=== PATIENT | male | born 1935 | race Caucasian/White ===

== ENCOUNTER 2020-01-25 12:58 | Outpatient (REF) | payer MEDICARE, SELFPAY | END 2020-01-25 12:59 | disposition home or self-care (01) | LOC: HO.LAB 12:58 | PROVIDERS: Visit Provider Internal Medicine | DX: Z20.828 Contact with and (suspected) exposure to other viral communicable diseases (principal) | CPT/HCPCS: C9803; U0003 ==

== ENCOUNTER 2022-04-13 17:06 | Inpatient (IN) | payer MEDICARE, MEDICAID, SELFPAY ==
--- NOTE | ~2022-04-13 | CT_ITS ---
EXAMINATION: CT head/brain wo IV con CLINICAL INFORMATION: confused COMPARISON: None. TECHNIQUE: Contiguous axial imaging was performed from the skull base to vertex without intravenous contrast. Sagittal and coronal reformatted images were obtained. This CT examination was performed using dose optimization techniques as appropriate, variously including the following: * Automated exposure control * Adjustment of mA and/or kV according to patient size (this includes techniques or standardized protocols for targeted exams where dose is matched to indication/reason for exam; i.e. extremities or head) Use of iterative reconstruction technique DLP: 620 mGy-cm FINDINGS: Moderate generalized parenchymal volume loss. Patchy periventricular and deep white matter hypoattenuation is consistent with mild small vessel ischemic changes. 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 No acute intracranial hemorrhage or extra-axial fluid collection. No mass lesion, significant mass effect, or herniation pattern. Intracranial calcific atherosclerotic disease. The orbits are incompletely imaged, however there is fatty deposition within the bilateral superior rectus muscles with slight fusiform expansion, which may be seen in the setting of thyroid eye disease; correlate clinically. Chronic mild mucoperiosteal thickening of the left sphenoid sinus compatible with sequelae of chronic sinusitis. Trace left mastoid effusion with air-fluid levels. Osseous structures are intact. CT/CT head/brain wo IV con IMPRESSION: 1. Moderate volume loss with mild chronic microangiopathy. 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 2. The orbits are incompletely imaged, however there is fatty deposition within the bilateral superior rectus muscles with slight fusiform expansion, which may be seen in the setting of thyroid eye disease; correlate clinically.
--- NOTE | ~2022-04-13 | US_ITS ---
EXAMINATION: ULTRASOUND-GUIDED PARACENTESIS. CLINICAL INFORMATION: Ascites COMPARISON: None TECHNIQUE: Following explaining ultrasound-guided paracentesis procedure, benefits and risk a written consent was obtained. Patient was placed supine on ultrasound stretcher and placed within the ultrasound imaging was obtained. An optimal site was selected along the right upper quadrant. The area was marked, cleaned, cleaned and draped in usual sterile manner. 1% lidocaine was injected puncture site. Under sterile ultrasound guidance a 4 [place] Yueh catheter was advanced into the right perihepatic fluid collection and simple aspiration was performed for diagnostic purposes. Postprocedure needle was withdrawn and complete hemostasis achieved at puncture site. Patient tolerated procedure extremely well. Sterile dressing applied postprocedure. FINDINGS: On preliminary ultrasound imaging there is small amount of fluid seen in right upper quadrant perihepatic space. Approximately 250 mL cloudy yellowish fluid was drained from the right upper quadrant. Part of this fluid was sent to lab as per physician's request. US/US paracentesis abd w/image IMPRESSION: Successful ultrasound guided diagnostic paracentesis performed without immediate complications.
--- NOTE | ~2022-04-13 | CT_ITS ---
EXAMINATION: CT CHEST, ABDOMEN AND PELVIS WITHOUT CONTRAST CLINICAL INFORMATION: Edema, pain, shortness of breath COMPARISON: None TECHNIQUE: Multidetector volumetric imaging was performed from the thoracic inlet through the pubic symphysis. Sagittal and coronal reformatted images were obtained on the technologist's workstation. Axial MIP volume rendering provided. This CT examination was performed using dose optimization techniques as appropriate, variously including the following: *Automated exposure control *Adjustment of mA and/or kV according to patient size (this includes techniques or standardized protocols for targeted exams where dose is matched to indication/reason for exam; i.e. extremities or head) *Use of iterative reconstruction technique DLP: 424, 1048 mGy-cm FINDINGS: CHEST: Lungs: There is partial opacification of the right middle and lower lobes suspected to reflect atelectasis in the setting of moderate to large pleural effusion. No additional consolidation bilaterally. Mediastinum: Visualized thyroid gland is unremarkable. There are subcentimeter mediastinal lymph nodes within the range of normal variation. There is cardiomegaly without pericardial effusion. There is atherosclerotic calcification along the aorta. Coronary Artery Calcification: Present. 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 Pleura: Moderate to large right pleural effusion. Small left pleural effusion. No pneumothorax. Chest Wall/Axilla: No axillary lymphadenopathy is present. Status post sternotomy. ABDOMEN/PELVIS: Liver, Gallbladder, Biliary Tree: The liver is normal in size, shape, and attenuation. No focal hepatic lesion or biliary ductal dilatation is identified. Small gallstone is suspected. Pancreas: Moderately atrophic. Spleen: Unremarkable. Adrenal Glands: Unremarkable. Kidneys and Ureters: No hydronephrosis or obstructing calculus bilaterally. There is an approximately 3.2 cm right renal cyst; no follow-up recommended. Bladder: Unremarkable. Gastrointestinal Tract: There is colonic diverticulosis without convincing diverticulitis. No evidence of bowel obstruction or significant wall thickening. Appendix appears nondilated. Moderate volume of ascites is present. No free air is seen. Abdominal Wall: Bilateral fat-containing inguinal hernias. Anasarca noted. Lymphovascular Structures: Lymph nodes: Normal. Vascular: Moderate vascular calcifications are present. Pelvic Viscera: The prostate gland is enlarged, measuring 5.4 cm in transverse diameter. OSSEOUS STRUCTURES: Unremarkable. CT/CT abdomen pelvis wo IV con IMPRESSION: 1. Moderate to large right and small left pleural effusions. Partial opacification of the right middle and lower lobes, suspected to reflect atelectasis in this setting. 2. Moderate volume of ascites. 3. Anasarca. 4. Cardiomegaly. 5. Cholelithiasis.
[2022-04-13 17:15] VITALS: BP 160/78; PULSE 60; O2SAT 96
--- NOTE | 2022-04-13 17:16 | ED_ITS ---
HPI - General Adult General Chief complaint: General Medical <LAYTON Oscar - Last Filed: 04/13/22 17:17> Stated complaint: exposure to element <LAYTON Oscar - Last Filed: 04/13/22 17:17> Time Seen by Provider: 04/13/22 17:43 <LAYTON Oscar - Last Filed: 04/13/22 17:17> Source: patient <Sunita Mcgill NP - Last Filed: 04/14/22 01:38> Mode of arrival: ambulatory <Sunita Mcgill NP - Last Filed: 04/14/22 01:38> Limitations: language barrier <Sunita Mcgill NP - Last Filed: 04/14/22 01:38> History of Present Illness HPI narrative: 86-year-old male presents via EMS for prolonged cold exposure. <Sunita Mcgill NP - Last Filed: 04/14/22 01:38> Onset (ago): hour(s) (Within the hour of arrival) <Sunita Mcgill NP - Last Filed: 04/14/22 01:38> Severity: mild <Sunita Mcgill NP - Last Filed: 04/14/22 01:38> Associated symptoms: denies other symptoms <Sunita Mcgill NP - Last Filed: 04/14/22 01:38> Related Data Allergies/adverse reactions: Allergies Allergy/AdvReac Type Severity Reaction Status Date / Time No Known Allergies Allergy Unverified 11/26/19 16:02 <LAYTON Oscar - Last Filed: 04/13/22 17:17> Review of Systems Review of Systems: Constitutional: No Fever, No Chills ENT/Mouth: No Ear Pain, No Hoarseness, No sore throat Eyes: No Eye Pain, No Swelling, No Redness, No Foreign Body Cardiovascular: No Chest Pain, No SOB Respiratory: No Cough, No Dyspnea Gastrointestinal: No Nausea, No Vomiting, No Diarrhea, No abdominal Pain Genitourinary: No Dysuria, No Hematuria Musculoskeletal: positive bilateral hand pain, No Myalgias, No Joint Swelling Skin: No Skin lacerations, No rash Neuro: No Weakness, No Numbness, No Paresthesias <Sunita Mcgill NP - Last Filed: 04/14/22 01:38> Yes all other systems are reviewed and are negative <Sunita Mcgill NP - Last Filed: 04/14/22 01:38> PMF Past Medical History Attestation statement: The following information was validated with the patient. <Sunita Mcgill NP - Last Filed: 04/14/22 01:38> Source: old records reviewed <Sunita Mcgill NP - Last Filed: 04/14/22 01:38> Social History Social History: Social History Alcohol intake: former Smoked in Last 30 Days: No Use of substances other than those prescribed or required for medical reasons: No Advance Directives: No Advance Directives Information Provided: No <LAYTON Oscar - Last Filed: 04/13/22 17:17> Physical Exam ED Vital Signs: Vital Signs - 24 hr 04/13/22 17:21 04/13/22 18:00 04/13/22 20:11 Temperature Pulse Rate 94 96 Respiratory Rate 17 Blood Pressure 183/69 H 155/83 H 153/74 H Pulse Oximetry 99 98 Oxygen Delivery Method Room Air Room Air 04/13/22 23:03 04/14/22 03:18 Temperature 97.7 F 97.6 F Pulse Rate 97 97 Respiratory Rate 20 20 Blood Pressure 164/94 H 146/73 H Pulse Oximetry 98 98 Oxygen Delivery Method Room Air Room Air BMI result Body Mass Index 27.4 <LAYTON Oscar - Last Filed: 04/13/22 17:17> Vital Signs - 24 hr 04/13/22 17:21 04/13/22 18:00 04/13/22 20:11 Temperature Pulse Rate 94 96 Respiratory Rate 17 Blood Pressure 183/69 H 155/83 H 153/74 H Pulse Oximetry 99 98 Oxygen Delivery Method Room Air Room Air 04/13/22 23:03 04/14/22 03:18 Temperature 97.7 F 97.6 F Pulse Rate 97 97 Respiratory Rate 20 20 Blood Pressure 164/94 H 146/73 H Pulse Oximetry 98 98 Oxygen Delivery Method Room Air Room Air BMI result Body Mass Index 27.4 <Sunita Mcgill NP - Last Filed: 04/14/22 01:38> Vital Signs - 24 hr 04/13/22 17:21 02/03/23 18:00 04/13/22 20:11 Temperature Pulse Rate 94 96 Respiratory Rate 17 Blood Pressure 183/69 H 155/83 H 153/74 H Pulse Oximetry 99 98 Oxygen Delivery Method Room Air Room Air 04/13/22 23:03 04/14/22 03:18 Temperature 97.7 F 97.6 F Pulse Rate 97 97 Respiratory Rate 20 20 Blood Pressure 164/94 H 146/73 H Pulse Oximetry 98 98 Oxygen Delivery Method Room Air Room Air BMI result Body Mass Index 27.4 <Delilah Richter MD - Last Filed: 04/14/22 03:43> Appearance: Alert. Oriented. No acute distress. Poor dentition. Eyes: Pupils equal, round and reactive to light. ENT: Pharynx normal. Neck: Normal inspection. Neck supple. CVS: Normal heart rate and rhythm. Pulses normal. Respiratory: No respiratory distress. Breath sounds normal. Abdomen: Soft and nontender. Skin: Skin warm and dry. Normal skin color. Normal skin turgor. Extremities: Bilateral extremity edema per baseline. Gait balance and coordinated. Neuro: No motor deficit. No sensory deficit. Cranial nerves 2-12 intact. <Sunita Mcgill NP - Last Filed: 04/14/22 01:38> Course Course Course Narrative: RME performed by Tawana Mendoza PA-C. Patient is a 86 year old male presenting to the emergency department because he was left outside by his family to walk home from the train station. Patient states that he has no complaints, he was just cold and was brought here. Patient placed back in the waiting room pending room availability. <LAYTON Oscar - Last Filed: 04/13/22 17:17> RME performed by Tawana Mendoza PA-C. Patient is a 86 year old male presenting to the emergency department because he was left outside by his family to walk home from the train station. Patient states that he has no complaints, he was just cold and was brought here. Patient placed back in the waiting room pending room availability. 86-year-old male presents via EMS for cold exposure. Patient got off the train, was walking down the street and car driving by called 911. Patient states he do es not have any medical complaints other than being cold. Patient is able to move all digits, no indication of frostbite to fingers or toes. Patient states that he left all of his luggage at the corner of [address] and the [address] station in [facility]. Plan of care is to discharge home. Patient is unable to contact family. Case Management was ordered, further investigation into his story reveals a convoluted report on how he got to [place]. Patient was not established resident here in 2020, lost his insurance. Stated that he moved to [place] with his daughter. He presents today to ?take care of some stuff?. It is unknown if patient is confused or if he is just evading questions due to the situation. Patient states that he has left his luggage on the corner of [address] in [place] because he could not carry it. Physical exam is unremarkable, he does have edema baseline, and does not remember what his medications are. We will board this patient under physician observation for further investigation. Will order labs CBC chemistry and urine. Labs indicate elevated BUN and creatinine. Will give 2 L of fluids and repeat lab values. Prior values dating back to 2019 indicated BUN of 20 and a creatinine of 1.66. Review of records indicate that patient has a history of GI bleed, NSTEMI, hyperlipidemia, hypertension and diabetes. Police officers were able to find his luggage, they have retained his medications at the police station due to abandonment. Sign-out to Dr. Richter. <Sunita Mcgill NP - Last Filed: 04/14/22 01:38> RME performed by Tawana Mendoza PA-C. Patient is a 86 year old male presenting to the emergency department because he was left outside by his family to walk home from the train station. Patient states that he has no complaints, he was just cold and was brought here. Patient placed back in the waiting room pending room availability. 86-year-old male presents via EMS for cold exposure. Patient got off the train, was walking down the street and car driving by called 911. Patient states he does not have any medical complaints other than being cold. Patient is able to move all digits, no indication of frostbite to fingers or toes. Patient states that he left all of his luggage at the corner of [address] and the bus station in [facility]. Plan of care is to discharge home. Patient is unable to contact family. Case Management was ordered, further investigation into his story reveals a convoluted report on how he got to [place]. Patient was not established resident here in 2020, lost his insurance. Stated that he moved to [place] with his daughter. He presents today to ?take care of some stuff?. It is unknown if patient is confused or if he is just evading questions due to the situation. Patient states that he has left his luggage on the corner of [address] in [place] because he could not carry it. Physical exam is unremarkable, he does have edema baseline, and does not remember what his medications are. We will board this patient under physician observation for further investigation. Will order labs CBC chemistry and urine. Labs indicate elevated BUN and creatinine. Will give 2 L of fluids and repeat lab values. Prior values dating back to 2019 indicated BUN of 20 and a creatinine of 1.66. Review of records indicate that patient has a history of GI bleed, NSTEMI, hyperlipidemia, hypertension and diabetes. Police officers were able to find his luggage, they have retained his medications at the police station due to abandonment. Sign-out to Dr. Richter. 0231: I followed up on patient's chart repeat chemistries which showed mild improvement in his renal function, however I a calculated in the ratio of BUN to creatinine which raise concerns for me that this was pre renal in nature as opp osed to intrinsic failure. Initially I was going to pursue a chest x-ray and BNP for further evaluation, however I evaluated the patient at bedside and he demonstrates significant increase in work of breathing although his oxygenation appears to be well within normal limits at 97%, patient states that he feels increasing shortness of breath. On my evaluation I have noted that his bilateral hands are edematous with formation of blisters that he attributes to having been exposed to the cold. In addition, I have noted that he has significant abdominal wall pitting edema and on doing a bedside ultrasound he appears to have fluid overload with a pleural effusion on the right in suspected pneumonia and noted abdominal ascites. At this time, I will pursue: CT chest/abdomen/pelvis, BNP, liver panel, viral testing, 80 mg of Lasix, and in the meantime attempts to get patient's medication list from the police department who is declining to release the medication or even to discuss the names of the medication as they are being considered abandoned medicine?. [id number]: On review of all documentation from 2014 I have found that patient has a past medical history of asthma, hypertension, diabetes, dyslipidemia, CAD (status post CABG), ex smoker as well as alcohol use disorder and has been seen in the ED for NSTEMI, GI Bleed(Gastric Ulcer),Hypertensive Urgency. 45 minutes of critical care log. I personally attest to this time spent taking care of the patient. <Delilah Richter MD - Last Filed: 04/14/22 03:43> Consultations Consultation #1: Case management. <Sunita Mcgill NP - Last Filed: 04/14/22 01:38> Medications Administered Discontinued Medications Generic Name Dose Route Start Last Admin Trade Name Freq PRN Reason Stop Dose Admin Furosemide 80 mg 04/14/22 02:30 04/14/22 03:19 Furosemide 100 Mg/10 Ml Vial IVPUSH 04/14/22 02:31 80 mg ONCE ONE Administration Protocol Sodium Chloride 1,000 mls @ 999 mls/hr 04/13/22 22:15 04/13/22 23:55 Ns IVCONT 04/13/22 23:15 Infused .Q1H1M BLU Infusion Sodium Chloride 1,000 mls @ 999 mls/hr 04/13/22 23:45 04/14/22 01:18 Ns IV 04/14/22 00:45 Infused .Q1H1M BLU Infusion <LAYTON Oscar - Last Filed: 04/13/22 17:17> Medications Administered Discontinued Medications Generic Name Dose Route Start Last Admin Trade Name Freq PRN Reason Stop Dose Admin Furosemide 80 mg 04/14/22 02:30 04/14/22 03:19 Furosemide 100 Mg/10 Ml Vial IVPUSH 04/14/22 02:31 80 mg ONCE ONE Administration Protocol Sodium Chloride 1,000 mls @ 999 mls/hr 04/13/22 22:15 04/13/22 23:55 Ns IVCONT 04/13/22 23:15 Infused .Q1H1M BLU Infusion Sodium Chloride 1,000 mls @ 999 mls/hr 04/13/22 23:45 04/14/22 01:18 Ns IV 04/14/22 00:45 Infused .Q1H1M BLU Infusion <Sunita Mcgill NP - Last Filed: 04/14/22 01:38> Medications Administered Discontinued Medications Generic Name Dose Route Start Last Admin Trade Name Yasmine PRN Reason Stop Dose Admin Furosemide 80 mg 04/14/22 02:30 04/14/22 03:19 Furosemide 100 Mg/10 Ml Vial IVPUSH 04/14/22 02:31 80 mg ONCE ONE Administration Protocol Sodium Chloride 1,000 mls @ 999 mls/hr 04/13/22 22:15 04/13/22 23:55 Ns IVCONT 04/13/22 23:15 Infused .Q1H1M BLU Infusion Sodium Chloride 1,000 mls @ 999 mls/hr 04/13/22 23:45 04/14/22 01:18 Ns IV 04/14/22 00:45 Infused .Q1H1M BLU Infusion <Delilah Richter MD - Last Filed: 04/14/22 03:43> Medical Decision Making Differential Diagnosis Differential Diagnoses: The differential diagnosis associated with the presentation includes <Ca larry Mcgill NP - Last Filed: 04/14/22 01:38> Hypothermia <Sunita Mcgill NP - Last Filed: 04/14/22 01:38> Consult Healthcare Provider Management of the patient was discussed with: Program Director Group Work <Sunita Mcgill NP - Last Filed: 04/14/22 01:38> Case management <Sunita Mcgill NP - Last Filed: 04/14/22 01:38> Lab Data MDM Lab Attestation statement: I reviewed the patient's lab results. <Sunita Mcgill NP - Last Filed: 04/14/22 01:38> Result Diagrams: 04/13/22 20:56 04/13/22 20:56 <LAYTON Oscar - Last Filed: 04/13/22 17:17> Labs: Lab Results 04/13/22 04/13/22 04/13/22 Range/Units 20:56 20:56 20:56 WBC 7.5 (4.8-10.8) X10*3/uL RBC 4.83 (4.60-5.80) X10*6/uL Hgb 11.5 L (14.0-18.0) g/dl Hct 38.7 L (42.0-52.0) % MCV 80.1 (80.0-98.0) fL MCH 23.8 L (27.0-33.0) pg MCHC 29.7 L (31.0-36.0) g/dl RDW 17.5 H (11.0-16.0) % Plt Count 291 (160-400) X10*3/uL MPV 10.4 (9.4-12.4) fL Immature Gran % (Auto) 0.3 (0.0-0.4) % Neut % (Auto) 86.4 H (45-73) % Lymph % (Auto) 7.1 L (20-40) % Coal % (Auto) 5.7 (2-11) % Eos % (Auto) 0.1 (0-4) % Baso % (Auto) 0.4 (0-2) % Lymph # (Auto) 0.5 L (1.2-4.9) X10*3/uL Coal # (Auto) 0.4 (0.1-1.2) X10*3/uL Eos # (Auto) 0.0 (0.0-0.4) X10*3/uL Baso # (Auto) 0.0 (0.0-0.2) X10*3/uL Abs Immat Gran (auto) 0.02 (0.00-0.03) X10*3/uL Absolute Neuts (auto) 6.5 (2.0-8.3) x10*3/uL Absolute Nucleated RBC 0.000 (0.0-0.012) X10*3/uL Nucleated RBC % (auto) 0.0 (0.0-0.2) /100WBC Sodium 143 (135-145) mmol/L Potassium 4.7 (3.3-5.1) mmol/L Chloride 108 (96-108) mmol/L Carbon Dioxide 20 L (22-29) mmol/L Anion Gap 20 (12-20) BUN 35 H (9-16) mg/dL Creatinine 1.78 H (0.5-1.4) mg/dL Estim Creat Clear Calc 29.2 Estimated GFR 37 Random Glucose 114 (60-115) mg/dL Calcium 9.5 (8.4-10.2) mg/dL Total Bilirubin 2.0 H (0.0-1.0) mg/dL Direct Bilirubin 0.9 H (0.0-0.5) mg/dL AST 24 (5-37) U/L ALT 19 (0-40) U/L Alkaline Phosphatase 106 (39-117) U/L B-Natriuretic Peptide (<100) pg/mL Total Protein 6.2 L (6.5-8.0) g/dL Albumin 3.7 (3.5-5.0) g/dL Urine Color Urine Appearance Urine pH (5.0-9.0) Ur Specific [place] (1.005-1.025) Urine Protein (Neg-Trace) mg/dL Urine Glucose (UA) (Negative) mg/dL Urine Ketones (Negative) mg/dL Urine Blood (Negative) Urine Nitrite (Negative) Ur Leukocyte Esterase (Negative) Urine RBC (0-2) /HPF Urine WBC (0-5) /HPF Ur Squamous Epith Cells (0-2) /HPF Urine Bacteria (None Seen) Hyaline Casts (0-2) /LPF Urine Opiates Screen (Not Detect) Urine Fentanyl Screen (Not Detect) Ur Barbiturates Screen (Not Detect) Ur Phencyclidine Scrn (Not Detect) Ur Amphetamines Screen (Not Detect) U Benzodiazepines Scrn (Not Detect) Urine Cocaine Screen (Not Detect) U Marijuana (THC) Screen (Not Detect) Ethyl Alcohol < 10 mg/dL COVID-19 ([facility]) (Negative) COVID-19 Clin Com Influenza Type A (SALLIE) (Negative) Influenza Type B (SALLIE) (Negative) Influenza A & B Note 04/13/22 04/13/22 04/14/22 Range/Units 22:47 22:47 01:15 WBC (4.8-10.8) X10*3/uL RBC (4.60-5.80) X10*6/uL Hgb (14.0-18.0) g/dl Hct (42.0-52.0) % MCV (80.0-98.0) fL MCH (27.0-33.0) pg MCHC (31.0-36.0) g/dl RDW (11.0-16.0) % Plt Count (160-400) X10*3/uL MPV (9.4-12.4) fL Immature Gran % (Auto) (0.0-0.4) % Neut % (Auto) (45-73) % Lymph % (Auto) (20-40) % Coal % (Auto) (2-11) % Eos % (Auto) (0-4) % Baso % (Auto) (0-2) % Lymph # (Auto) (1.2-4.9) X10*3/uL Coal # (Auto) (0.1-1.2) X10*3/uL Eos # (Auto) (0.0-0.4) X10*3/uL Baso # (Auto) (0.0-0.2) X10*3/uL Abs Immat Gran (auto) (0.00-0.03) X10*3/uL Absolute Neuts (auto) (2.0-8.3) x10*3/uL Absolute Nucleated RBC (0.0-0.012) X10*3/uL Nucleated RBC % (auto) (0.0-0.2) /100WBC Sodium 144 (135-145) mmol/L Potassium 4.6 (3.3-5.1) mmol/L Chloride 111 H (96-108) mmol/L Carbon Dioxide 17 L (22-29) mmol/L Anion Gap 21 H (12-20) BUN 33 H (9-16) mg/dL Creatinine 1.64 H (0.5-1.4) mg/dL Estim Creat Clear Calc 31.6 Estimated GFR 40 Random Glucose 94 (60-115) mg/dL Calcium 9.0 (8.4-10.2) mg/dL Total Bilirubin (0.0-1.0) mg/dL Direct Bilirubin (0.0-0.5) mg/dL AST (5-37) U/L ALT (0-40) U/L Alkaline Phosphatase (39-117) U/L B-Natriuretic Peptide (<100) pg/mL Total Protein (6.5-8.0) g/dL Albumin (3.5-5.0) g/dL Urine Color Yellow Urine Appearance Clear Urine pH 5.5 (5.0-9.0) Ur Specific [place] 1.020 (1.005-1.025) Urine Protein 100 (2+) H (Neg-Trace) mg/dL Urine Glucose (UA) Negative (Negative) mg/dL Urine Ketones Negative (Negative) mg/dL Urine Blood Negative (Negative) Urine Nitrite Negative (Negative) Ur Leukocyte Esterase Small (1+) H (Negative) Urine RBC 0-2 (0-2) /HPF Urine WBC 0-5 (0-5) /HPF Ur Squamous Epith Cells 0-2 (0-2) /HPF Urine Bacteria None Seen (None Seen) Hyaline Casts 3-5 (0-2) /LPF Urine Opiates Screen Not Detected (Not Detect) Urine Fentanyl Screen Not Detected (Not Detect) Ur Barbiturates Screen Not Detected (Not Detect) Ur Phencyclidine Scrn Not Detected (Not Detect) Ur Amphetamines Screen Not Detected (Not Detect) U Benzodiazepines Scrn Not Detected (Not Detect) Urine Cocaine Screen Not Detected (Not Detect) U Marijuana (THC) Screen Not Detected (Not Detect) Ethyl Alcohol mg/dL COVID-19 ([facility]) (Negative) COVID-19 Clin Com Influenza Type A (SALLIE) (Negative) Influenza Type B (SALLIE) (Negative) Influenza A & B Note 04/14/22 04/14/22 04/14/22 Range/Units 02:20 02:20 02:20 WBC (4.8-10.8) X10*3/uL RBC (4.60-5.80) X10*6/uL Hgb (14.0-18.0) g/dl Hct (42.0-52.0) % MCV (80.0-98.0) fL MCH (27.0-33.0) pg MCHC (31.0-36.0) g/dl RDW (11.0-16.0) % Plt Count (160-400) X10*3/uL MPV (9.4-12.4) fL Immature Gran % (Auto) (0.0-0.4) % Neut % (Auto) (45-73) % Lymph % (Auto) (20-40) % Coal % (Auto) (2-11) % Eos % (Auto) (0-4) % Baso % (Auto) (0-2) % Lymph # (Auto) (1.2-4.9) X10*3/uL Coal # (Auto) (0.1-1.2) X10*3/uL Eos # (Auto) (0.0-0.4) X10*3/uL Baso # (Auto) (0.0-0.2) X10*3/uL Abs Immat Gran (auto) (0.00-0.03) X10*3/uL Absolute Neuts (auto) (2.0-8.3) x10*3/uL Absolute Nucleated RBC (0.0-0.012) X10*3/uL Nucleated RBC % (auto) (0.0-0.2) /100WBC Sodium (135-145) mmol/L Potassium (3.3-5.1) mmol/L Chloride (96-108) mmol/L Carbon Dioxide (22-29) mmol/L Anion Gap (12-20) BUN (9-16) mg/dL Creatinine (0.5-1.4) mg/dL Estim Creat Clear Calc Estimated GFR Random Glucose (60-115) mg/dL Calcium (8.4-10.2) mg/dL Total Bilirubin (0.0-1.0) mg/dL Direct Bilirubin (0.0-0.5) mg/dL AST (5-37) U/L ALT (0-40) U/L Alkaline Phosphatase (39-117) U/L B-Natriuretic Peptide 3121 H (<100) pg/mL Total Protein (6.5-8.0) g/dL Albumin (3.5-5.0) g/dL Urine Color Urine Appearance Urine pH (5.0-9.0) Ur Specific [place] (1.005-1.025) Urine Protein (Neg-Trace) mg/dL Urine Glucose (UA) (Negative) mg/dL Urine Ketones (Negative) mg/dL Urine Blood (Negative) Urine Nitrite (Negative) Ur Leukocyte Esterase (Negative) Urine RBC (0-2) /HPF Urine WBC (0-5) /HPF Ur Squamous Epith Cells (0-2) /HPF Urine Bacteria (None Seen) Hyaline Casts (0-2) /LPF Urine Opiates Screen (Not Detect) Urine Fentanyl Screen (Not Detect) Ur Barbiturates Screen (Not Detect) Ur Phencyclidine Scrn (Not Detect) Ur Amphetamines Screen (Not Detect) U Benzodiazepines Scrn (Not Detect) Urine Cocaine Screen (Not Detect) U Marijuana (THC) Screen (Not Detect) Ethyl Alcohol mg/dL COVID-19 ([facility]) Negative (Negative) COVID-19 Clin Com See Note Influenza Type A (SALLIE) Negative (Negative) Influenza Type B (SALLIE) Negative (Negative) Influenza A & B Note See Note <LAYTON Oscar - Last Filed: 04/13/22 17:17> Lab Results 04/13/22 04/13/22 04/13/22 Range/Units 20:56 20:56 20:56 WBC 7.5 (4.8-10.8) X10*3/uL RBC 4.83 (4.60-5.80) X10*6/uL Hgb 11.5 L (14.0-18.0) g/dl Hct 38.7 L (42.0-52.0) % MCV 80.1 (80.0-98.0) fL MCH 23.8 L (27.0-33.0) pg MCHC 29.7 L (31.0-36.0) g/dl RDW 17.5 H (11.0-16.0) % Plt Count 291 (160-400) X10*3/uL MPV 10.4 (9.4-12.4) fL Immature Gran % (Auto) 0.3 (0.0-0.4) % Neut % (Auto) 86.4 H (45-73) % Lymph % (Auto) 7.1 L (20-40) % Coal % (Auto) 5.7 (2-11) % Eos % (Auto) 0.1 (0-4) % Baso % (Auto) 0.4 (0-2) % Lymph # (Auto) 0.5 L (1.2-4.9) X10*3/uL Coal # (Auto) 0.4 (0.1-1.2) X10*3/uL Eos # (Auto) 0.0 (0.0-0.4) X10*3/uL Baso # (Auto) 0.0 (0.0-0.2) X10*3/uL Abs Immat Gran (auto) 0.02 (0.00-0.03) X10*3/uL Absolute Neuts (auto) 6.5 (2.0-8.3) x10*3/uL Absolute Nucleated RBC 0.000 (0.0-0.012) X10*3/uL Nucleated RBC % (auto) 0.0 (0.0-0.2) /100WBC Sodium 143 (135-145) mmol/L Potassium 4.7 (3.3-5.1) mmol/L Chloride 108 (96-108) mmol/L Carbon Dioxide 20 L (22-29) mmol/L Anion Gap 20 (12-20) BUN 35 H (9-16) mg/dL Creatinine 1.78 H (0.5-1.4) mg/dL Estim Creat Clear Calc 29.2 Estimated GFR 37 Random Glucose 114 (60-115) mg/dL Calcium 9.5 (8.4-10.2) mg/dL Total Bilirubin 2.0 H (0.0-1.0) mg/dL Direct Bilirubin 0.9 H (0.0-0.5) mg/dL AST 24 (5-37) U/L ALT 19 (0-40) U/L Alkaline Phosphatase 106 (39-117) U/L B-Natriuretic Peptide (<100) pg/mL Total Protein 6.2 L (6.5-8.0) g/dL Albumin 3.7 (3.5-5.0) g/dL Urine Color Urine Appearance Urine pH (5.0-9.0) Ur Specific [place] (1.005-1.025) Urine Protein (Neg-Trace) mg/dL Urine Glucose (UA) (Negative) mg/dL Urine Ketones (Negative) mg/dL Urine Blood (Negative) Urine Nitrite (Negative) Ur Leukocyte Esterase (Negative) Urine RBC (0-2) /HPF Urine WBC (0-5) /HPF Ur Squamous Epith Cells (0-2) /HPF Urine Bacteria (None Seen) Hyaline Casts (0-2) /LPF Urine Opiates Screen (Not Detect) Urine Fentanyl Screen (Not Detect) Ur Barbiturates Screen (Not Detect) Ur Phencyclidine Scrn (Not Detect) Ur Amphetamines Screen (Not Detect) U Benzodiazepines Scrn (Not Detect) Urine Cocaine Screen (Not Detect) U Marijuana (THC) Screen (Not Detect) Ethyl Alcohol < 10 mg/dL COVID-19 ([facility]) (Negative) COVID-19 Clin Com Influenza Type A (SALLIE) (Negative) Influenza Type B ([facility]ALL[facility]) (Negative) Influenza A & B Note 04/13/22 04/13/22 04/14/22 Range/Units 22:47 22:47 01:15 WBC (4.8-10.8) X10*3/uL RBC (4.60-5.80) X10*6/uL Hgb (14.0-18.0) g/dl Hct (42.0-52.0) % MCV (80.0-98.0) fL MCH (27.0-33.0) pg MCHC (31.0-36.0) g/dl RDW (11.0-16.0) % Plt Count (160-400) X10*3/uL MPV (9.4-12.4) fL Immature Gran % (Auto) (0.0-0.4) % Neut % (Auto) (45-73) % Lymph % (Auto) (20-40) % Coal % (Auto) (2-11) % Eos % (Auto) (0-4) % Baso % (Auto) (0-2) % Lymph # (Auto) (1.2-4.9) X10*3/uL Coal # (Auto) (0.1-1.2) X10*3/uL Eos # (Auto) (0.0-0.4) X10*3/uL Baso # (Auto) (0.0-0.2) X10*3/uL Abs Immat Gran (auto) (0.00-0.03) X10*3/uL Absolute Neuts (auto) (2.0-8.3) x10*3/uL Absolute Nucleated RBC (0.0-0.012) X10*3/uL Nucleated RBC % (auto) (0.0-0.2) /100WBC Sodium 144 (135-145) mmol/L Potassium 4.6 (3.3-5.1) mmol/L Chloride 111 H (96-108) mmol/L Carbon Dioxide 17 L (22-29) mmol/L Anion Gap 21 H (12-20) BUN 33 H (9-16) mg/dL Creatinine 1.64 H (0.5-1.4) mg/dL Estim Creat Clear Calc 31.6 Estimated GFR 40 Random Glucose 94 (60-115) mg/dL Calcium 9.0 (8.4-10.2) mg/dL Total Bilirubin (0.0-1.0) mg/dL Direct Bilirubin (0.0-0.5) mg/dL AST (5-37) U/L ALT (0-40) U/L Alkaline Phosphatase (39-117) U/L B-Natriuretic Peptide (<100) pg/mL Total Protein (6.5-8.0) g/dL Albumin (3.5-5.0) g/dL Urine Color Yellow Urine Appearance Clear Urine pH 5.5 (5.0-9.0) Ur Specific [place] 1.020 (1.005-1.025) Urine Protein 100 (2+) H (Neg-Trace) mg/dL Urine Glucose (UA) Negative (Negative) mg/dL Urine Ketones Negative (Negative) mg/dL Urine Blood Negative (Negative) Urine Nitrite Negative (Negative) Ur Leukocyte Esterase Small (1+) H (Negative) Urine RBC 0-2 (0-2) /HPF Urine WBC 0-5 (0-5) /HPF Ur Squamous Epith Cells 0-2 (0-2) /HPF Urine Bacteria None Seen (None Seen) Hyaline Casts 3-5 (0-2) /LPF Urine Opiates Screen Not Detected (Not Detect) Urine Fentanyl Screen Not Detected (Not Detect) Ur Barbiturates Screen Not Detected (Not Detect) Ur Phencyclidine Scrn Not Detected (Not Detect) Ur Amphetamines Screen Not Detected (Not Detect) U Benzodiazepines Scrn Not Detected (Not Detect) Urine Cocaine Screen Not Detected (Not Detect) U Marijuana (THC) Screen Not Detected (Not Detect) Ethyl Alcohol mg/dL COVID-19 ([facility]) (Negative) COVID-19 Clin Com Influenza Type A (SALLIE) (Negative) Influenza Type B (SALLIE) (Negative) Influenza A & B Note 04/14/22 04/14/22 04/14/22 Range/Units 02:20 02:20 02:20 WBC (4.8-10.8) X10*3/uL RBC (4.60-5.80) X10*6/uL Hgb (14.0-18.0) g/dl Hct (42.0-52.0) % MCV (80.0-98.0) fL MCH (27.0-33.0) pg MCHC (31.0-36.0) g/dl RDW (11.0-16.0) % Plt Count (160-400) X10*3/uL MPV (9.4-12.4) fL Immature Gran % (Auto) (0.0-0.4) % Neut % (Auto) (45-73) % Lymph % (Auto) (20-40) % Coal % (Auto) (2-11) % Eos % (Auto) (0-4) % Baso % (Auto) (0-2) % Lymph # (Auto) (1.2-4.9) X10*3/uL Coal # (Auto) (0.1-1.2) X10*3/uL Eos # (Auto) (0.0-0.4) X10*3/uL Baso # (Auto) (0.0-0.2) X10*3/uL Abs Immat Gran (auto) (0.00-0.03) X10*3/uL Absolute Neuts (auto) (2.0-8.3) x10*3/uL Absolute Nucleated RBC (0.0-0.012) X10*3/uL Nucleated RBC % (auto) (0.0-0.2) /100WBC Sodium (135-145) mmol/L Potassium (3.3-5.1) mmol/L Chloride (96-108) mmol/L Carbon Dioxide (22-29) mmol/L Anion Gap (12-20) BUN (9-16) mg/dL Creatinine (0.5-1.4) mg/dL Estim Creat Clear Calc Estimated GFR Random Glucose (60-115) mg/dL Calcium (8.4-10.2) mg/dL Total Bilirubin (0.0-1.0) mg/dL Direct Bilirubin (0.0-0.5) mg/dL AST (5-37) U/L ALT (0-40) U/L Alkaline Phosphatase (39-117) U/L B-Natriuretic Peptide 3121 H (<100) pg/mL Total Protein (6.5-8.0) g/dL Albumin (3.5-5.0) g/dL Urine Color Urine Appearance Urine pH (5.0-9.0) Ur Specific [place] (1.005-1.025) Urine Protein (Neg-Trace) mg/dL Urine Glucose (UA) (Negative) mg/dL Urine Ketones (Negative) mg/dL Urine Blood (Negative) Urine Nitrite (Negative) Ur Leukocyte Esterase (Negative) Urine RBC (0-2) /HPF Urine WBC (0-5) /HPF Ur Squamous Epith Cells (0-2) /HPF Urine Bacteria (None Seen) Hyaline Casts (0-2) /LPF Urine Opiates Screen (Not Detect) Urine Fentanyl Screen (Not Detect) Ur Barbiturates Screen (Not Detect) Ur Phencyclidine Scrn (Not Detect) Ur Amphetamines Screen (Not Detect) U Benzodiazepines Scrn (Not Detect) Urine Cocaine Screen (Not Detect) U Marijuana (THC) Screen (Not Detect) Ethyl Alcohol mg/dL COVID-19 ([facility]) Negative (Negative) COVID-19 Clin Com See Note Influenza Type A (SALLIE) Negative (Negative) Influenza Type B (SALLIE) Negative (Negative) Influenza A & B Note See Note <Sunita Mcgill, BRIM PRESSER - Last Filed: 04/14/22 01:38> Lab Results 04/13/22 04/13/22 04/13/22 Range/Units 20:56 20:56 20:56 WBC 7.5 (4.8-10.8) X10*3/uL RBC 4.83 (4.60-5.80) X10*6/uL Hgb 11.5 L (14.0-18.0) g/dl Hct 38.7 L (42.0-52.0) % MCV 80.1 (80.0-98.0) fL MCH 23.8 L (27.0-33.0) pg MCHC 29.7 L (31.0-36.0) g/dl RDW 17.5 H (11.0-16.0) % Plt Count 291 (160-400) X10*3/uL MPV 10.4 (9.4-12.4) fL Immature Gran % (Auto) 0.3 (0.0-0.4) % Neut % (Auto) 86.4 H (45-73) % Lymph % (Auto) 7.1 L (20-40) % Coal % (Auto) 5.7 (2-11) % Eos % (Auto) 0.1 (0-4) % Baso % (Auto) 0.4 (0-2) % Lymph # (Auto) 0.5 L (1.2-4.9) X10*3/uL Coal # (Auto) 0.4 (0.1-1.2) X10*3/uL Eos # (Auto) 0.0 (0.0-0.4) X10*3/uL Baso # (Auto) 0.0 (0.0-0.2) X10*3/uL Abs Immat Gran (auto) 0.02 (0.00-0.03) X10*3/uL Absolute Neuts (auto) 6.5 (2.0-8.3) x10*3/uL Absolute Nucleated RBC 0.000 (0.0-0.012) X10*3/uL Nucleated RBC % (auto) 0.0 (0.0-0.2) /100WBC Sodium 143 (135-145) mmol/L Potassium 4.7 (3.3-5.1) mmol/L Chloride 108 (96-108) mmol/L Carbon Dioxide 20 L (22-29) mmol/L Anion Gap 20 (12-20) BUN 35 H (9-16) mg/dL Creatinine 1.78 H (0.5-1.4) mg/dL Estim Creat Clear Calc 29.2 Estimated GFR 37 Random Glucose 114 (60-115) mg/dL Calcium 9.5 (8.4-10.2) mg/dL Total Bilirubin 2.0 H (0.0-1.0) mg/dL Direct Bilirubin 0.9 H (0.0-0.5) mg/dL AST 24 (5-37) U/L ALT 19 (0-40) U/L Alkaline Phosphatase 106 (39-117) U/L B-Natriuretic Peptide (<100) pg/mL Total Protein 6.2 L (6.5-8.0) g/dL Albumin 3.7 (3.5-5.0) g/dL Urine Color Urine Appearance Urine pH (5.0-9.0) Ur Specific [place] (1.005-1.025) Urine Protein (Neg-Trace) mg/dL Urine Glucose (UA) (Negative) mg/dL Urine Ketones (Negative) mg/dL Urine Blood (Negative) Urine Nitrite (Negative) Ur Leukocyte Esterase (Negative) Urine RBC (0-2) /HPF Urine WBC (0-5) /HPF Ur Squamous Epith Cells (0-2) /HPF Urine Bacteria (None Seen) Hyaline Casts (0-2) /LPF Urine Opiates Screen (Not Detect) Urine Fentanyl Screen (Not Detect) Ur Barbiturates Screen (Not Detect) Ur Phencyclidine Scrn (Not Detect) Ur Amphetamines Screen (Not Detect) U Benzodiazepines Scrn (Not Detect) Urine Cocaine Screen (Not Detect) U Marijuana (THC) Screen (Not Detect) Ethyl Alcohol < 10 mg/dL COVID-19 ([facility]) (Negative) COVID-19 Clin Com Influenza Type A ([facility]ALLIE) (Negative) Influenza Type B ([facility]ALLIE) (Negative) Influenza A & B Note 04/13/22 04/13/22 04/14/22 Range/Units 22:47 22:47 01:15 WBC (4.8-10.8) X10*3/uL RBC (4.60-5.80) X10*6/uL Hgb (14.0-18.0) g/dl Hct (42.0-52.0) % MCV (80.0-98.0) fL MCH (27.0-33.0) pg MCHC (31.0-36.0) g/dl RDW (11.0-16.0) % Plt Count (160-400) X10*3/uL MPV (9.4-12.4) fL Immature Gran % (Auto) (0.0-0.4) % Neut % (Auto) (45-73) % Lymph % (Auto) (20-40) % Coal % (Auto) (2-11) % Eos % (Auto) (0-4) % Baso % (Auto) (0-2) % Lymph # (Auto) (1.2-4.9) X10*3/uL Coal # (Auto) (0.1-1.2) X10*3/uL Eos # (Auto) (0.0-0.4) X10*3/uL Baso # (Auto) (0.0-0.2) X10*3/uL Abs Immat Gran (auto) (0.00-0.03) X10*3/uL Absolute Neuts (auto) (2.0-8.3) x10*3/uL Absolute Nucleated RBC (0.0-0.012) X10*3/uL Nucleated RBC % (auto) (0.0-0.2) /100WBC Sodium 144 (135-145) mmol/L Potassium 4.6 (3.3-5.1) mmol/L Chloride 111 H (96-108) mmol/L Carbon Dioxide 17 L (22-29) mmol/L Anion Gap 21 H (12-20) BUN 33 H (9-16) mg/dL Creatinine 1.64 H (0.5-1.4) mg/dL Estim Creat Clear Calc 31.6 Estimated GFR 40 Random Glucose 94 (60-115) mg/dL Calcium 9.0 (8.4-10.2) mg/dL Total Bilirubin (0.0-1.0) mg/dL Direct Bilirubin (0.0-0.5) mg/dL AST (5-37) U/L ALT (0-40) U/L Alkaline Phosphatase (39-117) U/L B-Natriuretic Peptide (<100) pg/mL Total Protein (6.5-8.0) g/dL Albumin (3.5-5.0) g/dL Urine Color Yellow Urine Appearance Clear Urine pH 5.5 (5.0-9.0) Ur Specific [place] 1.020 (1.005-1.025) Urine Protein 100 (2+) H (Neg-Trace) mg/dL Urine Glucose (UA) Negative (Negative) mg/dL Urine Ketones Negative (Negative) mg/dL Urine Blood Negative (Negative) Urine Nitrite Negative (Negative) Ur Leukocyte Esterase Small (1+) H (Negative) Urine RBC 0-2 (0-2) /HPF Urine WBC 0-5 (0-5) /HPF Ur Squamous Epith Cells 0-2 (0-2) /HPF Urine Bacteria None Seen (None Seen) Hyaline Casts 3-5 (0-2) /LPF Urine Opiates Screen Not Detected (Not Detect) Urine Fentanyl Screen Not Detected (Not Detect) Ur Barbiturates Screen Not Detected (Not Detect) Ur Phencyclidine Scrn Not Detected (Not Detect) Ur Amphetamines Screen Not Detected (Not Detect) U Benzodiazepines Scrn Not Detected (Not Detect) Urine Cocaine Screen Not Detected (Not Detect) U Marijuana (THC) Screen Not Detected (Not Detect) Ethyl Alcohol mg/dL COVID-19 ([facility]) (Negative) COVID-19 Clin Com Influenza Type A (SALLIE) (Negative) Influenza Type B ([facility]IE) (Negative) Influenza A & B Note 04/14/22 04/14/22 04/14/22 Range/Units 02:20 02:20 02:20 WBC (4.8-10.8) X10*3/uL RBC (4.60-5.80) X10*6/uL Hgb (14.0-18.0) g/dl Hct (42.0-52.0) % MCV (80.0-98.0) fL MCH (27.0-33.0) pg MCHC (31.0-36.0) g/dl RDW (11.0-16.0) % Plt Count (160-400) X10*3/uL MPV (9.4-12.4) fL Immature Gran % (Auto) (0.0-0.4) % Neut % (Auto) (45-73) % Lymph % (Auto) (20-40) % Coal % (Auto) (2-11) % Eos % (Auto) (0-4) % Baso % (Auto) (0-2) % Lymph # (Auto) (1.2-4.9) X10*3/uL Coal # (Auto) (0.1-1.2) X10*3/uL Eos # (Auto) (0.0-0.4) X10*3/uL Baso # (Auto) (0.0-0.2) X10*3/uL Abs Immat Gran (auto) (0.00-0.03) X10*3/uL Absolute Neuts (auto) (2.0-8.3) x10*3/uL Absolute Nucleated RBC (0.0-0.012) X10*3/uL Nucleated RBC % (auto) (0.0-0.2) /100WBC Sodium (135-145) mmol/L Potassium (3.3-5.1) mmol/L Chloride (96-108) mmol/L Carbon Dioxide (22-29) mmol/L Anion Gap (12-20) BUN (9-16) mg/dL Creatinine (0.5-1.4) mg/dL Estim Creat Clear Calc Estimated GFR Random Glucose (60-115) mg/dL Calcium (8.4-10.2) mg/dL Total Bilirubin (0.0-1.0) mg/dL Direct Bilirubin (0.0-0.5) mg/dL AST (5-37) U/L ALT (0-40) U/L Alkaline Phosphatase (39-117) U/L B-Natriuretic Peptide 3121 H (<100) pg/mL Total Protein (6.5-8.0) g/dL Albumin (3.5-5.0) g/dL Urine Color Urine Appearance Urine pH (5.0-9.0) Ur Specific [place] (1.005-1.025) Urine Protein (Neg-Trace) mg/dL Urine Glucose (UA) (Negative) mg/dL Urine Ketones (Negative) mg/dL Urine Blood (Negative) Urine Nitrite (Negative) Ur Leukocyte Esterase (Negative) Urine RBC (0-2) /HPF Urine WBC (0-5) /HPF Ur Squamous Epith Cells (0-2) /HPF Urine Bacteria (None Seen) Hyaline Casts (0-2) /LPF Urine Opiates Screen (Not Detect) Urine Fentanyl Screen (Not Detect) Ur Barbiturates Screen (Not Detect) Ur Phencyclidine Scrn (Not Detect) Ur Amphetamines Screen (Not Detect) U Benzodiazepines Scrn (Not Detect) Urine Cocaine Screen (Not Detect) U Marijuana (THC) Screen (Not Detect) Ethyl Alcohol mg/dL COVID-19 ([facility]) Negative (Negative) COVID-19 Clin Com See Note Influenza Type A (SALLIE) Negative (Negative) Influenza Type B (SALLIE) Negative (Negative) Influenza A & B Note See Note <Delilah Richter MD - Last Filed: 04/14/22 03:43> External Record Review External record reviewed: Outpatient record and Prior outpatient labs <Sunita Mcgill NP - Last Filed: 04/14/22 01:38> Social Determinants Patient?s care significantly limited by Social Determinants of Health including: Other Social Determinant of Health <Sunita Mcgill NP - Last Filed: 04/14/22 01:38> Discharge Plan Discharge Clinical Impression: CHF exacerbation, CATARINO (acute kidney injury), Pleural effusion, right, Abdominal ascites <LAYTON Oscar - Last Filed: 04/13/22 17:17> Patient Disposition: Admitted As Inpatient <LAYTON Oscar - Last Filed: 04/13/22 17:17>
[2022-04-13 17:21] VITALS: BP 183/69; BMI 27.4
[2022-04-13 18:00] VITALS: BP 155/83; PULSE 94; O2SAT 99
--- NOTE | 2022-04-13 19:10 | PC.NURSE ---
This filing writer assumed care of this PT at 1900. PT A&Ox3, reports pain to bilateral hands from being out in the cold weather.
[2022-04-13 20:11] VITALS: BP 153/74; PULSE 96; RESP 17; O2SAT 98
[2022-04-13 21:01] LABS: Basophils Percent Auto 0.4 % (0-2); Eosinophils Percent Auto 0.1 % (0-4); Hematocrit 38.7 % (42.0-52.0); Hemoglobin 11.5 g/dl (14.0-18.0); Imm Gran Abs Auto 0.02 X10*3/uL (0.00-0.03); Imm Gran Pct Auto 0.3 % (0.0-0.4); Lymphocytes Absolute Auto 0.5 X10*3/uL (1.2-4.9); Lymphocytes Percent Auto 7.1 % (20-40); MANUAL DIFF FLAG NO; Mean Corpuscular HGB Conc 29.7 g/dl (31.0-36.0); Mean Corpuscular Hemoglobin 23.8 pg (27.0-33.0); Mean Corpuscular Volume 80.1 fL (80.0-98.0); Mean Platelet Volume 10.4 fL (9.4-12.4); Monocytes Absolute Auto 0.4 X10*3/uL (0.1-1.2); Monocytes Percent Auto 5.7 % (2-11); Neutrophils Absolute Auto 6.5 x10*3/uL (2.0-8.3); Neutrophils Percent Auto 86.4 % (45-73); Platelet Count 291 X10*3/uL (160-400); Red Blood Count 4.83 X10*6/uL (4.60-5.80); Red Cell Distribution Width 17.5 % (11.0-16.0); White Blood Count 7.5 X10*3/uL (4.8-10.8)
[2022-04-13 21:24] LABS: Ethanol < 10 mg/dL
[2022-04-13 21:25] LABS: Anion Gap 20 (12-20); Blood Urea Nitrogen 35 mg/dL (9-16); Calcium 9.5 mg/dL (8.4-10.2); Carbon Dioxide 20 mmol/L (22-29); Chloride 108 mmol/L (96-108); Creatinine Clr Calc Pharmacy 29.2; Estimated Glomerular Filt Rate 37; Glucose Random 114 mg/dL (60-115); Potassium 4.7 mmol/L (3.3-5.1); Sodium 143 mmol/L (135-145)
--- NOTE | 2022-04-13 22:45 | PC.NURSE ---
IV established, fluids given as documented.
[2022-04-13] MEDS: 0.9 % Sodium Chloride 1,000 ML 999 ML IVCONT (22:49)
--- NOTE | 2022-04-13 22:53 | MHC.CM.ED ---
CM met with patient with use of medical office technology instructor, as patient is Greek speaking. Pt also speaks some Niuean. Pt mumbles. Difficult to understand in either language. Pt tells CM he took a train from [place], came to [place], was unable to reach friend Gavino Flood, so he was walking from train station in [place]. Left his suitcases, became too cold and ended up in ED. 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 Pt states his daughter moved to [place] and he moved with her. Pt tells CM his train ticket is in his pocket. There is not a train ticket in his pocket, but there is a receipt from a [employer] for $100 withdrawal in [place], [place] 04/11/22. Address incorrect. Pt does not live on [facility], but did in the past. [facility] has insurance, but CM verified with [facility] that pt was disenrolled in 2010. Probably because he moved to [place]. CM given contact information for daughter, Edyta Munoz [phone] from [facility]. Message left. Pt allowed CM to review his contacts in his phone. Pt has different number for his daughter, Edyta [phone]. Attempted to call. Number not in service at this time. No contact information in patients telephone for friend, Gavino Flood (with whom is was supposed to stay with). Pt tells CM that we shall see tomorrow , when questioned about where he was planning to stay or how he was going to call someone that he did not have the telephone number for. Telephone numbers for 2 brothers in his phone. States they live in [place]. Message left on both phones for Rigoberto ([phone]) and Oswald ([phone]). No return telephone calls. Pt states he uses a cane, but left it with his suitcases. CM is unable to verify his story and unable to reach any relatives. Unsure if patient has any current health insurance. D/C plan: unknown at this time. Pt will stay overnight, as he cannot be discharged to the elements.
[2022-04-13 22:54] LABS: Appearance Urine Clear; Color Urine Yellow; Glucose Urine UA Negative (Negative); Leukocyte Esterase Urine Small (1+) (Negative); Nitrite Urine Negative (Negative); PH 5.5 (5.0-9.0); UMIC TRIGGER UACC YES; Urine Blood Negative (Negative); Urine Ketones Negative (Negative); Urine Protein 100 (2+) mg/dL (Neg-Trace)
[2022-04-13 23:03] VITALS: BP 164/94; PULSE 97; RESP 20; TEMP 36.5; O2SAT 98
[2022-04-13 23:06] LABS: Amphetamine Screen Urine Not Detected (Not Detect); Barbiturates, Urine Not Detected (Not Detect); Benzodiazepines Screen Urine Not Detected (Not Detect); Cannabinoid Screen Urine Not Detected (Not Detect); Cocaine Screen Urine Not Detected (Not Detect); Fentanyl, urine Not Detected (Not Detect); Opiate Screen Urine Not Detected (Not Detect); Phencyclidine Screen Urine Not Detected (Not Detect)
[2022-04-13 23:07] LABS: Bacteria Urine None Seen (None Seen); RBC Urine 0-2 /HPF (0-2); Squamous Epithelial Cell Urine 0-2 /HPF (0-2); UACC Culture Trigger YES; WBC Urine 0-5 /HPF (0-5)
[2022-04-13] MEDS: 0.9 % Sodium Chloride 1,000 ML 999 ML IV (23:58)
--- NOTE | 2022-04-14 00:38 | PC.NURSE ---
Addendum entered by Mireya Matthew 04/14/22 01:24: PT updated. [facility] #[phone]. Addendum entered by Mireya Matthew 04/14/22 01:06: [employer] called to notify that medications were found but d/t being abandoned they have to keep as evidence. PT would be able to retrieve once personnel is available in the evidence room. [employer] advise if we need to verify meds to call in the AM. Provider notified. Addendum entered by Mireya Matthew 04/14/22 00:56: No medications founds with belongings, PT states they were in a red bag attached to a cane. No cane found. Original Note: PT reports leaving two luggages at the train station.This freelance copywriter called [employer] for help retrieving PT personal belongings along with medications. [employer] able to retrieve belongings.
[2022-04-14 01:38] LABS: Anion Gap 21 (12-20); Blood Urea Nitrogen 33 mg/dL (9-16); Carbon Dioxide 17 mmol/L (22-29); Chloride 111 mmol/L (96-108); Creatinine Clr Calc Pharmacy 31.6; Estimated Glomerular Filt Rate 40; Glucose Random 94 mg/dL (60-115); Potassium 4.6 mmol/L (3.3-5.1); Sodium 144 mmol/L (135-145)
[2022-04-14 02:49] LABS: Alanine Aminotransferase 19 U/L (0-40); Albumin Level 3.7 g/dL (3.5-5.0); Alkaline Phosphatase 106 U/L (39-117); Aspartate Amino Transferase 24 U/L (5-37); Bilirubin Direct 0.9 mg/dL (0.0-0.5); Total Protein 6.2 g/dL (6.5-8.0)
[2022-04-14 02:50] LABS: B Type Natriuretic Peptide 3121 pg/mL (<100)
[2022-04-14 03:04] LABS: COVID-19 Test Negative (Negative); IDNOW Serial# 16C4AD1C; IDNOW Serial# BCCEAD1C; Influenza A Negative (Negative); Influenza B2 Negative (Negative)
[2022-04-14 03:18] VITALS: BP 146/73; PULSE 97; RESP 20; TEMP 36.4; O2SAT 98
[2022-04-14] MEDS: Furosemide 100 MG/10 ML VIAL 80 MG IVPUSH (03:19)
--- NOTE | 2022-04-14 04:21 | P.HPHOSP_ITS ---
History of Present Illness Date of Service: 04/14/22 Chief Complaint: Dyspnea This is a 86-year-old male with pertinent history of qtm-xbtqyyc-zrjqpeadh diabetes mellitus, essential hypertension, gastroesophageal reflux disease, essential hypertension, mixed hyperlipidemia, CAD status post CABG who was brought to the emergency department via EMS for cold exposure. As per chart review, patient was left outside by his family to walk home from the train station and he was cold and was brought to the ER. Case management was initially ordered in the ER who revealed that patient lives in [place] and came to [place] to take care of some stuff . Patient stated that he left his luggage the street which was found by police officers have retained his medications at the police station due to abandonment. Lab work in the ER initially revealed elevated creatinine and 2 L bolus normal saline was ordered. Patient was found to have dyspnea over the course of physician observation stay in the ER which led to additional workup. His BNP was found to be significantly elevated and imaging revealed bilateral pleural effusions with ascites and cardiomegaly. Review of Systems Review of Systems: Yes Unobtainable due to mental condition [facility] Medical History Coronary artery disease Diabetes Essential hypertension GERD (gastroesophageal reflux disease) Mood disorder Pertinent family history: Not significant due to age Surgical History Hx of CABG Social History Alcohol intake: former Smoked in Last 30 Days: No Use of substances other than those prescribed or required for medical reasons: No Advance Directives: No Advance Directives Information Provided: No Meds Allergies Allergy/AdvReac Type Severity Reaction Status Date / Time No Known Allergies Allergy Unverified 11/26/19 16:02 Physical Exam Vital Signs and Narrative: Vital Signs: Last Vital Signs Temp 97.6 F 04/14/22 03:18 Pulse 97 04/14/22 03:18 Resp 20 04/14/22 03:18 BP 146/73 H 04/14/22 03:18 Pulse Ox 98 04/14/22 03:18 O2 Del Method 04/14/22 03:18 BMI result Body Mass Index 27.4 Elderly male lying in bed in mild distress Neck supple, no JVD Regular rate and rhythm, S1-S2 heard Bilateral crackles appreciated Abdomen distended with abdominal wall edema, no tenderness Patient is awake, alert and oriented to self, place, disoriented to time and p erson ; no focal motor deficit Psych: Normal mood +2 bilateral pitting edema Results Labs 04/13/22 20:56 04/14/22 01:15 Labs: Laboratory Results - last 24 hr 04/13/22 04/13/22 04/13/22 20:56 20:56 20:56 MCV 80.1 MCH 23.8 L MCHC 29.7 L RDW 17.5 H Plt Count 291 MPV 10.4 Immature Gran % (Auto) 0.3 Neut % (Auto) 86.4 H Lymph % (Auto) 7.1 L [place] % (Auto) 5.7 Eos % (Auto) 0.1 Baso % (Auto) 0.4 Lymph # (Auto) 0.5 L [place] # (Auto) 0.4 Eos # (Auto) 0.0 Baso # (Auto) 0.0 Abs Immat Gran (auto) 0.02 Absolute Neuts (auto) 6.5 Absolute Nucleated RBC 0.000 Nucleated RBC % (auto) 0.0 Anion Gap 20 Estim Creat Clear Calc 29.2 Estimated GFR 37 Random Glucose 114 Calcium 9.5 Total Bilirubin 2.0 H Direct Bilirubin 0.9 H AST 24 ALT 19 Alkaline Phosphatase 106 B-Natriuretic Peptide Total Protein 6.2 L Albumin 3.7 Urine Color Urine Appearance Urine pH Ur Specific [place] Urine Protein Urine Glucose (UA) Urine Ketones Urine Blood Urine Nitrite Ur Leukocyte Esterase Urine RBC Urine WBC Ur Squamous Epith Cells Urine Bacteria Hyaline Casts Urine Opiates Screen Urine Fentanyl Screen Ur Barbiturates Screen Ur Phencyclidine Scrn Ur Amphetamines Screen U Benzodiazepines Scrn Urine Cocaine Screen U Marijuana (THC) Screen Ethyl Alcohol < 10 COVID-19 ([facility]) COVID-19 Clin Com Influenza Type A (SALLIE) Influenza Type B (SALLIE) Influenza A & B Note 04/13/22 04/13/22 04/14/22 22:47 22:47 01:15 MCV MCH MCHC RDW Plt Count MPV Immature Gran % (Auto) Neut % (Auto) Lymph % (Auto) [place] % (Auto) Eos % (Auto) Baso % (Auto) Lymph # (Auto) [place] # (Auto) Eos # (Auto) Baso # (Auto) Abs Immat Gran (auto) Absolute Neuts (auto) Absolute Nucleated RBC Nucleated RBC % (auto) Anion Gap 21 H Estim Creat Clear Calc 31.6 Estimated GFR 40 Random Glucose 94 Calcium 9.0 Total Bilirubin Direct Bilirubin AST ALT Alkaline Phosphatase B-Natriuretic Peptide Total Protein Albumin Urine Color Yellow Urine Appearance Clear Urine pH 5.5 Ur Specific [place] 1.020 Urine Protein 100 (2+) H Urine Glucose (UA) Negative Urine Ketones Negative Urine Blood Negative Urine Nitrite Negative Ur Leukocyte Esterase Small (1+) H Urine RBC 0-2 Urine WBC 0-5 Ur Squamous Epith Cells 0-2 Urine Bacteria None Seen Hyaline Casts 3-5 Urine Opiates Screen Not Detected Urine Fentanyl Screen Not Detected Ur Barbiturates Screen Not Detected Ur Phencyclidine Scrn Not Detected Ur Amphetamines Screen Not Detected U Benzodiazepines Scrn Not Detected Urine Cocaine Screen Not Detected U Marijuana (THC) Screen Not Detected Ethyl Alcohol COVID-19 ([facility]OH[facility]) COVID-19 Clin Com Influenza Type A (SALLIE) Influenza Type B (SALLIE) Influenza A & B Note 04/14/22 04/14/22 04/14/22 02:20 02:20 02:20 MCV MCH MCHC RDW Plt Count MPV Immature Gran % (Auto) Neut % (Auto) Lymph % (Auto) [place] % (Auto) Eos % (Auto) Baso % (Auto) Lymph # (Auto) [place] # (Auto) Eos # (Auto) Baso # (Auto) Abs Immat Gran (auto) Absolute Neuts (auto) Absolute Nucleated RBC Nucleated RBC % (auto) Anion Gap Estim Creat Clear Calc Estimated GFR Random Glucose Calcium Total Bilirubin Direct Bilirubin AST ALT Alkaline Phosphatase B-Natriuretic Peptide 3121 H Total Protein Albumin Urine Color Urine Appearance Urine pH Ur Specific [place] Urine Protein Urine Glucose (UA) Urine Ketones Urine Blood Urine Nitrite Ur Leukocyte Esterase Urine RBC Urine WBC Ur Squamous Epith Cells Urine Bacteria Hyaline Casts Urine Opiates Screen Urine Fentanyl Screen Ur Barbiturates Screen Ur Phencyclidine Scrn Ur Amphetamines Screen U Benzodiazepines Scrn Urine Cocaine Screen U Marijuana (THC) Screen Ethyl Alcohol COVID-19 ([facility]OH[facility]) Negative COVID-19 Clin Com See Note Influenza Type A (SALLIE) Negative Influenza Type B (SALLIE) Negative Influenza A & B Note See Note Imaging Radiologist's Impressions: Impressions Abdomen/Pelvis CT 04/14/22 03:23 IMPRESSION: 1. Moderate to large right and small left pleural effusions. Partial opacification of the right middle and lower lobes, suspected to reflect atelectasis in this setting. 2. Moderate volume of ascites. 3. Anasarca. 4. Cardiomegaly. 5. Cholelithiasis. Chest CT 04/14/22 03:23 IMPRESSION: 1. Moderate to large right and small left pleural effusions. Partial opacification of the right middle and lower lobes, suspected to reflect atelectasis in this setting. 2. Moderate volume of ascites. 3. Anasarca. 4. Cardiomegaly. 5. Cholelithiasis. Assessment and Plan (1) CHF exacerbation: Status: Acute Plan This is a 86-year-old male with pertinent history of opi-hzhhnjn-fcqmgxdot diabetes mellitus, essential hypertension, gastroesophageal reflux disease, e ssential hypertension, mixed hyperlipidemia, CAD status post CABG who was brought to the emergency department via EMS for cold exposure. #. Acute dyspnea due to exacerbation of congestive heart failure, unspecified ejection fraction: Will admit patient and initiate IV Lasix. Ordered echocardiogram. Strict I's and O's. Low-salt diet. Consulting Cardiology. #. Anasarca with bilateral pleural effusion and ascites in the setting of above: Obtaining paracentesis in a.m and ordered ascitic fluids labs, follow #. Chronic kidney disease, unclear baseline: Monitor creatinine and urine outpu t with diuresis. Avoid nephrotoxins #. Essential hypertension: Optimize and reconcile antihypertensives #. Jpe-xvmbkcx-teiirllqj diabetes mellitus: Initiate Accu-Cheks with sliding scale insulin #. CAD status post CABG: Is on high-intensity statin. Not on antiplatelet agent Med rec pending DVT prophylaxis: Lovenox 40 mg daily Full code Cardiac diet Admit as inpatient and will require two night minimum hospital stay for IV diuresis Time Spent With Patient Time: Total time managing care of this patient today ____ minutes. Quality Stroke Does the patient have a stroke diagnosis?: No VTE Prior VTE?: No VTE Risk Level:: Medical - moderate - high VTE Device Contraindication: Treatment Not Indicated VTE Drug Contraindication: N/A - Med Ordered
[2022-04-14] MEDS: Enoxaparin Sodium 40 MG/0.4 ML SYRINGE SUBCUT (04:31)
[2022-04-14 05:45] LABS: MANUAL DIFF FLAG NO
[2022-04-14 05:51] LABS: Basophils Percent Auto 0.5 % (0-2); Hematocrit 38.7 % (42.0-52.0); Hemoglobin 11.4 g/dl (14.0-18.0); Imm Gran Abs Auto 0.02 X10*3/uL (0.00-0.03); Imm Gran Pct Auto 0.3 % (0.0-0.4); Lymphocytes Absolute Auto 0.7 X10*3/uL (1.2-4.9); Lymphocytes Percent Auto 10.1 % (20-40); Mean Corpuscular HGB Conc 29.5 g/dl (31.0-36.0); Mean Corpuscular Hemoglobin 23.7 pg (27.0-33.0); Mean Corpuscular Volume 80.3 fL (80.0-98.0); Mean Platelet Volume 10.7 fL (9.4-12.4); Monocytes Absolute Auto 0.6 X10*3/uL (0.1-1.2); Monocytes Percent Auto 9.5 % (2-11); Neutrophils Absolute Auto 5.1 x10*3/uL (2.0-8.3); Neutrophils Percent Auto 79.6 % (45-73); Platelet Count 305 X10*3/uL (160-400); Red Blood Count 4.82 X10*6/uL (4.60-5.80); Red Cell Distribution Width 17.6 % (11.0-16.0); White Blood Count 6.4 X10*3/uL (4.8-10.8)
[2022-04-14 06:04] LABS: Anion Gap 18 (12-20); Blood Urea Nitrogen 34 mg/dL (9-16); Calcium 9.2 mg/dL (8.4-10.2); Carbon Dioxide 20 mmol/L (22-29); Chloride 110 mmol/L (96-108); Estimated Glomerular Filt Rate 36; Glucose Random 98 mg/dL (60-115); Potassium 4.7 mmol/L (3.3-5.1); Sodium 143 mmol/L (135-145)
[2022-04-14 07:09] LABS: Glucose, Whole Blood 113 mg/dL (60-115)
[2022-04-14 07:16] VITALS: BP 140/67; PULSE 100; RESP 22; TEMP 36.5; O2SAT 97
--- NOTE | 2022-04-14 08:09 | PC.NURSE ---
pt's daughter armando ([phone], lives in the [facility]) called and was updated on pt status. armando states that she is also taking care of a sister who has been in/out of the hospital within the last few weeks. pt aware of daughter's call.
[2022-04-14] MEDS: Furosemide 40 MG/4 ML VIAL IVPUSH ×2 (08:45→17:39)
--- NOTE | 2022-04-14 08:47 | PHA.MEDREC ---
Pharmacy Consult ? Medication Reconciliation Pharmacy has completed the medication reconciliation.
[2022-04-14] MEDS: 0.9 % Sodium Chloride Flush 3 ML SYRINGE IVFLUSH ×3 (08:51→23:52)
[2022-04-14] MEDS: Acetaminophen 325 MG TABLET 650 MG PO (09:07)
--- NOTE | 2022-04-14 09:23 | PC.NURSE ---
pt is a/o x 2, c/o sob, speaks in full sentences. abd breathing. lungs - diminished. heart sounds regular. abd soft, non-tender, bx + x 4 quads. anat legs/feet 2+ pitting edema/shining. joanne (hosp, labor relations consultant) at bedside. pt aware of plan of care. pt's penis is swollen, anat groin rolando, wet and has an ODOR. (hosp, labor relations consultant aware)
--- NOTE | 2022-04-14 09:27 | MHC.EDTECH ---
this PCT went into patient room to give a bed bath along with another (female)pct and noticed his anat groins which appears to be inflamed and had an odor. patient was washed from head to toe and powder added in the groin areas. complete bed linen changed, head of bed up.RN aware.
--- NOTE | 2022-04-14 09:30 | PC.NURSE ---
pt anat hand except anat thumbs are all swollen/blisters/leaking blisters from muse bite. l index finger appears slightly purple. hosp,rubber flap cutter aware.
[2022-04-14 09:55] VITALS: BP 146/65; PULSE 93; RESP 15; TEMP 36.5; O2SAT 98
[2022-04-14 10:44] VITALS: BP 154/70; PULSE 101; RESP 24; TEMP 36.5; O2SAT 97
[2022-04-14 11:47] LABS: Glucose, Whole Blood 107 mg/dL (60-115)
--- NOTE | 2022-04-14 11:50 | MHC.CM.PN ---
ED CM requested unit CM to please attempt to call this patient's daughter Elida at: [phone]. This RNCM called this number and there was no answer. Additionally, the voice mail box is full and no options given to leave a voice message requesting a return call. CM to follow.
--- NOTE | 2022-04-14 12:09 | P.PNIM_ITS ---
Subjective Subjective Date of Service: 04/14/22 Review of Systems Follow up CHF, cold exposure No sob or chest pain Physical Exam Vital Signs: Vital Signs: Last Vital Signs Temp 97.7 F 04/14/22 10:44 Pulse 101 H 04/14/22 10:44 Resp 24 H 04/14/22 10:44 BP 154/70 H 04/14/22 10:44 Pulse Ox 97 04/14/22 10:44 O2 Del Method 04/14/22 10:44 BMI result Body Mass Index 27.4 Appearing in no acute distress lung sounds are clear to auscultation heart regular rate rhythm, clear S1, S2 positive bowel sounds, abdomen is soft, nontender neuro patient is alert x3, no focal deficits Blistered fingers bilaterally with edema and some discoloration to middle finger left hand reddended and malodorous groin area Objective Data Active Medications Acetaminophen (Acetaminophen 325 Mg Tablet) 650 mg PO Q6H PRN PRN Reason: Pain, Mild (Pain Scale 1-3) Last Admin: 04/14/22 09:07 Dose: 650 mg Documented By: HARLAN Dextrose (Dextrose 50 % 25 Gm/50 Ml Syringe) 25 gm IVPUSH Q15M PRN; Protocol PRN Reason: per Hypoglycemia Standing Ord. Enoxaparin Sodium (Enoxaparin Sodium 40 Mg/0.4 Ml Syringe) 40 mg SUBCUT Q24H BLU Last Admin: 04/14/22 04:31 Dose: 40 mg Documented By: SOPHIE Furosemide (Furosemide 40 Mg/4 Ml Vial) 40 mg IVPUSH BID@0900,1800 [facility]; Pr otocol Last Admin: 04/14/22 08:45 Dose: 40 mg Documented By: HARLAN Glucose (Glucose Gel 15 Gm Gel..Gram.) 15 gm PO Q15M PRN; Protocol PRN Reason: per Hypoglycemia Standing Ord. Insulin Human Lispro (Insulin Lispro 100 Unit/Ml 3 Ml Vial) 0 unit SUBCUT QIDACHS [facility]; Protocol Last Admin: 04/14/22 12:06 Dose: Not Given Documented By: HARLAN Non-Admin Reason: No Insulin Coverage Melatonin (Melatonin 3 Mg Tablet) 6 mg PO BEDTIME PRN PRN Reason: Insomnia Ondansetron HCl (Ondansetron Hcl 4 Mg/2 Ml Vial) 4 mg IVPUSH Q8H PRN PRN Reason: Nausea and Vomiting Pharmacy Consult (Consult Rx Perform Med Rec) 1 each MISCELLANE ONCE PRN PRN Reason: Consult order Sodium Chloride (0.9 % Sodium Chloride Flush 3 Ml Syringe) 3 ml IVFLUSH QSHIFT [facility] Last Admin: 04/14/22 08:51 Dose: 3 ml Documented By: SCOC Labs 04/14/22 04:45 04/14/22 04:45 Labs: Laboratory Results - last 24 hr 04/13/22 04/13/22 04/13/22 20:56 20:56 20:56 MCV 80.1 MCH 23.8 L MCHC 29.7 L RDW 17.5 H Plt Count 291 MPV 10.4 Immature Gran % (Auto) 0.3 Neut % (Auto) 86.4 H Lymph % (Auto) 7.1 L [place] % (Auto) 5.7 Eos % (Auto) 0.1 Baso % (Auto) 0.4 Lymph # (Auto) 0.5 L [place] # (Auto) 0.4 Eos # (Auto) 0.0 Baso # (Auto) 0.0 Abs Immat Gran (auto) 0.02 Absolute Neuts (auto) 6.5 Absolute Nucleated RBC 0.000 Nucleated RBC % (auto) 0.0 Anion Gap 20 Estim Creat Clear Calc 29.2 Estimated GFR 37 POC Glucose Random Glucose 114 Calcium 9.5 Total Bilirubin 2.0 H Direct Bilirubin 0.9 H AST 24 ALT 19 Alkaline Phosphatase 106 B-Natriuretic Peptide Total Protein 6.2 L Albumin 3.7 Urine Color Urine Appearance Urine pH Ur Specific [place] Urine Protein Urine Glucose (UA) Urine Ketones Urine Blood Urine Nitrite Ur Leukocyte Esterase Urine RBC Urine WBC Ur Squamous Epith Cells Urine Bacteria Hyaline Casts Urine Opiates Screen Urine Fentanyl Screen Ur Barbiturates Screen Ur Phencyclidine Scrn Ur Amphetamines Screen U Benzodiazepines Scrn Urine Cocaine Screen U Marijuana (THC) Screen Ethyl Alcohol < 10 COVID-19 ([facility]) COVID-19 Clin Com Influenza Type A (SALLIE) Influenza Type B (SALLIE) Influenza A & B Note 04/13/22 04/13/22 04/14/22 22:47 22:47 01:15 MCV MCH MCHC RDW Plt Count MPV Immature Gran % (Auto) Neut % (Auto) Lymph % (Auto) [place] % (Auto) Eos % (Auto) Baso % (Auto) Lymph # (Auto) [place] # (Auto) Eos # (Auto) Baso # (Auto) Abs Immat Gran (auto) Absolute Neuts (auto) Absolute Nucleated RBC Nucleated RBC % (auto) Anion Gap 21 H Estim Creat Clear Calc 31.6 Estimated GFR 40 POC Glucose Random Glucose 94 Calcium 9.0 Total Bilirubin Direct Bilirubin AST ALT Alkaline Phosphatase B-Natriuretic Peptide Total Protein Albumin Urine Color Yellow Urine Appearance Clear Urine pH 5.5 Ur Specific [place] 1.020 Urine Protein 100 (2+) H Urine Glucose (UA) Negative Urine Ketones Negative Urine Blood Negative Urine Nitrite Negative Ur Leukocyte Esterase Small (1+) H Urine RBC 0-2 Urine WBC 0-5 Ur Squamous Epith Cells 0-2 Urine Bacteria None Seen Hyaline Casts 3-5 Urine Opiates Screen Not Detected Urine Fentanyl Screen Not Detected Ur Barbiturates Screen Not Detected Ur Phencyclidine Scrn Not Detected Ur Amphetamines Screen Not Detected U Benzodiazepines Scrn Not Detected Urine Cocaine Screen Not Detected U Marijuana (THC) Screen Not Detected Ethyl Alcohol COVID-19 ([facility]) COVID-19 Clin Com Influenza Type A (SALLIE) Influenza Type B (SALLIE) Influenza A & B Note 04/14/22 04/14/22 04/14/22 02:20 02:20 02:20 MCV MCH MCHC RDW Plt Count MPV Immature Gran % (Auto) Neut % (Auto) Lymph % (Auto) [place] % (Auto) Eos % (Auto) Baso % (Auto) Lymph # (Auto) [place] # (Auto) Eos # (Auto) Baso # (Auto) Abs Immat Gran (auto) Absolute Neuts (auto) Absolute Nucleated RBC Nucleated RBC % (auto) Anion Gap Estim Creat Clear Calc Estimated GFR POC Glucose Random Glucose Calcium Total Bilirubin Direct Bilirubin AST ALT Alkaline Phosphatase B-Natriuretic Peptide 3121 H Total Protein Albumin Urine Color Urine Appearance Urine pH Ur Specific [place] Urine Protein Urine Glucose (UA) Urine Ketones Urine Blood Urine Nitrite Ur Leukocyte Esterase Urine RBC Urine WBC Ur Squamous Epith Cells Urine Bacteria Hyaline Casts Urine Opiates Screen Urine Fentanyl Screen Ur Barbiturates Screen Ur Phencyclidine Scrn Ur Amphetamines Screen U Benzodiazepines Scrn Urine Cocaine Screen U Marijuana (THC) Screen Ethyl Alcohol COVID-19 ([facility]OHAM) Negative COVID-19 [email or web address] Com See Note Influenza Type A (SALLIE) Negative Influenza Type B (SALLIE) Negative Influenza A & B Note See Note 04/14/22 04/14/22 04/14/22 04:45 04:45 07:04 MCV 80.3 MCH 23.7 L MCHC 29.5 L RDW 17.6 H Plt Count 305 MPV 10.7 Immature Gran % (Auto) 0.3 Neut % (Auto) 79.6 H Lymph % (Auto) 10.1 L [place] % (Auto) 9.5 Eos % (Auto) 0.0 Baso % (Auto) 0.5 Lymph # (Auto) 0.7 L [place] # (Auto) 0.6 Eos # (Auto) 0.0 Baso # (Auto) 0.0 Abs Immat Gran (auto) 0.02 Absolute Neuts (auto) 5.1 Absolute Nucleated RBC 0.000 Nucleated RBC % (auto) 0.0 Anion Gap 18 Estim Creat Clear Calc 29.0 Estimated GFR 36 POC Glucose 113 Random Glucose 98 Calcium 9.2 Total Bilirubin Direct Bilirubin AST ALT Alkaline Phosphatase B-Natriuretic Peptide Total Protein Albumin Urine Color Urine Appearance Urine pH Ur Specific [place] Urine Protein Urine Glucose (UA) Urine Ketones Urine Blood Urine Nitrite Ur Leukocyte Esterase Urine RBC Urine WBC Ur Squamous Epith Cells Urine Bacteria Hyaline Casts Urine Opiates Screen Urine Fentanyl Screen Ur Barbiturates Screen Ur Phencyclidine Scrn Ur Amphetamines Screen U Benzodiazepines Scrn Urine Cocaine Screen U Marijuana (THC) Screen Ethyl Alcohol COVID-19 ([facility]) COVID-19 Clin Com Influenza Type A (SALLIE) Influenza Type B (SALLIE) Influenza A & B Note 04/14/22 11:43 MCV MCH MCHC RDW Plt Count MPV Immature Gran % (Auto) Neut % (Auto) Lymph % (Auto) [place] % (Auto) Eos % (Auto) Baso % (Auto) Lymph # (Auto) [place] # (Auto) Eos # (Auto) Baso # (Auto) Abs Immat Gran (auto) Absolute Neuts (auto) Absolute Nucleated RBC Nucleated RBC % (auto) Anion Gap Estim Creat Clear Calc Estimated GFR POC Glucose 107 Random Glucose Calcium Total Bilirubin Direct Bilirubin AST ALT Alkaline Phosphatase B-Natriuretic Peptide Total Protein Albumin Urine Color Urine Appearance Urine pH Ur Specific [place] Urine Protein Urine Glucose (UA) Urine Ketones Urine Blood Urine Nitrite Ur Leukocyte Esterase Urine RBC Urine WBC Ur Squamous Epith Cells Urine Bacteria Hyaline Casts Urine Opiates Screen Urine Fentanyl Screen Ur Barbiturates Screen Ur Phencyclidine Scrn Ur Amphetamines Screen U Benzodiazepines Scrn Urine Cocaine Screen U Marijuana (THC) Screen Ethyl Alcohol COVID-19 ([facility]) COVID-19 Clin Com Influenza Type A (SALLIE) Influenza Type B (SALLIE) Influenza A & B Note Assessment and Plan (1) GERD (gastroesophageal reflux disease): Status: Acute Plan This is a 86-year-old male with pertinent history of chr-mxotjar-xaiwlfjxb diabetes mellitus, essential hypertension, gastroesophageal reflux disease, essential hypertension, mixed hyperlipidemia, CAD status post CABG who was brought to the emergency department via EMS for cold exposure. Acute dyspnea due to exacerbation of congestive heart failure, unspecified. continue IV Lasix.? Ordered echocardiogram.? Strict I's and O's.? Low-salt diet.? Consulting Cardiology. neg 360ml Cold exposure/frostbite blistering and swelling of fingers bilaterally consulted both ortho and vascular ortho rec wrapping hands for now, no surgical intervention warranted at this time Dr. Whitt did not rec any vascular intervention at this time if symptoms worsen, will consider calling tertiary center/burn center for further advice/rec as these services are not available here Anasarca with bilateral pleural effusion and ascites in the setting of above soft abd no need for paracentesis at this time no hypoxia diurese Chronic kidney disease, unclear/unspecified baseline Monitor creatinine and urine output with diuresis.? Avoid nephrotoxins Essential hypertension Optimize antihypertensives Asy-duokjwi-doxfmntjy diabetes mellitus ss, ada diet CAD status post CABG high-intensity statin.? DVT prophylaxis: Lovenox 40 mg daily Full code Attending Dr. Freire continued hospital stay for IV diuresis Time Spent With Patient Time: Total time managing care of this patient today ____ minutes. Quality Stroke Does the patient have a stroke diagnosis?: No VTE Prior VTE?: No VTE Risk Level:: Medical - moderate - high VTE Device Contraindication: Treatment Not Indicated VTE Drug Contraindication: N/A - Med Ordered
--- NOTE | 2022-04-14 12:10 | MHC.CM.PN ---
Spoke with Elida (who called this CM directly): [phone]. Patient previously lived in [place] with his daughter. Six weeks ago, he left, took a train to [place] where his brothers (Rigoberto and Oswald) live, and stayed with them for the past several weeks. Per Elida, he is not to return. Patient was coming to [facility] to stay with his friend Gavino Herrera (not Solendo), correct spelling confirmed with Elida, is [id number], and upon arrival, Gavino was not telephonically available for Andrew. Elida states she did confirm with Gavino recently that it would be alright that her father could stay with him on his couch for a little while. Gavino's phone number per Elida is: [phone]. Elida states her father does have a baseline confusion, he historically comes and goes at will and does not stay in one place for long, etc. She indicates his health insurance is Medicare and [facility] Medicaid. Elida also offered that prior to Andrew moving to [place] to be with her, he already did live in [facility] and was followed by [facility]. When Andrew left her home 6 weeks ago, she noticed he had slurred speech and altered mental status, upon his arrival to his brothers' home in [place], she states she did offer this change to them and asked them to bring him to a hospital, she is uncertain/thinks this did not happen. Will notify providers at [facility]. This RNCM asked that Elida also please [place] back around with Gavino to confirm he is still open for patient to stay with him following this hospitalization, and this RNCM will also reach out as well. Elida in agreement. Additionally Elida verbalized concerns regarding her father's functional status as well, indicating that she did not feel as though he is safe ambulating on his own. Will also relay to provider as well. Spoke with Elida that provided Andrew is determined functionally safe for D/C or found to be independent and Gavino is not reachable, Andrew's option would most likely be a alf. Elida in agreement. Should Andrew be found to require rehab, informed Elida that short term rehabs could be explored, to which again, Elida in agreement. CM to follow.
--- NOTE | 2022-04-14 12:15 | PC.NURSE ---
pt voided large amt of urine on bathroom floor.
--- NOTE | 2022-04-14 12:35 | W.MHC.ACPN ---
Advanced Care Planning Note Problems Discussed (1) GERD (gastroesophageal reflux disease):
--- NOTE | 2022-04-14 12:40 | MHC.CM.NN ---
Report/discussion with Elida communicated to medical team. CM to follow.
--- NOTE | 2022-04-14 13:12 | P.CONCA_ITS ---
History of Present Illness History of Present Illness Date of Service: 04/14/22 Requesting physician: Michelle Padron Chief complaint: Dyspnea, anasarca. Narrative: 86-year-old gentleman who is brought in by EMS for cord exposure. He has significant blisters on both of his hands. He is somewhat of a poor historian. He was noted to be short of breath and further workup has raise concern for congestive heart failure. He also has anasarca with bilateral pleural effusions and ascites. He is saying he had bypass surgery 10 years ago at [facility]. He also has background of type 2 diabetes, hypertension, hyperlipidemia and gastroesophageal reflux disease. He appears short of breath but is denying any significant symptoms. Labs and imaging reviewed. [facility] Past Medical History Medical History Coronary artery disease Diabetes Essential hypertension GERD (gastroesophageal reflux disease) Mood disorder Surgical History Surgical History Hx of CABG Social History Social History Alcohol intake: former Patient Tobacco Use Status: Never used Tobacco Smoked in Last 30 Days: No Use of substances other than those prescribed or required for medical reasons: No Advance Directives: No Advance Directives Information Provided: No Nutrition Risks: No Nutritional Risk Current occupational status: retired [employer] Allergies Allergy/AdvReac Type Severity Reaction Status Date / Time No Known Allergies Allergy Unverified 11/26/19 16:02 Active Medications: Current Medications Acetaminophen (Acetaminophen 325 Mg Tablet) 650 mg PO Q6H PRN PRN Reason: Pain, Mild (Pain Scale 1-3) Last Admin: 04/14/22 09:07 Dose: 650 mg Atorvastatin Calcium (Atorvastatin Calcium 40 Mg Tablet) 40 mg PO DAILY BLU Dextrose (Dextrose 50 % 25 Gm/50 Ml Syringe) 25 gm IVPUSH Q15M PRN; Protocol PRN Reason: per Hypoglycemia Standing Ord. Enoxaparin Sodium (Enoxaparin Sodium 40 Mg/0.4 Ml Syringe) 40 mg SUBCUT Q24H BLU Last Admin: 04/14/22 04:31 Dose: 40 mg Furosemide (Furosemide 40 Mg/4 Ml Vial) 40 mg IVPUSH BID@0900,1800 BLU; Protocol Last Admin: 04/14/22 08:45 Dose: 40 mg Gabapentin (Gabapentin 100 Mg Capsule) 100 mg PO TID [facility] Glucose (Glucose Gel 15 Gm Gel..Gram.) 15 gm PO Q15M PRN; Protocol PRN Reason: per Hypoglycemia Standing Ord. Insulin Human Lispro (Insulin Lispro 100 Unit/Ml 3 Ml Vial) 0 unit SUBCUT QIDACHS [facility]; Protocol Last Admin: 04/14/22 12:06 Dose: Not Given Isosorbide Mononitrate (Isosorbide Mononitrate 60 Mg Tab.Er.24h) 60 mg PO DAILY [facility]; Protocol Losartan Potassium (Losartan Potassium 50 Mg Tablet) 100 mg PO DAILY [facility]; Protocol Melatonin (Melatonin 3 Mg Tablet) 6 mg PO BEDTIME PRN PRN Reason: Insomnia Metoprolol Tartrate (Metoprolol Tartrate 25 Mg Tablet) 25 mg PO BID [facility]; Protocol Nystatin (Nystatin Powder 15 Gm Bottle) 1 appl TOPICAL TID [facility]; Protocol Omeprazole (Omeprazole 20 Mg Capsule.Dr) 20 mg PO DAILY [facility] Ondansetron HCl (Ondansetron Hcl 4 Mg/2 Ml Vial) 4 mg IVPUSH Q8H PRN PRN Reason: Nausea and Vomiting Pharmacy Consult (Consult Rx Perform Med Rec) 1 each MISCELLANE ONCE PRN PRN Reason: Consult order Sodium Chloride (0.9 % Sodium Chloride Flush 3 Ml Syringe) 3 ml IVFLUSH QSHIFT [facility] Last Admin: 04/14/22 08:51 Dose: 3 ml Home Medications Medication Instructions Recorded Confirmed Last Taken Type atorvastatin 40 mg tablet 1 tab PO DAILY 04/14/22 04/14/22 Unknown History gabapentin 100 mg capsule 1 cap PO TID 04/14/22 04/14/22 Unknown History glipizide 10 mg tablet, extended 1 tab PO DAILY 04/14/22 04/14/22 Unknown History release 24 hr isosorbide mononitrate 60 mg 1 tab PO DAILY 04/14/22 04/14/22 Unknown History tablet,extended release 24 hr losartan 100 mg tablet 1 tab PO DAILY 04/14/22 04/14/22 Unknown History metoprolol tartrate 25 mg tablet 1 tab PO BID 04/14/22 04/14/22 Unknown History omeprazole 20 mg capsule,delayed 1 cap PO DAILY 04/14/22 04/14/22 Unknown History release Physical Exam Vital Signs: Vital Signs: Last Vital Signs Temp 97.7 F 04/14/22 10:44 Pulse 101 H 04/14/22 10:44 Resp 24 H 04/14/22 10:44 BP 154/70 H 04/14/22 10:44 Pulse Ox 97 04/14/22 10:44 O2 Del Method 04/14/22 10:44 BMI result Body Mass Index 27.4 GENERAL APPEARANCE: Appears short of breath. NECK: no carotid bruit, positive jugular venous distention. SKIN: no suspicious lesions, warm and dry. HEART: no murmurs, regular rate and rhythm. LUNGS: clear to auscultation bilaterally. Diminished at bases. ABDOMEN: soft, nontender. EXTREMITIES: Positive edema. PERIPHERAL PULSES: equal. Objective Labs and Meds 04/14/22 04:45 04/14/22 04:45 Lab results: Laboratory Results - last 24 hr 04/13/22 04/13/22 04/13/22 20:56 20:56 20:56 WBC 7.5 RBC 4.83 Hgb 11.5 L Hct 38.7 L MCV 80.1 MCH 23.8 L MCHC 29.7 L RDW 17.5 H Plt Count 291 MPV 10.4 Immature Gran % (Auto) 0.3 Neut % (Auto) 86.4 H Lymph % (Auto) 7.1 L Chester % (Auto) 5.7 Eos % (Auto) 0.1 Baso % (Auto) 0.4 Lymph # (Auto) 0.5 L Chester # (Auto) 0.4 Eos # (Auto) 0.0 Baso # (Auto) 0.0 Abs Immat Gran (auto) 0.02 Absolute Neuts (auto) 6.5 Absolute Nucleated RBC 0.000 Nucleated RBC % (auto) 0.0 Sodium 143 Potassium 4.7 Chloride 108 Carbon Dioxide 20 L Anion Gap 20 BUN 35 H Creatinine 1.78 H Estim Creat Clear Calc 29.2 Estimated GFR 37 POC Glucose Random Glucose 114 Calcium 9.5 Total Bilirubin 2.0 H Direct Bilirubin 0.9 H AST 24 ALT 19 Alkaline Phosphatase 106 B-Natriuretic Peptide Total Protein 6.2 L Albumin 3.7 Urine Color Urine Appearance Urine pH Ur Specific [place] Urine Protein Urine Glucose (UA) Urine Ketones Urine Blood Urine Nitrite Ur Leukocyte Esterase Urine RBC Urine WBC Ur Squamous Epith Cells Urine Bacteria Hyaline Casts Urine Opiates Screen Urine Fentanyl Screen Ur Barbiturates Screen Ur Phencyclidine Scrn Ur Amphetamines Screen U Benzodiazepines Scrn Urine Cocaine Screen U Marijuana (THC) Screen Ethyl Alcohol < 10 COVID-19 ([facility]) COVID-19 Clin Com Influenza Type A ([facility]IE) Influenza Type B ([facility]IE) Influenza A & B Note 04/13/22 04/13/22 04/14/22 22:47 22:47 01:15 WBC RBC Hgb Hct MCV MCH MCHC RDW Plt Count MPV Immature Gran % (Auto) Neut % (Auto) Lymph % (Auto) Chester % (Auto) Eos % (Auto) Baso % (Auto) Lymph # (Auto) Chester # (Auto) Eos # (Auto) Baso # (Auto) Abs Immat Gran (auto) Absolute Neuts (auto) Absolute Nucleated RBC Nucleated RBC % (auto) Sodium 144 Potassium 4.6 Chloride 111 H Carbon Dioxide 17 L Anion Gap 21 H BUN 33 H Creatinine 1.64 H Estim Creat Clear Calc 31.6 Estimated GFR 40 POC Glucose Random Glucose 94 Calcium 9.0 Total Bilirubin Direct Bilirubin AST ALT Alkaline Phosphatase B-Natriuretic Peptide Total Protein Albumin Urine Color Yellow Urine Appearance Clear Urine pH 5.5 Ur Specific [place] 1.020 Urine Protein 100 (2+) H Urine Glucose (UA) Negative Urine Ketones Negative Urine Blood Negative Urine Nitrite Negative Ur Leukocyte Esterase Small (1+) H Urine RBC 0-2 Urine WBC 0-5 Ur Squamous Epith Cells 0-2 Urine Bacteria None Seen Hyaline Casts 3-5 Urine Opiates Screen Not Detected Urine Fentanyl Screen Not Detected Ur Barbiturates Screen Not Detected Ur Phencyclidine Scrn Not Detected Ur Amphetamines Screen Not Detected U Benzodiazepines Scrn Not Detected Urine Cocaine Screen Not Detected U Marijuana (THC) Screen Not Detected Ethyl Alcohol COVID-19 ([facility]) COVID-19 Clin Com Influenza Type A ([facility]IE) Influenza Type B ([facility]IE) Influenza A & B Note 04/14/22 04/14/22 04/14/22 02:20 02:20 02:20 WBC RBC Hgb Hct MCV MCH MCHC RDW Plt Count MPV Immature Gran % (Auto) Neut % (Auto) Lymph % (Auto) Chester % (Auto) Eos % (Auto) Baso % (Auto) Lymph # (Auto) Chester # (Auto) Eos # (Auto) Baso # (Auto) Abs Immat Gran (auto) Absolute Neuts (auto) Absolute Nucleated RBC Nucleated RBC % (auto) Sodium Potassium Chloride Carbon Dioxide Anion Gap BUN Creatinine Estim Creat Clear Calc Estimated GFR POC Glucose Random Glucose Calcium Total Bilirubin Direct Bilirubin AST ALT Alkaline Phosphatase B-Natriuretic Peptide 3121 H Total Protein Albumin Urine Color Urine Appearance Urine pH Ur Specific [place] Urine Protein Urine Glucose (UA) Urine Ketones Urine Blood Urine Nitrite Ur Leukocyte Esterase Urine RBC Urine WBC Ur Squamous Epith Cells Urine Bacteria Hyaline Casts Urine Opiates Screen Urine Fentanyl Screen Ur Barbiturates Screen Ur Phencyclidine Scrn Ur Amphetamines Screen U Benzodiazepines Scrn Urine Cocaine Screen U Marijuana (THC) Screen Ethyl Alcohol COVID-19 ([facility]) Negative COVID-19 Clin Com See Note Influenza Type A ([facility]ALLIE) Negative Influenza Type B ([facility]ALLIE) Negative Influenza A & B Note See Note 04/14/22 04/14/22 04/14/22 04:45 04:45 07:04 WBC 6.4 RBC 4.82 Hgb 11.4 L Hct 38.7 L MCV 80.3 MCH 23.7 L MCHC 29.5 L RDW 17.6 H Plt Count 305 MPV 10.7 Immature Gran % (Auto) 0.3 Neut % (Auto) 79.6 H Lymph % (Auto) 10.1 L Chester % (Auto) 9.5 Eos % (Auto) 0.0 Baso % (Auto) 0.5 Lymph # (Auto) 0.7 L Chester # (Auto) 0.6 Eos # (Auto) 0.0 Baso # (Auto) 0.0 Abs Immat Gran (auto) 0.02 Absolute Neuts (auto) 5.1 Absolute Nucleated RBC 0.000 Nucleated RBC % (auto) 0.0 Sodium 143 Potassium 4.7 Chloride 110 H Carbon Dioxide 20 L Anion Gap 18 BUN 34 H Creatinine 1.79 H Estim Creat Clear Calc 29.0 Estimated GFR 36 POC Glucose 113 Random Glucose 98 Calcium 9.2 Total Bilirubin Direct Bilirubin AST ALT Alkaline Phosphatase B-Natriuretic Peptide Total Protein Albumin Urine Color Urine Appearance Urine pH Ur Specific [place] Urine Protein Urine Glucose (UA) Urine Ketones Urine Blood Urine Nitrite Ur Leukocyte Esterase Urine RBC Urine WBC Ur Squamous Epith Cells Urine Bacteria Hyaline Casts Urine Opiates Screen Urine Fentanyl Screen Ur Barbiturates Screen Ur Phencyclidine Scrn Ur Amphetamines Screen U Benzodiazepines Scrn Urine Cocaine Screen U Marijuana (THC) Screen Ethyl Alcohol COVID-19 ([facility]) COVID-19 Clin Com Influenza Type A (SALLIE) Influenza Type B ([facility]ALLIE) Influenza A & B Note 04/14/22 11:43 WBC RBC Hgb Hct MCV MCH MCHC RDW Plt Count MPV Immature Gran % (Auto) Neut % (Auto) Lymph % (Auto) Chester % (Auto) Eos % (Auto) Baso % (Auto) Lymph # (Auto) Chester # (Auto) Eos # (Auto) Baso # (Auto) Abs Immat Gran (auto) Absolute Neuts (auto) Absolute Nucleated RBC Nucleated RBC % (auto) Sodium Potassium Chloride Carbon Dioxide Anion Gap BUN Creatinine Estim Creat Clear Calc Estimated GFR POC Glucose 107 Random Glucose Calcium Total Bilirubin Direct Bilirubin AST ALT Alkaline Phosphatase B-Natriuretic Peptide Total Protein Albumin Urine Color Urine Appearance Urine pH Ur Specific [place] Urine Protein Urine Glucose (UA) Urine Ketones Urine Blood Urine Nitrite Ur Leukocyte Esterase Urine RBC Urine WBC Ur Squamous Epith Cells Urine Bacteria Hyaline Casts Urine Opiates Screen Urine Fentanyl Screen Ur Barbiturates Screen Ur Phencyclidine Scrn Ur Amphetamines Screen U Benzodiazepines Scrn Urine Cocaine Screen U Marijuana (THC) Screen Ethyl Alcohol COVID-19 ([facility]) COVID-19 Clin Com Influenza Type A ([facility]IE) Influenza Type B ([facility]IE) Influenza A & B Note Imaging Radiologist's impression: Impressions Abdomen/Pelvis CT 04/14/22 03:23 IMPRESSION: 1. Moderate to large right and small left pleural effusions. Partial opacification of the right middle and lower lobes, suspected to reflect atelectasis in this setting. 2. Moderate volume of ascites. 3. Anasarca. 4. Cardiomegaly. 5. Cholelithiasis. Chest CT 04/14/22 03:23 IMPRESSION: 1. Moderate to large right and small left pleural effusions. Partial opacification of the right middle and lower lobes, suspected to reflect atelectasis in this setting. 2. Moderate volume of ascites. 3. Anasarca. 4. Cardiomegaly. 5. Cholelithiasis. Assessment and Plan (1) Essential hypertension: Status: Acute (2) CHF exacerbation: Status: Acute Plan 86-year-old gentleman with background history of coronary artery bypass surgery who is presenting for cold exposure and blisters on his hands. He has also noticed to be volume overloaded and admitted for further management. Clinically he appears to be in heart failure with peripheral edema and some JVD. Agree with IV diuretics. Better blood pressure control. Echocardiography to assess for any cardiomyopathy or evidence of constrictive pericarditis as that can give right-sided heart failure similar to his presentation. Assess the liver with ultrasound to make sure he does not have any cirrhosis as potential cause for ascites and peripheral edema. We will follow along with you. Thank you for allowing me to participate in the care of your patient. Please feel free to contact me if you have any questions. Time Spent With Patient Time: Total time managing care of this patient today ____ minutes. Procedures Date of Service Date of Service: 04/14/22
[2022-04-14 13:52] VITALS: BP 150/82; PULSE 95; RESP 15; TEMP 36.4; O2SAT 98
[2022-04-14] MEDS: Gabapentin 100 MG CAPSULE PO ×2 (13:54→21:03)
[2022-04-14] MEDS: Metoprolol Tartrate 25 MG TABLET PO ×2 (13:54→21:03)
[2022-04-14] MEDS: Losartan Potassium 50 MG TABLET 100 MG PO (13:55)
[2022-04-14] MEDS: Isosorbide Mononitrate 60 MG TAB.ER.24H PO (13:55)
--- NOTE | 2022-04-14 16:30 | PC.NURSE ---
Patient resting on stretcher. Patient is Japanese speaking easily redirectable. Patient voiding in urinal. Placed some warm blankets on him states he is cold. Patient has luggage at bedside. blistered fingers bandaged except thumbs.
[2022-04-14 16:57] LABS: Glucose, Whole Blood 145 mg/dL (60-115)
--- NOTE | 2022-04-14 17:22 | PM.CNOR ---
History of Present Illness HPI Consult date: 04/14/22 Chief complaint: Dyspnea, anasarca. Narrative: 86 yo male admitted to the medical service after being brought in by EMS because he was outside walking in the cold. It was noted while in the ED, both hands were painful and began developing blisters. While in the ED, the patient was also found to be in fluid overload which is being managed by the hospitalist. Ortho pedics was consulted for possible frostbite. Review of Systems Review of Systems: [facility] Past Medical History Medical History Coronary artery disease Diabetes Essential hypertension GERD (gastroesophageal reflux disease) Mood disorder Surgical History Surgical History Hx of CABG Social History Social History Alcohol intake: former Patient Tobacco Use Status: Never used Tobacco Smoked in Last 30 Days: No Use of substances other than those prescribed or required for medical reasons: No Advance Directives: No Advance Directives Information Provided: No Nutrition Risks: No Nutritional Risk Current occupational status: retired [employer] Allergies Allergy/AdvReac Type Severity Reaction Status Date / Time No Known Allergies Allergy Unverified 11/26/19 16:02 Active Medications: Current Medications Acetaminophen (Acetaminophen 325 Mg Tablet) 650 mg PO Q6H PRN PRN Reason: Pain, Mild (Pain Scale 1-3) Last Admin: 04/14/22 09:07 Dose: 650 mg Atorvastatin Calcium (Atorvastatin Calcium 40 Mg Tablet) 40 mg PO DAILY [facility] Dextrose (Dextrose 50 % 25 Gm/50 Ml Syringe) 25 gm IVPUSH Q15M PRN; Protocol PRN Reason: per Hypoglycemia Standing Ord. Enoxaparin Sodium (Enoxaparin Sodium 40 Mg/0.4 Ml Syringe) 40 mg SUBCUT Q24H BLU Last Admin: 04/14/22 04:31 Dose: 40 mg Furosemide (Furosemide 40 Mg/4 Ml Vial) 40 mg IVPUSH BID@0900,1800 BLU; Protocol Last Admin: 04/14/22 08:45 Dose: 40 mg Gabapentin (Gabapentin 100 Mg Capsule) 100 mg PO TID BLU Last Admin: 04/14/22 13:54 Dose: 100 mg Glucose (Glucose Gel 15 Gm Gel..Gram.) 15 gm PO Q15M PRN; Protocol PRN Reason: per Hypoglycemia Standing Ord. Insulin Human Lispro (Insulin Lispro 100 Unit/Ml 3 Ml Vial) 0 unit SUBCUT QIDACHS [facility]; Protocol Last Admin: 04/14/22 12:06 Dose: Not Given Isosorbide Mononitrate (Isosorbide Mononitrate 60 Mg Tab.Er.24h) 60 mg PO DAILY [facility]; Protocol Last Admin: 04/14/22 13:55 Dose: 60 mg Losartan Potassium (Losartan Potassium 50 Mg Tablet) 100 mg PO DAILY [facility]; Protocol Last Admin: 04/14/22 13:55 Dose: 100 mg Melatonin (Melatonin 3 Mg Tablet) 6 mg PO BEDTIME PRN PRN Reason: Insomnia Metoprolol Tartrate (Metoprolol Tartrate 25 Mg Tablet) 25 mg PO BID [facility]; Protocol Last Admin: 04/14/22 13:54 Dose: 25 mg Nystatin (Nystatin Powder 15 Gm Bottle) 1 appl TOPICAL TID [facility]; Protocol Omeprazole (Omeprazole 20 Mg Capsule.Dr) 20 mg PO DAILY [facility] Ondansetron HCl (Ondansetron Hcl 4 Mg/2 Ml Vial) 4 mg IVPUSH Q8H PRN PRN Reason: Nausea and Vomiting Pharmacy Consult (Consult Rx Perform Med Rec) 1 each MISCELLANE ONCE PRN PRN Reason: Consult order Sodium Chloride (0.9 % Sodium Chloride Flush 3 Ml Syringe) 3 ml IVFLUSH QSHIFT [facility] Last Admin: 04/14/22 08:51 Dose: 3 ml Home Medications Medication Instructions Recorded Confirmed Last Taken Type atorvastatin 40 mg tablet 1 tab PO DAILY 04/14/22 04/14/22 Unknown History gabapentin 100 mg capsule 1 cap PO TID 04/14/22 04/14/22 Unknown History glipizide 10 mg tablet, extended 1 tab PO DAILY 04/14/22 04/14/22 Unknown History release 24 hr isosorbide mononitrate 60 mg 1 tab PO DAILY 04/14/22 04/14/22 Unknown History tablet,extended release 24 hr losartan 100 mg tablet 1 tab PO DAILY 04/14/22 04/14/22 Unknown History metoprolol tartrate 25 mg tablet 1 tab PO BID 04/14/22 04/14/22 Unknown History omeprazole 20 mg capsule,delayed 1 cap PO DAILY 04/14/22 04/14/22 Unknown History release Physical Exam Vital Signs: Vital Signs: Last Vital Signs Temp 97.6 F 04/14/22 13:52 Pulse 95 04/14/22 13:52 Resp 15 04/14/22 13:52 BP 150/82 H 04/14/22 13:52 Pulse Ox 98 04/14/22 13:52 O2 Del Method 04/14/22 13:52 BMI result Body Mass Index 27.4 Const: General: cooperative, healthy appearing, comfortable and no acute distress Extrem: Other: Bilat hands pink and warm with diffuse blisters. He is able to extend and flex all digits and he has full sensation. No evidence of demarcation or mummification at this point. Pulses and cap refil present. Results Labs 04/14/22 04:45 04/14/22 04:45 Labs: Abnormal lab results 04/13/22 04/13/22 04/13/22 Range/Units 20:56 20:56 22:47 Hgb 11.5 L (14.0-18.0) g/dl Hct 38.7 L (42.0-52.0) % MCH 23.8 L (27.0-33.0) pg MCHC 29.7 L (31.0-36.0) g/dl RDW 17.5 H (11.0-16.0) % Neut % (Auto) 86.4 H (45-73) % Lymph % (Auto) 7.1 L (20-40) % Lymph # (Auto) 0.5 L (1.2-4.9) X10*3/uL Chloride (96-108) mmol/L Carbon Dioxide 20 L (22-29) mmol/L Anion Gap (12-20) BUN 35 H (9-16) mg/dL Creatinine 1.78 H (0.5-1.4) mg/dL POC Glucose (60-115) mg/dL Total Bilirubin 2.0 H (0.0-1.0) mg/dL Direct Bilirubin 0.9 H (0.0-0.5) mg/dL B-Natriuretic Peptide (<100) pg/mL Total Protein 6.2 L (6.5-8.0) g/dL Urine Protein 100 (2+) H (Neg-Trace) mg/dL Ur Leukocyte Esterase Small (1+) H (Negative) 04/14/22 04/14/22 04/14/22 Range/Units 01:15 02:20 04:45 Hgb 11.4 L (14.0-18.0) g/dl Hct 38.7 L (42.0-52.0) % MCH 23.7 L (27.0-33.0) pg MCHC 29.5 L (31.0-36.0) g/dl RDW 17.6 H (11.0-16.0) % Neut % (Auto) 79.6 H (45-73) % Lymph % (Auto) 10.1 L (20-40) % Lymph # (Auto) 0.7 L (1.2-4.9) X10*3/uL Chloride 111 H (96-108) mmol/L Carbon Dioxide 17 L (22-29) mmol/L Anion Gap 21 H (12-20) BUN 33 H (9-16) mg/dL Creatinine 1.64 H (0.5-1.4) mg/dL POC Glucose (60-115) mg/dL Total Bilirubin (0.0-1.0) mg/dL Direct Bilirubin (0.0-0.5) mg/dL B-Natriuretic Peptide 3121 H (<100) pg/mL Total Protein (6.5-8.0) g/dL Urine Protein (Neg-Trace) mg/dL Ur Leukocyte Esterase (Negative) 04/14/22 04/14/22 Range/Units 04:45 16:24 Hgb (14.0-18.0) g/dl Hct (42.0-52.0) % MCH (27.0-33.0) pg MCHC (31.0-36.0) g/dl RDW (11.0-16.0) % Neut % (Auto) (45-73) % Lymph % (Auto) (20-40) % Lymph # (Auto) (1.2-4.9) X10*3/uL Chloride 110 H (96-108) mmol/L Carbon Dioxide 20 L (22-29) mmol/L Anion Gap (12-20) BUN 34 H (9-16) mg/dL Creatinine 1.79 H (0.5-1.4) mg/dL POC Glucose 145 H (60-115) mg/dL Total Bilirubin (0.0-1.0) mg/dL Direct Bilirubin (0.0-0.5) mg/dL B-Natriuretic Peptide (<100) pg/mL Total Protein (6.5-8.0) g/dL Urine Protein (Neg-Trace) mg/dL Ur Leukocyte Esterase (Negative) H & H 04/13/22 04/14/22 Range/Units 20:56 04:45 Hgb 11.5 L 11.4 L (14.0-18.0) g/dl Hct 38.7 L 38.7 L (42.0-52.0) % All other labs normal. Assessment and Plan (1) Frostbite of both hands: Status: Acute Plan At this time no surgical intervention. Recommend gauze wrap for blisters and daily skin checks Warming techniques ie blankets or compress-caution to not overheat. Will continue to follow. Time Spent With Patient Time: Total time managing care of this patient today ____ minutes. Procedures Date of Service Date of Service: 04/14/22
[2022-04-14] MEDS: Nystatin Powder 15 GM BOTTLE 1 APPL TOPICAL ×2 (17:36→21:03)
--- NOTE | 2022-04-14 17:41 | PC.NURSE ---
Patient alert and oriented x 1. Patient denies any pain. tele; sinus rythym 80's Cleaned and applied nystatin to groin.
[2022-04-14 20:28] VITALS: BP 154/81; PULSE 85; RESP 18; TEMP 36.6; O2SAT 96
--- NOTE | 2022-04-14 21:09 | PC.NURSE ---
Pt SPARKS x4 requested to get boosted up in bed to a sitting position. Pt medicated per MAR.
[2022-04-14 21:52] LABS: Glucose, Whole Blood 118 mg/dL (60-115)
--- NOTE | 2022-04-14 23:22 | PC.NURSE ---
PT CLARE x4 requested warm blanker. Urinal emtied. Pt denies pain at this time.
[2022-04-15 01:14] VITALS: BP 144/73; PULSE 84; RESP 20; TEMP 36.3; O2SAT 96
--- NOTE | 2022-04-15 03:42 | PC.NURSE ---
Nurse noted pt attempting to climb OOB. Pt reports would like to sit up. technical support agent assisted with bed to recliner transfer. Pt is content in recliner.
[2022-04-15] MEDS: Enoxaparin Sodium 40 MG/0.4 ML SYRINGE SUBCUT (04:52)
[2022-04-15 07:58] VITALS: BP 161/72; PULSE 89; RESP 18; TEMP 36.3; O2SAT 99
[2022-04-15] MEDS: Losartan Potassium 50 MG TABLET 100 MG PO (08:51)
[2022-04-15] MEDS: Isosorbide Mononitrate 60 MG TAB.ER.24H PO (08:51)
[2022-04-15] MEDS: Omeprazole 20 MG CAPSULE.DR PO (08:51)
[2022-04-15] MEDS: Gabapentin 100 MG CAPSULE PO ×3 (08:52→21:01)
[2022-04-15] MEDS: Furosemide 40 MG/4 ML VIAL IVPUSH ×2 (08:52→17:02)
[2022-04-15] MEDS: Atorvastatin Calcium 40 MG TABLET PO (08:52)
[2022-04-15] MEDS: 0.9 % Sodium Chloride Flush 3 ML SYRINGE IVFLUSH ×2 (08:52→17:03)
[2022-04-15] MEDS: Metoprolol Tartrate 25 MG TABLET PO ×2 (08:52→21:01)
[2022-04-15 09:05] LABS: Glucose, Whole Blood 170 mg/dL (60-115)
--- NOTE | 2022-04-15 09:05 | PC.NURSE ---
pt a/o x 3 no sob/janey speaks in full sentences. lungs - diminished all lobes. heart sounds regular. abd soft and non-tender bs + x 4 quads. large closed/leaking blisters continues to anat hands expect anat thumbs. pt ate breakfast then poc was taken. poc 170 with 2units of insulin coverage. anat 2+ pitting edema notd to anat lower ext. pt aware of plan of care.
[2022-04-15] MEDS: Insulin Lispro 100 UNIT/ML 3 ML VIAL SUBCUT (09:08)
[2022-04-15] MEDS: Nystatin Powder 15 GM BOTTLE 1 APPL TOPICAL ×3 (09:32→21:01)
--- NOTE | 2022-04-15 09:55 | P.PNIM_ITS ---
Subjective Subjective Date of Service: 04/15/22 Review of Systems Follow up CHF, cold exposure No sob or chest pain sitting up eating in bed Physical Exam Vital Signs: Vital Signs: Last Vital Signs Temp 97.3 F 04/15/22 07:58 Pulse 89 04/15/22 07:58 Resp 18 04/15/22 07:58 BP 161/72 H 04/15/22 07:58 Pulse Ox 99 04/15/22 07:58 O2 Del Method 04/15/22 07:58 BMI result Body Mass Index 27.4 Appearing in no acute distress lung sounds are clear to auscultation heart regular rate rhythm, clear S1, S2 positive bowel sounds, abdomen is soft, nontender neuro patient is alert x3, no focal deficits bilateral hands blistered, some mild weeping Objective Data Active Medications Acetaminophen (Acetaminophen 325 Mg Tablet) 650 mg PO Q6H PRN PRN Reason: Pain, Mild (Pain Scale 1-3) Last Admin: 04/14/22 09:07 Dose: 650 mg Documented By: HARLAN Atorvastatin Calcium (Atorvastatin Calcium 40 Mg Tablet) 40 mg PO DAILY [facility] Last Admin: 04/15/22 08:52 Dose: 40 mg Documented By: HARLAN Dextrose (Dextrose 50 % 25 Gm/50 Ml Syringe) 25 gm IVPUSH Q15M PRN; Protocol PRN Reason: per Hypoglycemia Standing Ord. Enoxaparin Sodium (Enoxaparin Sodium 40 Mg/0.4 Ml Syringe) 40 mg SUBCUT Q24H [facility] Last Admin: 04/15/22 04:52 Dose: 40 mg Documented By: BRODY Furosemide (Furosemide 40 Mg/4 Ml Vial) 40 mg IVPUSH BID@0900,1800 [facility]; Protocol Last Admin: 04/15/22 08:52 Dose: 40 mg Documented By: HARLAN Gabapentin (Gabapentin 100 Mg Capsule) 100 mg PO TID [facility] Last Admin: 04/15/22 08:52 Dose: 100 mg Documented By: HARLAN Glucose (Glucose Gel 15 Gm Gel..Gram.) 15 gm PO Q15M PRN; Protocol PRN Reason: per Hypoglycemia Standing Ord. Insulin Human Lispro (Insulin Lispro 100 Unit/Ml 3 Ml Vial) 0 unit SUBCUT QIDACHS [facility]; Protocol Last Admin: 04/15/22 09:08 Dose: 2 unit Documented By: HARLAN Isosorbide Mononitrate (Isosorbide Mononitrate 60 Mg Tab.Er.24h) 60 mg PO DAILY [facility]; Protocol Last Admin: 04/15/22 08:51 Dose: 60 mg Documented By: HARLAN Losartan Potassium (Losartan Potassium 50 Mg Tablet) 100 mg PO DAILY [facility]; Protocol Last Admin: 04/15/22 08:51 Dose: 100 mg Documented By: HARLAN Melatonin (Melatonin 3 Mg Tablet) 6 mg PO BEDTIME PRN PRN Reason: Insomnia Metoprolol Tartrate (Metoprolol Tartrate 25 Mg Tablet) 25 mg PO BID [facility]; Protocol Last Admin: 04/15/22 08:52 Dose: 25 mg Documented By: HARLAN Nystatin (Nystatin Powder 15 Gm Bottle) 1 appl TOPICAL TID [facility]; Protocol Last Admin: 04/15/22 09:32 Dose: 1 appl Documented By: HARLAN Omeprazole (Omeprazole 20 Mg Capsule.) 20 mg PO DAILY [facility] Last Admin: 04/15/22 08:51 Dose: 20 mg Documented By: HARLAN Ondansetron HCl (Ondansetron Hcl 4 Mg/2 Ml Vial) 4 mg IVPUSH Q8H PRN PRN Reason: Nausea and Vomiting Pharmacy Consult (Consult Rx Perform Med Rec) 1 each MISCELLANE ONCE PRN PRN Reason: Consult order Sodium Chloride (0.9 % Sodium Chloride Flush 3 Ml Syringe) 3 ml IVFLUSH QSHIFT [facility] Last Admin: 04/15/22 08:52 Dose: 3 ml Documented By: HARLAN Labs 04/14/22 04:45 04/14/22 04:45 Labs: Laboratory Results - last 24 hr 04/14/22 04/14/22 04/14/22 11:43 16:24 21:02 POC Glucose 107 145 H 118 H 04/15/22 08:59 POC Glucose 170 H Assessment and Plan (1) Frostbite of both hands: Status: Acute Plan This is a 86-year-old male with pertinent history of [id number] diabetes mellitus, essential hypertension, gastroesophageal reflux disease, essential hypertension, mixed hyperlipidemia, CAD status post CABG who was brought to the emergency department via EMS for cold exposure. Acute dyspnea due to exacerbation of congestive heart failure, unspecified. continue IV Lasix.? Ordered echocardiogram.? Strict I's and O's, daily weights Low-salt diet.? Cardiology following neg 2.6L Cold exposure/frostbite blistering and swelling of fingers bilaterally consulted both ortho and vascular, nothing surgical to do at this time,monitor blistering ortho rec wrapping hands for now Dr. Whitt did not rec any vascular intervention at this time if symptoms worsen, will consider calling tertiary center/[facility] center for further advice/rec as these services are not available here Anasarca with bilateral pleural effusion and ascites in the setting of above soft abd no need for paracentesis at this time no hypoxia diurese Hx of confusion, unspecified will need psych for capacity fungal infection groin area Nystatin powder TID Chronic kidney disease, unclear/unspecified baseline Monitor creatinine and urine output with diuresis.? Avoid nephrotoxins Essential hypertension continue home medications Ful-[id number]-kheuelpfi diabetes mellitus ss, ada diet CAD status post CABG high-intensity statin.? DVT prophylaxis: Lovenox 40 mg daily Full code Attending Dr. Freire continued hospital stay for IV diuresis and monitoring of frostbite Discussed case with Case Management who was able to talk with patient's daughter in [place]. Patient had been living in [place] up to 6 weeks ago left on a tr ain to [place] to stay with other family members in had been there for several weeks. Then the day prior to admission he decided to come to [facility] to meet up with a friend who never ended up picking him up at the train station and patient was found outside eating to the cold exposure. According to the patient's daughter he has a history of getting up and leaving and she feels like he has been pretty confused and seemed confused before he left [place] 6 weeks ago. His history of alcohol abuse and the daughter stated that when he left [place] 6 weeks ago he was sober but is unsure what he has been doing since then. She did report that at this time she does not want him to return to [place] because she is taking care of another family member full- time. Time Spent With Patient Time: Total time managing care of this patient today ____ minutes. Quality Stroke Does the patient have a stroke diagnosis?: No VTE Prior VTE?: No VTE Risk Level:: Medical - moderate - high VTE Device Contraindication: Treatment Not Indicated VTE Drug Contraindication: N/A - Med Ordered
[2022-04-15 10:28] LABS: B Type Natriuretic Peptide 3084 pg/mL (<100)
[2022-04-15 10:35] VITALS: BP 131/77; PULSE 85; RESP 15; TEMP 36.6; O2SAT 96
[2022-04-15 10:35] LABS: Anion Gap 17 (12-20); Blood Urea Nitrogen 35 mg/dL (9-16); Calcium 9.6 mg/dL (8.4-10.2); Carbon Dioxide 27 mmol/L (22-29); Chloride 104 mmol/L (96-108); Creatinine Clr Calc Pharmacy 27.6; Estimated Glomerular Filt Rate 34; Glucose Random 127 mg/dL (60-115); Potassium 3.5 mmol/L (3.3-5.1); Sodium 144 mmol/L (135-145)
--- NOTE | 2022-04-15 11:13 | PC.NURSE ---
dr. son (talent engineer) at bedside, pt aware of plan of care.
[2022-04-15 12:17] VITALS: BP 138/73; PULSE 85; TEMP 36.6; O2SAT 96
[2022-04-15 12:27] LABS: Glucose, Whole Blood 103 mg/dL (60-115)
--- NOTE | 2022-04-15 12:43 | PM.PNCARD ---
Subjective Subjective Date of Service: 04/15/22 Interval history: Seen and examined at bedside. Less short of breath today. Physical Exam Vital Signs: Last Vital Signs Temp 97.9 F 04/15/22 12:17 Pulse 85 04/15/22 12:17 Resp 15 04/15/22 10:35 BP 138/73 04/15/22 12:17 Pulse Ox 96 04/15/22 12:17 O2 Del Method 04/15/22 12:17 BMI result Body Mass Index 27.4 GENERAL APPEARANCE: In no acute distress. NECK: no carotid bruit, positive jugular venous distention. SKIN: no suspicious lesions, warm and dry. HEART: no murmurs, regular rate and rhythm. LUNGS: clear to auscultation bilaterally. ABDOMEN: soft, nontender. EXTREMITIES: Trace edema. PERIPHERAL PULSES: equal. Objective Labs and Meds 04/14/22 04:45 04/15/22 09:55 Lab results: Laboratory Results - last 24 hr 04/14/22 04/14/22 04/15/22 16:24 21:02 08:59 Sodium Potassium Chloride Carbon Dioxide Anion Gap BUN Creatinine Estim Creat Clear Calc Estimated GFR POC Glucose 145 H 118 H 170 H Random Glucose Calcium B-Natriuretic Peptide 04/15/22 04/15/22 04/15/22 09:55 09:55 12:22 Sodium 144 Potassium 3.5 D Chloride 104 Carbon Dioxide 27 Anion Gap 17 BUN 35 H Creatinine 1.88 H Estim Creat Clear Calc 27.6 Estimated GFR 34 POC Glucose 103 Random Glucose 127 H Calcium 9.6 B-Natriuretic Peptide 3084 H Imaging Radiologist's impression: Impressions Head CT 04/14/22 13:06 IMPRESSION: 1. Moderate volume loss with mild chronic microangiopathy. 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 2. The orbits are incompletely imaged, however there is fatty deposition within the bilateral superior rectus muscles with slight fusiform expansion, which may be seen in the setting of thyroid eye disease; correlate clinically. Progress Note: A&P Assessment and plan (1) CHF exacerbation: Status: Acute Plan [age] year gentleman presenting for shortness of breath and cold exposure with frostbite in hand. Clinically he was volume overloaded and in heart failure and has been on IV diuretics with good response. Monitor electrolytes and kidney function closely. Echocardiography tomorrow to assess LV/RV function. We will also try to see if there are any obvious signs of constriction. I reviewed his CT scan and he does not have any significant pericardial calcification present. 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 His presentation mostly for right-sided failure also. Thank you for allowing me to participate in the care of your patient. Please feel free to contact me if you have any questions. Time Spent With Patient Time: Total time managing care of this patient today ____ minutes. Progress Note: Quality Stroke Does the patient have a stroke diagnosis?: No Procedures Date of Service Date of Service: 04/15/22
--- NOTE | 2022-04-15 13:46 | PC.NURSE ---
Dr Bowden (PSYCH) AT BEDSIDE WITH PICKUP DRIVER, PT AWARE OF PLAN OF CARE.
[2022-04-15 14:06] VITALS: BP 155/89; PULSE 81; RESP 22; TEMP 36.4; O2SAT 95
--- NOTE | 2022-04-15 14:52 | MHC.EDTECH ---
Patient was washed and changed into clean hospital garment along with bed linen changed. Stretcher changed to hospital bed. Patient is sitting in recliner chair. Call goodman is within reach.
--- NOTE | 2022-04-15 15:16 | P.CNPS_ITS ---
History of Present Illness Date of Service: 04/15/22 Chief Complaint: Dyspnea, anasarca. Reason for Consult: capacity Sources of Information: patient interviewed and chart reviewed Additional Sources of Information: Nursing HPI Narrative: 86-year-old German-speaking male, interviewed using hospital translation services. Chart reviewed. Notice extensive case management notes in contact with family who are based in [place]. Patient brought to the ED on 04/13/2022 by EMS for/ police in the context of cold exposure outside of a train station. has evidence of frostbite on hands which is being managed conservatively. Was dehydrated and given IV fluids. Also noted to have heart failure with pleural effusions and ascites. Given IV Lasix which has improved same and no longer despite neck. No indication for paracentesis. Has a history of bypass surgery and diabetes. No management issues in the ED. Noted from case management documentation that patient was with daughter in [place] up until around 6 weeks ago, then went to [place] to stay with his sons and then came to [place] to stay with a friend. It appears that he either did not have a clear plan when he arrived in [place] or that plan fell through and therefore ended up at the train station with cold exposure and brought to the emergency room. As per documentation there have been concerns around confusion while in [place]. Unclear history around alcohol use, but was not drinking before he left [place]. Today patient in does present with evidence of cognitive impairment around recent events. Had no clear idea where he was. Did understand he was in the hospital. He had significant difficulty around orientation and may have been perseverating on prior questions during the interview. Initially stated he was in [place] or [place] had not [place]. When reoriented to [place] in [place] and other tenants he could name in the area he named places in [place], but however later was able to name [place] and [place] when talking about living in [place] previously. Was unable to give a time frame on this. Orientation stated it was SaturdayMay 03. Was aware of recent cold exposure. Reported he had been in [place] for 1 week, which is not accurate as per collateral information i.e. was picked up at the train station. Reported he was prepped the train station then came to the hospital by bus, which again is not accurate i.e. was with Emergency Services for/ police. Stated he was staying with his brother in [place] or at least that was the plan, again this is not accurate according to collateral it was with a friend. Patient appears to have got his friend's name mixed up and did not have clear contact details for him. Reported not having any concerns around his cardiac function but did acknowledge having heart surgery in the past. Reports he had not drank in over 10 years and did endorse having an issue with that in the past. 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 When asked what his plan would be when leaving, reported that his daughter was coming from [place] to [place], which again is not accurate as per collateral. Reported that if his family cannot help then he will rent a place to stay. Did not have a clear plan around how this would actually happen. Was not aware of resources or potential barriers to community living and taking care of his health. Past Psychiatric History: Denied any past history of inpatient episodes, depression anxiety or being on medications Medical Evaluation Reviewed: Yes [facility] Medical History Coronary artery disease Diabetes Essential hypertension GERD (gastroesophageal reflux disease) Mood disorder Surgical History Hx of CABG Social History: very unclear history. Has 2 daughters that live in [facility]. Was staying with them until 6 weeks ago and then went to [facility]/ [place] and saw his 2 sons then came to [place] to stay with a friend. This was confirmed with collateral. However it also did not appear well planned. Reported being a and previously driving trucks. Substance History: reported last drink was over 10 years ago Diagnostics Vital Signs (24Hr): Vital Signs - 24 hr 04/14/22 20:28 04/15/22 01:14 04/15/22 07:58 Temperature 97.9 F 97.3 F 97.3 F Pulse Rate 85 84 89 Respiratory Rate 18 20 18 Blood Pressure 154/81 H 144/73 H 161/72 H Pulse Oximetry 96 96 99 Oxygen Delivery Method Room Air Room Air Room Air 04/15/22 10:35 04/15/22 12:17 04/15/22 14:06 Temperature 97.9 F 97.9 F 97.6 F Pulse Rate 85 85 81 Respiratory Rate 15 22 H Blood Pressure 131/77 138/73 155/89 H Pulse Oximetry 96 96 95 Oxygen Delivery Method Room Air Room Air Room Air BMI result Body Mass Index 27.4 Labs 04/14/22 04:45 04/15/22 09:55 Labs: Laboratory Results - last 48 hr 04/13/22 04/13/22 04/13/22 20:56 20:56 20:56 WBC 7.5 RBC 4.83 Hgb 11.5 L Hct 38.7 L MCV 80.1 MCH 23.8 L MCHC 29.7 L RDW 17.5 H Plt Count 291 MPV 10.4 Immature Gran % (Auto) 0.3 Neut % (Auto) 86.4 H Lymph % (Auto) 7.1 L [place] % (Auto) 5.7 Eos % (Auto) 0.1 Baso % (Auto) 0.4 Lymph # (Auto) 0.5 L [place] # (Auto) 0.4 Eos # (Auto) 0.0 Baso # (Auto) 0.0 Abs Immat Gran (auto) 0.02 Absolute Neuts (auto) 6.5 Absolute Nucleated RBC 0.000 Nucleated RBC % (auto) 0.0 Sodium 143 Potassium 4.7 Chloride 108 Carbon Dioxide 20 L Anion Gap 20 BUN 35 H Creatinine 1.78 H Estim Creat Clear Calc 29.2 Estimated GFR 37 POC Glucose Random Glucose 114 Calcium 9.5 Total Bilirubin 2.0 H Direct Bilirubin 0.9 H AST 24 ALT 19 Alkaline Phosphatase 106 B-Natriuretic Peptide Total Protein 6.2 L Albumin 3.7 Urine Color Urine Appearance Urine pH Ur Specific Midnight Urine Protein Urine Glucose (UA) Urine Ketones Urine Blood Urine Nitrite Ur Leukocyte Esterase Urine RBC Urine WBC Ur Squamous Epith Cells Urine Bacteria Hyaline Casts Urine Opiates Screen Urine Fentanyl Screen Ur Barbiturates Screen Ur Phencyclidine Scrn Ur Amphetamines Screen U Benzodiazepines Scrn Urine Cocaine Screen U Marijuana (THC) Screen Ethyl Alcohol < 10 COVID-19 ([facility]) COVID-19 Clin Com Influenza Type A ([facility]IE) Influenza Type B ([facility]IE) Influenza A & B Note 04/13/22 04/13/22 04/14/22 22:47 22:47 01:15 WBC RBC Hgb Hct MCV MCH MCHC RDW Plt Count MPV Immature Gran % (Auto) Neut % (Auto) Lymph % (Auto) [place] % (Auto) Eos % (Auto) Baso % (Auto) Lymph # (Auto) [place] # (Auto) Eos # (Auto) Baso # (Auto) Abs Immat Gran (auto) Absolute Neuts (auto) Absolute Nucleated RBC Nucleated RBC % (auto) Sodium 144 Potassium 4.6 Chloride 111 H Carbon Dioxide 17 L Anion Gap 21 H BUN 33 H Creatinine 1.64 H Estim Creat Clear Calc 31.6 Estimated GFR 40 POC Glucose Random Glucose 94 Calcium 9.0 Total Bilirubin Direct Bilirubin AST ALT Alkaline Phosphatase B-Natriuretic Peptide Total Protein Albumin Urine Color Yellow Urine Appearance Clear Urine pH 5.5 Ur Specific Midnight 1.020 Urine Protein 100 (2+) H Urine Glucose (UA) Negative Urine Ketones Negative Urine Blood Negative Urine Nitrite Negative Ur Leukocyte Esterase Small (1+) H Urine RBC 0-2 Urine WBC 0-5 Ur Squamous Epith Cells 0-2 Urine Bacteria None Seen Hyaline Casts 3-5 Urine Opiates Screen Not Detected Urine Fentanyl Screen Not Detected Ur Barbiturates Screen Not Detected Ur Phencyclidine Scrn Not Detected Ur Amphetamines Screen Not Detected U Benzodiazepines Scrn Not Detected Urine Cocaine Screen Not Detected U Marijuana (THC) Screen Not Detected Ethyl Alcohol COVID-19 ([facility]) COVID-19 Clin Com Influenza Type A (SALLIE) Influenza Type B ([facility]IE) Influenza A & B Note 04/14/22 04/14/22 04/14/22 02:20 02:20 02:20 WBC RBC Hgb Hct MCV MCH MCHC RDW Plt Count MPV Immature Gran % (Auto) Neut % (Auto) Lymph % (Auto) [place] % (Auto) Eos % (Auto) Baso % (Auto) Lymph # (Auto) [place] # (Auto) Eos # (Auto) Baso # (Auto) Abs Immat Gran (auto) Absolute Neuts (auto) Absolute Nucleated RBC Nucleated RBC % (auto) Sodium Potassium Chloride Carbon Dioxide Anion Gap BUN Creatinine Estim Creat Clear Calc Estimated GFR POC Glucose Random Glucose Calcium Total Bilirubin Direct Bilirubin AST ALT Alkaline Phosphatase B-Natriuretic Peptide 3121 H Total Protein Albumin Urine Color Urine Appearance Urine pH Ur Specific Midnight Urine Protein Urine Glucose (UA) Urine Ketones Urine Blood Urine Nitrite Ur Leukocyte Esterase Urine RBC Urine WBC Ur Squamous Epith Cells Urine Bacteria Hyaline Casts Urine Opiates Screen Urine Fentanyl Screen Ur Barbiturates Screen Ur Phencyclidine Scrn Ur Amphetamines Screen U Benzodiazepines Scrn Urine Cocaine Screen U Marijuana (THC) Screen Ethyl Alcohol COVID-19 ([facility]) Negative COVID-19 Clin Com See Note Influenza Type A ([facility]ALLIE) Negative Influenza Type B ([facility]ALLIE) Negative Influenza A & B Note See Note 04/14/22 04/14/22 04/14/22 04:45 04:45 07:04 WBC 6.4 RBC 4.82 Hgb 11.4 L Hct 38.7 L MCV 80.3 MCH 23.7 L MCHC 29.5 L RDW 17.6 H Plt Count 305 MPV 10.7 Immature Gran % (Auto) 0.3 Neut % (Auto) 79.6 H Lymph % (Auto) 10.1 L [place] % (Auto) 9.5 Eos % (Auto) 0.0 Baso % (Auto) 0.5 Lymph # (Auto) 0.7 L [place] # (Auto) 0.6 Eos # (Auto) 0.0 Baso # (Auto) 0.0 Abs Immat Gran (auto) 0.02 Absolute Neuts (auto) 5.1 Absolute Nucleated RBC 0.000 Nucleated RBC % (auto) 0.0 Sodium 143 Potassium 4.7 Chloride 110 H Carbon Dioxide 20 L Anion Gap 18 BUN 34 H Creatinine 1.79 H Estim Creat Clear Calc 29.0 Estimated GFR 36 POC Glucose 113 Random Glucose 98 Calcium 9.2 Total Bilirubin Direct Bilirubin AST ALT Alkaline Phosphatase B-Natriuretic Peptide Total Protein Albumin Urine Color Urine Appearance Urine pH Ur Specific Midnight Urine Protein Urine Glucose (UA) Urine Ketones Urine Blood Urine Nitrite Ur Leukocyte Esterase Urine RBC Urine WBC Ur Squamous Epith Cells Urine Bacteria Hyaline Casts Urine Opiates Screen Urine Fentanyl Screen Ur Barbiturates Screen Ur Phencyclidine Scrn Ur Amphetamines Screen U Benzodiazepines Scrn Urine Cocaine Screen U Marijuana (THC) Screen Ethyl Alcohol COVID-19 ([facility]) COVID-19 Clin Com Influenza Type A ([facility]IE) Influenza Type B ([facility]) Influenza A & B Note 04/14/22 04/14/22 04/14/22 11:43 16:24 21:02 WBC RBC Hgb Hct MCV MCH MCHC RDW Plt Count MPV Immature Gran % (Auto) Neut % (Auto) Lymph % (Auto) [place] % (Auto) Eos % (Auto) Baso % (Auto) Lymph # (Auto) [place] # (Auto) Eos # (Auto) Baso # (Auto) Abs Immat Gran (auto) Absolute Neuts (auto) Absolute Nucleated RBC Nucleated RBC % (auto) Sodium Potassium Chloride Carbon Dioxide Anion Gap BUN Creatinine Estim Creat Clear Calc Estimated GFR POC Glucose 107 145 H 118 H Random Glucose Calcium Total Bilirubin Direct Bilirubin AST ALT Alkaline Phosphatase B-Natriuretic Peptide Total Protein Albumin Urine Color Urine Appearance Urine pH Ur Specific Midnight Urine Protein Urine Glucose (UA) Urine Ketones Urine Blood Urine Nitrite Ur Leukocyte Esterase Urine RBC Urine WBC Ur Squamous Epith Cells Urine Bacteria Hyaline Casts Urine Opiates Screen Urine Fentanyl Screen Ur Barbiturates Screen Ur Phencyclidine Scrn Ur Amphetamines Screen U Benzodiazepines Scrn Urine Cocaine Screen U Marijuana (THC) Screen Ethyl Alcohol COVID-19 ([facility]) COVID-19 Clin Com Influenza Type A ([facility]IE) Influenza Type B ([facility]IE) Influenza A & B Note 04/15/22 04/15/22 04/15/22 08:59 09:55 09:55 WBC RBC Hgb Hct MCV MCH MCHC RDW Plt Count MPV Immature Gran % (Auto) Neut % (Auto) Lymph % (Auto) [place] % (Auto) Eos % (Auto) Baso % (Auto) Lymph # (Auto) [place] # (Auto) Eos # (Auto) Baso # (Auto) Abs Immat Gran (auto) Absolute Neuts (auto) Absolute Nucleated RBC Nucleated RBC % (auto) Sodium 144 Potassium 3.5 D Chloride 104 Carbon Dioxide 27 Anion Gap 17 BUN 35 H Creatinine 1.88 H Estim Creat Clear Calc 27.6 Estimated GFR 34 POC Glucose 170 H Random Glucose 127 H Calcium 9.6 Total Bilirubin Direct Bilirubin AST ALT Alkaline Phosphatase B-Natriuretic Peptide 3084 H Total Protein Albumin Urine Color Urine Appearance Urine pH Ur Specific Midnight Urine Protein Urine Glucose (UA) Urine Ketones Urine Blood Urine Nitrite Ur Leukocyte Esterase Urine RBC Urine WBC Ur Squamous Epith Cells Urine Bacteria Hyaline Casts Urine Opiates Screen Urine Fentanyl Screen Ur Barbiturates Screen Ur Phencyclidine Scrn Ur Amphetamines Screen U Benzodiazepines Scrn Urine Cocaine Screen U Marijuana (THC) Screen Ethyl Alcohol COVID-19 ([facility]) COVID-19 Clin Com Influenza Type A ([facility]IE) Influenza Type B ([facility]) Influenza A & B Note 04/15/22 12:22 WBC RBC Hgb Hct MCV MCH MCHC RDW Plt Count MPV Immature Gran % (Auto) Neut % (Auto) Lymph % (Auto) [place] % (Auto) Eos % (Auto) Baso % (Auto) Lymph # (Auto) [place] # (Auto) Eos # (Auto) Baso # (Auto) Abs Immat Gran (auto) Absolute Neuts (auto) Absolute Nucleated RBC Nucleated RBC % (auto) Sodium Potassium Chloride Carbon Dioxide Anion Gap BUN Creatinine Estim Creat Clear Calc Estimated GFR POC Glucose 103 Random Glucose Calcium Total Bilirubin Direct Bilirubin AST ALT Alkaline Phosphatase B-Natriuretic Peptide Total Protein Albumin Urine Color Urine Appearance Urine pH Ur Specific Midnight Urine Protein Urine Glucose (UA) Urine Ketones Urine Blood Urine Nitrite Ur Leukocyte Esterase Urine RBC Urine WBC Ur Squamous Epith Cells Urine Bacteria Hyaline Casts Urine Opiates Screen Urine Fentanyl Screen Ur Barbiturates Screen Ur Phencyclidine Scrn Ur Amphetamines Screen U Benzodiazepines Scrn Urine Cocaine Screen U Marijuana (THC) Screen Ethyl Alcohol COVID-19 ([facility]) COVID-19 Clin Com Influenza Type A ([facility]IE) Influenza Type B ([facility]) Influenza A & B Note Imaging Radiology Impressions: ITS Impressions Abdomen/Pelvis CT 04/14/22 03:23 IMPRESSION: 1. Moderate to large right and small left pleural effusions. Partial opacification of the right middle and lower lobes, suspected to reflect atelectasis in this setting. 2. Moderate volume of ascites. 3. Anasarca. 4. Cardiomegaly. 5. Cholelithiasis. Chest CT 04/14/22 03:23 IMPRESSION: 1. Moderate to large right and small left pleural effusions. Partial opacification of the right middle and lower lobes, suspected to reflect atelectasis in this setting. 2. Moderate volume of ascites. 3. Anasarca. 4. Cardiomegaly. 5. Cholelithiasis. Head CT 04/14/22 13:06 IMPRESSION: 1. Moderate volume loss with mild chronic microangiopathy. 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 2. The orbits are incompletely imaged, however there is fatty deposition within the bilateral superior rectus muscles with slight fusiform expansion, which may be seen in the setting of thyroid eye disease; correlate clinically. Mental Status Exam Mental Status Exam Narrative: very pleasant. Engaged. Appropriately dressed. Hygiene fair. As documented did have difficulty around orientation, recent events, future planning, awareness of medical issues and management of same, current supports. No eviden ce of depression. No agitation. No SI HI. Insight and judgment is limited Medications Medications Current Medications Acetaminophen (Acetaminophen 325 Mg Tablet) 650 mg PO Q6H PRN PRN Reason: Pain, Mild (Pain Scale 1-3) Last Admin: 04/14/22 09:07 Dose: 650 mg Atorvastatin Calcium (Atorvastatin Calcium 40 Mg Tablet) 40 mg PO DAILY [facility] Last Admin: 04/15/22 08:52 Dose: 40 mg Dextrose (Dextrose 50 % 25 Gm/50 Ml Syringe) 25 gm IVPUSH Q15M PRN; Protocol PRN Reason: per Hypoglycemia Standing Ord. Enoxaparin Sodium (Enoxaparin Sodium 40 Mg/0.4 Ml Syringe) 40 mg SUBCUT Q24H [facility] Last Admin: 04/15/22 04:52 Dose: 40 mg Furosemide (Furosemide 40 Mg/4 Ml Vial) 40 mg IVPUSH BID@0900,1800 [facility]; Protocol Last Admin: 04/15/22 08:52 Dose: 40 mg Gabapentin (Gabapentin 100 Mg Capsule) 100 mg PO TID [facility] Last Admin: 04/15/22 08:52 Dose: 100 mg Glucose (Glucose Gel 15 Gm Gel..Gram.) 15 gm PO Q15M PRN; Protocol PRN Reason: per Hypoglycemia Standing Ord. Insulin Human Lispro (Insulin Lispro 100 Unit/Ml 3 Ml Vial) 0 unit SUBCUT QIDACHS [facility]; Protocol Last Admin: 04/15/22 13:20 Dose: Not Given Isosorbide Mononitrate (Isosorbide Mononitrate 60 Mg Tab.Er.24h) 60 mg PO DAILY [facility]; Protocol Last Admin: 04/15/22 08:51 Dose: 60 mg Losartan Potassium (Losartan Potassium 50 Mg Tablet) 100 mg PO DAILY [facility]; Protocol Last Admin: 04/15/22 08:51 Dose: 100 mg Melatonin (Melatonin 3 Mg Tablet) 6 mg PO BEDTIME PRN PRN Reason: Insomnia Metoprolol Tartrate (Metoprolol Tartrate 25 Mg Tablet) 25 mg PO BID [facility]; Protocol Last Admin: 04/15/22 08:52 Dose: 25 mg Nystatin (Nystatin Powder 15 Gm Bottle) 1 appl TOPICAL TID [facility]; Protocol Last Admin: 04/15/22 15:00 Dose: 1 appl Omeprazole (Omeprazole 20 Mg Capsule.) 20 mg PO DAILY [facility] Last Admin: 04/15/22 08:51 Dose: 20 mg Ondansetron HCl (Ondansetron Hcl 4 Mg/2 Ml Vial) 4 mg IVPUSH Q8H PRN PRN Reason: Nausea and Vomiting Pharmacy Consult (Consult Rx Perform Med Rec) 1 each MISCELLANE ONCE PRN PRN Reason: Consult order Sodium Chloride (0.9 % Sodium Chloride Flush 3 Ml Syringe) 3 ml IVFLUSH QSHIFT [facility] Last Admin: 04/15/22 08:52 Dose: 3 ml Allergies Allergies Allergy/AdvReac Type Severity Reaction Status Date / Time No Known Allergies Allergy Unverified 11/26/19 16:02 Assessment & Plan Assessment & Plan (1) Cognitive decline: Status: Acute Code(s): R41.89 - Other symptoms and signs involving cognitive functions and awareness Assessment and Plan: patient presents with cognitive impairment which as per collateral have been present at least 6 weeks ago when staying with daughters in [place]. Does not appear to have any psychiatric history of note. Cognitive impairments has impacted recent memory, ability to plan, lack of awareness around medical needs, social supports, and impacted patient with frostbite, dehydration and hospitali zation. Given same does not appear to have a clear understanding, appreciation of risks and benefits around discharge planning to the community setting and supports needed and therefore does not have capacity around disposition planning. This can be reviewed on an ongoing basis if patient's understanding around these appear to change, or potential risks medically/social needs lessen or change, or there is increase family involvement that might facilitate a discharge with family supports. In the meantime signed off case. Please re- consult if needed. Total time managing care of this patient today ____ minutes.
--- NOTE | 2022-04-15 16:42 | PC.NURSE ---
Patient sleeping in chair. Will wait till he wakes for vitals and medications.
[2022-04-15 18:38] LABS: Glucose, Whole Blood 125 mg/dL (60-115)
[2022-04-15 21:06] LABS: Glucose, Whole Blood 103 mg/dL (60-115)
[2022-04-15 23:48] VITALS: BP 154/70; PULSE 87; RESP 16; TEMP 36.7; O2SAT 96
[2022-04-16] MEDS: 0.9 % Sodium Chloride Flush 3 ML SYRINGE IVFLUSH ×3 (02:55→16:07)
--- NOTE | 2022-04-16 02:55 | PC.NURSE ---
Pt's V/S are stable, pt is connected to the case monitor and it shows a-fib with a freq PVC. Pt is asleep.
[2022-04-16] MEDS: Enoxaparin Sodium 40 MG/0.4 ML SYRINGE SUBCUT (05:28)
[2022-04-16 06:53] LABS: Hematocrit 36.1 % (42.0-52.0); Hemoglobin 11.1 g/dl (14.0-18.0); Mean Corpuscular HGB Conc 30.7 g/dl (31.0-36.0); Mean Platelet Volume 10.4 fL (9.4-12.4); Platelet Count 272 X10*3/uL (160-400); Red Blood Count 4.63 X10*6/uL (4.60-5.80); Red Cell Distribution Width 17.7 % (11.0-16.0); White Blood Count 5.7 X10*3/uL (4.8-10.8)
--- NOTE | 2022-04-16 07:00 | CA_ITS ---
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 Mildly reduced LV ejection fraction with LVEF of 45-50% with mild LVH with grade 2 diastolic dysfunction 2. Mildly dilated right ventricle with severe LV systolic dysfunction 3. Mildly dilated left atrium 4. [id number] aortic stenosis next 5. Upper limits normal RV systolic pressure with mildly elevated right atrial pressures 6. No gross pericardial effusion Findings Procedure Information Contrast agent, definity, is being given per protocol without apparent complications. Left Ventricle Normal left ventricular cavity size. There is mildly increased left ventricular wall thickness. The left ventricular systolic function is mildly decreased. The visually estimated ejection fraction is between 45-50%. Spectral Doppler is indicative of a pseudonormal filling pattern. E/E prime ratio is >15, consistent with elevated filling pressures. Evidence suggests grade II (moderate) diastolic dysfunction. Right Ventricle Mildly increased right ventricular cavity size. There is severely decreased right ventricular systolic function. Atria The left atrium is mildly dilated. Interatrial shunt cannot be excluded. The right atrium was not well visualized. Aortic Valve There is mild calcification of the aortic valve. There is mild thickening of the aortic valve. There is mild to moderate aortic valve stenosis. There is mild aortic valve regurgitation. Mitral Valve There is mild anterior and moderate posterior mitral leaflet thickening. There is moderate mitral annular calcification. There is mild mitral valve regurgitation. There is no mitral valve stenosis. Pulmonic Valve The pulmonic valve was not well visualized. Tricuspid Valve Likely normal tricuspid valve structure and function. There is mild tricuspid valve regurgitation. Mildly elevated right atrial pressure. There is no evidence of pulmonary hypertension. Great Vessels The pulmonary artery was not well visualized. There is mild dilatation of the ascending aorta measuring 3.80 cm. Venous The inferior vena cava is normal in size and collapses less than 50% with inspiration. Pericardium/Pleural There is no evidence of pericardial effusion. Prior Study Comparison No previous study in the last 5 years for comparison Measurements 2D Linear Measurements IVSd: 1.19 0.6-0.9/0.6-1.0 cm LVIDd: 5.02 3.9-5.3/4.2-5.9 cm LVIDd Index: 2.76 2.4-3.2/2.2-3.1 cm/m2 LVIDs: 4.22 2.0-3.6 cm LVPWd: 1.23 0.7-1.1 cm LA Diam: 4.80 2.7-3.8/3.0-4.0 cm LAIDs Index: 2.64 1.5-2.3 cm/m2 LV Mass: 296.74 67-162/88-224 g LV Mass Index: 163.04 43-95/49-115 g/m2 LVOT Diam: 2.00 3.0+(-)1.3 cm 2D Systolic Function EF 4C: 45.30 >55% Mitral Valve MV Pk E: 0.83 MV PK A: 0.81 MV Decel Time: 182.00 E/A: 1.00 E'Lateral: 7.32 E'Medial: 3.71 E/E' Med: 22.40 E/E' Lat: 11.40 PHT: 53.00 MVA PHT: 4.15 Decel [place]: 4.56 Aortic Valve AoV Pk Timothy: 2.03 AoV Mn Timothy: 1.37 AoV VTI: 0.37 AoV Pk Grad: 16.00 Aov Mn Grad: 9.00 NATHAN Cont.VTI: 1.34 LVOT LVOT Pk Timothy: 0.83 LVOT Mn Timothy: 0.56 LVOT VTI: 0.16 LVOT Pk Grad: 3.00 LVOT Mn Grad: 2.00 LVOT Diam: 2.00 LVOT Area: 3.14 Diastolic Function MV Pk E: 0.83 MV Pk A: 0.81 E/A: 1.00 E'Medial: 3.71 E/E' Med: 22.40 E' Laterial: 7.32 E/E' Lat: 11.40 Right Ventricle TAPSE (mm): 6.30 TVS' Timothy: 4.70 Tricuspid Valve TR Pk Timothy: 2.65 TR Pk Grad: 28.00 RA Press: 8.00 RVSP: 36.00 Great Vessels Aorta Sinus of Valsalva: 3.00 2.0-3.5 cm Ao Asc: 3.80 2.1-3.4 cm Pulmonary Valve PV Pk Timothy: 0.89 Peak PV Grad: 3.00 Updated in Other Vendor System with Status of Final Francisco Santiago MD electronically signed on 04/16/2022 1:48:17 PM with status of Final
[2022-04-16 07:04] LABS: Glucose, Whole Blood 126 mg/dL (60-115)
[2022-04-16 07:09] LABS: Anion Gap 16 (12-20); Blood Urea Nitrogen 31 mg/dL (9-16); Calcium 9.6 mg/dL (8.4-10.2); Carbon Dioxide 31 mmol/L (22-29); Chloride 101 mmol/L (96-108); Creatinine Clr Calc Pharmacy 31.6; Estimated Glomerular Filt Rate 40; Glucose Random 117 mg/dL (60-115); Potassium 3.1 mmol/L (3.3-5.1); Sodium 145 mmol/L (135-145)
[2022-04-16 07:14] LABS: B Type Natriuretic Peptide 2141 pg/mL (<100)
[2022-04-16 08:32] VITALS: BP 151/64; PULSE 87; RESP 18; O2SAT 94
--- NOTE | 2022-04-16 08:46 | HO.PM.IMPN ---
Subjective Subjective Date of Service: 04/16/22 Review of Systems Follow up CHF, cold exposure No sob or chest pain sitting up eating in bed Physical Exam Vital Signs: Vital Signs: Last Vital Signs Temp 98.1 F 04/15/22 23:48 Pulse 87 04/16/22 08:32 Resp 18 04/16/22 08:32 BP 151/64 H 04/16/22 08:32 Pulse Ox 94 04/16/22 08:32 O2 Del Method 04/16/22 08:32 BMI result Body Mass Index 27.4 Appearing in no acute distress lung sounds are clear to auscultation heart regular rate rhythm, clear S1, S2 positive bowel sounds, abdomen is soft, nontender neuro patient is alert x3, no focal deficits Objective Data Active Medications Acetaminophen (Acetaminophen 325 Mg Tablet) 650 mg PO Q6H PRN PRN Reason: Pain, Mild (Pain Scale 1-3) Last Admin: 04/14/22 09:07 Dose: 650 mg Documented By: HARLAN Atorvastatin Calcium (Atorvastatin Calcium 40 Mg Tablet) 40 mg PO DAILY [facility] Last Admin: 04/15/22 08:52 Dose: 40 mg Documented By: HARLAN Dextrose (Dextrose 50 % 25 Gm/50 Ml Syringe) 25 gm IVPUSH Q15M PRN; Protocol PRN Reason: per Hypoglycemia Standing Ord. Enoxaparin Sodium (Enoxaparin Sodium 40 Mg/0.4 Ml Syringe) 40 mg SUBCUT Q24H [facility] Last Admin: 04/16/22 05:28 Dose: 40 mg Documented By: SAGRARIO Furosemide (Furosemide 40 Mg/4 Ml Vial) 40 mg IVPUSH BID@0900,1800 [facility]; Protocol Last Admin: 04/15/22 17:02 Dose: 40 mg Documented By: LAURA Gabapentin (Gabapentin 100 Mg Capsule) 100 mg PO TID [facility] Last Admin: 04/15/22 21:01 Dose: 100 mg Documented By: LAURA Glucose (Glucose Gel 15 Gm Gel..Gram.) 15 gm PO Q15M PRN; Protocol PRN Reason: per Hypoglycemia Standing Ord. Insulin Human Lispro (Insulin Lispro 100 Unit/Ml 3 Ml Vial) 0 unit SUBCUT QIDACHS [facility]; Protocol Last Admin: 04/16/22 06:56 Dose: Not Given Documented By: ALBER Non-Admin Reason: BS out of range for admin Isosorbide Mononitrate (Isosorbide Mononitrate 60 Mg Tab.Er.24h) 60 mg PO DAILY [facility]; Protocol Last Admin: 04/15/22 08:51 Dose: 60 mg Documented By: HARLAN Losartan Potassium (Losartan Potassium 50 Mg Tablet) 100 mg PO DAILY [facility]; Protocol Last Admin: 04/15/22 08:51 Dose: 100 mg Documented By: HARLAN Melatonin (Melatonin 3 Mg Tablet) 6 mg PO BEDTIME PRN PRN Reason: Insomnia Metoprolol Tartrate (Metoprolol Tartrate 25 Mg Tablet) 25 mg PO BID [facility]; Protocol Last Admin: 04/15/22 21:01 Dose: 25 mg Documented By: LAURA Nystatin (Nystatin Powder 15 Gm Bottle) 1 appl TOPICAL TID [facility]; Protocol Last Admin: 04/15/22 21:01 Dose: 1 appl Documented By: LAURA Omeprazole (Omeprazole 20 Mg Capsule.Dr) 20 mg PO DAILY [facility] Last Admin: 04/15/22 08:51 Dose: 20 mg Documented By: HARLAN Ondansetron HCl (Ondansetron Hcl 4 Mg/2 Ml Vial) 4 mg IVPUSH Q8H PRN PRN Reason: Nausea and Vomiting Pharmacy Consult (Consult Rx Perform Med Rec) 1 each MISCELLANE ONCE PRN PRN Reason: Consult order Sodium Chloride (0.9 % Sodium Chloride Flush 3 Ml Syringe) 3 ml IVFLUSH QSHIFT [facility] Last Admin: 04/16/22 02:55 Dose: 3 ml Documented By: MCKAYLA Labs 04/16/22 06:30 04/16/22 06:30 Labs: Laboratory Results - last 24 hr 04/15/22 04/15/22 04/15/22 08:59 09:55 09:55 MCV MCH MCHC RDW Plt Count MPV Absolute Nucleated RBC Nucleated RBC % (auto) Anion Gap 17 Estim Creat Clear Calc 27.6 Estimated GFR 34 POC Glucose 170 H Random Glucose 127 H Calcium 9.6 B-Natriuretic Peptide 3084 H 04/15/22 04/15/22 04/15/22 12:22 18:33 21:02 MCV MCH MCHC RDW Plt Count MPV Absolute Nucleated RBC Nucleated RBC % (auto) Anion Gap Estim Creat Clear Calc Estimated GFR POC Glucose 103 125 H 103 Random Glucose Calcium B-Natriuretic Peptide 04/16/22 04/16/22 04/16/22 06:29 06:30 06:30 MCV 78.0 L MCH 24.0 L MCHC 30.7 L RDW 17.7 H Plt Count 272 MPV 10.4 Absolute Nucleated RBC 0.000 Nucleated RBC % (auto) 0.0 Anion Gap 16 Estim Creat Clear Calc 31.6 Estimated GFR 40 POC Glucose Random Glucose 117 H Calcium 9.6 B-Natriuretic Peptide 2141 H 04/16/22 06:55 MCV MCH MCHC RDW Plt Count MPV Absolute Nucleated RBC Nucleated RBC % (auto) Anion Gap Estim Creat Clear Calc Estimated GFR POC Glucose 126 H Random Glucose Calcium B-Natriuretic Peptide Microbiology Microbiology Results: Microbiology 04/13/22 Unknown Urine Culture - Final Urine clean catch - Urine neal top No growth. Assessment and Plan (1) Frostbite of both hands: Status: Acute Plan This is a 86-year-old male with pertinent history of [id number] diabetes mellitus, essential hypertension, gastroesophageal reflux disease, essential hypertension, mixed hyperlipidemia, CAD status post CABG who was brought to the emergency department via EMS for cold exposure. Hypokalemia replete Acute dyspnea due to exacerbation of congestive heart failure, unspecified. continue IV Lasix.? Ordered echocardiogram.? Strict I's and O's, daily weights Low-salt diet.? Cardiology following neg 4.7L Cold exposure/frostbite blistering and swelling of fingers bilaterally consulted both ortho and vascular, nothing surgical to do at this time,monitor blistering ortho rec wrapping hands for now Dr. Whitt did not rec any vascular intervention at this time if symptoms worsen, will consider calling tertiary center/[facility] center for further advice/rec as these services are not available here Anasarca with bilateral pleural effusion and ascites in the setting of above soft abd no need for paracentesis at this time no hypoxia diurese Hx of confusion, unspecified Seen by psych deemed to NOT have capacity fungal infection groin area Nystatin powder TID Chronic kidney disease, unclear/unspecified baseline Monitor creatinine and urine output with diuresis.? Avoid nephrotoxins Essential hypertension continue home medications [id number] diabetes mellitus ss, ada diet CAD status post CABG high-intensity statin.? DVT prophylaxis: Lovenox 40 mg daily Full code Attending Dr. Portillo continued hospital stay for IV diuresis and monitoring of frostbite Discussed case with Case Management who was able to talk with patient's daughter in [place]. Patient had been living in [place] up to 6 weeks ago left on a train to [place] to stay with other family members in had been there for several weeks. Then the day prior to admission he decided to come to [facility] to meet up with a friend who never ended up picking him up at the train station and patient was found outside leading to the cold exposure. According to the patient's daughter he has a history of getting up and leaving and she feels like he has been pretty confused and seemed confused before he left [place] 6 weeks ago. He has history of alcohol abuse and the daughter stated that when he left [place] 6 weeks ago he was sober but is unsure what he has been doing since then. She did report that at this time she does not want him to return to [place] because she is taking care of another family member full-time. Time Spent With Patient Time: Total time managing care of this patient today ____ minutes. Quality Stroke Does the patient have a stroke diagnosis?: No VTE Prior VTE?: No VTE Risk Level:: Medical - moderate - high VTE Device Contraindication: Treatment Not Indicated VTE Drug Contraindication: N/A - Med Ordered
[2022-04-16] MEDS: Losartan Potassium 50 MG TABLET 100 MG PO (09:31)
[2022-04-16] MEDS: Isosorbide Mononitrate 60 MG TAB.ER.24H PO (09:32)
[2022-04-16] MEDS: Metoprolol Tartrate 25 MG TABLET PO ×2 (09:32→21:23)
[2022-04-16] MEDS: Gabapentin 100 MG CAPSULE PO ×3 (09:32→21:23)
[2022-04-16] MEDS: Potassium Chloride ER 20 MEQ TAB.ER.PRT 40 MEQ PO (09:32)
[2022-04-16] MEDS: Atorvastatin Calcium 40 MG TABLET PO (09:33)
[2022-04-16] MEDS: Omeprazole 20 MG CAPSULE.DR PO (09:33)
[2022-04-16] MEDS: Furosemide 40 MG/4 ML VIAL IVPUSH ×2 (09:33→16:52)
--- NOTE | 2022-04-16 09:34 | PC.NURSE ---
patient a&o, hospital monitor intact nsr, rt hand fingers blisters intact, abd soft nontender, pt medicated per order, call goodman within reach, will continue to monitor
[2022-04-16 09:53] LABS: INTERNATIONAL NORM RATIO 1.3 (0.9-1.1); Prothrombin Time 14.8 SEC (10.0-13.1)
[2022-04-16 10:40] VITALS: BP 137/69; PULSE 105; O2SAT 94
--- NOTE | 2022-04-16 10:51 | PC.NURSE ---
pt was having an echo at bedside, per tech pt became unresponsive and rigid, sternal rub performed without pt waking, vitals were stable, dr. acevedo was notified, pt now awake and speaking denies pain/discomfort provider aware.
--- NOTE | 2022-04-16 11:16 | MHC.CM.PN ---
This automotive service writer called [facility], who communicated that patient can not stay in his home. There is no space or room for him.
--- NOTE | 2022-04-16 11:21 | PM.PNCARD ---
Subjective Subjective Date of Service: 04/16/22 Principal diagnosis: Congestive heart failure Interval history: Patient still having difficulty breathing. Still appears fluid overloaded. Diuresing well. Complaining of finger pain with significant swelling in fingers in both his hands. No chest discomfort. Remains in sinus rhythm. Review of Systems Review of Systems Yes Unobtainable due to mental status Physical Exam Vital Signs: Last Vital Signs Temp 98.1 F 04/15/22 23:48 Pulse 105 H 04/16/22 10:40 Resp 18 04/16/22 08:32 BP 137/69 04/16/22 10:40 Pulse Ox 94 04/16/22 10:40 O2 Del Method 04/16/22 10:40 BMI result Body Mass Index 27.4 GENERAL APPEARANCE: In no acute distress. NECK: no carotid bruit, positive jugular venous distention. SKIN: no suspicious lesions, warm and dry. HEART: no murmurs, regular rate and rhythm. LUNGS: clear to auscultation bilaterally. ABDOMEN: soft, nontender. EXTREMITIES: Trace edema. PERIPHERAL PULSES: equal. Objective Labs and Meds 04/16/22 06:30 04/16/22 06:30 Lab results: Laboratory Results - last 24 hr 04/15/22 04/15/22 04/15/22 12:22 18:33 21:02 WBC RBC Hgb Hct MCV MCH MCHC RDW Plt Count MPV Absolute Nucleated RBC Nucleated RBC % (auto) PT INR Sodium Potassium Chloride Carbon Dioxide Anion Gap BUN Creatinine Estim Creat Clear Calc Estimated GFR POC Glucose 103 125 H 103 Random Glucose Calcium B-Natriuretic Peptide 04/16/22 04/16/22 04/16/22 06:29 06:30 06:30 WBC 5.7 RBC 4.63 Hgb 11.1 L Hct 36.1 L MCV 78.0 L MCH 24.0 L MCHC 30.7 L RDW 17.7 H Plt Count 272 MPV 10.4 Absolute Nucleated RBC 0.000 Nucleated RBC % (auto) 0.0 PT INR Sodium 145 Potassium 3.1 L Chloride 101 Carbon Dioxide 31 H Anion Gap 16 BUN 31 H Creatinine 1.64 H Estim Creat Clear Calc 31.6 Estimated GFR 40 POC Glucose Random Glucose 117 H Calcium 9.6 B-Natriuretic Peptide 2141 H 04/16/22 04/16/22 06:55 09:42 WBC RBC Hgb Hct MCV MCH MCHC RDW Plt Count MPV Absolute Nucleated RBC Nucleated RBC % (auto) PT 14.8 H INR 1.3 H Sodium Potassium Chloride Carbon Dioxide Anion Gap BUN Creatinine Estim Creat Clear Calc Estimated GFR POC Glucose 126 H Random Glucose Calcium B-Natriuretic Peptide Progress Note: A&P Assessment and plan (1) CHF exacerbation: Status: Acute Assessment and Plan: CHF exacerbation this elderly gentleman without any obvious reason, does not appear to be due to myocardial ischemia. Could be related to exposure to cold and follow-up will coronary vaso constriction. Appears to be fluid overloaded. Continue IV diuresis with Lasix. Echocardiogram being performed, will review it. Add Jardiance 10 mg to his regimen. Continue monitor renal function and BNP. If creatinine continues to improve, can add Aldactone 12.5 mg to his regimen. Continue aggressive blood pressure control and currently on isosorbide, losartan as well as metoprolol. Heart failure education to be provided. Eventually may need ischemic workup. (2) Hx of CABG: Status: Acute Assessment and Plan: CAD status post remote coronary bypass grafting. No recent symptoms of angina. Continue current medical therapy and aggressive risk factor modification. Continue high-intensity statin therapy as well as aspirin therapy. (3) Aortic stenosis: Status: Acute Assessment and Plan: Aortic stenosis which appears to be clinically [id number]. Will review the echocardiogram. Continue aggressive vascular risk factor modification above. Will continue to follow with you Time Spent With Patient Time: Total time managing care of this patient today ____ minutes. Progress Note: Quality Stroke Does the patient have a stroke diagnosis?: No Procedures Date of Service Date of Service: 04/16/22
[2022-04-16 11:55] VITALS: BP 105/56; PULSE 76; RESP 12; TEMP 36.8
[2022-04-16 15:39] VITALS: BP 130/61; PULSE 73; RESP 19; TEMP 36.9; O2SAT 98
--- NOTE | 2022-04-16 16:03 | PM.NEUROCN ---
History of Present Illness Data of Consult Service Date: 04/16/22 Primary Care Provider: Unknown Physician HPI Reason for consult: Seizure 86 years old man who was brought to emergency room with cold exposure. He sustained frostbite and was getting some investigations including echocardiogram during which she was noted to have a generalized seizure type of episode would unresponsiveness staring and eyes rolling over. He was not known to have any seizure disorder but is precise history was also not known. Review of Systems Review of Systems: Recent frostbite due to cold exposure PMFSH Past Medical History Medical History Coronary artery disease Diabetes Essential hypertension GERD (gastroesophageal reflux disease) Mood disorder Surgical History Surgical History Hx of CABG Social History Social History Household Members: Other Housing: Homeless Do you presently have visiting nurse or other home services: No Alcohol intake: former Patient Tobacco Use Status: Never used Tobacco Second Hand Smoke Exposure: No Current occupational status: retired [employer] Allergies Allergy/AdvReac Type Severity Reaction Status Date / Time No Known Allergies Allergy Unverified 11/26/19 16:02 Active Medications: Current Medications Acetaminophen (Acetaminophen 325 Mg Tablet) 650 mg PO Q6H PRN PRN Reason: Pain, Mild (Pain Scale 1-3) Last Admin: 04/14/22 09:07 Dose: 650 mg Atorvastatin Calcium (Atorvastatin Calcium 40 Mg Tablet) 40 mg PO DAILY [facility] Last Admin: 04/16/22 09:33 Dose: 40 mg Dextrose (Dextrose 50 % 25 Gm/50 Ml Syringe) 25 gm IVPUSH Q15M PRN; Protocol PRN Reason: per Hypoglycemia Standing Ord. Enoxaparin Sodium (Enoxaparin Sodium 40 Mg/0.4 Ml Syringe) 40 mg SUBCUT Q24H [facility] Last Admin: 04/16/22 05:28 Dose: 40 mg Furosemide (Furosemide 40 Mg/4 Ml Vial) 40 mg IVPUSH BID@0900,1800 [facility]; Protocol Last Admin: 04/16/22 09:33 Dose: 40 mg Gabapentin (Gabapentin 100 Mg Capsule) 100 mg PO TID [facility] Last Admin: 04/16/22 09:32 Dose: 100 mg Glucose (Glucose Gel 15 Gm Gel..Gram.) 15 gm PO Q15M PRN; Protocol PRN Reason: per Hypoglycemia Standing Ord. Insulin Human Lispro (Insulin Lispro 100 Unit/Ml 3 Ml Vial) 0 unit SUBCUT QIDACHS [facility]; Protocol Last Admin: 04/16/22 12:22 Dose: Not Given Isosorbide Mononitrate (Isosorbide Mononitrate 60 Mg Tab.Er.24h) 60 mg PO DAILY [facility]; Protocol Last Admin: 04/16/22 09:32 Dose: 60 mg Losartan Potassium (Losartan Potassium 50 Mg Tablet) 100 mg PO DAILY [facility]; Protocol Last Admin: 04/16/22 09:31 Dose: 100 mg Melatonin (Melatonin 3 Mg Tablet) 6 mg PO BEDTIME PRN PRN Reason: Insomnia Metoprolol Tartrate (Metoprolol Tartrate 25 Mg Tablet) 25 mg PO BID [facility]; Protocol Last Admin: 04/16/22 09:32 Dose: 25 mg Nystatin (Nystatin Powder 15 Gm Bottle) 1 appl TOPICAL TID [facility]; Protocol Last Admin: 04/16/22 09:33 Dose: Not Given Omeprazole (Omeprazole 20 Mg Capsule.Dr) 20 mg PO DAILY [facility] Last Admin: 04/16/22 09:33 Dose: 20 mg Ondansetron HCl (Ondansetron Hcl 4 Mg/2 Ml Vial) 4 mg IVPUSH Q8H PRN PRN Reason: Nausea and Vomiting Pharmacy Consult (Consult Rx Perform Med Rec) 1 each MISCELLANE ONCE PRN PRN Reason: Consult order Sodium Chloride (0.9 % Sodium Chloride Flush 3 Ml Syringe) [facility] Last Admin: 04/16/22 09:33 Dose: 3 ml Home Medications Medication Instructions Recorded Confirmed Last Taken Type atorvastatin 40 mg tablet 1 tab PO DAILY 04/14/22 04/14/22 Unknown History gabapentin 100 mg capsule 1 cap PO TID 04/14/22 04/14/22 Unknown History glipizide 10 mg tablet, extended 1 tab PO DAILY 04/14/22 04/14/22 Unknown History release 24 hr isosorbide mononitrate 60 mg 1 tab PO DAILY 04/14/22 04/14/22 Unknown History tablet,extended release 24 hr losartan 100 mg tablet 1 tab PO DAILY 04/14/22 04/14/22 Unknown History metoprolol tartrate 25 mg tablet 1 tab PO BID 04/14/22 04/14/22 Unknown History omeprazole 20 mg capsule,delayed 1 cap PO DAILY 04/14/22 04/14/22 Unknown History release Physical Exam Vital Signs: Vital Signs: Last Vital Signs Temp 98.4 F 04/16/22 15:39 Pulse 73 04/16/22 15:39 Resp 19 04/16/22 15:39 BP 130/61 04/16/22 15:39 Pulse Ox 98 04/16/22 15:39 O2 Del Method 04/16/22 15:39 BMI result Body Mass Index 27.4 Neuro: Other: He was alert and awake not clear what was happening or what had happened but he knew that he was exposed to cold and talking about how it happened. Face was symmetrical. Visual casey are full. Hand strength was difficult to determine because of significant frostbite. Deep tendon reflexes were absent with flexor plantars. Results Labs 04/16/22 06:30 04/16/22 06:30 Labs: Short CBC 04/16/22 Range/Units 06:30 WBC 5.7 (4.8-10.8) X10*3/uL Hgb 11.1 L (14.0-18.0) g/dl Hct 36.1 L (42.0-52.0) % Plt Count 272 (160-400) X10*3/uL BMP 04/16/22 06:30 Sodium 145 Potassium 3.1 L Chloride 101 Carbon Dioxide 31 H BUN 31 H Creatinine 1.64 H Calcium 9.[address] revealed moderately severe diffuse cerebral atrophy per Microbiology Microbiology Results: Microbiology 04/13/22 Unknown Urine clean catch - Urine neal top Urine Culture - Final No growth. Assessment and Plan (1) Seizure: Status: Acute 86 years old man who probably has underlying dementia had a generalized seizure type of episode. My recommendation is to obtain an electroencephalogram. Time Spent With Patient Time: Total time managing care of this patient today ____ minutes. Procedures Date of Service Date of Service: 04/16/22
[2022-04-16] MEDS: Insulin Lispro 100 UNIT/ML 3 ML VIAL SUBCUT (16:52)
[2022-04-16] MEDS: Nystatin Powder 15 GM BOTTLE 1 APPL TOPICAL ×2 (16:52→21:25)
[2022-04-16 20:00] VITALS: BP 126/61; PULSE 85; TEMP 36.4; O2SAT 100
[2022-04-16 20:48] LABS: Glucose, Whole Blood 111 mg/dL (60-115)
--- NOTE | 2022-04-17 | EEG_ITS ---
FINDINGS: This is a 16-channel EEG with an EKG lead. Patient is reported awake and restless during the tracing. Background EEG rhythm is low amplitude fast with no obvious asymmetry or paroxysmal tendency. Photic stimulation is unremarkable. Hyperventilation is not performed. No sharp wave spikes or paroxysmal tendency noted. IMPRESSION: Unremarkable EEG. MD ELIANA Roque/LIZ / [id number]
[2022-04-17] MEDS: 0.9 % Sodium Chloride Flush 3 ML SYRINGE IVFLUSH ×3 (00:57→15:37)
[2022-04-17 03:39] VITALS: BP 119/62; PULSE 83; RESP 20; TEMP 36.6; O2SAT 99
[2022-04-17] MEDS: Enoxaparin Sodium 40 MG/0.4 ML SYRINGE SUBCUT (04:46)
[2022-04-17 07:23] LABS: Hematocrit 35.8 % (42.0-52.0); Hemoglobin 10.8 g/dl (14.0-18.0); Mean Corpuscular HGB Conc 30.2 g/dl (31.0-36.0); Mean Corpuscular Hemoglobin 23.8 pg (27.0-33.0); Mean Corpuscular Volume 78.9 fL (80.0-98.0); Mean Platelet Volume 10.3 fL (9.4-12.4); Platelet Count 270 X10*3/uL (160-400); Red Blood Count 4.54 X10*6/uL (4.60-5.80); Red Cell Distribution Width 17.4 % (11.0-16.0); White Blood Count 5.8 X10*3/uL (4.8-10.8)
[2022-04-17 07:37] LABS: Glucose, Whole Blood 108 mg/dL (60-115)
[2022-04-17 07:38] LABS: Anion Gap 17 (12-20); Blood Urea Nitrogen 28 mg/dL (9-16); Calcium 9.4 mg/dL (8.4-10.2); Carbon Dioxide 34 mmol/L (22-29); Chloride 97 mmol/L (96-108); Creatinine Clr Calc Pharmacy 35.8; Estimated Glomerular Filt Rate 46; Glucose Random 131 mg/dL (60-115); Potassium 3.4 mmol/L (3.3-5.1); Sodium 145 mmol/L (135-145)
[2022-04-17 07:43] LABS: B Type Natriuretic Peptide 1586 pg/mL (<100)
[2022-04-17 07:49] VITALS: BP 142/68; PULSE 88; RESP 22; TEMP 37; O2SAT 99
[2022-04-17] MEDS: Isosorbide Mononitrate 60 MG TAB.ER.24H PO (08:37)
[2022-04-17] MEDS: Losartan Potassium 50 MG TABLET 100 MG PO (08:37)
[2022-04-17] MEDS: Atorvastatin Calcium 40 MG TABLET PO (08:37)
[2022-04-17] MEDS: Empagliflozin 10 MG TABLET PO (08:37)
[2022-04-17] MEDS: Metoprolol Tartrate 25 MG TABLET PO ×2 (08:37→21:13)
[2022-04-17] MEDS: Nystatin Powder 15 GM BOTTLE 1 APPL TOPICAL ×3 (08:38→21:14)
[2022-04-17] MEDS: Gabapentin 100 MG CAPSULE PO ×3 (08:38→21:13)
[2022-04-17] MEDS: Furosemide 40 MG/4 ML VIAL IVPUSH ×2 (08:38→18:05)
[2022-04-17] MEDS: Omeprazole 20 MG CAPSULE.DR PO (08:38)
--- NOTE | 2022-04-17 09:45 | P.PNIM_ITS ---
Subjective Subjective Date of Service: 04/17/22 Review of Systems Follow up CHF, cold exposure No sob or chest pain sitting up eating in bed Physical Exam Vital Signs: Vital Signs: Last Vital Signs Temp 98.6 F 04/17/22 07:49 Pulse 88 04/17/22 07:49 Resp 22 H 04/17/22 07:49 BP 142/68 H 04/17/22 07:49 Pulse Ox 99 04/17/22 07:49 O2 Del Method 04/17/22 07:49 O2 Flow Rate 2 04/17/22 07:49 BMI result Body Mass Index 27.4 Appearing in no acute distress lung sounds are clear to auscultation heart regular rate rhythm, clear S1, S2 positive bowel sounds, abdomen is soft, nontender neuro patient is alert x3, no focal deficits Right hand blisters Objective Data Active Medications Acetaminophen (Acetaminophen 325 Mg Tablet) 650 mg PO Q6H PRN PRN Reason: Pain, Mild (Pain Scale 1-3) Last Admin: 04/14/22 09:07 Dose: 650 mg Documented By: HARLAN Atorvastatin Calcium (Atorvastatin Calcium 40 Mg Tablet) 40 mg PO DAILY [facility] Last Admin: 04/17/22 08:37 Dose: 40 mg Documented By: DUONG Dextrose (Dextrose 50 % 25 Gm/50 Ml Syringe) 25 gm IVPUSH Q15M PRN; Protocol PRN Reason: per Hypoglycemia Standing Ord. Empagliflozin (Empagliflozin 10 Mg Tablet) 10 mg PO DAILY [facility] Last Admin: 04/17/22 08:37 Dose: 10 mg Documented By: DUONG Enoxaparin Sodium (Enoxaparin Sodium 40 Mg/0.4 Ml Syringe) 40 mg SUBCUT Q24H [facility] Last Admin: 04/17/22 04:46 Dose: 40 mg Documented By: DOBROBrina Furosemide (Furosemide 40 Mg/4 Ml Vial) 40 mg IVPUSH BID@0900,1800 [facility]; Protocol Last Admin: 04/17/22 08:38 Dose: 40 mg Documented By: DUONG Gabapentin (Gabapentin 100 Mg Capsule) 100 mg PO TID [facility] Last Admin: 04/17/22 08:38 Dose: 100 mg Documented By: DUONG Glucose (Glucose Gel 15 Gm Gel..Gram.) 15 gm PO Q15M PRN; Protocol PRN Reason: per Hypoglycemia Standing Ord. Insulin Human Lispro (Insulin Lispro 100 Unit/Ml 3 Ml Vial) 0 unit SUBCUT QIDACHS [facility]; Protocol Last Admin: 04/17/22 08:36 Dose: Not Given Documented By: DUONG Non-Admin Reason: No Insulin Coverage Isosorbide Mononitrate (Isosorbide Mononitrate 60 Mg Tab.Er.24h) 60 mg PO DAILY [facility]; Protocol Last Admin: 04/17/22 08:37 Dose: 60 mg Documented By: DUONG Losartan Potassium (Losartan Potassium 50 Mg Tablet) 100 mg PO DAILY [facility]; Protocol Last Admin: 04/17/22 08:37 Dose: 100 mg Documented By: DUONG Melatonin (Melatonin 3 Mg Tablet) 6 mg PO BEDTIME PRN PRN Reason: Insomnia Metoprolol Tartrate (Metoprolol Tartrate 25 Mg Tablet) 25 mg PO BID [facility]; Protocol Last Admin: 04/17/22 08:37 Dose: 25 mg Documented By: DUONG Nystatin (Nystatin Powder 15 Gm Bottle) 1 appl TOPICAL TID [facility]; Protocol Last Admin: 04/17/22 08:38 Dose: 1 appl Documented By: DUONG Omeprazole (Omeprazole 20 Mg Capsule.) 20 mg PO DAILY [facility] Last Admin: 04/17/22 08:38 Dose: 20 mg Documented By: DUONG Ondansetron HCl (Ondansetron Hcl 4 Mg/2 Ml Vial) 4 mg IVPUSH Q8H PRN PRN Reason: Nausea and Vomiting Pharmacy Consult (Consult Rx Perform Med Rec) 1 each MISCELLANE ONCE PRN PRN Reason: Consult order Sodium Chloride (0.9 % Sodium Chloride Flush 3 Ml Syringe) 3 ml IVFLUSH QSHIFT [facility] Last Admin: 04/17/22 08:38 Dose: 3 ml Documented By: DUONG Labs 04/17/22 07:07 04/17/22 07:07 Labs: Laboratory Results - last 24 hr 04/16/22 04/16/22 04/17/22 09:42 20:37 07:07 MCV 78.9 L MCH 23.8 L MCHC 30.2 L RDW 17.4 H Plt Count 270 MPV 10.3 Absolute Nucleated RBC 0.000 Nucleated RBC % (auto) 0.0 PT 14.8 H INR 1.3 H Anion Gap Estim Creat Clear Calc Estimated GFR POC Glucose 111 Random Glucose Calcium B-Natriuretic Peptide 04/17/22 04/17/22 04/17/22 07:07 07:07 07:29 MCV MCH MCHC RDW Plt Count MPV Absolute Nucleated RBC Nucleated RBC % (auto) PT INR Anion Gap 17 Estim Creat Clear Calc 35.8 Estimated GFR 46 POC Glucose 108 Random Glucose 131 H Calcium 9.4 B-Natriuretic Peptide 1586 H Assessment and Plan (1) Frostbite of both hands: Status: Acute Plan This is a 86-year-old male with pertinent history of kgb-urmzgtb-iuizulmvl diabetes mellitus, essential hypertension, gastroesophageal reflux disease, essential hypertension, mixed hyperlipidemia, CAD status post CABG who was brou ght to the emergency department via EMS for cold exposure. Hypokalemia. Resolved replete Acute dyspnea secondary to HFrEF EF 45-50% continue IV Lasix.? Strict I's and O's, daily weights Low-salt diet.? Cardiology following neg 8.4L Cold exposure/frostbite blistering and swelling of fingers bilaterally. consulted both ortho and vascular, nothing surgical to do at this time,monitor blistering ortho rec wrapping hands for now Dr. Whitt did not rec any vascular intervention at this time if symptoms worsen, will consider calling tertiary center/[facility] for further advice/rec as these services are not available here Anasarca with bilateral pleural effusion and ascites in the setting of above soft abd no need for paracentesis at this time no hypoxia diurese Hx of confusion, unspecified Seen by psych deemed to NOT have capacity fungal infection groin area Nystatin powder TID Chronic kidney disease, unclear/unspecified baseline Monitor creatinine and urine output with diuresis.? Avoid nephrotoxins Essential hypertension continue home medications Nqz-jhxqjmy-meiwgiqkf diabetes mellitus ss, ada diet CAD status post CABG high-intensity statin.? DVT prophylaxis: Lovenox 40 mg daily Full code Attending Dr. Portillo continued hospital stay for IV diuresis and monitoring of frostbite Discussed case with Case Management who was able to talk with patient's daughter in [place]. Patient had been living in [place] up to 6 weeks ago left on a train to [place] to stay with other family members in had been there for several weeks. Then the day prior to admission he decided to come to [facility] to meet up with a friend who never ended up picking him up at the train station and patient was found outside leading to the cold exposure. According to the patient's daughter he has a history of getting up and leaving and she feels like he has been pretty confused and seemed confused before he left [place] 6 weeks ago. He has history of alcohol abuse and the daughter stated that when he left [place] 6 weeks ago he was sober but is unsure what he has been doing since then. She did report that at this time she does not want h to return to [place] because she is taking care of another family member full-time. Time Spent With Patient Time: Total time managing care of this patient today ____ minutes. Quality Stroke Does the patient have a stroke diagnosis?: No VTE Prior VTE?: No VTE Risk Level:: Medical - moderate - high VTE Device Contraindication: Treatment Not Indicated VTE Drug Contraindication: N/A - Med Ordered
[2022-04-17] MEDS: Lidocaine HCl 1 % MPF 5 ML VIAL SUBCUT (09:56)
[2022-04-17 10:21] LABS: MN% 95.3 %; PMN% 4.7 %; RBC Peritoneal Fluid 0.002 X10*6/uL; WBC Peritoneal Fluid 1.244 X10*3/uL
[2022-04-17 10:54] LABS: Glucose, Whole Blood 145 mg/dL (60-115)
--- NOTE | 2022-04-17 10:55 | MHC.CM.PN ---
This health technical writer attempted to call Elida- kael to , unable to leave message d/t full box.
[2022-04-17 11:12] LABS: BF Shift QC OK YES; Lymphocyte Peritoneal Fl 78 %; Monocytes Peritoneal Fl 16 %; Neutrophils Peritoneal Fluid 2 %; Other Peritioneal Fl 4 %
[2022-04-17 12:16] LABS: pH Peritoneal Fluid 7.48
[2022-04-17 12:28] LABS: Albumin Peritoneal Fluid 2.3 GM/DL; LDH Peritoneal Fluid 110 U/L; Total Protein Peritoneal Fluid 3.7 GM/DL
--- NOTE | 2022-04-17 13:36 | PM.PNCARD ---
Subjective Subjective Date of Service: 04/17/22 Principal diagnosis: Congestive heart failure Interval history: Patient main complain is significant pain in all his fingers and inability to move his fingers. He says his shortness of breath is better and leg edema is better. Abdominal distension is better. Denies any palpitations, lightheadedness, syncope. No chest discomfort. Review of Systems Constitutional: Reports no additional constitutional complaints Cardiovascular: Denies chest pain, Reports leg edema, Denies lightheadedness, Denies Loss of Consciousness, Denies palpitations and Denies orthopnea Respiratory: Reports no additional respiratory complaints Gastrointestinal: Reports no additional gastrointestinal complaints Musculoskeletal: Reports other (Significant swelling of all the fingers in his both hands and discomfort) Reports system reviewed and no additional complaints, except as documented Endocrine: Denies palpitations Physical Exam Vital Signs: Last Vital Signs Temp 98.6 F 04/17/22 07:49 Pulse 88 04/17/22 07:49 Resp 22 H 04/17/22 07:49 BP 142/68 H 04/17/22 07:49 Pulse Ox 99 04/17/22 07:49 O2 Del Method 04/17/22 07:49 O2 Flow Rate 2 04/17/22 07:49 BMI result Body Mass Index 27.4 Objective Labs and Meds 04/17/22 07:07 04/17/22 07:07 Lab results: Laboratory Results - last 24 hr 04/16/22 04/17/22 04/17/22 20:37 07:07 07:07 WBC 5.8 RBC 4.54 L Hgb 10.8 L Hct 35.8 L MCV 78.9 L MCH 23.8 L MCHC 30.2 L RDW 17.4 H Plt Count 270 MPV 10.3 Absolute Nucleated RBC 0.000 Nucleated RBC % (auto) 0.0 Sodium 145 Potassium 3.4 Chloride 97 Carbon Dioxide 34 H Anion Gap 17 BUN 28 H Creatinine 1.45 H Estim Creat Clear Calc 35.8 Estimated GFR 46 POC Glucose 111 Random Glucose 131 H Calcium 9.4 B-Natriuretic Peptide Peritoneal pH Peritoneal WBC Peritoneal RBC Periton Neutrophils Periton Lymphocytes Peritoneal Monocytes Peritoneal Other Cells Peritoneal Tot Protein Peritoneal Albumin Peritoneal LDH 04/17/22 04/17/22 04/17/22 07:07 07:29 09:35 WBC RBC Hgb Hct MCV MCH MCHC RDW Plt Count MPV Absolute Nucleated RBC Nucleated RBC % (auto) Sodium Potassium Chloride Carbon Dioxide Anion Gap BUN Creatinine Estim Creat Clear Calc Estimated GFR POC Glucose 108 Random Glucose Calcium B-Natriuretic Peptide 1586 H Peritoneal pH Peritoneal WBC Peritoneal RBC Periton Neutrophils Periton Lymphocytes Peritoneal Monocytes Peritoneal Other Cells Peritoneal Tot Protein 3.7 Peritoneal Albumin 2.3 Peritoneal LDH 110 04/17/22 04/17/22 04/17/22 09:35 10:02 10:48 WBC RBC Hgb Hct MCV MCH MCHC RDW Plt Count MPV Absolute Nucleated RBC Nucleated RBC % (auto) Sodium Potassium Chloride Carbon Dioxide Anion Gap BUN Creatinine Estim Creat Clear Calc Estimated GFR POC Glucose 145 H Random Glucose Calcium B-Natriuretic Peptide Peritoneal pH 7.48 Peritoneal WBC 1.244 Peritoneal RBC 0.002 Periton Neutrophils 2 Periton Lymphocytes 78 Peritoneal Monocytes 16 Peritoneal Other Cells 4 Peritoneal Tot Protein Peritoneal Albumin Peritoneal LDH Progress Note: A&P Assessment and plan (1) CHF exacerbation: Status: Acute Assessment and Plan: Patient with heart failure exacerbation with mild systolic dysfunction and lybr-qo-prhplcuu aortic stenosis with RV dysfunction. Clinically still appears to be fluid overloaded. Continue IV diuresis. Continue strict intake and output chart. Continue neurohormonal modulation with metoprolol as well as losartan and Jardiance. If kidney function continue to improve, will add Aldactone to his regimen. Management was discussed with him details. Continue supportive care for his frostbite. Out of bed to chair. Incentive spirometry. Will continue to follow with you. Time Spent With Patient Time: Total time managing care of this patient today ____ minutes. Progress Note: Quality Stroke Does the patient have a stroke diagnosis?: No Procedures Date of Service Date of Service: 04/17/22
[2022-04-17] MEDS: Acetaminophen 325 MG TABLET 650 MG PO (15:37)
[2022-04-17 15:56] LABS: Glucose, Whole Blood 135 mg/dL (60-115)
[2022-04-17 16:00] VITALS: BP 133/64; PULSE 84; RESP 19; TEMP 36.7; O2SAT 97
[2022-04-17 19:32] VITALS: BP 126/56; PULSE 85; RESP 22; TEMP 36.7; O2SAT 99
[2022-04-17 20:22] LABS: Glucose, Whole Blood 156 mg/dL (60-115)
[2022-04-17] MEDS: Insulin Lispro 100 UNIT/ML 3 ML VIAL SUBCUT (21:14)
[2022-04-18] MEDS: 0.9 % Sodium Chloride Flush 3 ML SYRINGE IVFLUSH ×3 (00:14→15:24)
[2022-04-18 04:00] VITALS: BP 141/66; PULSE 92; RESP 20; TEMP 37.2; O2SAT 94
[2022-04-18] MEDS: Enoxaparin Sodium 40 MG/0.4 ML SYRINGE SUBCUT (05:22)
[2022-04-18 07:01] VITALS: BP 140/67; PULSE 82; RESP 16; TEMP 36.7; O2SAT 94
[2022-04-18 07:24] LABS: Glucose, Whole Blood 112 mg/dL (60-115)
[2022-04-18 08:28] LABS: B Type Natriuretic Peptide 1819 pg/mL (<100)
[2022-04-18 08:42] LABS: Anion Gap 19 (12-20); Blood Urea Nitrogen 28 mg/dL (9-16); Calcium 9.4 mg/dL (8.4-10.2); Carbon Dioxide 36 mmol/L (22-29); Chloride 92 mmol/L (96-108); Creatinine Clr Calc Pharmacy 35.8; Estimated Glomerular Filt Rate 46; Glucose Random 105 mg/dL (60-115); Potassium 3.5 mmol/L (3.3-5.1); Sodium 143 mmol/L (135-145)
[2022-04-18] MEDS: Furosemide 40 MG/4 ML VIAL IVPUSH ×2 (09:32→17:47)
[2022-04-18] MEDS: Metoprolol Tartrate 25 MG TABLET PO ×2 (09:32→20:15)
[2022-04-18] MEDS: Losartan Potassium 50 MG TABLET 100 MG PO (09:32)
[2022-04-18] MEDS: Empagliflozin 10 MG TABLET PO (09:32)
[2022-04-18] MEDS: Atorvastatin Calcium 40 MG TABLET PO (09:32)
[2022-04-18] MEDS: Isosorbide Mononitrate 60 MG TAB.ER.24H PO (09:33)
[2022-04-18] MEDS: Omeprazole 20 MG CAPSULE.DR PO (09:33)
[2022-04-18] MEDS: Gabapentin 100 MG CAPSULE PO ×3 (09:33→20:15)
[2022-04-18] MEDS: Nystatin Powder 15 GM BOTTLE 1 APPL TOPICAL ×3 (09:35→20:15)
--- NOTE | 2022-04-18 10:28 | HO.PM.IMPN ---
Subjective Subjective Date of Service: 04/18/22 Review of Systems Follow up CHF, cold exposure No sob or chest pain sitting up eating in bed Physical Exam Vital Signs: Vital Signs: Last Vital Signs Temp 98.1 F 04/18/22 07:01 Pulse 82 04/18/22 07:01 Resp 16 04/18/22 07:01 BP 140/67 H 04/18/22 07:01 Pulse Ox 94 04/18/22 07:01 O2 Del Method 04/18/22 07:01 O2 Flow Rate 2 04/17/22 16:00 BMI result Body Mass Index 27.4 Appearing in no acute distress lung sounds are clear to auscultation heart regular rate rhythm, clear S1, S2 positive bowel sounds, abdomen is soft, nontender neuro patient is alert x3, no focal deficits Bilat hand blisters, right worse than left. improving, some bruising noted Objective Data Active Medications Acetaminophen (Acetaminophen 325 Mg Tablet) 650 mg PO Q6H PRN PRN Reason: Pain, Mild (Pain Scale 1-3) Last Admin: 04/17/22 15:37 Dose: 650 mg Documented By: DUONG Atorvastatin Calcium (Atorvastatin Calcium 40 Mg Tablet) 40 mg PO DAILY [facility] Last Admin: 04/18/22 09:32 Dose: 40 mg Documented By: CARSON Dextrose (Dextrose 50 % 25 Gm/50 Ml Syringe) 25 gm IVPUSH Q15M PRN; Protocol PRN Reason: per Hypoglycemia Standing Ord. Empagliflozin (Empagliflozin 10 Mg Tablet) 10 mg PO DAILY [facility] Last Admin: 04/18/22 09:32 Dose: 10 mg Documented By: CARSON Enoxaparin Sodium (Enoxaparin Sodium 40 Mg/0.4 Ml Syringe) 40 mg SUBCUT Q24H [facility] Last Admin: 04/18/22 05:22 Dose: 40 mg Documented By: CHERELLE Furosemide (Furosemide 40 Mg/4 Ml Vial) 40 mg IVPUSH BID@0900,1800 [facility]; Protocol Last Admin: 04/18/22 09:32 Dose: 40 mg Documented By: CARSON Gabapentin (Gabapentin 100 Mg Capsule) 100 mg PO TID [facility] Last Admin: 04/18/22 09:33 Dose: 100 mg Documented By: CARSON Glucose (Glucose Gel 15 Gm Gel..Gram.) 15 gm PO Q15M PRN; Protocol PRN Reason: per Hypoglycemia Standing Ord. Insulin Human Lispro (Insulin Lispro 100 Unit/Ml 3 Ml Vial) 0 unit SUBCUT QIDACHS [facility]; Protocol Last Admin: 04/18/22 07:37 Dose: Not Given Documented By: CARSON Non-Admin Reason: No Insulin Coverage Isosorbide Mononitrate (Isosorbide Mononitrate 60 Mg Tab.Er.24h) 60 mg PO DAILY [facility]; Protocol Last Admin: 04/18/22 09:33 Dose: 60 mg Documented By: CARSON Losartan Potassium (Losartan Potassium 50 Mg Tablet) 100 mg PO DAILY [facility]; Protocol Last Admin: 04/18/22 09:32 Dose: 100 mg Documented By: CARSON Melatonin (Melatonin 3 Mg Tablet) 6 mg PO BEDTIME PRN PRN Reason: Insomnia Metoprolol Tartrate (Metoprolol Tartrate 25 Mg Tablet) 25 mg PO BID [facility]; Protocol Last Admin: 04/18/22 09:32 Dose: 25 mg Documented By: CARSON Nystatin (Nystatin Powder 15 Gm Bottle) 1 appl TOPICAL TID [facility]; Protocol Last Admin: 04/18/22 09:35 Dose: 1 appl Documented By: CARSON Omeprazole (Omeprazole 20 Mg Capsule.Dr) 20 mg PO DAILY [facility] Last Admin: 04/18/22 09:33 Dose: 20 mg Documented By: CARSON Ondansetron HCl (Ondansetron Hcl 4 Mg/2 Ml Vial) 4 mg IVPUSH Q8H PRN PRN Reason: Nausea and Vomiting Pharmacy Consult (Consult Rx Perform Med Rec) 1 each MISCELLANE ONCE PRN PRN Reason: Consult order Sodium Chloride (0.9 % Sodium Chloride Flush 3 Ml Syringe) 3 ml IVFLUSH QSHIFT [facility] Last Admin: 04/18/22 09:36 Dose: 3 ml Documented By: CARSON Labs 04/17/22 07:07 04/18/22 07:46 Labs: Laboratory Results - last 24 hr 04/17/22 04/17/22 04/17/22 09:35 09:35 10:02 Anion Gap Estim Creat Clear Calc Estimated GFR POC Glucose Random Glucose Calcium B-Natriuretic Peptide Peritoneal pH 7.48 Periton Neutrophils 2 Periton Lymphocytes 78 Peritoneal Monocytes 16 Peritoneal Other Cells 4 Peritoneal Tot Protein 3.7 Peritoneal Albumin 2.3 Peritoneal LDH 110 04/17/22 04/17/22 04/17/22 10:48 15:46 20:16 Anion Gap Estim Creat Clear Calc Estimated GFR POC Glucose 145 H 135 H 156 H Random Glucose Calcium B-Natriuretic Peptide Peritoneal pH Periton Neutrophils Periton Lymphocytes Peritoneal Monocytes Peritoneal Other Cells Peritoneal Tot Protein Peritoneal Albumin Peritoneal LDH 04/18/22 04/18/22 04/18/22 07:08 07:46 07:46 Anion Gap 19 Estim Creat Clear Calc 35.8 Estimated GFR 46 POC Glucose 112 Random Glucose 105 Calcium 9.4 B-Natriuretic Peptide 1819 H Peritoneal pH Periton Neutrophils Periton Lymphocytes Peritoneal Monocytes Peritoneal Other Cells Peritoneal Tot Protein Peritoneal Albumin Peritoneal LDH Microbiology Microbiology Results: Microbiology 04/17/22 10:02 Gram Stain - Final Ascites Fluid Assessment and Plan (1) Frostbite of both hands: Status: Acute Plan This is a 86-year-old male with pertinent history of imh-fzvzeye-uhznteymo diabetes mellitus, essential hypertension, gastroesophageal reflux disease, essential hypertension, mixed hyperlipidemia, CAD status post CABG who was brought to the emergency department via EMS for cold exposure. Hypokalemia. Resolved replete Acute dyspnea secondary to HFrEF. Resolved EF 45-50% Strict I's and O's, daily weights Low-salt diet.? Cardiology following neg 10 L switch to oral lasix Cold exposure/frostbite blistering and swelling of fingers bilaterally. improving consulted both ortho and vascular, nothing surgical to do at this time,monitor blistering ortho rec wrapping hands for now Dr. Whitt did not rec any vascular intervention at this time Anasarca with bilateral pleural effusion and ascites in the setting of above no hypoxia diurese Hx of confusion, unspecified Seen by psych deemed to NOT have capacity fungal infection groin area Nystatin powder TID Chronic kidney disease, unclear/unspecified baseline Monitor creatinine and urine output with diuresis.? Avoid nephrotoxins Essential hypertension continue home medications Pdu-uxycucg-jgcanyjlb diabetes mellitus ss, ada diet CAD status post CABG high-intensity statin.? DVT prophylaxis: Lovenox 40 mg daily Full code Attending Dr. Portillo continued hospital stay for safe disposition Andrew [facility] [phone] Discussed case with Case Management who was able to talk with patient's daughter in [place]. Patient had been living in [place] up to 6 weeks ago left on a train to [place] to stay with other family members in had been there for several weeks. Then the day prior to admission he decided to come to [facility] to meet up with a friend who never ended up picking him up at the train station and patient was found outside leading to the cold exposure. According to the patient's daughter he has a history of getting up and leaving and she feels like he has been pretty confused and seemed confused before he left [place] 6 weeks ago. He has history of alcohol abuse and the daughter stated that when he left [place] 6 weeks ago he was sober but is unsure what he has been doing since then. She did report that at this time she does not want him to return to [place] because she is taking care of another family member full-time. Time Spent With Patient Time: Total time managing care of this patient today ____ minutes. Quality Stroke Does the patient have a stroke diagnosis?: No VTE Prior VTE?: No VTE Risk Level:: Medical - moderate - high VTE Device Contraindication: Treatment Not Indicated VTE Drug Contraindication: N/A - Med Ordered
--- NOTE | 2022-04-18 11:02 | P.PNCA_ITS ---
Subjective Subjective Date of Service: 04/18/22 Principal diagnosis: Congestive heart failure Interval history: Patient is breathing a lot better. No cardiac complaints. His leg edema is improved. Overall negative balance of about 10-11 L. BNP still slightly boris vated. Creatinine is remained stable. Tolerating his current medications. Review of Systems Constitutional: Reports no additional constitutional complaints Cardiovascular: Denies chest pain, Denies leg edema, Denies lightheadedness, Denies Loss of Consciousness, Denies palpitations and Reports dyspnea on exerti on Respiratory: Reports dyspnea on exertion Gastrointestinal: Denies no additional gastrointestinal complaints Musculoskeletal: Reports other (Bilateral finger pain and decreased mobility) Endocrine: Denies palpitations Physical Exam Vital Signs: Last Vital Signs Temp 98.1 F 04/18/22 07:01 Pulse 82 04/18/22 07:01 Resp 16 04/18/22 07:01 BP 140/67 H 04/18/22 07:01 Pulse Ox 94 04/18/22 07:01 O2 Del Method 04/18/22 07:01 O2 Flow Rate 2 04/17/22 16:00 BMI result Body Mass Index 27.4 Const General: no acute distress, alert and awake Orientation/consciousness: patient oriented x3 Neck Neck: Yes trachea midline, Yes supple and Yes no JVD Resp Effort & Inspection: normal respiratory effort Auscultation: clear to auscultation bilaterally Cardio Jugular venous distension: no JVD Rate: regular rate Rhythm: regular rhythm Heart sounds: S1 normal heart sound present, S2 normal heart sound present, no click, no gallops and Murmur heart sound present systolic mid, decrescendo and crescendo Skin General skin exam: no rashes or lesions noted Neuro General: patient oriented x3 Extrem General: No clubbing, No cyanosis and Yes edema (Minimal) Objective Labs and Meds 04/17/22 07:07 04/18/22 07:46 Lab results: Laboratory Results - last 24 hr 04/17/22 04/17/22 04/17/22 09:35 09:35 10:02 Sodium Potassium Chloride Carbon Dioxide Anion Gap BUN Creatinine Estim Creat Clear Calc Estimated GFR POC Glucose Random Glucose Calcium B-Natriuretic Peptide Peritoneal pH 7.48 Periton Neutrophils 2 Periton Lymphocytes 78 Peritoneal Monocytes 16 Peritoneal Other Cells 4 Peritoneal Tot Protein 3.7 Peritoneal Albumin 2.3 Peritoneal LDH 110 04/17/22 04/17/22 04/18/22 15:46 20:16 07:08 Sodium Potassium Chloride Carbon Dioxide Anion Gap BUN Creatinine Estim Creat Clear Calc Estimated GFR POC Glucose 135 H 156 H 112 Random Glucose Calcium B-Natriuretic Peptide Peritoneal pH Periton Neutrophils Periton Lymphocytes Peritoneal Monocytes Peritoneal Other Cells Peritoneal Tot Protein Peritoneal Albumin Peritoneal LDH 04/18/22 04/18/22 07:46 07:46 Sodium 143 Potassium 3.5 Chloride 92 L Carbon Dioxide 36 H Anion Gap 19 BUN 28 H Creatinine 1.45 H Estim Creat Clear Calc 35.8 Estimated GFR 46 POC Glucose Random Glucose 105 Calcium 9.4 B-Natriuretic Peptide 1819 H Peritoneal pH Periton Neutrophils Periton Lymphocytes Peritoneal Monocytes Peritoneal Other Cells Peritoneal Tot Protein Peritoneal Albumin Peritoneal LDH Imaging Radiologist's impression: Impressions Paracentesis Ultrasound 04/17/22 10:05 IMPRESSION: Successful ultrasound guided diagnostic paracentesis performed without immediate complications. Progress Note: A&P Assessment and plan (1) CHF exacerbation: Status: Acute Assessment and Plan: CHF exacerbation this elderly man most likely related to his acute medical illness. Clinically doing much better. Not sure if he understands completely the nature of his heart failure. Would require ischemic workup as an outpatient. Can switch to oral Lasix 40 mg b.i.d.. CHF education to be provided. Continue with Jardiance. Increase metoprolol to 50 mg b.i.d. for better blood pressure control heart rate controlled. Continue isosorbide and losartan therapy. Low-salt diet was discussed with him. Continue conservative and supportive medical therapy as per the hospitalist team. Will sign of the case at this point time and follow-up as outpatient. Time Spent With Patient Time: Total time managing care of this patient today ____ minutes. Progress Note: Quality Stroke Does the patient have a stroke diagnosis?: No Procedures Date of Service Date of Service: 04/18/22
[2022-04-18 11:21] LABS: Glucose, Whole Blood 231 mg/dL (60-115)
[2022-04-18] MEDS: Insulin Lispro 100 UNIT/ML 3 ML VIAL SUBCUT ×2 (12:33→21:28)
[2022-04-18 15:20] VITALS: BP 137/68; PULSE 87; RESP 16; TEMP 36.9; O2SAT 97
--- NOTE | 2022-04-18 16:18 | MHC.CM.PN ---
IMM 04/14/22 Per MD rounds today. Guardianship will be needed for discharge per MD rounds. A PT eval is pending. DP STR via BLS may be the dispo.
[2022-04-18 16:31] LABS: Glucose, Whole Blood 137 mg/dL (60-115)
[2022-04-18 19:34] VITALS: BP 146/67; PULSE 93; RESP 12; TEMP 37; O2SAT 91
[2022-04-18 20:48] LABS: Glucose, Whole Blood 171 mg/dL (60-115)
[2022-04-18 23:28] VITALS: BP 139/62; PULSE 80; RESP 20; TEMP 36.8; O2SAT 95
[2022-04-19] MEDS: 0.9 % Sodium Chloride Flush 3 ML SYRINGE IVFLUSH ×4 (00:15→20:56)
[2022-04-19 04:00] VITALS: BP 150/66; PULSE 87; RESP 18; TEMP 36.9; O2SAT 97
[2022-04-19 07:34] VITALS: BP 145/68; PULSE 88; RESP 18; TEMP 36.8; O2SAT 95
[2022-04-19 08:02] LABS: Glucose, Whole Blood 125 mg/dL (60-115)
--- NOTE | 2022-04-19 09:51 | MHC.CM.PN ---
PER CM Director/Anat, Patient's Daughter/Elida in [place] is willing to be Patient's Guardian. CM will follow.
[2022-04-19] MEDS: Losartan Potassium 50 MG TABLET 100 MG PO (10:30)
[2022-04-19] MEDS: Metoprolol Tartrate 25 MG TABLET PO (10:30)
[2022-04-19] MEDS: Isosorbide Mononitrate 60 MG TAB.ER.24H PO (10:30)
[2022-04-19] MEDS: Empagliflozin 10 MG TABLET PO (10:31)
[2022-04-19] MEDS: Furosemide 40 MG TABLET PO ×2 (10:31→17:13)
[2022-04-19] MEDS: Atorvastatin Calcium 40 MG TABLET PO (10:31)
[2022-04-19] MEDS: Gabapentin 100 MG CAPSULE PO ×3 (10:31→20:56)
[2022-04-19] MEDS: Nystatin Powder 15 GM BOTTLE 1 APPL TOPICAL ×2 (10:42→15:35)
[2022-04-19] MEDS: Omeprazole 20 MG CAPSULE.DR PO (10:43)
[2022-04-19] MEDS: Acetaminophen 325 MG TABLET 650 MG PO (10:48)
[2022-04-19 11:38] LABS: Glucose, Whole Blood 199 mg/dL (60-115)
--- NOTE | 2022-04-19 11:59 | MHC.CM.PN ---
This automatic typewriter inspector spoke with patient's daughter Elida, she is agreeable to be patient's guardian. Medical Certificate completed, all paperwork sent to Rhoda and Sean for next steps. Note- call placed to [facility] to check [place], none of file.
--- NOTE | 2022-04-19 12:23 | MHC.CM.PN ---
A referral has been made to [facility] to ensure that Patient has [facility]; CM will follow.
[2022-04-19] MEDS: Insulin Lispro 100 UNIT/ML 3 ML VIAL SUBCUT ×3 (12:36→20:56)
--- NOTE | 2022-04-19 13:32 | HO.PM.IMPN ---
Subjective Subjective Date of Service: 04/19/22 Interval History: seen and examined this morning follow up for CHF, cold exposure denies sob, reporting improvement in hand pain Review of Systems Review of Systems: Yes all other systems are reviewed and are negative Constitutional Constitutional: Denies chills and Denies fever(s) Cardiovascular Cardiovascular: Denies chest pain, Denies palpitations and Denies dyspnea Respiratory Respiratory: Denies cough and Denies dyspnea Endocrine Endocrine: Denies palpitations Physical Exam Vital Signs: Vital Signs: Last Vital Signs Temp 98.2 F 04/19/22 07:34 Pulse 88 04/19/22 07:34 Resp 18 04/19/22 07:34 BP 145/68 H 04/19/22 07:34 Pulse Ox 95 04/19/22 07:34 O2 Del Method 04/19/22 07:34 O2 Flow Rate 2 04/17/22 16:00 BMI result Body Mass Index 27.4 Const: General: cooperative, comfortable, alert and awake Nutritional Appearance: average body habitus Orientation/consciousness: oriented to person and oriented to place Resp: Effort & Inspection: normal respiratory effort and able to speak in complete sentences Cardio: Rate: regular rate Heart sounds: S1 normal heart sound present and S2 normal heart sound present GI: Inspection: No distended Palpation (GI): Soft to palpation and nontender Skin: Other: left hand right hand right hand overall swelling/blisters appear to be improving Neuro: General: oriented to person, oriented to place and CN's II-XI intact bilaterally Extrem: General: Yes no pedal edema Objective Data Active Medications Acetaminophen (Acetaminophen 325 Mg Tablet) 650 mg PO Q6H PRN PRN Reason: Pain, Mild (Pain Scale 1-3) Last Admin: 04/19/22 10:48 Dose: 650 mg Documented By: MIL Atorvastatin Calcium (Atorvastatin Calcium 40 Mg Tablet) 40 mg PO DAILY [facility] Last Admin: 04/19/22 10:31 Dose: 40 mg Documented By: MIL Dextrose (Dextrose 50 % 25 Gm/50 Ml Syringe) 25 gm IVPUSH Q15M PRN; Protocol PRN Reason: per Hypoglycemia Standing Ord. Empagliflozin (Empagliflozin 10 Mg Tablet) 10 mg PO DAILY [facility] Last Admin: 04/19/22 10:31 Dose: 10 mg Documented By: MIL Furosemide (Furosemide 40 Mg Tablet) 40 mg PO DAILY [facility]; Protocol Last Admin: 04/19/22 10:31 Dose: 40 mg Documented By: MIL Gabapentin (Gabapentin 100 Mg Capsule) 100 mg PO TID [facility] Last Admin: 04/19/22 10:31 Dose: 100 mg Documented By: MIL Glucose (Glucose Gel 15 Gm Gel..Gram.) 15 gm PO Q15M PRN; Protocol PRN Reason: per Hypoglycemia Standing Ord. Insulin Human Lispro (Insulin Lispro 100 Unit/Ml 3 Ml Vial) 0 unit SUBCUT QIDACHS [facility]; Protocol Last Admin: 04/19/22 12:36 Dose: 2 unit Documented By: MIL Isosorbide Mononitrate (Isosorbide Mononitrate 60 Mg Tab.Er.24h) 60 mg PO DAILY [facility]; Protocol Last Admin: 04/19/22 10:30 Dose: 60 mg Documented By: MIL Losartan Potassium (Losartan Potassium 50 Mg Tablet) 100 mg PO DAILY [facility]; Protocol Last Admin: 04/19/22 10:30 Dose: 100 mg Documented By: MIL Melatonin (Melatonin 3 Mg Tablet) 6 mg PO BEDTIME PRN PRN Reason: Insomnia Metoprolol Tartrate (Metoprolol Tartrate 25 Mg Tablet) 25 mg PO BID [facility]; Protocol Last Admin: 04/19/22 10:30 Dose: 25 mg Documented By: MIL Nystatin (Nystatin Powder 15 Gm Bottle) 1 appl TOPICAL TID [facility]; Protocol Last Admin: 04/19/22 10:42 Dose: 1 appl Documented By: MIL Omeprazole (Omeprazole 20 Mg Capsule.) 20 mg PO DAILY [facility] Last Admin: 04/19/22 10:43 Dose: 20 mg Documented By: MIL Ondansetron HCl (Ondansetron Hcl 4 Mg/2 Ml Vial) 4 mg IVPUSH Q8H PRN PRN Reason: Nausea and Vomiting Pharmacy Consult (Consult Rx Perform Med Rec) 1 each MISCELLANE ONCE PRN PRN Reason: Consult order Sodium Chloride (0.9 % Sodium Chloride Flush 3 Ml Syringe) 3 ml IVFLUSH QSHIFT [facility] Last Admin: 04/19/22 10:32 Dose: 3 ml Documented By: MIL Labs 04/17/22 07:07 04/18/22 07:46 Labs: Laboratory Results - last 24 hr 04/18/22 04/18/22 04/19/22 16:21 20:35 07:37 POC Glucose 137 H 171 H 125 H 04/19/22 11:22 POC Glucose 199 H Microbiology Microbiology Results: Microbiology 04/17/22 10:02 Gram Stain - Final Ascites Fluid Anaerobic Culture - Preliminary No growth to date. Body Fluid Culture - Final No growth after 2 days Assessment and Plan (1) Frostbite of both hands: Status: Acute (2) Cognitive decline: Status: Acute (3) CHF exacerbation: Status: Acute Plan This is a 86-year-old male with pertinent history of pde-clhwivn-hwpgeugtp diabetes mellitus, essential hypertension, gastroesophageal reflux disease, essential hypertension, mixed hyperlipidemia, CAD status post CABG who was brought to the emergency department via EMS for cold exposure. Hypokalemia. Resolved replete Acute dyspnea secondary to HFrEF. Resolved EF 45-50% Strict I's and O's, daily weights; Low-salt diet.? neg 12 L to date seen by cardiology - rec outpatient ischemic workup; increase metoprolol to 50 bid transitioned to oral lasix 40 bid Cold exposure/frostbite blistering and swelling of fingers bilaterally. improving consulted both ortho and vascular, nothing surgical to do at this time,monitor blistering ortho rec wrapping hands for now Dr. Whitt did not rec any vascular intervention at this time Anasarca with bilateral pleural effusion and ascites in the setting of above no hypoxia s/p diuresis s/p paracentesis 04/17, no albumin ordered on that day, but SAAG using albumin value available 1.4, likely r/t CHF seizure like episode seen by neurology - rec to obtain EEG EEG obtained, report pending Hx of confusion, unspecified Seen by psych deemed to NOT have capacity fungal infection groin area Nystatin powder TID Chronic kidney disease, unclear/unspecified baseline Monitor creatinine and urine output with diuresis.? Avoid nephrotoxins Essential hypertension continue home medications Ebc-cnwiuot-vcxixkwwr diabetes mellitus ss, ada diet CAD status post CABG high-intensity statin, imdur, BB DVT prophylaxis: Lovenox 40 mg daily Full code Attending Dr. Portillo continued hospital stay for safe disposition Andrew montesinos [facility] [phone] Discussed case with Case Management who was able to talk with patient's daughter in [place]. Patient had been living in [place] up to 6 weeks ago left on a train to [place] to stay with other family members in had been there for several weeks. Then the day prior to admission he decided to come to [facility] to meet up with a friend who never ended up picking him up at the train station and patient was found outside leading to the cold exposure. According to the patient's daughter he has a history of getting up and leaving and she feels like he has been pretty confused and seemed confused before he left [place] 6 weeks ago. He has history of alcohol abuse and the daughter stated that when he left [place] 6 weeks ago he was sober but is unsure what he has been doing since then. She did report that at this time she does not want him to return to [place] because she is taking care of another family member full-time. Time Spent With Patient Time: Total time managing care of this patient today ____ minutes. Quality Stroke Does the patient have a stroke diagnosis?: No VTE Prior VTE?: No VTE Risk Level:: Medical - moderate - high VTE Device Contraindication: Treatment Not Indicated VTE Drug Contraindication: N/A - Med Ordered
[2022-04-19 15:30] VITALS: BP 138/69; PULSE 80; RESP 18; TEMP 36.8; O2SAT 97
[2022-04-19 16:43] LABS: Glucose, Whole Blood 153 mg/dL (60-115)
[2022-04-19] MEDS: oxyCODONE HCl Immed Release 5 MG TABLET PO (17:09)
[2022-04-19 19:11] VITALS: BP 119/56; PULSE 69; RESP 18; TEMP 37; O2SAT 94
[2022-04-19 20:32] LABS: Glucose, Whole Blood 153 mg/dL (60-115)
[2022-04-19] MEDS: Metoprolol Tartrate 50 MG TABLET PO (20:56)
[2022-04-20 03:27] VITALS: BP 138/64; PULSE 77; RESP 15; TEMP 36.6; O2SAT 92
[2022-04-20 07:13] VITALS: BP 159/79; PULSE 83; RESP 14; TEMP 37.2; O2SAT 100
[2022-04-20 07:58] LABS: Glucose, Whole Blood 120 mg/dL (60-115)
[2022-04-20 09:06] LABS: Hematocrit 37.2 % (42.0-52.0); Hemoglobin 11.3 g/dl (14.0-18.0); Mean Corpuscular HGB Conc 30.4 g/dl (31.0-36.0); Mean Corpuscular Hemoglobin 23.7 pg (27.0-33.0); Mean Platelet Volume 10.1 fL (9.4-12.4); Platelet Count 234 X10*3/uL (160-400); Red Blood Count 4.77 X10*6/uL (4.60-5.80); Red Cell Distribution Width 17.6 % (11.0-16.0); White Blood Count 4.3 X10*3/uL (4.8-10.8)
[2022-04-20] MEDS: Furosemide 40 MG TABLET PO ×2 (09:14→17:22)
[2022-04-20] MEDS: Losartan Potassium 50 MG TABLET 100 MG PO (09:14)
[2022-04-20] MEDS: Omeprazole 20 MG CAPSULE.DR PO (09:14)
[2022-04-20] MEDS: Isosorbide Mononitrate 60 MG TAB.ER.24H PO (09:14)
[2022-04-20] MEDS: 0.9 % Sodium Chloride Flush 3 ML SYRINGE IVFLUSH (09:14)
[2022-04-20] MEDS: Atorvastatin Calcium 40 MG TABLET PO (09:14)
[2022-04-20] MEDS: Metoprolol Tartrate 50 MG TABLET PO ×2 (09:14→20:55)
[2022-04-20] MEDS: Gabapentin 100 MG CAPSULE PO ×3 (09:14→20:55)
[2022-04-20] MEDS: Empagliflozin 10 MG TABLET PO (09:14)
[2022-04-20] MEDS: Nystatin Powder 15 GM BOTTLE 1 APPL TOPICAL ×3 (09:23→20:55)
[2022-04-20 09:31] LABS: Anion Gap 15 (12-20); Blood Urea Nitrogen 32 mg/dL (9-16); Calcium 9.3 mg/dL (8.4-10.2); Carbon Dioxide 33 mmol/L (22-29); Chloride 98 mmol/L (96-108); Creatinine Clr Calc Pharmacy 39.3; Estimated Glomerular Filt Rate 52; Glucose Random 111 mg/dL (60-115); Potassium 3.5 mmol/L (3.3-5.1); Sodium 142 mmol/L (135-145)
--- NOTE | 2022-04-20 10:37 | MHC.CM.PN ---
CM is pursuing Guardianship and CM will continue to follow.
[2022-04-20 11:20] VITALS: BP 121/58; PULSE 72; RESP 14; TEMP 36.9; O2SAT 100
[2022-04-20 11:25] LABS: Glucose, Whole Blood 223 mg/dL (60-115)
[2022-04-20] MEDS: Acetaminophen 325 MG TABLET 650 MG PO (12:48)
[2022-04-20] MEDS: Insulin Lispro 100 UNIT/ML 3 ML VIAL SUBCUT ×2 (12:48→17:22)
--- NOTE | 2022-04-20 13:19 | HO.PM.IMPN ---
Subjective Subjective Date of Service: 04/20/22 Interval History: seen and examined this morning follow up for CHF, frostbite no overnight events no specific complaints denies sob, chest pain hands with intermittent pain Review of Systems Review of Systems: Yes all other systems are reviewed and are negative Constitutional Constitutional: Denies chills and Denies fever(s) Cardiovascular Cardiovascular: Denies chest pain, Denies palpitations and Denies dyspnea Respiratory Respiratory: Denies cough and Denies dyspnea Gastrointestinal Gastrointestinal: Denies abdominal pain Endocrine Endocrine: Denies palpitations Physical Exam Vital Signs: Vital Signs: Last Vital Signs Temp 98.5 F 04/20/22 11:20 Pulse 72 04/20/22 11:20 Resp 14 04/20/22 11:20 BP 121/58 L 04/20/22 11:20 Pulse Ox 100 04/20/22 11:20 O2 Del Method 04/20/22 11:20 O2 Flow Rate 2 04/17/22 16:00 BMI result Body Mass Index 27.4 Const: General: cooperative, comfortable, alert and awake Nutritional Appearance: average body habitus Orientation/consciousness: oriented to person and oriented to place Resp: Effort & Inspection: normal respiratory effort and able to speak in complete sentences Cardio: Rate: regular rate Heart sounds: S1 normal heart sound present and S2 normal heart sound present GI: Inspection: No distended Palpation (GI): Soft to palpation and nontender Skin: Other: appearance of hands similar to yesterday, slowly improving Neuro: General: oriented to person, oriented to place and CN's II-XI intact bilaterally Extrem: General: Yes no pedal edema Objective Data Active Medications Acetaminophen (Acetaminophen 325 Mg Tablet) 650 mg PO Q6H PRN PRN Reason: Pain, Mild (Pain Scale 1-3) Last Admin: 04/20/22 12:48 Dose: 650 mg Documented By: MIL Atorvastatin Calcium (Atorvastatin Calcium 40 Mg Tablet) 40 mg PO DAILY [facility] Last Admin: 04/20/22 09:14 Dose: 40 mg Documented By: MIL Dextrose (Dextrose 50 % 25 Gm/50 Ml Syringe) 25 gm IVPUSH Q15M PRN; Protocol PRN Reason: per Hypoglycemia Standing Ord. Empagliflozin (Empagliflozin 10 Mg Tablet) 10 mg PO DAILY [facility] Last Admin: 04/20/22 09:14 Dose: 10 mg Documented By: MIL Furosemide (Furosemide 40 Mg Tablet) 40 mg PO BID@0900,1800 [facility]; Protocol Last Admin: 04/20/22 09:14 Dose: 40 mg Documented By: MIL Gabapentin (Gabapentin 100 Mg Capsule) 100 mg PO TID [facility] Last Admin: 04/20/22 09:14 Dose: 100 mg Documented By: IML Glucose (Glucose Gel 15 Gm Gel..Gram.) 15 gm PO Q15M PRN; Protocol PRN Reason: per Hypoglycemia Standing Ord. Insulin Human Lispro (Insulin Lispro 100 Unit/Ml 3 Ml Vial) 0 unit SUBCUT QIDACHS [facility]; Protocol Last Admin: 04/20/22 12:48 Dose: 4 unit Documented By: MIL Isosorbide Mononitrate (Isosorbide Mononitrate 60 Mg Tab.Er.24h) 60 mg PO DAILY [facility]; Protocol Last Admin: 04/20/22 09:14 Dose: 60 mg Documented By: MIL Losartan Potassium (Losartan Potassium 50 Mg Tablet) 100 mg PO DAILY [facility]; Protocol Last Admin: 04/20/22 09:14 Dose: 100 mg Documented By: MIL Melatonin (Melatonin 3 Mg Tablet) 6 mg PO BEDTIME PRN PRN Reason: Insomnia Metoprolol Tartrate (Metoprolol Tartrate 50 Mg Tablet) 50 mg PO BID [facility]; Protocol Last Admin: 04/20/22 09:14 Dose: 50 mg Documented By: MIL Nystatin (Nystatin Powder 15 Gm Bottle) 1 appl TOPICAL TID [facility]; Protocol Last Admin: 04/20/22 09:23 Dose: 1 appl Documented By: MIL Omeprazole (Omeprazole 20 Mg Capsule.) 20 mg PO DAILY [facility] Last Admin: 04/20/22 09:14 Dose: 20 mg Documented By: MIL Ondansetron HCl (Ondansetron Hcl 4 Mg/2 Ml Vial) 4 mg IVPUSH Q8H PRN PRN Reason: Nausea and Vomiting Oxycodone HCl (Oxycodone Hcl Immed Release 5 Mg Tablet) 5 mg PO Q6H PRN PRN Reason: Pain, Moderate (Pain Scale 4-6 Last Admin: 04/19/22 17:09 Dose: 5 mg Documented By: MIL Pharmacy Consult (Consult Rx Perform Med Rec) 1 each MISCELLANE ONCE PRN PRN Reason: Consult order Sodium Chloride (0.9 % Sodium Chloride Flush 3 Ml Syringe) 3 ml IVFLUSH QSHIFT [facility] Last Admin: 04/20/22 09:14 Dose: 3 ml Documented By: MIL Labs 04/20/22 08:58 04/20/22 08:58 Labs: Laboratory Results - last 24 hr 04/19/22 04/19/22 04/20/22 16:20 20:24 07:13 MCV MCH MCHC RDW Plt Count MPV Absolute Nucleated RBC Nucleated RBC % (auto) Anion Gap Estim Creat Clear Calc Estimated GFR POC Glucose 153 H 153 H 120 H Random Glucose Calcium 04/20/22 04/20/22 04/20/22 08:58 08:58 11:19 MCV 78.0 L MCH 23.7 L MCHC 30.4 L RDW 17.6 H Plt Count 234 MPV 10.1 Absolute Nucleated RBC 0.000 Nucleated RBC % (auto) 0.0 Anion Gap 15 Estim Creat Clear Calc 39.3 Estimated GFR 52 POC Glucose 223 H Random Glucose 111 Calcium 9.3 Microbiology Microbiology Results: Microbiology 04/17/22 10:02 Gram Stain - Final Ascites Fluid Anaerobic Culture - Preliminary No growth to date. Body Fluid Culture - Final No growth after 2 days Assessment and Plan (1) Cognitive decline: Status: Acute Plan This is a 86-year-old male with pertinent history of tth-kkkifxo-qxhwzayok diabetes mellitus, essential hypertension, gastroesophageal reflux disease, essential hypertension, mixed hyperlipidemia, CAD status post CABG who was brought to the emergency department via EMS for cold exposure. Hypokalemia. Resolved replete Acute dyspnea secondary to HFrEF. Resolved EF 45-50% Strict I's and O's, daily weights; Low-salt diet.? neg 12 L to date seen by cardiology - rec outpatient ischemic workup continue metoprolol to 50 bid transitioned to oral lasix 40 bid Cold exposure/frostbite blistering and swelling of fingers bilaterally. improving consulted both ortho and vascular, nothing surgical to do at this time,monitor blistering ortho rec wrapping hands for now Dr. Whitt did not rec any vascular intervention at this time Anasarca with bilateral pleural effusion and ascites in the setting of above no hypoxia s/p diuresis s/p paracentesis 04/17, no albumin ordered on that day, but SAAG using albumin value available 1.4, likely r/t CHF seizure like episode seen by neurology - rec to obtain EEG EEG obtained, report pending Hx of confusion, unspecified brain with no acute changes - moderate volume loss, chronic lacunar infarct Seen by psych deemed to NOT have capacity fungal infection groin area Nystatin powder TID Chronic kidney disease, unclear/unspecified baseline creatinine stable Essential hypertension continue home medications Skf-agwaapk-kojambcew diabetes mellitus ss, ada diet CAD status post CABG high-intensity statin, imdur, metoprolol DVT prophylaxis: mechanical devices Full code Attending Dr. Portillo continued hospital stay for safe disposition Granddaughter in law Mireya montesinos local [phone] Discussed case with Case Management who was able to talk with patient's daughter in [place]. Patient had been living in [place] up to 6 weeks ago left on a train to [place] to stay with other family members in had been there for several weeks. Then the day prior to admission he decided to come to [facility] to meet up with a friend who never ended up picking him up at the train station and patient was found outside leading to the cold exposure. According to the patient's daughter he has a history of getting up and leaving and she feels like he has been pretty confused and seemed confused before he left [place] 6 weeks ago. He has history of alcohol abuse and the daughter stated that when he left [place] 6 weeks ago he was sober but is unsure what he has been doing since then. She did report that at this time she does not want him to return to [place] because she is taking care of another family member full-time. Time Spent With Patient Time: Total time managing care of this patient today ____ minutes. Quality Stroke Does the patient have a stroke diagnosis?: No VTE Prior VTE?: No VTE Risk Level:: Medical - moderate - high VTE Device Contraindication: Treatment Not Indicated VTE Drug Contraindication: N/A - Med Ordered
[2022-04-20 16:00] VITALS: BP 118/58; PULSE 68; RESP 14; TEMP 36.5; O2SAT 98
[2022-04-20 17:13] LABS: Glucose, Whole Blood 166 mg/dL (60-115)
[2022-04-20 18:59] VITALS: BP 135/60; PULSE 69; RESP 15; TEMP 36.4; O2SAT 97
[2022-04-20 20:12] LABS: Glucose, Whole Blood 130 mg/dL (60-115)
[2022-04-20 23:15] VITALS: BP 133/60; PULSE 77; RESP 18; TEMP 37.2; O2SAT 98
[2022-04-21] MEDS: 0.9 % Sodium Chloride Flush 3 ML SYRINGE IVFLUSH ×3 (00:46→16:43)
[2022-04-21 04:00] VITALS: BP 121/59; PULSE 73; RESP 20; TEMP 36.8; O2SAT 96
[2022-04-21 07:24] VITALS: BP 138/69; PULSE 78; RESP 20; TEMP 37.2; O2SAT 96
[2022-04-21 07:46] LABS: Glucose, Whole Blood 141 mg/dL (60-115)
[2022-04-21] MEDS: Isosorbide Mononitrate 60 MG TAB.ER.24H PO (09:13)
[2022-04-21] MEDS: Losartan Potassium 50 MG TABLET 100 MG PO (09:14)
[2022-04-21] MEDS: Empagliflozin 10 MG TABLET PO (09:14)
[2022-04-21] MEDS: Gabapentin 100 MG CAPSULE PO ×3 (09:14→20:19)
[2022-04-21] MEDS: Atorvastatin Calcium 40 MG TABLET PO (09:15)
[2022-04-21] MEDS: Omeprazole 20 MG CAPSULE.DR PO (09:15)
[2022-04-21] MEDS: Furosemide 40 MG TABLET PO ×2 (09:15→19:40)
[2022-04-21] MEDS: Nystatin Powder 15 GM BOTTLE 1 APPL TOPICAL ×3 (09:16→20:20)
[2022-04-21] MEDS: Metoprolol Tartrate 50 MG TABLET PO ×2 (09:17→20:19)
[2022-04-21 11:18] LABS: Glucose, Whole Blood 192 mg/dL (60-115)
[2022-04-21] MEDS: Insulin Lispro 100 UNIT/ML 3 ML VIAL SUBCUT ×2 (12:43→20:19)
--- NOTE | 2022-04-21 14:22 | P.PNIM_ITS ---
Subjective Subjective Date of Service: 04/21/22 Interval History: seen and examined this morning follow up frostbite, placement no overnight events no sob, some pain b/l hands Review of Systems Review of Systems: Yes all other systems are reviewed and are negative Constitutional Constitutional: Denies chills and Denies fever(s) Cardiovascular Cardiovascular: Denies chest pain, Denies palpitations and Denies dyspnea Respiratory Respiratory: Denies cough and Denies dyspnea Gastrointestinal Gastrointestinal: Denies abdominal pain, Denies nausea and Denies vomiting Endocrine Endocrine: Denies palpitations Physical Exam Vital Signs: Vital Signs: Last Vital Signs Temp 98.9 F 04/21/22 07:24 Pulse 78 04/21/22 07:24 Resp 20 04/21/22 07:24 BP 138/69 04/21/22 07:24 Pulse Ox 96 04/21/22 07:24 O2 Del Method 04/21/22 07:24 O2 Flow Rate 2 04/17/22 16:00 BMI result Body Mass Index 27.4 Const: General: cooperative, comfortable, alert and awake Nutritional Appearance: average body habitus Orientation/consciousness: oriented to person and oriented to place Resp: Effort & Inspection: normal respiratory effort and able to speak in complete sentences Cardio: Rate: regular rate Heart sounds: S1 normal heart sound present and S2 normal heart sound present GI: Inspection: No distended Palpation (GI): Soft to palpation and no ntender Skin: Other: left hand Neuro: General: oriented to person, oriented to place and CN's II-XI intact bilaterally Extrem: General: Yes no pedal edema Objective Data Active Medications Acetaminophen (Acetaminophen 325 Mg Tablet) 650 mg PO Q6H PRN PRN Reason: Pain, Mild (Pain Scale 1-3) Last Admin: 04/20/22 12:48 Dose: 650 mg Documented By: MIL Atorvastatin Calcium (Atorvastatin Calcium 40 Mg Tablet) 40 mg PO DAILY [facility] Last Admin: 04/21/22 09:15 Dose: 40 mg Documented By: JAYJAY Dextrose (Dextrose 50 % 25 Gm/50 Ml Syringe) 25 gm IVPUSH Q15M PRN; Protocol PRN Reason: per Hypoglycemia Standing Ord. Empagliflozin (Empagliflozin 10 Mg Tablet) 10 mg PO DAILY [facility] Last Admin: 04/21/22 09:14 Dose: 10 mg Documented By: JAYJAY Furosemide (Furosemide 40 Mg Tablet) 40 mg PO BID@0900,1800 [facility]; Protocol Last Admin: 04/21/22 09:15 Dose: 40 mg Documented By: JAYJAY Gabapentin (Gabapentin 100 Mg Capsule) 100 mg PO TID [facility] Last Admin: 04/21/22 09:14 Dose: 100 mg Documented By: JAYJAY Glucose (Glucose Gel 15 Gm Gel..Gram.) 15 gm PO Q15M PRN; Protocol PRN Reason: per Hypoglycemia Standing Ord. Insulin Human Lispro (Insulin Lispro 100 Unit/Ml 3 Ml Vial) 0 unit SUBCUT QIDACHS [facility]; Protocol Last Admin: 04/21/22 12:43 Dose: 2 unit Documented By: JAYJAY Isosorbide Mononitrate (Isosorbide Mononitrate 60 Mg Tab.Er.24h) 60 mg PO DAILY [facility]; Protocol Last Admin: 04/21/22 09:13 Dose: 60 mg Documented By: JAYJAY Losartan Potassium (Losartan Potassium 50 Mg Tablet) 100 mg PO DAILY [facility]; Protocol Last Admin: 04/21/22 09:14 Dose: 100 mg Documented By: JAYJAY Melatonin (Melatonin 3 Mg Tablet) 6 mg PO BEDTIME PRN PRN Reason: Insomnia Metoprolol Tartrate (Metoprolol Tartrate 50 Mg Tablet) 50 mg PO BID [facility]; Protocol Last Admin: 04/21/22 09:17 Dose: 50 mg Documented By: JAYJAY Nystatin (Nystatin Powder 15 Gm Bottle) 1 appl TOPICAL TID [facility]; Protocol Last Admin: 04/21/22 09:16 Dose: 1 appl Documented By: JAYJAY Omeprazole (Omeprazole 20 Mg Charis.) 20 mg PO DAILY [facility] Last Admin: 04/21/22 09:15 Dose: 20 mg Documented By: JAYJAY Ondansetron HCl (Ondansetron Hcl 4 Mg/2 Ml Vial) 4 mg IVPUSH Q8H PRN PRN Reason: Nausea and Vomiting Oxycodone HCl (Oxycodone Hcl Immed Release 5 Mg Tablet) 5 mg PO Q6H PRN PRN Reason: Pain, Moderate (Pain Scale 4-6 Last Admin: 04/19/22 17:09 Dose: 5 mg Documented By: MIL Pharmacy Consult (Consult Rx Perform Med Rec) 1 each MISCELLANE ONCE PRN PRN Reason: Consult order Sodium Chloride (0.9 % Sodium Chloride Flush 3 Ml Syringe) 3 ml IVFLUSH QSHIFT [facility] Last Admin: 04/21/22 09:13 Dose: 3 ml Documented By: JAYJAY Labs 04/20/22 08:58 04/20/22 08:58 Labs: Laboratory Results - last 24 hr 04/20/22 04/20/22 04/21/22 17:05 20:01 07:27 POC Glucose 166 H 130 H 141 H 04/21/22 11:07 POC Glucose 192 H Microbiology Microbiology Results: Microbiology 04/17/22 10:02 Gram Stain - Final Ascites Fluid Anaerobic Culture - Preliminary No growth to date. Body Fluid Culture - Final No growth after 2 days Assessment and Plan (1) Cognitive decline: Status: Acute (2) Frostbite of both hands: Status: Acute Plan This is a 86-year-old male with pertinent history of yxz-uetdiax-uqncyomtf diabetes mellitus, essential hypertension, gastroesophageal reflux disease, essential hypertension, mixed hyperlipidemia, CAD status post CABG who was brought to the emergency department via EMS for cold exposure. Hypokalemia. Resolved replete Acute dyspnea secondary to HFrEF. Resolved EF 45-50% mild to moderate aortic stenosis Strict I's and O's, daily weights; Low-salt diet.? neg 12 L to date seen by cardiology - rec outpatient ischemic workup continue metoprolol to 50 bid transitioned to oral lasix 40 bid Cold exposure/frostbite blistering and swelling of fingers bilaterally. improving consulted both ortho and vascular, nothing surgical to do at this time,monitor blistering Dr. Whitt did not rec any vascular intervention at this time seen by surgery - no creams, no need to wrap - leave open to air - skin with slough eventually Anasarca with bilateral pleural effusion and ascites in the setting of above no hypoxia s/p diuresis s/p paracentesis 04/17, no albumin ordered on that day, but SAAG using albumin value available 1.4, likely r/t CHF seizure like episode seen by neurology - rec to obtain EEG EEG obtained - unremarkable Hx of confusion, unspecified brain with no acute changes - moderate volume loss, chronic lacunar infarct Seen by psych deemed to NOT have capacity fungal infection groin area Nystatin powder TID Chronic kidney disease, unclear/unspecified baseline creatinine stable Essential hypertension continue home medications Sry-phjxvvf-rqwxgmsuh diabetes mellitus SSI, ada diet CAD status post CABG high-intensity statin, imdur, metoprolol DVT prophylaxis: mechanical devices Full code Attending Dr. Braga continued hospital stay for safe disposition Granddaughter in law Mireya montesinos local [phone] Discussed case with Case Management who was able to talk with patient's daughter in [place]. Patient had been living in [place] up to 6 weeks ago left on a train to [place] to stay with other family members in had been there for several weeks. Then the day prior to admission he decided to come to [facility] to meet up with a friend who never ended up picking him up at the train station and patient was found outside leading to the cold exposure. According to the patient's daughter he has a history of getting up and leaving and she feels like he has been pretty confused and seemed confused before he left [place] 6 weeks ago. He has history of alcohol abuse and the daughter stated that when he left [place] 6 weeks ago he was sober but is unsure what he has been doing since then. She did report that at this time she does not want him to return to [place] because she is taking care of another family member full-time. Time Spent With Patient Time: Total time managing care of this patient today ____ minutes. Quality Stroke Does the patient have a stroke diagnosis?: No VTE Prior VTE?: No VTE Risk Level:: Medical - moderate - high VTE Device Contraindication: Treatment Not Indicated VTE Drug Contraindication: N/A - Med Ordered
--- NOTE | 2022-04-21 14:22 | P.HPGS_ITS ---
History of Present Illness History of Present Illness Date of Service: 04/21/22 Chief complaint: Dyspnea, anasarca. Narrative: Andrew Munoz is a 86 year old male who has frostbite on all fingers bilat. he was found outside in the cold. ON LICENSE OF [facility] Past Medical History Medical History Coronary artery disease Diabetes Essential hypertension GERD (gastroesophageal reflux disease) Mood disorder Surgical History Surgical History Hx of CABG Social History Social History Household Members: Other Housing: Homeless Do you presently have visiting nurse or other home services: No Alcohol intake: former Patient Tobacco Use Status: Never used Tobacco Second Hand Smoke Exposure: No Current occupational status: retired Meds Allergies Allergy/AdvReac Type Severity Reaction Status Date / Time perflutren [From [facility]] AdvReac Back Pain Verified 04/17/22 08:35 Active Medications: Current Medications Acetaminophen (Acetaminophen 325 Mg Tablet) 650 mg PO Q6H PRN PRN Reason: Pain, Mild (Pain Scale 1-3) Last Admin: 04/20/22 12:48 Dose: 650 mg Atorvastatin Calcium (Atorvastatin Calcium 40 Mg Tablet) 40 mg PO DAILY [facility] Last Admin: 04/21/22 09:15 Dose: 40 mg Dextrose (Dextrose 50 % 25 Gm/50 Ml Syringe) 25 gm IVPUSH Q15M PRN; Protocol PRN Reason: per Hypoglycemia Standing Ord. Empagliflozin (Empagliflozin 10 Mg Tablet) 10 mg PO DAILY [facility] Last Admin: 04/21/22 09:14 Dose: 10 mg Furosemide (Furosemide 40 Mg Tablet) 40 mg PO BID@0900,1800 [facility]; Protocol Last Admin: 04/21/22 09:15 Dose: 40 mg Gabapentin (Gabapentin 100 Mg Capsule) 100 mg PO TID [facility] Last Admin: 04/21/22 09:14 Dose: 100 mg Glucose (Glucose Gel 15 Gm Gel..Gram.) 15 gm PO Q15M PRN; Protocol PRN Reason: per Hypoglycemia Standing Ord. Insulin Human Lispro (Insulin Lispro 100 Unit/Ml 3 Ml Vial) 0 unit SUBCUT QIDACHS [facility]; Protocol Last Admin: 04/21/22 12:43 Dose: 2 unit Isosorbide Mononitrate (Isosorbide Mononitrate 60 Mg Tab.Er.24h) 60 mg PO DAILY [facility]; Protocol Last Admin: 04/21/22 09:13 Dose: 60 mg Losartan Potassium (Losartan Potassium 50 Mg Tablet) 100 mg PO DAILY [facility]; Protocol Last Admin: 04/21/22 09:14 Dose: 100 mg Melatonin (Melatonin 3 Mg Tablet) 6 mg PO BEDTIME PRN PRN Reason: Insomnia Metoprolol Tartrate (Metoprolol Tartrate 50 Mg Tablet) 50 mg PO BID [facility]; Protocol Last Admin: 04/21/22 09:17 Dose: 50 mg Nystatin (Nystatin Powder 15 Gm Bottle) 1 appl TOPICAL TID [facility]; Protocol Last Admin: 04/21/22 09:16 Dose: 1 appl Omeprazole (Omeprazole 20 Mg Capsule.Dr) 20 mg PO DAILY [facility] Last Admin: 04/21/22 09:15 Dose: 20 mg Ondansetron HCl (Ondansetron Hcl 4 Mg/2 Ml Vial) 4 mg IVPUSH Q8H PRN PRN Reason: Nausea and Vomiting Oxycodone HCl (Oxycodone Hcl Immed Release 5 Mg Tablet) 5 mg PO Q6H PRN PRN Reason: Pain, Moderate (Pain Scale 4-6 Last Admin: 04/19/22 17:09 Dose: 5 mg Pharmacy Consult (Consult Rx Perform Med Rec) 1 each MISCELLANE ONCE PRN PRN Reason: Consult order Sodium Chloride (0.9 % Sodium Chloride Flush 3 Ml Syringe) 3 ml IVFLUSH QSHIFT [facility] Last Admin: 04/21/22 09:13 Dose: 3 ml Home Medications Medication Instructions Recorded Confirmed Last Taken Type atorvastatin 40 mg tablet 1 tab PO DAILY 04/14/22 04/14/22 Unknown History gabapentin 100 mg capsule 1 cap PO TID 04/14/22 04/14/22 Unknown History glipizide 10 mg tablet, extended 1 tab PO DAILY 04/14/22 04/14/22 Unknown History release 24 hr isosorbide mononitrate 60 mg 1 tab PO DAILY 04/14/22 04/14/22 Unknown History tablet,extended release 24 hr losartan 100 mg tablet 1 tab PO DAILY 04/14/22 04/14/22 Unknown History metoprolol tartrate 25 mg tablet 1 tab PO BID 04/14/22 04/14/22 Unknown History omeprazole 20 mg capsule,delayed 1 cap PO DAILY 04/14/22 04/14/22 Unknown History release Physical Exam Vital Signs: Vital Signs: Last Vital Signs Temp 98.9 F 04/21/22 07:24 Pulse 78 04/21/22 07:24 Resp 20 04/21/22 07:24 BP 138/69 04/21/22 07:24 Pulse Ox 96 04/21/22 07:24 O2 Del Method 04/21/22 07:24 O2 Flow Rate 2 04/17/22 16:00 BMI result Body Mass Index 27.4 Skin: Other: bilateral fingers and thumbs with some areas of frostbite skin- relatively superficial and dry and clean seeming nontender Results Results Labs: Urine 04/13/22 Range/Units 22:47 Urine Color Yellow Urine Appearance Clear Urine pH 5.5 (5.0-9.0) Ur Specific [place] 1.020 (1.005-1.025) Urine Protein 100 (2+) H (Neg-Trace) mg/dL Urine Glucose (UA) Negative (Negative) mg/dL Assessment and Plan (1) Frostbite of both hands: Status: Acute Plan superficial frostbite relatively to all fingers but looks good - no need for dressings and just keep hands lubricated with general mositurizer as needed med team managing other issues. Time Spent With Patient Time: Total time managing care of this patient today ____ minutes. Quality Stroke Does the patient have a stroke diagnosis?: No VTE Prior VTE?: No VTE Risk Level:: Medical - moderate - high VTE Device Contraindication: Treatment Not Indicated VTE Drug Contraindication: N/A - Med Ordered Procedures Date of Service Date of Service: 04/21/22
[2022-04-21 15:38] VITALS: BP 107/56; PULSE 58; RESP 18; TEMP 37.1; O2SAT 100
[2022-04-21 15:55] LABS: Glucose, Whole Blood 107 mg/dL (60-115)
[2022-04-21 19:53] VITALS: BP 113/57; PULSE 69; RESP 18; TEMP 37; O2SAT 91
[2022-04-21 20:07] LABS: Glucose, Whole Blood 183 mg/dL (60-115)
[2022-04-22] VITALS (9 sets, daily range): BP systolic 108–148; BP diastolic 49–67; PULSE 61–71; RESP 16–20; TEMP 36.1–37.1; O2SAT 95–100
[2022-04-22] MEDS: 0.9 % Sodium Chloride Flush 3 ML SYRINGE IVFLUSH ×3 (00:19→15:51)
[2022-04-22 07:49] LABS: Glucose, Whole Blood 98 mg/dL (60-115)
[2022-04-22] MEDS: Metoprolol Tartrate 50 MG TABLET PO ×2 (10:31→22:30)
[2022-04-22] MEDS: Empagliflozin 10 MG TABLET PO (10:32)
[2022-04-22] MEDS: Atorvastatin Calcium 40 MG TABLET PO (10:32)
[2022-04-22] MEDS: Omeprazole 20 MG CAPSULE.DR PO (10:32)
[2022-04-22] MEDS: Nystatin Powder 15 GM BOTTLE 1 APPL TOPICAL ×3 (10:32→22:33)
[2022-04-22] MEDS: Gabapentin 100 MG CAPSULE PO ×3 (10:32→22:28)
--- NOTE | 2022-04-22 11:00 | HO.PM.IMPN ---
Subjective Subjective Date of Service: 04/22/22 Interval History: seen and examined this morning follow up for chf, frostbite no specific complaints this morning no sob, no chest pain Review of Systems Review of Systems: Yes all other systems are reviewed and are negative Constitutional Constitutional: Denies chills and Denies fever(s) Cardiovascular Cardiovascular: Denies chest pain, Denies palpitations and Denies dyspnea Respiratory Respiratory: Denies cough and Denies dyspnea Gastrointestinal Gastrointestinal: Denies abdominal pain, Denies nausea and Denies vomiting Endocrine Endocrine: Denies palpitations Physical Exam Vital Signs: Vital Signs: Last Vital Signs Temp 98.3 F 04/22/22 07:56 Pulse 65 04/22/22 10:04 Resp 20 04/22/22 10:04 BP 109/49 L 04/22/22 10:04 Pulse Ox 95 04/22/22 07:56 O2 Del Method 04/22/22 07:56 O2 Flow Rate 2 04/17/22 16:00 BMI result Body Mass Index 27.4 Const: General: cooperative, comfortable, alert and awake Nutritional Appearance: average body habitus Orientation/consciousness: oriented to person and oriented to place Resp: Effort & Inspection: normal respiratory effort and able to speak in complete sentences Cardio: Rate: regular rate Heart sounds: S1 normal heart sound present and S2 normal heart sound present GI: Inspection: No distended Palpation (GI): Soft to palpation and nontender Skin: Other: hands continue to improve, blisters dried, still with limited mobility of fingers Neuro: General: oriented to person, oriented to place and CN's II-XI intact bilaterally Extrem: General: Yes no pedal edema Objective Data Active Medications Acetaminophen (Acetaminophen 325 Mg Tablet) 650 mg PO Q6H PRN PRN Reason: Pain, Mild (Pain Scale 1-3) Last Admin: 04/20/22 12:48 Dose: 650 mg Documented By: MIL Atorvastatin Calcium (Atorvastatin Calcium 40 Mg Tablet) 40 mg PO DAILY [facility] Last Admin: 04/22/22 10:32 Dose: 40 mg Documented By: BENJY Dextrose (Dextrose 50 % 25 Gm/50 Ml Syringe) 25 gm IVPUSH Q15M PRN; Protocol PRN Reason: per Hypoglycemia Standing Ord. Empagliflozin (Empagliflozin 10 Mg Tablet) 10 mg PO DAILY [facility] Last Admin: 04/22/22 10:32 Dose: 10 mg Documented By: BENJY Furosemide (Furosemide 40 Mg Tablet) 40 mg PO BID@0900,1800 [facility]; Protocol Last Admin: 04/22/22 10:22 Dose: Not Given Documented By: BENJY Non-Admin Reason: Physician Held Med Gabapentin (Gabapentin 100 Mg Capsule) 100 mg PO TID [facility] Last Admin: 04/22/22 10:32 Dose: 100 mg Documented By: BENJY Glucose (Glucose Gel 15 Gm Gel..Gram.) 15 gm PO Q15M PRN; Protocol PRN Reason: per Hypoglycemia Standing Ord. Insulin Human Lispro (Insulin Lispro 100 Unit/Ml 3 Ml Vial) 0 unit SUBCUT QIDACHS [facility]; Protocol Last Admin: 04/22/22 07:40 Dose: Not Given Documented By: BENJY Non-Admin Reason: No Insulin Coverage Comments: POC 98 Isosorbide Mononitrate (Isosorbide Mononitrate 60 Mg Tab.Er.24h) 60 mg PO DAILY [facility]; Protocol Last Admin: 04/22/22 10:23 Dose: Not Given Documented By: BENJY Non-Admin Reason: Physician Held Med Losartan Potassium (Losartan Potassium 50 Mg Tablet) 100 mg PO DAILY [facility]; Protocol Last Admin: 04/22/22 10:23 Dose: Not Given Documented By: BENJY Non-Admin Reason: Physician Held Med Melatonin (Melatonin 3 Mg Tablet) 6 mg PO BEDTIME PRN PRN Reason: Insomnia Metoprolol Tartrate (Metoprolol Tartrate 50 Mg Tablet) 50 mg PO BID [facility]; Protocol Last Admin: 04/22/22 10:31 Dose: 50 mg Documented By: BENJY Comments: VERIFIED WITH MD PRIOR TO ADMINISTRATION Nystatin (Nystatin Powder 15 Gm Bottle) 1 appl TOPICAL TID [facility]; Protocol Last Admin: 04/22/22 10:32 Dose: 1 appl Documented By: BENJY Omeprazole (Omeprazole 20 Mg Capsule.Dr) 20 mg PO DAILY [facility] Last Admin: 04/22/22 10:32 Dose: 20 mg Documented By: BENJY Ondansetron HCl (Ondansetron Hcl 4 Mg/2 Ml Vial) 4 mg IVPUSH Q8H PRN PRN Reason: Nausea and Vomiting Oxycodone HCl (Oxycodone Hcl Immed Release 5 Mg Tablet) 5 mg PO Q6H PRN PRN Reason: Pain, Moderate (Pain Scale 4-6 Last Admin: 04/19/22 17:09 Dose: 5 mg Documented By: MIL Pharmacy Consult (Consult Rx Perform Med Rec) 1 each MISCELLANE ONCE PRN PRN Reason: Consult order Sodium Chloride (0.9 % Sodium Chloride Flush 3 Ml Syringe) 3 ml IVFLUSH QSHIFT [facility] Last Admin: 04/22/22 10:31 Dose: 3 ml Documented By: BENJY Labs 04/20/22 08:58 04/20/22 08:58 Labs: Laboratory Results - last 24 hr 04/21/22 04/21/22 04/21/22 11:07 15:41 19:52 POC Glucose 192 H 107 183 H 04/22/22 07:39 POC Glucose 98 Microbiology Microbiology Results: Microbiology 04/17/22 10:02 Gram Stain - Final Ascites Fluid Anaerobic Culture - Final NO GROWTH AFTER 5 DAYS Body Fluid Culture - Final No growth after 2 days Assessment and Plan (1) Cognitive decline: Status: Acute (2) Frostbite of both hands: Status: Acute Plan This is a 86-year-old male with pertinent history of dcr-liuswbz-bxvxolsrb diabetes mellitus, essential hypertension, gastroesophageal reflux disease, essential hypertension, mixed hyperlipidemia, CAD status post CABG who was brought to the emergency department via EMS for cold exposure. Hypokalemia. Resolved replete Acute dyspnea secondary to HFrEF. Resolved EF 45-50% mild to moderate aortic stenosis Strict I's and O's, daily weights; Low-salt diet.? neg 12 L to date seen by cardiology - rec outpatient ischemic workup continue metoprolol to 50 bid transitioned to oral lasix 40 bid Cold exposure/frostbite blistering and swelling of fingers bilaterally. improving consulted both ortho and vascular, nothing surgical to do at this time,monitor blistering no vascular intervention required at this time seen by surgery - no need to wrap - leave open to air - skin with slough eventually Anasarca with bilateral pleural effusion and ascites in the setting of above no hypoxia s/p diuresis s/p paracentesis 04/17, no albumin ordered on that day, but SAAG using albumin value available 1.4, likely r/t CHF seizure like episode seen by neurology - rec to obtain EEG EEG obtained - unremarkable Hx of confusion, unspecified brain with no acute changes - moderate volume loss, chronic lacunar infarct Seen by psych deemed to NOT have capacity fungal infection groin area Nystatin powder TID Chronic kidney disease, unclear/unspecified baseline creatinine stable Essential hypertension continue home medications Tag-lfetrpf-rejrprknk diabetes mellitus SSI, ada diet CAD status post CABG high-intensity statin, imdur, metoprolol DVT prophylaxis: mechanical devices Full code Attending Dr. Braga continued hospital stay for safe disposition Granddaughter in law Mireya lives local [phone] Discussed case with Case Management who was able to talk with patient's daughter in [place]. Patient had been living in [place] up to 6 weeks ago left on a train to [place] to stay with other family members in had been there for several weeks. Then the day prior to admission he decided to come to [facility] to meet up with a friend who never ended up picking him up at the train station and patient was found outside leading to the cold exposure. According to the patient's daughter he has a history of getting up and leaving and she feels like he has been pretty confused and seemed confused before he left [place] 6 weeks ago. He has history of alcohol abuse and the daughter stated that when he left [place] 6 weeks ago he was sober but is unsure what he has been doing since then. She did report that at this time she does not want him to return to [place] because she is taking care of another family member full-time. Time Spent With Patient Time: Total time managing care of this patient today ____ minutes. Quality Stroke Does the patient have a stroke diagnosis?: No VTE Prior VTE?: No VTE Risk Level:: Medical - moderate - high VTE Device Contraindication: Treatment Not Indicated VTE Drug Contraindication: N/A - Med Ordered
[2022-04-22 11:16] LABS: Glucose, Whole Blood 184 mg/dL (60-115)
[2022-04-22] MEDS: Insulin Lispro 100 UNIT/ML 3 ML VIAL SUBCUT (11:30)
[2022-04-22 15:56] LABS: Glucose, Whole Blood 131 mg/dL (60-115)
[2022-04-22 20:10] LABS: Glucose, Whole Blood 155 mg/dL (60-115)
[2022-04-23] MEDS: 0.9 % Sodium Chloride Flush 3 ML SYRINGE IVFLUSH ×4 (00:20→20:14)
[2022-04-23 03:37] VITALS: BP 133/63; PULSE 67; RESP 20; TEMP 36.8; O2SAT 96
--- NOTE | 2022-04-23 07:09 | PC.NURSE ---
patient offers no complaints. safety maintained.
[2022-04-23 07:17] VITALS: BP 133/63; PULSE 64; RESP 20; TEMP 37.1; O2SAT 97
[2022-04-23 07:34] LABS: Glucose, Whole Blood 131 mg/dL (60-115)
[2022-04-23] MEDS: Empagliflozin 10 MG TABLET PO (09:25)
[2022-04-23] MEDS: Gabapentin 100 MG CAPSULE PO ×3 (09:25→20:14)
[2022-04-23] MEDS: Atorvastatin Calcium 40 MG TABLET PO (09:25)
[2022-04-23] MEDS: Isosorbide Mononitrate 60 MG TAB.ER.24H PO (09:25)
[2022-04-23] MEDS: Furosemide 40 MG TABLET PO ×2 (09:25→17:42)
[2022-04-23] MEDS: Losartan Potassium 50 MG TABLET 100 MG PO (09:25)
[2022-04-23] MEDS: Omeprazole 20 MG CAPSULE.DR PO (09:25)
--- NOTE | 2022-04-23 09:54 | MHC.CM.PN ---
Guardianship is in progress and CM will continue to follow.
--- NOTE | 2022-04-23 10:13 | HO.PM.IMPN ---
Subjective Subjective Date of Service: 04/23/22 Interval History: seen and examined this morning follow up for chf, frostbite no specific complaints this morning no sob, no chest pain Review of Systems Review of Systems: Yes all other systems are reviewed and are negative Constitutional Constitutional: Denies chills and Denies fever(s) Cardiovascular Cardiovascular: Denies chest pain, Denies palpitations and Denies dyspnea Respiratory Respiratory: Denies cough and Denies dyspnea Gastrointestinal Gastrointestinal: Denies abdominal pain, Denies nausea and Denies vomiting Endocrine Endocrine: Denies palpitations Physical Exam Vital Signs: Vital Signs: Last Vital Signs Temp 98.7 F 04/23/22 07:17 Pulse 64 04/23/22 07:17 Resp 20 04/23/22 07:17 BP 133/63 04/23/22 07:17 Pulse Ox 97 04/23/22 07:17 O2 Del Method 04/23/22 07:17 O2 Flow Rate 2 04/17/22 16:00 BMI result Body Mass Index 27.4 Appearing in no acute distress LSCTA heart regular rate rhythm, clear S1, S2 positive bowel sounds, abdomen is soft, nontender neuro patient is alert x3, no focal deficits Bilat finger bruising Objective Data Active Medications Acetaminophen (Acetaminophen 325 Mg Tablet) 650 mg PO Q6H PRN PRN Reason: Pain, Mild (Pain Scale 1-3) Last Admin: 04/20/22 12:48 Dose: 650 mg Documented By: MIL Atorvastatin Calcium (Atorvastatin Calcium 40 Mg Tablet) 40 mg PO DAILY [facility] Last Admin: 04/23/22 09:25 Dose: 40 mg Documented By: [facility] Dextrose (Dextrose 50 % 25 Gm/50 Ml Syringe) 25 gm IVPUSH Q15M PRN; Protocol PRN Reason: per Hypoglycemia Standing Ord. Empagliflozin (Empagliflozin 10 Mg Tablet) 10 mg PO DAILY [facility] Last Admin: 04/23/22 09:25 Dose: 10 mg Documented By: [facility] Furosemide (Furosemide 40 Mg Tablet) 40 mg PO BID@0900,1800 [facility]; Protocol Last Admin: 04/23/22 09:25 Dose: 40 mg Documented By: [facility] Gabapentin (Gabapentin 100 Mg Capsule) 100 mg PO TID [facility] Last Admin: 04/23/22 09:25 Dose: 100 mg Documented By: [facility] Glucose (Glucose Gel 15 Gm Gel..Gram.) 15 gm PO Q15M PRN; Protocol PRN Reason: per Hypoglycemia Standing Ord. Insulin Human Lispro (Insulin Lispro 100 Unit/Ml 3 Ml Vial) 0 unit SUBCUT QIDACHS [facility]; Protocol Last Admin: 04/23/22 08:07 Dose: Not Given Documented By: [facility] Non-Admin Reason: No Insulin Coverage Isosorbide Mononitrate (Isosorbide Mononitrate 60 Mg Tab.Er.24h) 60 mg PO DAILY [facility]; Protocol Last Admin: 04/23/22 09:25 Dose: 60 mg Documented By: [facility] Losartan Potassium (Losartan Potassium 50 Mg Tablet) 100 mg PO DAILY [facility]; Protocol Last Admin: 04/23/22 09:25 Dose: 100 mg Documented By: [facility] Melatonin (Melatonin 3 Mg Tablet) 6 mg PO BEDTIME PRN PRN Reason: Insomnia Metoprolol Tartrate (Metoprolol Tartrate 50 Mg Tablet) 50 mg PO BID [facility]; Protocol Last Admin: 04/23/22 09:32 Dose: Not Given Documented By: [facility] Non-Admin Reason: Patient Condition Contraindication Nystatin (Nystatin Powder 15 Gm Bottle) 1 appl TOPICAL TID [facility]; Protocol Last Admin: 04/22/22 22:33 Dose: 1 appl Documented By: VALENTINO Omeprazole (Omeprazole 20 Mg Capsule.Dr) 20 mg PO DAILY [facility] Last Admin: 04/23/22 09:25 Dose: 20 mg Documented By: [facility] Ondansetron HCl (Ondansetron Hcl 4 Mg/2 Ml Vial) 4 mg IVPUSH Q8H PRN PRN Reason: Nausea and Vomiting Oxycodone HCl (Oxycodone Hcl Immed Release 5 Mg Tablet) 5 mg PO Q6H PRN PRN Reason: Pain, Moderate (Pain Scale 4-6 Last Admin: 04/19/22 17:09 Dose: 5 mg Documented By: MIL Pharmacy Consult (Consult Rx Perform Med Rec) 1 each MISCELLANE ONCE PRN PRN Reason: Consult order Sodium Chloride (0.9 % Sodium Chloride Flush 3 Ml Syringe) 3 ml IVFLUSH QSHIFT [facility] Last Admin: 04/23/22 09:24 Dose: 3 ml Documented By: [facility] Labs 04/20/22 08:58 04/20/22 08:58 Labs: Laboratory Results - last 24 hr 04/22/22 04/22/22 04/22/22 11:12 15:52 20:01 POC Glucose 184 H 131 H 155 H 04/23/22 07:15 POC Glucose 131 H Microbiology Microbiology Results: Microbiology 04/17/22 10:02 Gram Stain - Final Ascites Fluid Anaerobic Culture - Final NO GROWTH AFTER 5 DAYS Body Fluid Culture - Final No growth after 2 days Assessment and Plan (1) Cognitive decline: Status: Acute (2) Frostbite of both hands: Status: Acute Plan This is a 86-year-old male with pertinent history of cmf-ijhsupe-mnhtdlwhh diabetes mellitus, essential hypertension, gastroesophageal reflux disease, essential hypertension, mixed hyperlipidemia, CAD status post CABG who was brought to the emergency department via EMS for cold exposure. Hypokalemia. Resolved replete Acute dyspnea secondary to HFrEF. Resolved EF 45-50% mild to moderate aortic stenosis Strict I's and O's, daily weights; Low-salt diet.? neg 12 L to date seen by cardiology - rec outpatient ischemic workup continue metoprolol to 50 bid transitioned to oral lasix 40 bid Cold exposure/frostbite blistering and swelling of fingers bilaterally. resolved consulted both ortho and vascular, nothing surgical to do at this time,monitor blistering no vascular intervention required at this time seen by surgery - no need to wrap - leave open to air - skin with slough eventually just bruising left Anasarca with bilateral pleural effusion and ascites in the setting of above no hypoxia s/p diuresis s/p paracentesis 04/17, no albumin ordered on that day, but SAAG using albumin value available 1.4, likely r/t CHF seizure like episode seen by neurology - rec to obtain EEG EEG obtained - unremarkable Hx of confusion, unspecified brain with no acute changes - moderate volume loss, chronic lacunar infarct Seen by psych deemed to NOT have capacity fungal infection groin area Nystatin powder TID Chronic kidney disease, unclear/unspecified baseline creatinine stable Essential hypertension continue home medications Fwz-dvzuzrw-iptuxujor diabetes mellitus SSI, ada diet CAD status post CABG high-intensity statin, imdur, metoprolol DVT prophylaxis: mechanical devices Full code Attending Dr. Portillo continued hospital stay for safe disposition Granddaughter in law Mireya [facility] [phone] Discussed case with Case Management who was able to talk with patient's daughter in [place]. Patient had been living in [place] up to 6 weeks ago left on a train to [place] to stay with other family members in had been there for several weeks. Then the day prior to admission he decided to come to [facility] to meet up with a friend who never ended up picking him up at the train station and patient was found outside leading to the cold exposure. According to the patient's daughter he has a history of getting up and leaving and she feels like he has been pretty confused and seemed confused before he left [place] 6 weeks ago. He has history of alcohol abuse and the daughter stated that when he left [place] 6 weeks ago he was sober but is unsure what he has been doing since then. She did report that at this time she does not want him to return to [place] because she is taking care of another family member full-time. Time Spent With Patient Time: Total time managing care of this patient today ____ minutes. Quality Stroke Does the patient have a stroke diagnosis?: No VTE Prior VTE?: No VTE Risk Level:: Medical - moderate - high VTE Device Contraindication: Treatment Not Indicated VTE Drug Contraindication: N/A - Med Ordered
[2022-04-23 11:04] LABS: Glucose, Whole Blood 233 mg/dL (60-115)
[2022-04-23] MEDS: Insulin Lispro 100 UNIT/ML 3 ML VIAL SUBCUT (12:48)
[2022-04-23] MEDS: Nystatin Powder 15 GM BOTTLE 1 APPL TOPICAL ×2 (14:37→20:18)
[2022-04-23 15:37] VITALS: BP 120/80; PULSE 65; RESP 18; TEMP 37.1; O2SAT 95
[2022-04-23 15:51] LABS: Glucose, Whole Blood 142 mg/dL (60-115)
[2022-04-23 19:49] VITALS: BP 102/54; PULSE 70; RESP 18; TEMP 37.1; O2SAT 97
[2022-04-23 19:55] LABS: Glucose, Whole Blood 117 mg/dL (60-115)
[2022-04-23] MEDS: Metoprolol Tartrate 50 MG TABLET PO (20:14)
[2022-04-23 23:32] VITALS: BP 112/50; PULSE 63; RESP 18; TEMP 36.6; O2SAT 100
[2022-04-24 04:00] VITALS: BP 118/56; PULSE 64; RESP 18; TEMP 36.7; O2SAT 98
[2022-04-24 07:25] LABS: Glucose, Whole Blood 114 mg/dL (60-115)
[2022-04-24 07:29] VITALS: BP 127/60; PULSE 67; RESP 20; TEMP 36.2; O2SAT 98
[2022-04-24] MEDS: Gabapentin 100 MG CAPSULE PO ×3 (08:54→20:52)
[2022-04-24] MEDS: Omeprazole 20 MG CAPSULE.DR PO (08:54)
[2022-04-24] MEDS: Atorvastatin Calcium 40 MG TABLET PO (08:54)
[2022-04-24] MEDS: 0.9 % Sodium Chloride Flush 3 ML SYRINGE IVFLUSH ×2 (08:54→16:28)
[2022-04-24] MEDS: Metoprolol Tartrate 50 MG TABLET PO ×2 (08:54→20:52)
[2022-04-24] MEDS: Losartan Potassium 50 MG TABLET 100 MG PO (08:54)
[2022-04-24] MEDS: Isosorbide Mononitrate 60 MG TAB.ER.24H PO (08:54)
[2022-04-24] MEDS: Furosemide 40 MG TABLET PO (08:55)
[2022-04-24] MEDS: Empagliflozin 10 MG TABLET PO (08:56)
[2022-04-24] MEDS: Nystatin Powder 15 GM BOTTLE 1 APPL TOPICAL ×2 (09:00→16:29)
--- NOTE | 2022-04-24 09:53 | HO.PM.IMPN ---
Subjective Subjective Date of Service: 04/24/22 Interval History: seen and examined this morning follow up for chf, frostbite no specific complaints this morning no sob, no chest pain Review of Systems Review of Systems: Yes all other systems are reviewed and are negative Constitutional Constitutional: Denies chills and Denies fever(s) Cardiovascular Cardiovascular: Denies chest pain, Denies palpitations and Denies dyspnea Respiratory Respiratory: Denies cough and Denies dyspnea Gastrointestinal Gastrointestinal: Denies abdominal pain, Denies nausea and Denies vomiting Endocrine Endocrine: Denies palpitations Physical Exam Vital Signs: Vital Signs: Last Vital Signs Temp 97.2 F 04/24/22 07:29 Pulse 67 04/24/22 07:29 Resp 20 04/24/22 07:29 BP 127/60 04/24/22 07:29 Pulse Ox 98 04/24/22 07:29 O2 Del Method 04/24/22 07:29 O2 Flow Rate 2 04/17/22 16:00 BMI result Body Mass Index 27.4 Appearing in no acute distress lung sounds are clear to auscultation heart regular rate rhythm, clear S1, S2 positive bowel sounds, abdomen is soft, nontender neuro patient is alert x3, no focal deficits Objective Data Active Medications Acetaminophen (Acetaminophen 325 Mg Tablet) 650 mg PO Q6H PRN PRN Reason: Pain, Mild (Pain Scale 1-3) Last Admin: 04/20/22 12:48 Dose: 650 mg Documented By: MIL Atorvastatin Calcium (Atorvastatin Calcium 40 Mg Tablet) 40 mg PO DAILY [facility] Last Admin: 04/24/22 08:54 Dose: 40 mg Documented By: [facility] Dextrose (Dextrose 50 % 25 Gm/50 Ml Syringe) 25 gm IVPUSH Q15M PRN; Protocol PRN Reason: per Hypoglycemia Standing Ord. Empagliflozin (Empagliflozin 10 Mg Tablet) 10 mg PO DAILY [facility] Last Admin: 04/24/22 08:56 Dose: 10 mg Documented By: [facility] Furosemide (Furosemide 40 Mg Tablet) 40 mg PO BID@0900,1800 [facility]; Protocol Last Admin: 04/24/22 08:55 Dose: 40 mg Documented By: [facility] Gabapentin (Gabapentin 100 Mg Capsule) 100 mg PO TID [facility] Last Admin: 04/24/22 08:54 Dose: 100 mg Documented By: [facility] Glucose (Glucose Gel 15 Gm Gel..Gram.) 15 gm PO Q15M PRN; Protocol PRN Reason: per Hypoglycemia Standing Ord. Insulin Human Lispro (Insulin Lispro 100 Unit/Ml 3 Ml Vial) 0 unit SUBCUT QIDACHS [facility]; Protocol Last Admin: 04/24/22 07:34 Dose: Not Given Documented By: [facility] Non-Admin Reason: No Insulin Coverage Isosorbide Mononitrate (Isosorbide Mononitrate 60 Mg Tab.Er.24h) 60 mg PO DAILY [facility]; Protocol Last Admin: 04/24/22 08:54 Dose: 60 mg Documented By: [facility] Losartan Potassium (Losartan Potassium 50 Mg Tablet) 100 mg PO DAILY [facility]; Protocol Last Admin: 04/24/22 08:54 Dose: 100 mg Documented By: [facility] Melatonin (Melatonin 3 Mg Tablet) 6 mg PO BEDTIME PRN PRN Reason: Insomnia Metoprolol Tartrate (Metoprolol Tartrate 50 Mg Tablet) 50 mg PO BID [facility]; Protocol Last Admin: 04/24/22 08:54 Dose: 50 mg Documented By: [facility] Nystatin (Nystatin Powder 15 Gm Bottle) 1 appl TOPICAL TID [facility]; Protocol Last Admin: 04/24/22 09:00 Dose: 1 appl Documented By: [facility] Omeprazole (Omeprazole 20 Mg Capsule.Dr) 20 mg PO DAILY [facility] Last Admin: 04/24/22 08:54 Dose: 20 mg Documented By: [facility] Ondansetron HCl (Ondansetron Hcl 4 Mg/2 Ml Vial) 4 mg IVPUSH Q8H PRN PRN Reason: Nausea and Vomiting Oxycodone HCl (Oxycodone Hcl Immed Release 5 Mg Tablet) 5 mg PO Q6H PRN PRN Reason: Pain, Moderate (Pain Scale 4-6 Last Admin: 04/19/22 17:09 Dose: 5 mg Documented By: MIL Pharmacy Consult (Consult Rx Perform Med Rec) 1 each MISCELLANE ONCE PRN PRN Reason: Consult order Sodium Chloride (0.9 % Sodium Chloride Flush 3 Ml Syringe) 3 ml IVFLUSH QSHIFT [facility] Last Admin: 04/24/22 08:54 Dose: 3 ml Documented By: [facility] Labs 04/20/22 08:58 04/20/22 08:58 Labs: Laboratory Results - last 24 hr 04/23/22 04/23/22 04/23/22 11:00 15:46 19:51 POC Glucose 233 H 142 H 117 H 04/24/22 07:18 POC Glucose 114 Assessment and Plan (1) Cognitive decline: Status: Acute (2) Frostbite of both hands: Status: Acute Plan This is a 86-year-old male with pertinent history of qpg-iratpja-yasozxybl diabetes mellitus, essential hypertension, gastroesophageal reflux disease, essential hypertension, mixed hyperlipidemia, CAD status post CABG who was brought to the emergency department via EMS for cold exposure. Hypokalemia. Resolved replete Acute dyspnea secondary to HFrEF. Resolved EF 45-50% mild to moderate aortic stenosis Strict I's and O's, daily weights; Low-salt diet.? neg 12 L to date seen by cardiology - rec outpatient ischemic workup continue metoprolol to 50 bid transitioned to oral lasix 40 bid Cold exposure/frostbite blistering and swelling of fingers bilaterally. resolved consulted both ortho and vascular, nothing surgical to do at this time,monitor blistering no vascular intervention required at this time seen by surgery - no need to wrap - leave open to air - skin with slough eventually just bruising left Anasarca with bilateral pleural effusion and ascites in the setting of above no hypoxia s/p diuresis s/p paracentesis 04/17, no albumin ordered on that day, but SAAG using albumin value available 1.4, likely r/t CHF seizure like episode seen by neurology - rec to obtain EEG EEG obtained - unremarkable Hx of confusion, unspecified brain with no acute changes - moderate volume loss, chronic lacunar infarct Seen by psych deemed to NOT have capacity fungal infection groin area Nystatin powder TID Chronic kidney disease, unclear/unspecified baseline creatinine stable Essential hypertension continue home medications Nwa-vlljynk-nihnyptex diabetes mellitus SSI, ada diet CAD status post CABG high-intensity statin, imdur, metoprolol DVT prophylaxis: mechanical devices Full code Attending Dr. Portillo continued hospital stay for safe disposition Granddaughter in law Mireya montesinos local [phone] Discussed case with Case Management who was able to talk with patient's daughter in [place]. Patient had been living in [place] up to 6 weeks ago left on a train to [place] to stay with other family members in had been there for several weeks. Then the day prior to admission he decided to come to [facility] to meet up with a friend who never ended up picking him up at the train station and patient was found outside leading to the cold exposure. According to the patient's daughter he has a history of getting up and leaving and she feels like he has been pretty confused and seemed confused before he left [place] 6 weeks ago. He has history of alcohol abuse and the daughter stated that when he left [place] 6 weeks ago he was sober but is unsure what he has been doing since then. She did report that at this time she does not want him to return to [place] because she is taking care of another family member full-time. Time Spent With Patient Time: Total time managing care of this patient today ____ minutes. Quality Stroke Does the patient have a stroke diagnosis?: No VTE Prior VTE?: No VTE Risk Level:: Medical - moderate - high VTE Device Contraindication: Treatment Not Indicated VTE Drug Contraindication: N/A - Med Ordered
--- NOTE | 2022-04-24 10:45 | MHC.CM.PN ---
Addendum entered by Anat Darden 04/24/22 13:35: Affirming below note by SW. Original Note: Per CM Director/Anat, Patient's family from [place] will be here tomorrow to roll picker Patient and to take him home; Anat has informed CHARGE LPN/Michelle, who is in agreement with the plan. CM will follow. LILIYA did deliver the Notice of Hearing, to Patient today r/t the Guardianship process that was initiated.
[2022-04-24 11:18] LABS: Glucose, Whole Blood 234 mg/dL (60-115)
[2022-04-24] MEDS: Insulin Lispro 100 UNIT/ML 3 ML VIAL SUBCUT ×2 (12:38→20:55)
[2022-04-24 15:21] VITALS: BP 80/41; PULSE 54; RESP 17; TEMP 36.5; O2SAT 97
[2022-04-24 16:07] LABS: Glucose, Whole Blood 128 mg/dL (60-115)
[2022-04-24 17:15] VITALS: BP 115/64
[2022-04-24 19:51] VITALS: BP 111/53; PULSE 63; RESP 18; TEMP 37; O2SAT 96
[2022-04-24 20:40] LABS: Glucose, Whole Blood 155 mg/dL (60-115)
[2022-04-24] MEDS: Acetaminophen 325 MG TABLET 650 MG PO (20:52)
[2022-04-25] MEDS: 0.9 % Sodium Chloride Flush 3 ML SYRINGE IVFLUSH ×2 (00:18→08:51)
[2022-04-25 03:14] VITALS: BP 108/53; PULSE 68; RESP 18; TEMP 37; O2SAT 96
[2022-04-25 08:00] VITALS: BP 124/62; PULSE 67; RESP 14; TEMP 36.9; O2SAT 95
[2022-04-25] MEDS: Metoprolol Tartrate 50 MG TABLET PO (08:50)
[2022-04-25] MEDS: Losartan Potassium 50 MG TABLET 100 MG PO (08:50)
[2022-04-25] MEDS: Atorvastatin Calcium 40 MG TABLET PO (08:50)
[2022-04-25] MEDS: Furosemide 40 MG TABLET PO (08:50)
[2022-04-25] MEDS: Isosorbide Mononitrate 60 MG TAB.ER.24H PO (08:50)
[2022-04-25] MEDS: Omeprazole 20 MG CAPSULE.DR PO (08:50)
[2022-04-25] MEDS: Gabapentin 100 MG CAPSULE PO (08:51)
[2022-04-25] MEDS: Empagliflozin 10 MG TABLET PO (08:51)
[2022-04-25] MEDS: Thiamine HCL 100 MG TABLET PO (08:54)
--- NOTE | 2022-04-25 11:25 | PM.DS ---
DS: Providers Provider Date of Service: 04/25/22 Date of admission: 04/14/22 04:19 Date of discharge: 04/25/22 Primary care physician: Unknown Physician Consults: 04/14/22 04:19 Consult to Cardiology Routine Consulting Provider: Ariel Guzman Reason for consultation: CHF Has provider been notified: Yes 04/14/22 09:38 Consult to Orthopedics Routine Consulting Provider: Jesse Barbour Reason for consultation: hand frostbite Has provider been notified: No 04/15/22 10:03 Consult to Psychiatry Routine Consulting Provider: Psych Covering Reason for consultation: capacity Has provider been notified: No 04/16/22 10:41 Consult to Neurology Routine Consulting Provider: [facility] Reason for consultation: ? seizure during echo Has provider been notified: No 04/21/22 07:48 Consult to General Surgery Routine Consulting Provider: Petty Rossi Reason for consultation: muse bite b/l hands Has provider been notified: No DS: Diagnosis Discharge Diagnosis (1) Cognitive decline: Status: Acute (2) Frostbite of both hands: Status: Acute (3) Aortic stenosis: Status: Acute (4) Diabetes: Status: Acute (5) Hx of CABG: Status: Acute (6) Essential hypertension: Status: Acute (7) CHF exacerbation: Status: Acute (8) Pleural effusion, right: Status: Acute (9) Abdominal ascites: Status: Acute (10) Acute on chronic HFrEF (heart failure with reduced ejection fraction): Status: Acute DS: Summary Hospital Course Hospital Course: From admission H+P by hospitalist Chrystal Scott, 04/14/22: This is a 86-year-old male with pertinent history of wvh-adoxttv-vcjirolon diabetes mellitus, essential hypertension, gastroesophageal reflux disease, essential hypertension, mixed hyperlipidemia, CAD status post CABG who was brought to the emergency department via EMS for cold exposure.? As per chart review, patient was left outside by his family to walk home from the train station and he was cold and was brought to the ER.? Case management was initially ordered in the ER who revealed that patient lives in [place] and came to [place] to take care of some stuff .? Patient stated that he left his luggage the street which was found by police officers have retained his medications at the police station due to abandonment.? Lab work in the ER initially revealed elevated creatinine and 2 L bolus normal saline was ordered.? Patient was found to have dyspnea over the course of physician observation stay in the ER which led to additional workup.? His BNP was found to be significantly elevated and imaging revealed bilateral pleural effusions with ascites and cardiomegaly. This is a 86-year-old male with pertinent history of ugd-rpqbmaj-expphilor diabetes mellitus, essential hypertension, gastroesophageal reflux disease, essential hypertension, mixed hyperlipidemia, CAD status post CABG who was brought to the emergency department via EMS for cold exposure. Hospitali course by problem: # acute dyspnea secondary to HFrEF # anasarca with pleural effusion and ascites - EF 45-50% mild to moderate aortic stenosis. Diuresed with IV furosemide, neg negative 12L. Had paracentesis 04/17 with ascites likely due to CHF. Will need outpt cardiology follow-up and ischemic workup. Discharged on furosemide, empagliflozin, metoprolol, losartan, and isosorbid mononitrate. # frostbite - Consulted Orthopedics and Vascular Surgery. No intervention required. Advised to leave injury open to air and the skin with eventually slough. # cognitive decline - Brain imaging with no acute changes; demonstrated were moderate volume loss, chronic lacunar infarct. Seen by psychiatry and deemed to not have decision-making capacity. History of alcoholism; started on thiamine. He was discharged in the care of his family from [place] and they will obtain him primary care and cardiology follow-up. Time Spent with Patient Time attestation: Total time managing care of this patient today __35__ minutes. Discharge coordination time: Greater than 30 minutes Quality: Safe Use of Opioids Does Pt have an Active Cancer Diagnosis on the Problem List?: No Quality: Stroke Does the patient have a stroke diagnosis?: No Physical Exam Vital Signs: Vital Signs: Last Vital Signs Temp 98.5 F 04/25/22 08:00 Pulse 67 04/25/22 08:00 Resp 14 04/25/22 08:00 BP 124/62 04/25/22 08:00 Pulse Ox 95 04/25/22 08:00 O2 Del Method 04/25/22 08:00 O2 Flow Rate 2 04/17/22 16:00 BMI result Body Mass Index 27.4 Const: Other: Gen: in no acute distress HEENT: sclera anicteric, moist mucus membranes Neck: supple Lungs: clear to auscultation bilaterally Heart: regular rate and rhythm, no murmurs Abd: soft, non-tender, non-distended Ext: no edema Skin: warm/well-perfused, mottled bruising of fingers at site of frostbite injury Neuro: alert, poor insight DS: Data Data Completed and Pending Completed studies during hospitalization [Text1]: Laboratory Results WBC 4.3 X10*3/uL (4.8-10.8) L 04/20/22 08:58 RBC 4.77 X10*6/uL (4.60-5.80) 04/20/22 08:58 Hgb 11.3 g/dl (14.0-18.0) L 04/20/22 08:58 Hct 37.2 % (42.0-52.0) L 04/20/22 08:58 MCV 78.0 fL (80.0-98.0) L 04/20/22 08:58 MCH 23.7 pg (27.0-33.0) L 04/20/22 08:58 MCHC 30.4 g/dl (31.0-36.0) L 04/20/22 08:58 RDW 17.6 % (11.0-16.0) H 04/20/22 08:58 Plt Count 234 X10*3/uL (160-400) 04/20/22 08:58 MPV 10.1 fL (9.4-12.4) 04/20/22 08:58 Immature Gran % (Auto) 0.3 % (0.0-0.4) 04/14/22 04:45 Neut % (Auto) 79.6 % (45-73) H 04/14/22 04:45 Lymph % (Auto) 10.1 % (20-40) L 04/14/22 04:45 [place] % (Auto) 9.5 % (2-11) 04/14/22 04:45 Eos % (Auto) 0.0 % (0-4) 04/14/22 04:45 Baso % (Auto) 0.5 % (0-2) 04/14/22 04:45 Lymph # (Auto) 0.7 X10*3/uL (1.2-4.9) L 04/14/22 04:45 [place] # (Auto) 0.6 X10*3/uL (0.1-1.2) 04/14/22 04:45 Eos # (Auto) 0.0 X10*3/uL (0.0-0.4) 04/14/22 04:45 Baso # (Auto) 0.0 X10*3/uL (0.0-0.2) 04/14/22 04:45 Abs Immat Gran (auto) 0.02 X10*3/uL (0.00-0.03) 04/14/22 04:45 Absolute Neuts (auto) 5.1 x10*3/uL (2.0-8.3) 04/14/22 04:45 Absolute Nucleated RBC 0.000 X10*3/uL (0.0-0.012) 04/20/22 08:58 Nucleated RBC % (auto) 0.0 /100WBC (0.0-0.2) 04/20/22 08:58 PT 14.8 SEC (10.0-13.1) H 04/16/22 09:42 INR 1.3 (0.9-1.1) H 04/16/22 09:42 Sodium 142 mmol/L (135-145) 04/20/22 08:58 Potassium 3.5 mmol/L (3.3-5.1) 04/20/22 08:58 Chloride 98 mmol/L (96-108) 04/20/22 08:58 Carbon Dioxide 33 mmol/L (22-29) H 04/20/22 08:58 Anion Gap 15 (12-20) 04/20/22 08:58 BUN 32 mg/dL (9-16) H 04/20/22 08:58 Creatinine 1.32 mg/dL (0.5-1.4) 04/20/22 08:58 Estim Creat Clear Calc 39.3 04/20/22 08:58 Estimated GFR 52 04/20/22 08:58 POC Glucose 155 mg/dL (60-115) H 04/24/22 19:56 Random Glucose 111 mg/dL (60-115) 04/20/22 08:58 Calcium 9.3 mg/dL (8.4-10.2) 04/20/22 08:58 Total Bilirubin 2.0 mg/dL (0.0-1.0) H 04/13/22 20:56 Direct Bilirubin 0.9 mg/dL (0.0-0.5) H 04/13/22 20:56 AST 24 U/L (5-37) 04/13/22 20:56 ALT 19 U/L (0-40) 04/13/22 20:56 Alkaline Phosphatase 106 U/L (39-117) 04/13/22 20:56 B-Natriuretic Peptide 1819 pg/mL (<100) H 04/18/22 07:46 Total Protein 6.2 g/dL (6.5-8.0) L 04/13/22 20:56 Albumin 3.7 g/dL (3.5-5.0) 04/13/22 20:56 Urine Color Yellow 04/13/22 22:47 Urine Appearance Clear 04/13/22 22:47 Urine pH 5.5 (5.0-9.0) 04/13/22 22:47 Ur Specific [place] 1.020 (1.005-1.025) 04/13/22 22:47 Urine Protein 100 (2+) mg/dL (Neg-Trace) H 04/13/22 22:47 Urine Glucose (UA) Negative mg/dL (Negative) 04/13/22 22:47 Urine Ketones Negative mg/dL (Negative) 04/13/22 22:47 Urine Blood Negative (Negative) 04/13/22 22:47 Urine Nitrite Negative (Negative) 04/13/22 22:47 Ur Leukocyte Esterase Small (1+) (Negative) H 04/13/22 22:47 Urine RBC 0-2 /HPF (0-2) 04/13/22 22:47 Urine WBC 0-5 /HPF (0-5) 04/13/22 22:47 Ur Squamous Epith Cells 0-2 /HPF (0-2) 04/13/22 22:47 Urine Bacteria None Seen (None Seen) 04/13/22 22:47 Hyaline Casts 3-5 /LPF (0-2) 04/13/22 22:47 Peritoneal pH 7.48 04/17/22 09:35 Peritoneal WBC 1.244 X10*3/uL 04/17/22 10:02 Peritoneal RBC 0.002 X10*6/uL 04/17/22 10:02 Periton Neutrophils 2 % 04/17/22 10:02 Periton Lymphocytes 78 % 04/17/22 10:02 Peritoneal Monocytes 16 % 04/17/22 10:02 Peritoneal Other Cells 4 % 04/17/22 10:02 Peritoneal Tot Protein 3.7 GM/DL 04/17/22 09:35 Peritoneal Albumin 2.3 GM/DL 04/17/22 09:35 Peritoneal LDH 110 U/L 04/17/22 09:35 Urine Opiates Screen Not Detected (Not Detect) 04/13/22 22:47 Urine Fentanyl Screen Not Detected (Not Detect) 04/13/22 22:47 Ur Barbiturates Screen Not Detected (Not Detect) 04/13/22 22:47 Ur Phencyclidine Scrn Not Detected (Not Detect) 04/13/22 22:47 Ur Amphetamines Screen Not Detected (Not Detect) 04/13/22 22:47 U Benzodiazepines Scrn Not Detected (Not Detect) 04/13/22 22:47 Urine Cocaine Screen Not Detected (Not Detect) 04/13/22 22:47 U Marijuana (THC) Screen Not Detected (Not Detect) 04/13/22 22:47 Ethyl Alcohol < 10 mg/dL 04/13/22 20:56 COVID-19 (SOHAM) Negative (Negative) 04/14/22 02:20 COVID-19 Clin Com See Note 04/14/22 02:20 Influenza Type A (SALLIE) Negative (Negative) 04/14/22 02:20 Influenza Type B (SALLIE) Negative (Negative) 04/14/22 02:20 Influenza A & B Note See Note 04/14/22 02:20 Impressions Abdomen/Pelvis CT 04/14/22 03:23 IMPRESSION: 1. Moderate to large right and small left pleural effusions. Partial opacification of the right middle and lower lobes, suspected to reflect atelectasis in this setting. 2. Moderate volume of ascites. 3. Anasarca. 4. Cardiomegaly. 5. Cholelithiasis. Chest CT 04/14/22 03:23 IMPRESSION: 1. Moderate to large right and small left pleural effusions. Partial opacification of the right middle and lower lobes, suspected to reflect atelectasis in this setting. 2. Moderate volume of ascites. 3. Anasarca. 4. Cardiomegaly. 5. Cholelithiasis. Head CT 04/14/22 13:06 IMPRESSION: 1. Moderate volume loss with mild chronic microangiopathy. 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 2. The orbits are incompletely imaged, however there is fatty deposition within the bilateral superior rectus muscles with slight fusiform expansion, which may be seen in the setting of thyroid eye disease; correlate clinically. Paracentesis Ultrasound 04/17/22 10:05 IMPRESSION: Successful ultrasound guided diagnostic paracentesis performed without immediate complications. TTE 04/16/22 1. Mildly reduced LV ejection fraction with LVEF of 45-50% with mild LVH with grade 2 diastolic dysfunction? 2. Mildly dilated right ventricle with severe LV systolic? dysfunction? 3. Mildly dilated left atrium? 4. Onkc-oh-oagvgdwh aortic stenosis next 5. Upper limits normal? RV systolic pressure with mildly elevated right atrial pressures 6. No gross pericardial effusion ? ? ? Discharge Plan Discharge Anticipated Discharge Date/Time: 04/25/22 11:02 Patient Disposition: Home, Self-Care Discharge Diagnosis: frostbite CHF, aortic stenosis, hypertension diabetes Referrals: Physician,Unknown J [Primary Care Provider] - 1 Week Discharge Medications: New furosemide 40 mg Tablet 40 mg PO BID@0900,1800 Qty: 60 0RF Protocol: Hold for SBP< HOLD for SBP < : 90 metoprolol tartrate 50 mg Tablet 50 mg PO BID Qty: 60 0RF Protocol: Hold for SBP/HR < HOLD for SBP < : 90 HOLD for HR < : 60 Jardiance 10 mg Tablet 10 mg PO DAILY Qty: 30 0RF thiamine mononitrate (vit B1) 100 mg Tablet 100 mg PO DAILY Qty: 30 0RF Continued atorvastatin 40 mg tablet 1 tab PO DAILY Qty: 30 0RF glipizide 10 mg tablet extended release 24hr 1 tab PO DAILY Qty: 30 0RF isosorbide mononitrate 60 mg tablet extended release 24 hr 1 tab PO DAILY Qty: 30 0RF omeprazole 20 mg capsule,delayed release(DR/EC) 1 cap PO DAILY Qty: 30 0RF gabapentin 100 mg capsule 1 cap PO TID Qty: 90 0RF losartan 100 mg tablet 1 tab PO DAILY Qty: 30 0RF Discontinued metoprolol tartrate 25 mg tablet 1 tab PO BID Discharge Orders: Discharge Order (Routine); Ordered 04/25/22 Ordered By: Abbey Garcia Diet: Advance to usual diet Activity on Discharge: As tolerated Stand Alone Forms: Patient Portal Discharge page Care Plan Goals: recovery from frostbite heart health Health Concerns: frostbite: leave hands open to air CHF exacerbation: low-sodium diet, take furosemide as prescribed, take metoprolol + losartan + isosorbidemononitrate + empagliflozin as prescribed; outpatient Cardiology follow-up; weigh yourself daily and call doctor if your weight goes up by >3 lb in a day or >5 lb in a week cognitive impairment: avoid alcohol, take thiamine as prescribed diabetes: take empagliflozin and glipizide as prescribed Plan of Treatment: see above Assessment: See Discharge Summary.
--- NOTE | 2022-04-25 11:40 | MHC.CM.PN ---
Patient has been medically cleared for dc to home today with family, self care. IMM addressed with Patient and original was given to him and left for family's review and a copy has been placed con the chart.
[2022-04-25 12:05] LABS: Glucose, Whole Blood 167 mg/dL (60-115)
[2022-04-25 12:08] LABS: Glucose, Whole Blood 133 mg/dL (60-115)
[2022-04-25] MEDS: Insulin Lispro 100 UNIT/ML 3 ML VIAL SUBCUT (12:12)
--- NOTE | 2022-04-25 14:11 | PC.NURSE ---
pt A&O x 4, with family at bedside. discharge instruction given to pt and family members with bench worker binding - Abby. family and pt verbalizes understanding, hard copies of scrips given to pt; atorvastatin, jardiance, furosemide, gabapentin, glipizide, isosorbide mononitrate, losartan, metoprolo tartrate, omeprazole, thiamine. IV removed. family member to accompany pt to lobby.
== END 2022-04-25 14:17 | disposition home or self-care (01) | DRG 291 ==
LOC: HO.ED 04-14 03:35 → HO.EDOVER 04-14 04:24 → HO.IMC 04-16 08:54
PROVIDERS: Nurse Practitioner Acute Care; Nurse Practitioner Family; Physician Assistant Medical; Radiology Diagnostic Radiology; Student in an Organized Health Care Education/Training Program; Admitting Provider Student in an Organized Health Care Education/Training Program; Emergency Provider Internal Medicine; Visit Provider Family Medicine
PROC: 0W9G3ZZ Drainage of Peritoneal Cavity, Percutaneous Approach (ICD-10-PCS; principal; 2022-04-17 09:00)
DX: I13.0 Hypertensive heart and chronic kidney disease with heart failure and stage 1 through stage 4 chronic kidney disease, or unspecified chronic kidney disease (principal); I50.23 Acute on chronic systolic (congestive) heart failure; T33.522A Superficial frostbite of left hand, initial encounter; T33.521A Superficial frostbite of right hand, initial encounter; N17.9 Acute kidney failure, unspecified; R18.8 Other ascites; X31.XXXA Exposure to excessive natural cold, initial encounter; I25.10 Atherosclerotic heart disease of native coronary artery without angina pectoris; K21.9 Gastro-esophageal reflux disease without esophagitis; E87.6 Hypokalemia; B35.6 Tinea cruris; R56.9 Unspecified convulsions; E11.22 Type 2 diabetes mellitus with diabetic chronic kidney disease; I35.0 Nonrheumatic aortic (valve) stenosis; N18.9 Chronic kidney disease, unspecified; E78.2 Mixed hyperlipidemia; Z20.822 Contact with and (suspected) exposure to COVID-19; Z95.1 Presence of aortocoronary bypass graft; Z79.84 Long term (current) use of oral hypoglycemic drugs; Z79.899 Other long term (current) drug therapy
CPT/HCPCS: 36415; 49083; 70450; 71250; 74176; 80048; 80076; 80307; 81001; 82042; 82077; 82947; 83615; 83880; 83986; 84157; 85025; 85027; 85610; 87070; 87073; 87086; 87205; 87502; 87635; 89051; 93306; 95816; 99285; J1650; J1940; Q9957

== ENCOUNTER 2023-01-20 17:47 | Inpatient (IN) | payer OTHER, SELFPAY ==
--- NOTE | ~2023-01-20 | XR_ITS ---
EXAMINATION: XR CHEST CLINICAL INFORMATION: Shortness of breath. COMPARISON: CT chest 04/14/2022. TECHNIQUE: Frontal view of the chest was obtained. FINDINGS: Median sternotomy and CABG. No vascular congestion. Moderate right pleural effusion with underlying atelectasis not significantly changed when compared to chest CT 04/14/2022. XR/XR chest 1V IMPRESSION: Chronic moderate right pleural effusion and atelectasis. Superimposed pneumonia cannot be excluded.
--- NOTE | 2023-01-20 17:56 | ECG_ITS ---
Test Reason : SOB Blood Pressure : / mmHG Vent. Rate : 068 BPM Atrial Rate : 000 BPM P-R Int : 000 ms QRS Dur : 098 ms QT Int : 426 ms P-R-T Axes : 000 064 199 degrees QTc Int : 452 ms Atrial fibrillation Nonspecific T wave abnormality Abnormal ECG When compared with ECG of 16-NOV-2014 08:31, Atrial fibrillation has replaced Sinus rhythm Nonspecific T wave abnormality has replaced inverted T waves in Inferior leads Referred By: Delilah Richter Electronically Signed By:FAHEEM QUINTEROS MD
[2023-01-20 18:04] VITALS: BP 146/68; PULSE 70; RESP 24; TEMP 36.6; O2SAT 96; BMI 30.5
[2023-01-20 18:27] LABS: MANUAL DIFF FLAG NO
[2023-01-20 18:28] LABS: Basophils Absolute Auto 0.1 X10*3/uL (0.0-0.2); Basophils Percent Auto 0.7 % (0-2); Eosinophils Absolute Auto 0.2 X10*3/uL (0.0-0.4); Eosinophils Percent Auto 1.9 % (0-4); Hematocrit 41.7 % (42.0-52.0); Hemoglobin 12.4 g/dl (14.0-18.0); Imm Gran Abs Auto 0.02 X10*3/uL (0.00-0.03); Imm Gran Pct Auto 0.2 % (0.0-0.4); Lymphocytes Absolute Auto 1.6 X10*3/uL (1.2-4.9); Lymphocytes Percent Auto 18.1 % (20-40); Mean Corpuscular HGB Conc 29.7 g/dl (31.0-36.0); Mean Corpuscular Hemoglobin 24.5 pg (27.0-33.0); Mean Corpuscular Volume 82.4 fL (80.0-98.0); Mean Platelet Volume 10.3 fL (9.4-12.4); Monocytes Absolute Auto 1.1 X10*3/uL (0.1-1.2); Monocytes Percent Auto 12.7 % (2-11); Neutrophils Absolute Auto 5.7 x10*3/uL (2.0-8.3); Neutrophils Percent Auto 66.4 % (45-73); Platelet Count 344 X10*3/uL (160-400); Red Blood Count 5.06 X10*6/uL (4.60-5.80); Red Cell Distribution Width 16.3 % (11.0-16.0); White Blood Count 8.6 X10*3/uL (4.8-10.8)
[2023-01-20 18:41] LABS: Alanine Aminotransferase 68 U/L (0-40); Albumin Level 3.6 g/dL (3.5-5.0); Alkaline Phosphatase 115 U/L (39-117); Anion Gap 13 (12-20); Aspartate Amino Transferase 52 U/L (5-37); Bilirubin Total 1.2 mg/dL (0.0-1.0); Blood Urea Nitrogen 34 mg/dL (9-16); Calcium 9.2 mg/dL (8.4-10.2); Carbon Dioxide 27 mmol/L (22-29); Chloride 109 mmol/L (96-108); Creatinine Clr Calc Pharmacy 30.9; Estimated Glomerular Filt Rate 39; Glucose Random 111 mg/dL (60-115); Potassium 4.2 mmol/L (3.3-5.1); Sodium 145 mmol/L (135-145); Total Protein 6.9 g/dL (6.5-8.0)
[2023-01-20 18:47] LABS: B Type Natriuretic Peptide 3177 pg/mL (<100)
--- NOTE | 2023-01-20 19:02 | ED_ITS ---
HPI - SOB/Dyspnea General Chief Complaint: Dyspnea Stated Complaint: WORSENING SOB, LUNG SOUND DIMINISHED, WHEEZING Time Seen by Provider: 01/20/23 17:55 Source: patient and EMS Mode of arrival: EMS History of Present Illness HPI Narrative: 87-year-old male who arrives via EMS with 2-3 days of worsening shortness of breath, denies any recent illness and endorses urinary tension as well. Related Data Previous Rx's Medication Instructions Recorded atorvastatin 40 mg tablet 1 tab PO DAILY #30 tabs 04/25/22 empagliflozin 10 mg tablet 10 mg PO DAILY #30 tabs 04/25/22 (Jardiance) furosemide 40 mg tablet 40 mg PO BID@0900,1800 #60 tabs 04/25/22 gabapentin 100 mg capsule 1 cap PO TID #90 caps 04/25/22 glipizide 10 mg tablet, extended 1 tab PO DAILY #30 tabs 04/25/22 release 24 hr isosorbide mononitrate 60 mg 1 tab PO DAILY #30 tabs 04/25/22 tablet,extended release 24 hr losartan 100 mg tablet 1 tab PO DAILY #30 tabs 04/25/22 metoprolol tartrate 50 mg tablet 50 mg PO BID #60 tabs 04/25/22 omeprazole 20 mg capsule,delayed 1 cap PO DAILY #30 caps 04/25/22 release thiamine mononitrate (vit B1) 100 100 mg PO DAILY #30 tabs 04/25/22 mg tablet Allergies Allergy/AdvReac Type Severity Reaction Status Date / Time perflutren [From Definity] AdvReac Back Pain Verified 04/17/22 08:35 Review of Systems 2 Review of Systems: Pertinent positives and negatives as stated in HPI PMFSH Past Medical History Source: nursing notes reviewed Medical History Seizure Aortic stenosis Cognitive decline Frostbite of both hands Diabetes GERD (gastroesophageal reflux disease) Coronary artery disease Mood disorder Essential hypertension Abdominal ascites Pleural effusion, right CATARINO (acute kidney injury) CHF exacerbation Surgical History Hx of CABG Social History Social History Household Members: Other Housing: Homeless Do you presently have visiting nurse or other home services: No Alcohol intake: former Patient Tobacco Use Status: Never used Tobacco Smoked in Last 30 Days: No Second Hand Smoke Exposure: No Advance Directives: No Advance Directives Information Provided: No Current occupational status: retired Physical Exam 2 Vital Signs: Vital Signs: Last Vital Signs Temp 97.9 F 01/20/23 18:04 Pulse 70 01/20/23 19:09 Resp 17 01/20/23 19:09 BP 166/79 H 01/20/23 19:09 Pulse Ox 98 01/20/23 19:09 O2 Del Method Nasal Cannula 01/20/23 19:09 O2 Flow Rate 2 01/20/23 19:09 BMI result Body Mass Index 30.5 VITAL SIGNS: Reviewed. GENERAL: Well developed, well nourished, in no acute distress. HEAD: Normocephalic/atraumatic EYES: PERRLA, EOMI EARS: Ext canals without abnormality NOSE: Nares patent bilateral OROPHARYNX: no oral lesions noted, posterior pharynx clear NECK: Supple, no adenopathy LUNGS: decreased breath sounds on the right base with noted rales, mild rales on the left base as well, tachypnea is present. SpO2<98> on 2 L via nasal cannula CARDIOVASCULAR: Regular rate and rhythm without noted murmurs, no JVD significant 3 + pitting edema bilateral lower extremity ABDOMEN: Soft, non-tender, non-distended with bowel sounds. MUSCULOSKELETAL: No tenderness, deformities, or effusions noted on gross inspection. EXTREMITIES: No cyanosis, clubbing or edema. SKIN: Inspection of the skin reveals no rashes NEUROLOGIC: Alert and oriented x 4. Strength and sensation to light touch were grossly intact x 4. Medications Administered Discontinued Medications Generic Name Dose Route Start Last Admin Trade Name Freq PRN Reason Stop Dose Admin Furosemide 80 mg 01/20/23 19:00 01/20/23 19:08 Furosemide 100 Mg/10 Ml Vial IVPUSH 01/20/23 19:01 80 mg ONCE ONE Administration Protocol Medical Decision Making Medical Decision Making MDM Narrative: 87-year-old male with history and clinical presentation, DDX: acute CHF exacerbation, no history to suggest COPD, possibility of pneumonia, no reports of chest pain so no concern for ACS, possible viral illness. I reviewed all investigations and there are no hematologic findings of leukocytosis or left shift, there is no thrombocytopenia there is a chronic normocytic anemia. Chemistry indices demonstrate and CATARINO in conjunction with a BNP of over 3000 and this taken in conjunction with clinical findings suffice is as CHF exacerbation and patient was given 80 mg of Lasix. Otherwise, electrolytes are within normal limits and liver enzyme findings are chronically stable since April. Viral testing is negative for influenza and COVID-19. Chest x-ray significant for venous congestion and right pleural effusion. 1916: I discussed case with inpatient hospitalist who accepts admission. Differential Diagnosis Differential Diagnoses: The differential diagnosis associated with the presentation includes please see the discussion above Admission/Observation Consideration of admission/observation: Escalation of care including admission/observation considered please see the discussion above Consult Healthcare Provider Management of the patient was discussed with: Hospitalist please see the discussion above Lab Data MDM Lab Attestation statement: I reviewed the patient's lab results. please see the discussion above 01/20/23 18:19 01/20/23 18:19 Labs: Lab Results 01/20/23 Range/Units 18:19 WBC 8.6 (4.8-10.8) X10*3/uL RBC 5.06 (4.60-5.80) X10*6/uL Hgb 12.4 L (14.0-18.0) g/dl Hct 41.7 L (42.0-52.0) % MCV 82.4 (80.0-98.0) fL MCH 24.5 L (27.0-33.0) pg MCHC 29.7 L (31.0-36.0) g/dl RDW 16.3 H (11.0-16.0) % Plt Count 344 D (160-400) X10*3/uL MPV 10.3 (9.4-12.4) fL Immature Gran % (Auto) 0.2 (0.0-0.4) % Neut % (Auto) 66.4 (45-73) % Lymph % (Auto) 18.1 L (20-40) % [place] % (Auto) 12.7 H (2-11) % Eos % (Auto) 1.9 (0-4) % Baso % (Auto) 0.7 (0-2) % Lymph # (Auto) 1.6 (1.2-4.9) X10*3/uL [place] # (Auto) 1.1 (0.1-1.2) X10*3/uL Eos # (Auto) 0.2 (0.0-0.4) X10*3/uL Baso # (Auto) 0.1 (0.0-0.2) X10*3/uL Abs Immat Gran (auto) 0.02 (0.00-0.03) X10*3/uL Absolute Neuts (auto) 5.7 (2.0-8.3) x10*3/uL Absolute Nucleated RBC 0.000 (0.0-0.012) X10*3/uL Nucleated RBC % (auto) 0.0 (0.0-0.2) /100WBC Sodium 145 (135-145) mmol/L Potassium 4.2 (3.3-5.1) mmol/L Chloride 109 H (96-108) mmol/L Carbon Dioxide 27 (22-29) mmol/L Anion Gap 13 (12-20) BUN 34 H (9-16) mg/dL Creatinine 1.67 H (0.5-1.4) mg/dL Estim Creat Clear Calc 30.9 Estimated GFR 39 Random Glucose 111 (60-115) mg/dL Calcium 9.2 (8.4-10.2) mg/dL Total Bilirubin 1.2 H (0.0-1.0) mg/dL AST 52 H (5-37) U/L ALT 68 H (0-40) U/L Alkaline Phosphatase 115 (39-117) U/L B-Natriuretic Peptide 3177 H (<100) pg/mL Total Protein 6.9 (6.5-8.0) g/dL Albumin 3.6 (3.5-5.0) g/dL COVID-19 ([facility]) Negative (Negative) COVID-19 Clin Com See Note Influenza Type A ([facility]) Negative (Negative) Influenza Type B ([facility]) Negative (Negative) Influenza A & B Note See Note Independent Interpretation I performed an independent interpretation of an: EKG Interpretation: EKG is being read as atrial fibrillation, however there are clearly P waves identified in Lead II, HR- 68, no STEMI, QTC and QRS are within normal limits. Radiology Impression Discussion of test interpretation with radiology: I have reviewed the radiologist's reading. Radiologist Impression: Please see the discussion above External Record Review External record reviewed: Outpatient record, Prior outpatient labs and Prior outpatient radiology Chronic Conditions Patient?s care impacted by: Diabetes Critical Care Time Critical Care Time Critical Care Time: Yes Total Critical Care Time: 60 Attestation: I personally attest to this time spent taking care of the patient. Discharge Plan Discharge Clinical Impression: Acute hypoxic respiratory failure, CATARINO (acute kidney injury), CHF exacerbation Patient Disposition: Admitted As Inpatient
[2023-01-20 19:06] LABS: IDNOW Serial# BCCEAD1C; Influenza A Negative (Negative); Influenza B2 Negative (Negative)
[2023-01-20 19:07] LABS: COVID-19 Test Negative (Negative); IDNOW Serial# BCCEAD1C
[2023-01-20] MEDS: Furosemide 100 MG/10 ML VIAL 80 MG IVPUSH (19:08)
[2023-01-20 19:09] VITALS: BP 166/79; PULSE 70; RESP 17; O2SAT 98
--- NOTE | 2023-01-20 19:20 | P.HPHOSP_ITS ---
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 Patient is a poor historian and history obtained by daughter at bedside. Daughter states that patient does not have Lasix in his medication list. The patient states that he is supposed to be on it but does not know how long has he been off Lasix. Does endorse dyspnea which is worse with exertion. Also admits orthopnea. No fever, chills, chest discomfort, palpitations, abdominal pain, changes in urinary or bowel habits. In the emergency department, patient requiring supplemental oxygen and BNP found to be elevated. Review of Systems 2 Constitutional: Constitutional: Reports fatigue and Reports weakness Cardiovascular: Cardiovascular: Reports dyspnea on exertion and Reports orthopnea Respiratory: Respiratory: Reports dyspnea on exertion Gastrointestinal: Gastrointestinal: Reports no additional gastrointestinal complaints Genitourinary: Genitourinary: Reports no additional male genitourinary complaints Neurologic: Reports weakness Endocrine: Endocrine: Reports fatigue [facility] Medical History Seizure Aortic stenosis Cognitive decline Frostbite of both hands Diabetes GERD (gastroesophageal reflux disease) Coronary artery disease Mood disorder Essential hypertension Abdominal ascites Pleural effusion, right CATARINO (acute kidney injury) CHF exacerbation Pertinent family history: No family history of early CAD Surgical History Hx of CABG Social History Household Members: Other Housing: Homeless Do you presently have visiting nurse or other home services: No Alcohol intake: former Patient Tobacco Use Status: Never used Tobacco Smoked in Last 30 Days: No Second Hand Smoke Exposure: No Advance Directives: No Advance Directives Information Provided: No Current occupational status: retired Meds Allergies Allergy/AdvReac Type Severity Reaction Status Date / Time perflutren [From Definity] AdvReac Back Pain Verified 04/17/22 08:35 Physical Exam 2 Vital Signs and Narrative: Vital Signs: Last Vital Signs Temp 97.9 F 01/20/23 18:04 Pulse 70 01/20/23 19:09 Resp 17 01/20/23 19:09 BP 166/79 H 01/20/23 19:09 Pulse Ox 98 01/20/23 19:09 O2 Del Method Nasal Cannula 01/20/23 19:09 O2 Flow Rate 2 01/20/23 19:09 BMI result Body Mass Index 30.5 Elderly male lying in bed in mild distress on supplemental oxygen Neck supple, +JVD Regular rate and rhythm, S1-S2 heard Bilateral crackles appreciated Abdomen distended with abdominal wall edema, no tenderness Patient is awake, alert and oriented to self, place, disoriented to time and person ; no focal motor deficit Psych: Normal mood Bilateral pitting edema Results Labs 01/20/23 18:19 01/20/23 18:19 Labs: Laboratory Results - last 24 hr 01/20/23 18:19 MCV 82.4 MCH 24.5 L MCHC 29.7 L RDW 16.3 H Plt Count 344 D MPV 10.3 Immature Gran % (Auto) 0.2 Neut % (Auto) 66.4 Lymph % (Auto) 18.1 L [place] % (Auto) 12.7 H Eos % (Auto) 1.9 Baso % (Auto) 0.7 Lymph # (Auto) 1.6 [place] # (Auto) 1.1 Eos # (Auto) 0.2 Baso # (Auto) 0.1 Abs Immat Gran (auto) 0.02 Absolute Neuts (auto) 5.7 Absolute Nucleated RBC 0.000 Nucleated RBC % (auto) 0.0 Anion Gap 13 Estim Creat Clear Calc 30.9 Estimated GFR 39 Random Glucose 111 Calcium 9.2 Total Bilirubin 1.2 H AST 52 H ALT 68 H Alkaline Phosphatase 115 B-Natriuretic Peptide 3177 H Total Protein 6.9 Albumin 3.6 COVID-19 ([facility]) Negative COVID-19 Clin Com See Note Influenza Type A ([facility]) Negative Influenza Type B ([facility]) Negative Influenza A & B Note See Note Imaging Radiologist's Impressions: Impressions Chest X-Ray 01/20/23 18:10 IMPRESSION: Chronic moderate right pleural effusion and atelectasis. Superimposed pneumonia cannot be excluded. 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 #. 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 Ordered echocardiogram. Strict I's and O's. Low-salt diet. Monitor oxygen saturation and wean as tolerated, maintain oxygen saturation greater than 90%. On ARB, beta-alexei and Jardiance #. Chronic kidney disease: Monitor creatinine and urine output with diuresis. Avoid nephrotoxins #. Essential hypertension: Continue metoprolol, isosorbide mononitrate and losartan #. Jpi-crrsydm-pygnahxcf diabetes mellitus: Initiate Accu-Cheks with sliding scale insulin #. CAD status post CABG: Is on high-intensity statin. Not on antiplatelet agent Med rec pending DVT prophylaxis: Lovenox 40 mg daily Full code Cardiac diet Admit as inpatient and will require two night minimum hospital stay for IV diuresis and supplemental oxygen (as above), which is not possible in a lesser acute setting. Quality Stroke Does the patient have a stroke diagnosis?: No VTE Prior VTE?: No VTE Risk Level:: Medical - moderate - high VTE Device Contraindication: Treatment Not Indicated VTE Drug Contraindication: N/A - Med Ordered
[2023-01-20 20:04] VITALS: BP 169/85; PULSE 72; RESP 12; TEMP 36.8; O2SAT 97
[2023-01-20 20:34] LABS: Appearance Urine Clear; Color Urine Yellow; Glucose Urine UA Negative (Negative); Leukocyte Esterase Urine Negative (Negative); Nitrite Urine Negative (Negative); Urine Blood Negative (Negative); Urine Ketones Negative (Negative); Urine Protein Negative (Neg-Trace)
[2023-01-20] MEDS: Enoxaparin Sodium 40 MG/0.4 ML SYRINGE SUBCUT (20:41)
[2023-01-20 20:42] VITALS: BP 158/80; PULSE 71; RESP 16; O2SAT 100
--- NOTE | 2023-01-20 20:44 | PC.NURSE ---
report received at change of shift . pt denies pain, sat 100% on 2l nc. pt has a miller with good urine output clear yellow. pt on monitor. hr reg. no s.s of distress noted at this time.
[2023-01-20 21:48] LABS: Glucose, Whole Blood 106 mg/dL (60-115)
--- NOTE | 2023-01-20 22:10 | PC.NURSE ---
pt urine output almost 2000 ml. pt resting comfortably no s/s of distress, report given to ginger rashid.
[2023-01-20 23:22] VITALS: BP 155/69; PULSE 77; RESP 18; TEMP 36.4; O2SAT 96
[2023-01-21] VITALS (13 sets, daily range): BP systolic 118–196; BP diastolic 50–91; PULSE 56–123; RESP 12–97; TEMP 36–36.8; O2SAT 92–100; BMI 27.1
--- NOTE | 2023-01-21 | ECG_ITS ---
Test Reason : allergic reaction Blood Pressure : / mmHG Vent. Rate : 089 BPM Atrial Rate : 089 BPM P-R Int : 170 ms QRS Dur : 100 ms QT Int : 384 ms P-R-T Axes : 056 061 265 degrees QTc Int : 467 ms Sinus rhythm with occasional Premature ventricular complexes and Premature atrial complexes ST & T wave abnormality, consider inferolateral ischemia Abnormal ECG When compared with ECG of 20-JAN-2023 18:30, Sinus rhythm has replaced Atrial fibrillation ST-T wave changes have become deeper Referred By: Michelle Padron Electronically Signed By:FAHEEM QUINTEROS MD
--- NOTE | 2023-01-21 00:15 | PC.NURSE ---
Patient is alert and oriented x3, VSS. O2 Sat97% on O2 at 2 LPM NC. Patient denies any pain at present. [place] catheter in place, patent draining pale yellow, clear urine. Patient is able to make his needs know, call [facility]man within patient's reach.
[2023-01-21] MEDS: 0.9 % Sodium Chloride Flush 3 ML SYRINGE IVFLUSH ×3 (01:42→17:50)
--- NOTE | 2023-01-21 04:51 | PC.NURSE ---
Nurse to nurse report given to medical i d sales. Patient to be transported to room 354 by biological technician.
[2023-01-21 05:51] LABS: MANUAL DIFF FLAG NO
[2023-01-21 05:56] LABS: Basophils Percent Auto 0.6 % (0-2); Eosinophils Absolute Auto 0.2 X10*3/uL (0.0-0.4); Eosinophils Percent Auto 2.3 % (0-4); Hematocrit 40.2 % (42.0-52.0); Hemoglobin 12.2 g/dl (14.0-18.0); Imm Gran Abs Auto 0.01 X10*3/uL (0.00-0.03); Imm Gran Pct Auto 0.1 % (0.0-0.4); Lymphocytes Absolute Auto 1.5 X10*3/uL (1.2-4.9); Lymphocytes Percent Auto 20.4 % (20-40); Mean Corpuscular HGB Conc 30.3 g/dl (31.0-36.0); Mean Corpuscular Hemoglobin 24.7 pg (27.0-33.0); Mean Corpuscular Volume 81.5 fL (80.0-98.0); Mean Platelet Volume 10.4 fL (9.4-12.4); Monocytes Absolute Auto 0.7 X10*3/uL (0.1-1.2); Monocytes Percent Auto 10.4 % (2-11); Neutrophils Absolute Auto 4.7 x10*3/uL (2.0-8.3); Neutrophils Percent Auto 66.2 % (45-73); Platelet Count 306 X10*3/uL (160-400); Red Blood Count 4.93 X10*6/uL (4.60-5.80); Red Cell Distribution Width 16.1 % (11.0-16.0); White Blood Count 7.1 X10*3/uL (4.8-10.8)
[2023-01-21 06:19] LABS: Anion Gap 13 (12-20); Blood Urea Nitrogen 31 mg/dL (9-16); Calcium 9.4 mg/dL (8.4-10.2); Carbon Dioxide 29 mmol/L (22-29); Chloride 106 mmol/L (96-108); Creatinine Clr Calc Pharmacy 29.6; Estimated Glomerular Filt Rate 40; Glucose Random 119 mg/dL (60-115); Potassium 3.3 mmol/L (3.3-5.1); Sodium 145 mmol/L (135-145)
--- NOTE | 2023-01-21 06:37 | PHA.MEDREC ---
Pharmacy Consult ? Medication Reconciliation Pharmacy has reviewed the medication reconciliation.
--- NOTE | 2023-01-21 07:00 | CA_ITS ---
Transthoracic Echocardiogram Patient (Last, First, Middle): Andrew Munoz, Gender: Male Date of : 1935 Age: 87 Procedure Date: 01/21/2023 Procedure Type: Transthoracic Echocardiogram Location: S3E Height: 162.56 cm Weight: 71.22 kg BSA: 1.76 m2 Heart Rate: bpm BP: 140 / 70 mmHg Stock Roller: Referring MD: Laverne Scott MD Symptoms: CHF Study Quality: Fair ECG Rhythm: Sinus Conclusions: - The left ventricular systolic function is low normal. The calculated ejection fraction is 53% by biplane method. - Evidence suggests grade II (moderate) diastolic dysfunction. - There is mildly decreased right ventricular systolic function. - There is moderate calcification of the aortic valve. There is mild aortic valve stenosis. There is mild aortic valve regurgitation. - There is mild mitral valve regurgitation. - Patient had suspected reaction to Definity contrast and test stopped and code called. At that time, tachycardic on accompanying EKG strip in 170s, but uncertain rhythm. Findings Left Ventricle Normal left ventricular cavity size. There is mildly increased left ventricular wall thickness. The left ventricular systolic function is low normal. The calculated ejection fraction is 53% by biplane method. Regional wall motion abnormalities can not be excluded due to suboptimal endocardial definition. Evidence suggests grade II (moderate) diastolic dysfunction. Right Ventricle Mildly increased right ventricular cavity size. There is mildly decreased right ventricular systolic function. Atria Both atria are normal in size. Aortic Valve There is moderate calcification of the aortic valve. There is mild aortic valve stenosis. There is mild aortic valve regurgitation. Mitral Valve There is mild mitral annular calcification. There is mild mitral valve regurgitation. There is no mitral valve stenosis. Pulmonic Valve There is trace pulmonic valve regurgitation. Tricuspid Valve Normal tricuspid valve structure. There is trace tricuspid valve regurgitation. Mild pulmonary hypertension is present. Great Vessels The asc aorta is normal in size. Venous The inferior vena cava is normal in size and collapses less than 50% with inspiration. Pericardium/Pleural There is no evidence of pericardial effusion. Prior Study Comparison No significant change compared to prior study dated: 04/16/2022. Measurements 2D Linear Measurements IVSd: 1.02 0.6-0.9/0.6-1.0 cm LVIDd: 5.33 3.9-5.3/4.2-5.9 cm LVIDd Index: 3.03 2.4-3.2/2.2-3.1 cm/m2 LVIDs: 4.55 2.0-3.6 cm LVPWd: 1.11 0.7-1.1 cm Ao Root: 2.80 2.1-3.5 cm LA Diam: 4.50 2.7-3.8/3.0-4.0 cm LAIDs Index: 2.56 1.5-2.3 cm/m2 LV Mass: 274.29 67-162/88-224 g LV Mass Index: 155.85 43-95/49-115 g/m2 LVOT Diam: 2.20 3.0+(-)1.3 cm 2D Systolic Function EF 4C: 61.60 >55% EF 2C: 43.90 >55% EF BiP: 52.80 >55% Mitral Valve MV Pk E: 0.99 MV PK A: 0.64 MV Decel Time: 143.00 E/A: 1.50 E'Lateral: 6.42 E'Medial: 2.83 E/E' Med: 35.10 E/E' Lat: 15.50 PHT: 42.00 MVA PHT: 5.24 Decel [place]: 6.97 Aortic Valve AoV Pk Timothy: 2.16 AoV Mn Timothy: 1.28 AoV VTI: 0.38 AoV Pk Grad: 19.00 Aov Mn Grad: 8.00 NATHAN Cont.VTI: 1.41 LVOT LVOT Pk Timothy: 0.68 LVOT Mn Timothy: 0.37 LVOT VTI: 0.14 LVOT Pk Grad: 2.00 LVOT Mn Grad: 1.00 LVOT Diam: 2.20 LVOT Area: 3.80 Diastolic Function MV Pk E: 0.99 MV Pk A: 0.64 E/A: 1.50 E'Medial: 2.83 E/E' Med: 35.10 E' Laterial: 6.42 E/E' Lat: 15.50 Right Ventricle TAPSE (mm): 14.00 TVS' Timothy: 6.00 Tricuspid Valve TR Pk Timothy: 3.05 TR Pk Grad: 37.00 RA Press: 3.00 RVSP: 40.00 Great Vessels Aorta Ao Root-2D: 2.80 2.0-3.7 cm Ao Asc: 3.60 2.1-3.4 cm Pulmonary Valve PV Pk Timothy: 1.22 Peak PV Grad: 6.00 Updated in Other Vendor System with Status of Final Apollo Sanchez MD electronically signed on 01/21/2023 11:48:51 AM with status of Final
[2023-01-21 07:36] LABS: Glucose, Whole Blood 114 mg/dL (60-115)
[2023-01-21] MEDS: Furosemide 40 MG/4 ML VIAL IVPUSH ×2 (08:23→17:50)
[2023-01-21] MEDS: Gabapentin 100 MG CAPSULE PO ×3 (08:24→21:06)
[2023-01-21] MEDS: Atorvastatin Calcium 80 MG TABLET PO (08:24)
[2023-01-21] MEDS: Thiamine HCL 100 MG TABLET PO (08:24)
[2023-01-21] MEDS: Losartan Potassium 50 MG TABLET 100 MG PO (08:24)
[2023-01-21] MEDS: Omeprazole 20 MG CAPSULE.DR PO (08:24)
--- NOTE | 2023-01-21 08:57 | P.PNIM_ITS ---
Subjective Subjective Date of Service: 01/21/23 Review of Systems follow-up acute congestive heart failure Denies shortness of breath or chest pain Physical Exam 2 Vital Signs: Vital Signs: Last Vital Signs Temp 97.0 F 01/21/23 07:17 Pulse 56 01/21/23 07:17 Resp 12 01/21/23 07:17 BP 140/70 H 01/21/23 07:17 Pulse Ox 93 01/21/23 07:17 O2 Del Method Room Air 01/21/23 07:17 O2 Flow Rate 2 01/21/23 02:05 BMI result Body Mass Index 27.1 Appearing in no acute distress lung sounds mild rales throughout heart regular rate rhythm, clear S1, S2 positive bowel sounds, abdomen is soft, nontender neuro patient is alert x3, no focal deficits Objective Data Active Medications Acetaminophen (Acetaminophen 325 Mg Tablet) 650 mg PO Q6H PRN PRN Reason: Pain, Mild (Pain Scale 1-3) Albuterol Sulfate (Albuterol Sulfate 90 Mcg 8 Gm Inhaler) 2 puff INHALE RQ4H [facility] Last Admin: 01/21/23 07:50 Dose: Not Given Documented By: REGINE Non-Admin Reason: Med Not Available Atorvastatin Calcium (Atorvastatin Calcium 80 Mg Tablet) 80 mg PO DAILY [facility] Last Admin: 01/21/23 08:24 Dose: 80 mg Documented By: JOANNE Dextrose (Dextrose 50 % 25 Gm/50 Ml Syringe) 25 gm IVPUSH Q15M PRN; Protocol PRN Reason: per Hypoglycemia Standing Ord. Enoxaparin Sodium (Enoxaparin Sodium 40 Mg/0.4 Ml Syringe) 40 mg SUBCUT Q24H [facility] Last Admin: 01/20/23 20:41 Dose: 40 mg Documented By: MARTIN Fluticasone/Vilanterol (Fluticasone/Vilanterol 100/25 Blst.W.Dev) 1 puff INHALE RDAILY [facility] Last Admin: 01/21/23 07:50 Dose: Not Given Documented By: REGINE Non-Admin Reason: Med Not Available Furosemide (Furosemide 40 Mg/4 Ml Vial) 40 mg IVPUSH BID@0900,1800 [facility]; Protocol Last Admin: 01/21/23 08:23 Dose: 40 mg Documented By: JOANNE Gabapentin (Gabapentin 100 Mg Capsule) 100 mg PO TID [facility] Last Admin: 01/21/23 08:24 Dose: 100 mg Documented By: JOANNE Glucose (Glucose Gel 15 Gm Gel..Gram.) 15 gm PO Q15M PRN; Protocol PRN Reason: per Hypoglycemia Standing Ord. Insulin Human Lispro (Insulin Lispro 100 Unit/Ml 3 Ml Vial) 0 unit SUBCUT QIDACHS [facility]; Protocol Last Admin: 01/21/23 07:51 Dose: Not Given Documented By: JOANNE Non-Admin Reason: No Insulin Coverage Losartan Potassium (Losartan Potassium 50 Mg Tablet) 100 mg PO DAILY [facility]; Protocol Last Admin: 01/21/23 08:24 Dose: 100 mg Documented By: JOANNE Melatonin (Melatonin 3 Mg Tablet) 6 mg PO BEDTIME PRN PRN Reason: Insomnia Omeprazole (Omeprazole 20 Mg Capsule.Dr) 20 mg PO DAILY@0630 [facility] Last Admin: 01/21/23 08:24 Dose: 20 mg Documented By: JOANNE Ondansetron HCl (Ondansetron Hcl 4 Mg/2 Ml Vial) 4 mg IVPUSH Q8H PRN PRN Reason: Nausea and Vomiting Sodium Chloride (0.9 % Sodium Chloride Flush 3 Ml Syringe) 3 ml IVFLUSH QSHIFT [facility] Last Admin: 01/21/23 08:24 Dose: 3 ml Documented By: JOANNE Thiamine HCl (Thiamine Hcl 100 Mg Tablet) 100 mg PO DAILY [facility] Last Admin: 01/21/23 08:24 Dose: 100 mg Documented By: JOANNE Labs 01/21/23 05:09 01/21/23 05:09 Labs: Laboratory Results - last 24 hr 01/20/23 01/20/23 01/20/23 18:19 20:27 21:44 MCV 82.4 MCH 24.5 L MCHC 29.7 L RDW 16.3 H Plt Count 344 D MPV 10.3 Immature Gran % (Auto) 0.2 Neut % (Auto) 66.4 Lymph % (Auto) 18.1 L [place] % (Auto) 12.7 H Eos % (Auto) 1.9 Baso % (Auto) 0.7 Lymph # (Auto) 1.6 [place] # (Auto) 1.1 Eos # (Auto) 0.2 Baso # (Auto) 0.1 Abs Immat Gran (auto) 0.02 Absolute Neuts (auto) 5.7 Absolute Nucleated RBC 0.000 Nucleated RBC % (auto) 0.0 Anion Gap 13 Estim Creat Clear Calc 30.9 Estimated GFR 39 POC Glucose 106 Random Glucose 111 Calcium 9.2 Total Bilirubin 1.2 H AST 52 H ALT 68 H Alkaline Phosphatase 115 B-Natriuretic Peptide 3177 H Total Protein 6.9 Albumin 3.6 Urine Color Yellow Urine Appearance Clear Urine pH 6.0 Ur Specific [place] 1.010 Urine Protein Negative Urine Glucose (UA) Negative Urine Ketones Negative Urine Blood Negative Urine Nitrite Negative Ur Leukocyte Esterase Negative COVID-19 ([facility]) Negative COVID-19 Clin Com See Note Influenza Type A (SALLIE) Negative Influenza Type B (SALLIE) Negative Influenza A & B Note See Note 01/21/23 01/21/23 05:09 07:09 MCV 81.5 MCH 24.7 L MCHC 30.3 L RDW 16.1 H Plt Count 306 MPV 10.4 Immature Gran % (Auto) 0.1 Neut % (Auto) 66.2 Lymph % (Auto) 20.4 [place] % (Auto) 10.4 Eos % (Auto) 2.3 Baso % (Auto) 0.6 Lymph # (Auto) 1.5 [place] # (Auto) 0.7 Eos # (Auto) 0.2 Baso # (Auto) 0.0 Abs Immat Gran (auto) 0.01 Absolute Neuts (auto) 4.7 Absolute Nucleated RBC 0.000 Nucleated RBC % (auto) 0.0 Anion Gap 13 Estim Creat Clear Calc 29.6 Estimated GFR 40 POC Glucose 114 Random Glucose 119 H Calcium 9.4 Total Bilirubin AST ALT Alkaline Phosphatase B-Natriuretic Peptide Total Protein Albumin Urine Color Urine Appearance Urine pH Ur Specific [place] Urine Protein Urine Glucose (UA) Urine Ketones Urine Blood Urine Nitrite Ur Leukocyte Esterase COVID-19 ([facility]) COVID-19 Clin Com Influenza Type A (SALLIE) Influenza Type B (SALLIE) Influenza A & B Note Assessment and Plan (1) CHF exacerbation: Status: Acute Plan This is a 87-year-old male with pertinent history of ces-rkrrdrh-sevhmexzc diabetes mellitus, essential hypertension, gastroesophageal reflux disease, essential hypertension, mixed hyperlipidemia, CAD status post CABG, 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 Ordered echocardiogram. Strict I's and O's. Low-salt diet. Monitor oxygen saturation and wean as tolerated, maintain oxygen saturation greater than 90%. Cardiology consultation pending Chronic kidney disease 3 Monitor creatinine and urine output with diuresis. Avoid nephrotoxins Essential hypertension Continue metoprolol, isosorbide mononitrate and losartan Lpj-annxqje-jkxmeyusl diabetes mellitus Accu-Cheks with sliding scale insulin CAD status post CABG Is on high-intensity statin. Not on antiplatelet agent DVT prophylaxis: Lovenox 40 mg daily Full code attending Dr. Portillo continue hospital stay for IV diuresis and supplemental oxygen (as above), which is not possible in a lesser acute setting. Quality Stroke Does the patient have a stroke diagnosis?: No VTE Prior VTE?: No VTE Risk Level:: Medical - moderate - high VTE Device Contraindication: Treatment Not Indicated VTE Drug Contraindication: N/A - Med Ordered
--- NOTE | 2023-01-21 10:24 | PM.CNCAR ---
History of Present Illness History of Present Illness Date of Service: 01/21/23 Chief complaint: Dyspnea Narrative: This is a cardiology consultation regarding congestive heart failure. Patient is a very vague historian. He is not able to clearly say why he got admitted to the hospital. Chart was reviewed and also discussed with the hospitalist. Patient has many comorbidities including diabetes, hypertension, dyslipidemia and history of coronary disease, status post CABG. It seems that he has been admitted for evaluation of shortness of breath. Apparently there is no Lasix in his usual med list. They do not know how long he has been off Lasix or if he is supposed to be on it at all. Exertion shortness of breath and some orthopnea and then he required supplemental oxygen and BNP was also high and this led to the hospitalization. Review of Systems Review of Systems: Yes all other systems are reviewed and are negative Constitutional: Constitutional: Reports as per HPI and Reports no additional constitutional complaints Eyes: Eyes: Reports as per HPI and Denies no additional eye complaints ENT: Denies system reviewed and no additional complaints, except as documented and Reports as per HPI Cardiovascular: Cardiovascular: Reports as per HPI, Reports no additional cardiovascular complaints, Denies acrocyanosis, Denies cool extremities, Denies chest pain, Denies leg edema, Denies lightheadedness, Denies palpitations and Reports dyspnea Respiratory: Respiratory: Reports as per HPI, Denies no additional respiratory complaints and Reports dyspnea Gastrointestinal: Gastrointestinal: Reports as per HPI and Denies no additional gastrointestinal complaints Genitourinary: Genitourinary: Reports no additional male genitourinary complaints and Reports as per HPI Musculoskeletal: Musculoskeletal: Reports no additional musculoskeletal complaints and Reports as per HPI Integumentary/Breasts: Skin/Breast: Reports system reviewed and no additional complaints, except as docu Neurologic: Reports system reviewed and no additional complaints, except as documented and Reports as per HPI Psychiatric: Psychiatric: Reports no additional psychiatric complaints and Reports as per HPI Endocrine: Endocrine: Reports no additional endocrine complaints, Reports as per HPI and Denies palpitations Hematologic/Lymphatic: Hematologic/Lymphatic: Reports no additional hematologic/lymphatic complaints and Reports as per HPI Allergic/Immunologic: Allergic/Immunologic: Reports no additional allergic/immunologic complaints and Reports as per HPI [facility] Past Medical History Medical History Seizure Aortic stenosis Cognitive decline Frostbite of both hands Diabetes GERD (gastroesophageal reflux disease) Coronary artery disease Mood disorder Essential hypertension Abdominal ascites Pleural effusion, right CATARINO (acute kidney injury) CHF exacerbation Family History Pertinent family history: Unable to obtain. Surgical History Surgical History Hx of CABG Social History Social History Household Members: Children Housing: House Do you presently have visiting nurse or other home services: Yes (dry clipper tender is his daughter) Alcohol intake: former Patient Tobacco Use Status: Never used Tobacco Second Hand Smoke Exposure: No Current occupational status: retired [employer] Allergies Allergy/AdvReac Type Severity Reaction Status Date / Time perflutren [From Definity] AdvReac Back Pain Verified 04/17/22 08:35 Active Medications: Current Medications Acetaminophen (Acetaminophen 325 Mg Tablet) 650 mg PO Q6H PRN PRN Reason: Pain, Mild (Pain Scale 1-3) Albuterol Sulfate (Albuterol Sulfate 90 Mcg 8 Gm Inhaler) 2 puff INHALE RQ4H [facility] Last Admin: 01/21/23 07:50 Dose: Not Given Atorvastatin Calcium (Atorvastatin Calcium 80 Mg Tablet) 80 mg PO DAILY [facility] Last Admin: 01/21/23 08:24 Dose: 80 mg Dextrose (Dextrose 50 % 25 Gm/50 Ml Syringe) 25 gm IVPUSH Q15M PRN; Protocol PRN Reason: per Hypoglycemia Standing Ord. Enoxaparin Sodium (Enoxaparin Sodium 40 Mg/0.4 Ml Syringe) 40 mg SUBCUT Q24H [facility] Last Admin: 01/20/23 20:41 Dose: 40 mg Fluticasone/Vilanterol (Fluticasone/Vilanterol 100/25 Blst.W.Dev) 1 puff INHALE RDAILY [facility] Last Admin: 01/21/23 07:50 Dose: Not Given Furosemide (Furosemide 40 Mg/4 Ml Vial) 40 mg IVPUSH BID@0900,1800 [facility]; Protocol Last Admin: 01/21/23 08:23 Dose: 40 mg Gabapentin (Gabapentin 100 Mg Capsule) 100 mg PO TID [facility] Last Admin: 01/21/23 08:24 Dose: 100 mg Glucose (Glucose Gel 15 Gm Gel..Gram.) 15 gm PO Q15M PRN; Protocol PRN Reason: per Hypoglycemia Standing Ord. Insulin Human Lispro (Insulin Lispro 100 Unit/Ml 3 Ml Vial) 0 unit SUBCUT QIDACHS [facility]; Protocol Last Admin: 01/21/23 07:51 Dose: Not Given Losartan Potassium (Losartan Potassium 50 Mg Tablet) 100 mg PO DAILY [facility]; Protocol Last Admin: 01/21/23 08:24 Dose: 100 mg Melatonin (Melatonin 3 Mg Tablet) 6 mg PO BEDTIME PRN PRN Reason: Insomnia Omeprazole (Omeprazole 20 Mg Capsule.Dr) 20 mg PO DAILY@0630 [facility] Last Admin: 01/21/23 08:24 Dose: 20 mg Ondansetron HCl (Ondansetron Hcl 4 Mg/2 Ml Vial) 4 mg IVPUSH Q8H PRN PRN Reason: Nausea and Vomiting Sodium Chloride (0.9 % Sodium Chloride Flush 3 Ml Syringe) 3 ml IVFLUSH QSHIFT [facility] Last Admin: 01/21/23 08:24 Dose: 3 ml Thiamine HCl (Thiamine Hcl 100 Mg Tablet) 100 mg PO DAILY [facility] Last Admin: 01/21/23 08:24 Dose: 100 mg Home Medications Medication Instructions Recorded Confirmed Last Taken Type albuterol sulfate 90 mcg/actuation 2 puff inhalation Q4H 01/21/23 01/21/23 Unknown History aerosol inhaler (Ventolin HFA) atorvastatin 80 mg tablet 80 mg PO QAM 01/21/23 01/21/23 Unknown History fluticasone 100 mcg-salmeterol 50 1 ea inhalation Q12H 01/21/23 01/21/23 Unknown History mcg/dose blistr powdr for inhalation metoprolol tartrate 50 mg tablet 25 mg PO BID 01/21/23 01/21/23 Unknown History Physical Exam Vital Signs: Vital Signs: Last Vital Signs Temp 97.0 F 01/21/23 07:17 Pulse 56 01/21/23 07:17 Resp 12 01/21/23 07:17 BP 140/70 H 01/21/23 07:17 Pulse Ox 93 01/21/23 07:17 O2 Del Method Room Air 01/21/23 07:17 O2 Flow Rate 2 01/21/23 02:05 BMI result Body Mass Index 27.1 Const: General: comfortable and no acute distress Orientation/consciousness: patient oriented x3 HEENT: Other: Unremarkable Head: Yes normal to inspection Neck: Neck: Yes normal visual inspection Chest: Chest palpation & inspection: normal inspection of the chest Resp: Other: Few inspiratory crackles Cardio: Palpation: normal PMI Heart sounds: S1 normal heart sound present, S2 normal heart sound present, no gallops, Murmur heart sound present systolic II/, at the apex and at the right sternal border and no rubs GI: Palpation (GI): Soft to palpation Back/Spine/Pelvis: Other: unremarkable Skin: General skin exam: no rashes or lesions noted Neuro: General: patient oriented x3 Extrem: Other: 1+ edema General: Yes normal to inspection Psych: Mental Status: mental status grossly normal Objective Labs and Meds 01/21/23 05:09 01/21/23 05:09 Lab results: Laboratory Results - last 24 hr 01/20/23 01/20/23 01/20/23 18:19 20:27 21:44 WBC 8.6 RBC 5.06 Hgb 12.4 L Hct 41.7 L MCV 82.4 MCH 24.5 L MCHC 29.7 L RDW 16.3 H Plt Count 344 D MPV 10.3 Immature Gran % (Auto) 0.2 Neut % (Auto) 66.4 Lymph % (Auto) 18.1 L [place] % (Auto) 12.7 H Eos % (Auto) 1.9 Baso % (Auto) 0.7 Lymph # (Auto) 1.6 [place] # (Auto) 1.1 Eos # (Auto) 0.2 Baso # (Auto) 0.1 Abs Immat Gran (auto) 0.02 Absolute Neuts (auto) 5.7 Absolute Nucleated RBC 0.000 Nucleated RBC % (auto) 0.0 Sodium 145 Potassium 4.2 Chloride 109 H Carbon Dioxide 27 Anion Gap 13 BUN 34 H Creatinine 1.67 H Estim Creat Clear Calc 30.9 Estimated GFR 39 POC Glucose 106 Random Glucose 111 Calcium 9.2 Total Bilirubin 1.2 H AST 52 H ALT 68 H Alkaline Phosphatase 115 B-Natriuretic Peptide 3177 H Total Protein 6.9 Albumin 3.6 Urine Color Yellow Urine Appearance Clear Urine pH 6.0 Ur Specific [place] 1.010 Urine Protein Negative Urine Glucose (UA) Negative Urine Ketones Negative Urine Blood Negative Urine Nitrite Negative Ur Leukocyte Esterase Negative COVID-19 ([facility]) Negative COVID-19 Clin Com See Note Influenza Type A (SALLIE) Negative Influenza Type B (SALLIE) Negative Influenza A & B Note See Note 01/21/23 01/21/23 05:09 07:09 WBC 7.1 RBC 4.93 Hgb 12.2 L Hct 40.2 L MCV 81.5 MCH 24.7 L MCHC 30.3 L RDW 16.1 H Plt Count 306 MPV 10.4 Immature Gran % (Auto) 0.1 Neut % (Auto) 66.2 Lymph % (Auto) 20.4 [place] % (Auto) 10.4 Eos % (Auto) 2.3 Baso % (Auto) 0.6 Lymph # (Auto) 1.5 [place] # (Auto) 0.7 Eos # (Auto) 0.2 Baso # (Auto) 0.0 Abs Immat Gran (auto) 0.01 Absolute Neuts (auto) 4.7 Absolute Nucleated RBC 0.000 Nucleated RBC % (auto) 0.0 Sodium 145 Potassium 3.3 D Chloride 106 Carbon Dioxide 29 Anion Gap 13 BUN 31 H Creatinine 1.65 H Estim Creat Clear Calc 29.6 Estimated GFR 40 POC Glucose 114 Random Glucose 119 H Calcium 9.4 Total Bilirubin AST ALT Alkaline Phosphatase B-Natriuretic Peptide Total Protein Albumin Urine Color Urine Appearance Urine pH Ur Specific [place] Urine Protein Urine Glucose (UA) Urine Ketones Urine Blood Urine Nitrite Ur Leukocyte Esterase COVID-19 ([facility]) COVID-19 Clin Com Influenza Type A (SALLIE) Influenza Type B (SALLIE) Influenza A & B Note ECG Interpretation: EKG with sinus rhythm with premature atrial contractions at a rate of 68/Min. Nonspecific ST-T changes. Imaging Radiologist's impression: Impressions Chest X-Ray 01/20/23 18:10 IMPRESSION: Chronic moderate right pleural effusion and atelectasis. Superimposed pneumonia cannot be excluded. Assessment and Plan (1) Acute on chronic heart failure with preserved ejection fraction (HFpEF): Status: Acute Plan EKG shows sinus rhythm with PACs. Echocardiogram from April with LVEF of 45-50%. Moderate diastolic dysfunction. Severely reduced right ventricular systolic function. Vhqg-[id number] aortic stenosis. Currently, cardiac BNP is 3177. In the past, it has been at similar levels. Chronic elevation in creatinine. Overall, can treat for congestive heart failure with diuretics. Due to elevated creatinine, will need to monitor closely. Check echocardiogram. Procedures Date of Service Date of Service: 01/21/23
[2023-01-21 11:05] LABS: Glucose, Whole Blood 160 mg/dL (60-115)
[2023-01-21] MEDS: methylPREDNISolone Sod Succ 40 MG/ML VIAL IVPUSH (11:23)
[2023-01-21] MEDS: diphenhydrAMINE HCL 50 MG/ML VIAL 25 MG IVPUSH (11:23)
[2023-01-21] MEDS: Labetalol HCL 100 MG/20 ML VIAL 10 MG IVPUSH (11:26)
--- NOTE | 2023-01-21 11:28 | PM.EVENT ---
Event Note Date of Service: 01/21/23 Event Note: Jaqueline hinojosa called at approximately 11 a.m. for respiratory distress. Unfortunately, patient was not on quality assurance monitor final. upon arrival to the [facility] patients eyes were open, reddened face noted. Sternal rub successful. Patient was having bedside echocardiogram and likely had allergic reaction to the definity dye. It seemed that patient may have lost consciousness, it is possible that he stops breathing. Jaqueline hinojosa was called, to new IVs were placed, 1 dose of IV Solu-Medrol 40 mg given along with 1 dose of IV Benadryl 25 mg. Point of care was 160, heart rate initially 123, blood pressure 231/113 on automatic blood pressure machine. Blood pressure rechecked down to 190 over 88, 1 dose of IV labetalol 10 mg given. Patient was alert to self and situation, denied having any pain. Patient placed on non-rebreather, oxygen saturation 100%, EKG shows sinus tachycardia. Plan is to transfer patient to [facility] with quality assurance monitor final. Severe allergy listed for definity in patient's medical record. Time Spent With Patient Time: Total time managing care of this patient today ____ minutes.
[2023-01-21] MEDS: Albuterol Sulfate 90 MCG 8 GM INHALER 2 PUFF INHALE ×2 (12:00→19:51)
[2023-01-21] MEDS: Insulin Lispro 100 UNIT/ML 3 ML VIAL SUBCUT ×3 (12:46→21:06)
[2023-01-21 17:39] LABS: Glucose, Whole Blood 181 mg/dL (60-115)
[2023-01-21 19:53] LABS: Glucose, Whole Blood 240 mg/dL (60-115)
[2023-01-21] MEDS: Enoxaparin Sodium 40 MG/0.4 ML SYRINGE SUBCUT (21:06)
[2023-01-21] MEDS: Melatonin 3 MG TABLET 6 MG PO (22:43)
[2023-01-22] VITALS (9 sets, daily range): BP systolic 107–176; BP diastolic 53–84; PULSE 70–112; RESP 16–24; TEMP 36.1–36.4; O2SAT 92–97
[2023-01-22] MEDS: Omeprazole 20 MG CAPSULE.DR PO (05:53)
--- NOTE | 2023-01-22 07:04 | ECG_ITS ---
Test Reason : tachy Blood Pressure : / mmHG Vent. Rate : 112 BPM Atrial Rate : 112 BPM P-R Int : 294 ms QRS Dur : 106 ms QT Int : 370 ms P-R-T Axes : 049 070 256 degrees QTc Int : 505 ms Sinus tachycardia with 1st degree A-V block Marked ST abnormality, possible anterolateral subendocardial injury Abnormal ECG When compared with ECG of 21-JAN-2023 11:05, Premature ventricular complexes are no longer Present Premature atrial complexes are no longer Present MN interval has increased ST more depressed Anterolateral leads Referred By: Michelle Padron Electronically Signed By:FAHEEM QUINTEROS MD
[2023-01-22] MEDS: Fluticasone/Vilanterol 100/25 BLST.W.DEV 1 PUFF INHALE (07:47)
[2023-01-22] MEDS: Albuterol Sulfate 90 MCG 8 GM INHALER 2 PUFF INHALE ×3 (07:48→15:33)
[2023-01-22 08:06] LABS: Anion Gap 15 (12-20); Blood Urea Nitrogen 29 mg/dL (9-16); Calcium 10.2 mg/dL (8.4-10.2); Carbon Dioxide 33 mmol/L (22-29); Chloride 100 mmol/L (96-108); Estimated Glomerular Filt Rate 40; Glucose Random 155 mg/dL (60-115); Potassium 3.1 mmol/L (3.3-5.1); Sodium 145 mmol/L (135-145)
[2023-01-22 08:11] LABS: Glucose, Whole Blood 162 mg/dL (60-115)
[2023-01-22 08:11] LABS: B Type Natriuretic Peptide 1988 pg/mL (<100)
[2023-01-22] MEDS: Insulin Lispro 100 UNIT/ML 3 ML VIAL SUBCUT ×3 (08:28→21:20)
[2023-01-22] MEDS: Losartan Potassium 50 MG TABLET 100 MG PO (08:28)
[2023-01-22] MEDS: 0.9 % Sodium Chloride Flush 3 ML SYRINGE IVFLUSH ×3 (08:28→21:20)
[2023-01-22] MEDS: Thiamine HCL 100 MG TABLET PO (08:29)
[2023-01-22] MEDS: Gabapentin 100 MG CAPSULE PO ×3 (08:29→21:20)
[2023-01-22] MEDS: Atorvastatin Calcium 80 MG TABLET PO (08:29)
[2023-01-22] MEDS: Potassium Chloride ER 20 MEQ TAB.ER.PRT 40 MEQ PO (08:29)
[2023-01-22] MEDS: Furosemide 40 MG/4 ML VIAL IVPUSH ×2 (08:31→17:05)
[2023-01-22] MEDS: dilTIAZem HCL 50 MG/10 ML VIAL 10 MG IVPUSH (08:32)
--- NOTE | 2023-01-22 08:56 | P.PNIM_ITS ---
Subjective Subjective Date of Service: 01/22/23 Review of Systems Follow-up acute congestive heart failure Denies shortness of breath or chest pain episode of atrial tachycardia this morning with chest pain Physical Exam 2 Vital Signs: Vital Signs: Last Vital Signs Temp 97.4 F 01/22/23 07:24 Pulse 75 01/22/23 07:49 Resp 16 01/22/23 07:49 BP 176/76 H 01/22/23 07:24 Pulse Ox 95 01/22/23 07:24 O2 Del Method Room Air 01/22/23 07:24 O2 Flow Rate 1 01/21/23 12:53 Oxygen Flow Rate 2 01/21/23 12:00 BMI result Body Mass Index 27.1 Appearing in no acute distress lung sounds are clear to auscultation heart regular rate rhythm, clear S1, S2 positive bowel sounds, abdomen is soft, nontender neuro patient is alert x3, no focal deficits Objective Data Active Medications Acetaminophen (Acetaminophen 325 Mg Tablet) 650 mg PO Q6H PRN PRN Reason: Pain, Mild (Pain Scale 1-3) Albuterol Sulfate (Albuterol Sulfate 90 Mcg 8 Gm Inhaler) 2 puff INHALE RQ4H [facility] Last Admin: 01/22/23 07:48 Dose: 2 puff Documented By: CONSTANCE Atorvastatin Calcium (Atorvastatin Calcium 80 Mg Tablet) 80 mg PO DAILY [facility] Last Admin: 01/22/23 08:29 Dose: 80 mg Documented By: EMMETT Dextrose (Dextrose 50 % 25 Gm/50 Ml Syringe) 25 gm IVPUSH Q15M PRN; Protocol PRN Reason: per Hypoglycemia Standing Ord. Enoxaparin Sodium (Enoxaparin Sodium 40 Mg/0.4 Ml Syringe) 40 mg SUBCUT Q24H [facility] Last Admin: 01/21/23 21:06 Dose: 40 mg Documented By: DURHAM Fluticasone/Vilanterol (Fluticasone/Vilanterol 100/25 Blst.W.Dev) 1 puff INHALE RDAILY [facility] Last Admin: 01/22/23 07:47 Dose: 1 puff Documented By: CONSTANCE Furosemide (Furosemide 40 Mg/4 Ml Vial) 40 mg IVPUSH BID@0900,1800 [facility]; Protocol Last Admin: 01/22/23 08:31 Dose: 40 mg Documented By: EMMETT Gabapentin (Gabapentin 100 Mg Capsule) 100 mg PO TID [facility] Last Admin: 01/22/23 08:29 Dose: 100 mg Documented By: EMMETT Glucose (Glucose Gel 15 Gm Gel..Gram.) 15 gm PO Q15M PRN; Protocol PRN Reason: per Hypoglycemia Standing Ord. Labetalol HCl 200 mg/ IV (Miscellaneous Supplies) 40 mls @ 0 mls/hr IVCONT .Q0M [facility]; Protocol Insulin Human Lispro (Insulin Lispro 100 Unit/Ml 3 Ml Vial) 0 unit SUBCUT QIDACHS [facility]; Protocol Last Admin: 01/22/23 08:28 Dose: 2 unit Documented By: EMMETT Losartan Potassium (Losartan Potassium 50 Mg Tablet) 100 mg PO DAILY [facility]; Protocol Last Admin: 01/22/23 08:28 Dose: 100 mg Documented By: EMMETT Melatonin (Melatonin 3 Mg Tablet) 6 mg PO BEDTIME PRN PRN Reason: Insomnia Last Admin: 01/21/23 22:43 Dose: 6 mg Documented By: AUGUSTO Metoprolol Tartrate (Metoprolol Tartrate 50 Mg Tablet) 50 mg PO BID [facility]; Protocol Omeprazole (Omeprazole 20 Mg Capsule.Dr) 20 mg PO DAILY@0630 [facility] Last Admin: 01/22/23 05:53 Dose: 20 mg Documented By: AUGUSTO Ondansetron HCl (Ondansetron Hcl 4 Mg/2 Ml Vial) 4 mg IVPUSH Q8H PRN PRN Reason: Nausea and Vomiting Sodium Chloride (0.9 % Sodium Chloride Flush 3 Ml Syringe) 3 ml IVFLUSH QSHIFT [facility] Last Admin: 01/22/23 08:28 Dose: 3 ml Documented By: EMMETT Thiamine HCl (Thiamine Hcl 100 Mg Tablet) 100 mg PO DAILY [facility] Last Admin: 01/22/23 08:29 Dose: 100 mg Documented By: EMMETT Labs 01/21/23 05:09 01/22/23 06:56 Labs: Laboratory Results - last 24 hr 01/21/23 01/21/23 01/21/23 11:02 17:34 19:50 Anion Gap Estim Creat Clear Calc Estimated GFR POC Glucose 160 H 181 H 240 H Random Glucose Calcium B-Natriuretic Peptide 01/22/23 01/22/23 06:56 07:29 Anion Gap 15 Estim Creat Clear Calc 30.0 Estimated GFR 40 POC Glucose 162 H Random Glucose 155 H Calcium 10.2 D B-Natriuretic Peptide 1988 H Assessment and Plan (1) CHF exacerbation: Status: Acute Plan This is a 87-year-old male with pertinent history of hdk-[id number]-erppmaxrl diabetes mellitus, essential hypertension, gastroesophageal reflux disease, essential hypertension, mixed hyperlipidemia, CAD status post CABG, 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 Atrial tachycardia start metoprolol 50 mg BID EKG abnormal cardiology following check troponin Acute hypoxemic respiratory failure due to acute exacerbation of congestive heart failure with combined systolic and diastolic dysfunction continue IV Lasix. Ordered echocardiogram. Strict I's and O's. Low-salt diet. Monitor oxygen saturation and wean as tolerated, maintain oxygen saturation greater than 90%. Cardiology consultation pending Allergic reaction RR called for reaction after admin of Definity for echo on 01/21/23 s/p solumedrol and benadryl allergy now listed as severe Chronic kidney disease 3 Monitor creatinine and urine output with diuresis. Avoid nephrotoxins Essential hypertension Continue metoprolol, isosorbide mononitrate and losartan Cbv-amfgmhc-hasjrwdhv diabetes mellitus Accu-Cheks with sliding scale insulin CAD status post CABG Is on high-intensity statin. Not on antiplatelet agent DVT prophylaxis: Lovenox 40 mg daily Full code attending Dr. Portillo continue hospital stay for IV diuresis and supplemental oxygen (as above), which is not possible in a lesser acute setting. Quality Stroke Does the patient have a stroke diagnosis?: No VTE Prior VTE?: No VTE Risk Level:: Medical - moderate - high VTE Device Contraindication: Treatment Not Indicated VTE Drug Contraindication: N/A - Med Ordered
--- NOTE | 2023-01-22 09:12 | PM.PNCARD ---
Subjective Subjective Date of Service: 01/22/23 Interval history: He states he is feeling better. A little bit more conversant today. Also use library manager and he is partially speaking Albanian and partly in Telugu. He states shortness of breath is better. Today, he states he came to the hospital as he was sick and has been able to breathe well for the last few weeks. No anginal-type chest pains. Review of Systems Review of Systems Yes all other systems are reviewed and are negative Constitutional: Reports as per HPI and Reports no additional constitutional complaints Eyes: Reports as per HPI and Denies no additional eye complaints Denies system reviewed and no additional complaints, except as documented and Reports as per HPI Cardiovascular: Reports as per HPI, Reports no additional cardiovascular complaints, Denies acrocyanosis, Denies cool extremities, Denies chest pain, Denies leg edema, Denies lightheadedness, Denies palpitations and Reports dyspnea Respiratory: Reports as per HPI, Denies no additional respiratory complaints and Reports dyspnea Gastrointestinal: Reports as per HPI and Denies no additional gastrointestinal complaints Genitourinary: Reports no additional male genitourinary complaints and Reports as per HPI Musculoskeletal: Reports no additional musculoskeletal complaints and Reports as per HPI Skin/Breast: Reports system reviewed and no additional complaints, except as docu Reports system reviewed and no additional complaints, except as documented and Reports as per HPI Psychiatric: Reports no additional psychiatric complaints and Reports as per HPI Endocrine: Reports no additional endocrine complaints, Reports as per HPI and Denies palpitations Hematologic/Lymphatic: Reports no additional hematologic/lymphatic complaints and Reports as per HPI Allergic/Immunologic: Reports no additional allergic/immunologic complaints and Reports as per HPI Physical Exam Vital Signs: Last Vital Signs Temp 97.4 F 01/22/23 07:24 Pulse 75 01/22/23 07:49 Resp 16 01/22/23 07:49 BP 176/76 H 01/22/23 07:24 Pulse Ox 95 01/22/23 07:24 O2 Del Method Room Air 01/22/23 07:24 O2 Flow Rate 1 01/21/23 12:53 Oxygen Flow Rate 2 01/21/23 12:00 BMI result Body Mass Index 27.1 Const General: comfortable and no acute distress Orientation/consciousness: patient oriented x3 HEENT Other: Unremarkable Head: Yes normal to inspection Neck Neck: Yes normal visual inspection Chest Chest palpation & inspection: normal inspection of the chest Resp Other: Few inspiratory crackles Cardio Palpation: normal PMI Heart sounds: S1 normal heart sound present, S2 normal heart sound present, no gallops, Murmur heart sound present systolic II/, at the apex and at the right sternal border and no rubs GI Palpation (GI): Soft to palpation Back/Spine/Pelvis Other: unremarkable Skin General skin exam: no rashes or lesions noted Neuro General: patient oriented x3 Extrem Other: 1+ edema General: Yes normal to inspection Psych Mental Status: mental status grossly normal Objective Labs and Meds 01/21/23 05:09 01/22/23 06:56 Lab results: Laboratory Results - last 24 hr 01/21/23 01/21/23 01/21/23 11:02 17:34 19:50 Sodium Potassium Chloride Carbon Dioxide Anion Gap BUN Creatinine Estim Creat Clear Calc Estimated GFR POC Glucose 160 H 181 H 240 H Random Glucose Calcium Magnesium B-Natriuretic Peptide 01/22/23 01/22/23 01/22/23 06:56 07:29 08:38 Sodium 145 Cancelled Potassium 3.1 L Cancelled Chloride 100 Cancelled Carbon Dioxide 33 H Cancelled Anion Gap 15 Cancelled BUN 29 H Cancelled Creatinine 1.63 H Cancelled Estim Creat Clear Calc 30.0 Cancelled Estimated GFR 40 Cancelled POC Glucose 162 H Random Glucose 155 H Cancelled Calcium 10.2 D Cancelled Magnesium Cancelled B-Natriuretic Peptide 1988 H Progress Note: A&P Assessment and plan (1) Acute on chronic heart failure with preserved ejection fraction (HFpEF): Status: Acute (2) Atrial tachycardia: Status: Acute (3) Coronary artery disease: Status: Acute Plan On telemetry, he is tachycardic. EKG also reviewed. Difficult to state rhythm but could be atrial tachycardia as it is somewhat irregular. Less likely atrial fibrillation. In some leads, he can see the P waves. There is significant ST depression in the precordial leads. This is much more pronounced than in the initial EKG. Echocardiogram with LVEF of 53%. Moderate diastolic dysfunction. Difficult to assess wall motion. Mild aortic stenosis/regurgitation mild mitral regurgitation. Overall, he is being treated for acute on chronic diastolic congestive heart failure. Continue diuretics but he also has abnormal creatinine and hence that needs to be monitored. With regard to atrial tachycardia type rhythm, we can increase his home dose of beta-blockers and hope that it is controlled. With regard to the ST deviation on the EKG, likely reflects his underlying coronary burden as there is a history of bypass. However, he does not have any chest pain. Considering his age, frailty, comorbidities, renal disease, probably treat conservatively. Will check troponins to see if he actually had to NSTEMI or not. Add aspirin. Is already on high-dose statins. If troponins are significantly elevated, then we may have to start IV heparin as well. Discussed with Michelle Padron. Time Spent With Patient Time: Total time managing care of this patient today ____ minutes. Progress Note: Quality Stroke Does the patient have a stroke diagnosis?: No Procedures Date of Service Date of Service: 01/22/23
[2023-01-22 09:19] LABS: Magnesium 1.9 mg/dL (1.6-2.6)
[2023-01-22 09:21] LABS: Troponin-I High Sensitivity 61.5 ng/L (<3.5-35.0)
[2023-01-22] MEDS: Metoprolol Tartrate 50 MG TABLET PO ×2 (09:36→21:20)
[2023-01-22 11:28] LABS: Glucose, Whole Blood 137 mg/dL (60-115)
--- NOTE | 2023-01-22 12:28 | ECG_ITS ---
Test Reason : cp Blood Pressure : / mmHG Vent. Rate : 075 BPM Atrial Rate : 075 BPM P-R Int : 170 ms QRS Dur : 104 ms QT Int : 396 ms P-R-T Axes : 116 061 257 degrees QTc Int : 442 ms Normal sinus rhythm ST & T wave abnormality, consider inferior ischemia Abnormal ECG When compared with ECG of 22-JAN-2023 07:08, SC interval has decreased Vent. rate has decreased BY [address] less depressed in Anterior leads Lateral leads Referred By: Apollo Sanchez Electronically Signed By:FAHEEM QUINTEROS MD
--- NOTE | 2023-01-22 12:30 | MHC.CM.PN ---
IMM 01/22/23 DELIVERED TO BEDSIDE, EMR REVIEWED CM MET W/PT AND DTR GIANNI AT BEDSIDE VIA TRAVEL OCCUPATIONAL THERAPIST, PT AND DTR BOTH ANSWERING QUESTIONS. PER PT HE CAME BACK TO [place] FROM [place] BECAUSE HE DIDN'T LIKE IT THERE, CAME BACK AND WAS STAYING AT [facility], PT NOW STAYING W/DTR GIANNI AND GDTR AND WILL DC THERE ONCE MEDICALLY CLEARED, PT REPORTS HIS NEW PCP AT [facility] IS DR FELDER AND HE HAS AN APPT THIS WEEK ON WEDNESDAY 01/24. CM CONFIRMED W/PT'S INSURANCE [employer] LIAISON, LIAISON REPORTED PT HAS BEEN ACTIVE SINCE OCTOBER 2022, HAS NO SERVICES AND HIS MACHINE HOSTLER IS CELESTINE JONES.
--- NOTE | 2023-01-22 13:52 | MHC.CM.PN ---
PT'S DTR ENOC NOVOA [phone], LISA OSORIO [phone]
[2023-01-22 16:19] LABS: Glucose, Whole Blood 156 mg/dL (60-115)
[2023-01-22 21:01] LABS: Glucose, Whole Blood 154 mg/dL (60-115)
[2023-01-22] MEDS: Enoxaparin Sodium 40 MG/0.4 ML SYRINGE SUBCUT (21:20)
[2023-01-23 03:57] VITALS: BP 124/58; PULSE 74; RESP 18; TEMP 36.1; O2SAT 96
[2023-01-23] MEDS: Omeprazole 20 MG CAPSULE.DR PO (05:38)
[2023-01-23 07:28] VITALS: BP 144/65; PULSE 75; TEMP 36.1
[2023-01-23 07:51] LABS: Glucose, Whole Blood 104 mg/dL (60-115)
--- NOTE | 2023-01-23 09:24 | P.PNCA_ITS ---
Subjective Subjective Date of Service: 01/23/23 Interval history: Discussed with patient using medical consultant. He states he is feeling fine. He does not have any chest pain. Denies any shortness of breath or in fact any other symptoms. He states he is feeling great and would like to go home. He is eating breakfast. Review of Systems Review of Systems Yes all other systems are reviewed and are negative Constitutional: Reports as per HPI and Reports no additional constitutional complaints Eyes: Reports as per HPI and Denies no additional eye complaints Denies system reviewed and no additional complaints, except as documented and Reports as per HPI Cardiovascular: Reports as per HPI, Reports no additional cardiovascular complaints, Denies acrocyanosis, Denies cool extremities, Denies chest pain, Denies leg edema, Denies lightheadedness, Denies palpitations and Denies dyspnea Respiratory: Reports as per HPI, Denies no additional respiratory complaints and Denies dyspnea Gastrointestinal: Reports as per HPI and Denies no additional gastrointestinal complaints Genitourinary: Reports no additional male genitourinary complaints and Reports as per HPI Musculoskeletal: Reports no additional musculoskeletal complaints and Reports as per HPI Skin/Breast: Reports system reviewed and no additional complaints, except as docu Reports system reviewed and no additional complaints, except as documented and Reports as per HPI Psychiatric: Reports no additional psychiatric complaints and Reports as per HPI Endocrine: Reports no additional endocrine complaints, Reports as per HPI and Denies palpitations Hematologic/Lymphatic: Reports no additional hematologic/lymphatic complaints and Reports as per HPI Allergic/Immunologic: Reports no additional allergic/immunologic complaints and Reports as per HPI Physical Exam Vital Signs: Last Vital Signs Temp 97.0 F 01/23/23 07:28 Pulse 75 01/23/23 07:28 Resp 18 01/23/23 03:57 BP 144/65 H 01/23/23 07:28 Pulse Ox 96 01/23/23 03:57 O2 Del Method Room Air 01/23/23 03:57 O2 Flow Rate 1 01/21/23 12:53 Oxygen Flow Rate 2 01/21/23 12:00 BMI result Body Mass Index 27.1 Const General: comfortable and no acute distress Orientation/consciousness: patient oriented x3 HEENT Other: Unremarkable Head: Yes normal to inspection Neck Neck: Yes normal visual inspection Chest Chest palpation & inspection: normal inspection of the chest Resp Other: minimal crackles at base Cardio Palpation: normal PMI Heart sounds: S1 normal heart sound present, S2 normal heart sound present, no gallops, Murmur heart sound present systolic II/ and no rubs GI Palpation (GI): Soft to palpation Back/Spine/Pelvis Other: unremarkable Skin General skin exam: no rashes or lesions noted Neuro General: patient oriented x3 Extrem General: Yes normal to inspection Psych Mental Status: mental status grossly normal Objective Labs and Meds 01/21/23 05:09 01/22/23 06:56 Lab results: Laboratory Results - last 24 hr 01/22/23 01/22/23 01/22/23 11:12 16:07 20:27 POC Glucose 137 H 156 H 154 H 01/23/23 07:37 POC Glucose 104 Progress Note: A&P Assessment and plan (1) Acute on chronic heart failure with preserved ejection fraction (HFpEF): Status: Acute (2) Atrial tachycardia: Status: Acute (3) Coronary artery disease: Status: Acute Plan On telemetry, could be either sinus rhythm or a low atrial type rhythm. However, well controlled at around 70/Min. In the repeat EKG from yesterday, underlying rhythm is sinus with inferolateral ST depression. Somewhat less prominent than the prior EKG. Echocardiogram with LVEF of 53%. Moderate diastolic dysfunction. Difficult to assess wall motion. Mild aortic stenosis/regurgitation mild mitral regurgitation. High sensitivity troponin slightly elevated at 61.5. Overall, considering his age, comorbidities, frailty, renal dysfunction, possible underlying dementia, we will treat this conservatively. Low-dose aspirin, beta-blockers, high-dose statins, diuretics. Currently, he is completely symptom free. Discharge planning. Discussed with Michelle Padron. Time Spent With Patient Time: Total time managing care of this patient today ____ minutes. Progress Note: Quality Stroke Does the patient have a stroke diagnosis?: No Procedures Date of Service Date of Service: 01/23/23
--- NOTE | 2023-01-23 09:29 | MHC.CM.PN ---
Pt has been medically cleared for discharge, His daughter will pick him up, he will live and her and she will provide care.
[2023-01-23] MEDS: Thiamine HCL 100 MG TABLET PO (10:03)
[2023-01-23] MEDS: Gabapentin 100 MG CAPSULE PO (10:03)
[2023-01-23] MEDS: Metoprolol Tartrate 50 MG TABLET PO (10:03)
[2023-01-23] MEDS: Furosemide 40 MG/4 ML VIAL IVPUSH (10:03)
[2023-01-23] MEDS: Aspirin 81 MG TAB.CHEW PO (10:04)
[2023-01-23] MEDS: Losartan Potassium 50 MG TABLET 100 MG PO (10:04)
[2023-01-23] MEDS: Atorvastatin Calcium 80 MG TABLET PO (10:04)
[2023-01-23 10:39] LABS: Potassium 3.7 mmol/L (3.3-5.1)
[2023-01-23 11:37] LABS: Glucose, Whole Blood 167 mg/dL (60-115)
[2023-01-23] MEDS: Albuterol Sulfate 90 MCG 8 GM INHALER 2 PUFF INHALE (11:41)
[2023-01-23 11:42] VITALS: PULSE 75; RESP 16; O2SAT 94
[2023-01-23] MEDS: Insulin Lispro 100 UNIT/ML 3 ML VIAL SUBCUT (12:17)
--- NOTE | 2023-01-23 12:19 | PM.DS ---
DS: Providers Provider Date of Service: 01/23/23 Date of admission: 01/20/23 19:18 Primary care physician: Cassandra Gomez MD Consults: 01/21/23 08:59 Consult to Cardiology Routine Consulting Provider: [facility] Reason for consultation: CHF DS: Diagnosis Discharge Diagnosis (1) Acute on chronic heart failure with preserved ejection fraction (HFpEF): Status: Acute (2) Atrial tachycardia: Status: Acute (3) Coronary artery disease: Status: Acute DS: Summary Hospital Course Hospital Course: This is a 87-year-old male with pertinent history of zyg-szrupwo-zupyqgfhh diabetes mellitus, essential hypertension, gastroesophageal reflux disease, essential hypertension, mixed hyperlipidemia, CAD status post CABG, 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 Patient is a poor historian and history obtained by daughter at bedside. Daughter states that patient does not have Lasix in his medication list. The patient states that he is supposed to be on it but does not know how long has he been off Lasix. Does endorse dyspnea which is worse with exertion. Also admits orthopnea. No fever, chills, chest discomfort, palpitations, abdominal pain, changes in urinary or bowel habits. In the emergency department, patient requiring supplemental oxygen and BNP found to be elevated. 87-year-old man treated for acute hypoxemic respiratory failure secondary to acute systolic heart failure. Treated with IV Lasix. Echocardiogram showed combination systolic and diastolic dysfunction with preserved EF. Patient was maintained on a low-salt diet, was seen and evaluated by Cardiology who recommended increased dose of metoprolol to 50 mg twice daily and home dose of Lasix 20 mg. His oxygen saturation was maintained greater than 90% and did not require oxygen. He has been out of bed ambulating. He did have an episode of atrial tachycardia at 1 point during hospitalization troponin was mildly elevated, he was seen evaluated by Cardiology and at that time had recommended increasing the beta-alexei. However, overall considering his age, comorbidities, frailty and renal dysfunction, the plan was to treat the patient conservatively with low-dose aspirin, beta-alexei and high-dose statin. Patient is doing well and hemodynamically stable. Plan is to discharge home with family. May follow up with Cardiology as needed. Allergic reaction. Did have a rapid response called after administration of definity diet for echocardiogram on 01/21/2023. Patient was not on a environmental monitoring specialist therefore it is unknown if patient lost pulse but the episode was witnessed by the echocardiogram tech and did not appear that patient lost his pulse or stop breathing.He did not require CPR or rescue breathing. He did have an episode of hypertensive urgency and tachycardia which lends itself to and allergic reaction. The definity was labeled as a severe reaction. Patient was treated with Solu-Medrol and Benadryl and did well after that. CKD stage 3. Avoid nephrotoxins Hypertension. Continue metoprolol, isosorbide and losartan Diabetes mellitus type 2. Continue home medications Coronary artery disease status post CABG. Continue aspirin and high-dose statin. Time Attestation Discharge coordination time: Greater than 30 minutes Quality: Safe Use of Opioids Does Pt have an Active Cancer Diagnosis on the Problem List?: No Quality: Stroke Does the patient have a stroke diagnosis?: No Physical Exam Vital Signs: Vital Signs: Last Vital Signs Temp 97.0 F 01/23/23 07:28 Pulse 75 01/23/23 11:42 Resp 16 01/23/23 11:42 BP 144/65 H 01/23/23 07:28 Pulse Ox 96 01/23/23 03:57 O2 Del Method Room Air 01/23/23 03:57 O2 Flow Rate 1 01/21/23 12:53 Oxygen Flow Rate 2 01/21/23 12:00 BMI result Body Mass Index 27.1 Appearing in no acute distress head is normocephalic atraumatic eyes pupils are PERRLA sclera is anicteric mouth throat mucous membranes are intact and moist neck is supple no lymphadenopathy, no JVD noted lung sounds are clear to auscultation heart regular rate rhythm, clear S1, S2 positive bowel sounds, abdomen is soft, nontender neuro patient is alert x3, no focal deficits DS: Data Data Completed and Pending Completed studies during hospitalization [Text1]: Procedures Drainage of Peritoneal Cavity, Percutaneous Approach (04/14/22) Labs on day of discharge: Laboratory Results - last 24 hr 01/22/23 01/22/23 01/23/23 16:07 20:27 07:37 Potassium POC Glucose 156 H 154 H 104 01/23/23 01/23/23 09:47 11:21 Potassium 3.7 POC Glucose 167 H Discharge Plan Discharge Anticipated Discharge Date/Time: 01/23/23 12:08 Patient Disposition: Home, Self-Care Discharge Diagnosis: Acute hypoxemic respiratory failure Acute exacerbation of heart failure with preserved ejection fraction Atrial tachycardia Chronic kidney disease stage 3 Allergic reaction Referrals: Cassandra Duarte MD [Primary Care Provider] - 1 Week Discharge Medications: New metoprolol tartrate 50 mg Tablet 50 mg PO BID Qty: 60 0RF Protocol: Hold for SBP/HR < HOLD for SBP < : 90 HOLD for HR < : 60 aspirin 81 mg Tablet,Chewable 81 mg PO DAILY Qty: 30 0RF furosemide [Lasix] 20 mg tablet 20 mg PO DAILY Qty: 30 0RF Continued thiamine mononitrate (vit B1) 100 mg Tablet 100 mg PO DAILY Qty: 30 0RF glipizide 10 mg tablet extended release 24hr 1 tab PO DAILY Qty: 30 0RF isosorbide mononitrate 60 mg tablet extended release 24 hr 1 tab PO DAILY Qty: 30 0RF omeprazole 20 mg capsule,delayed release(DR/EC) 1 cap PO DAILY Qty: 30 0RF gabapentin 100 mg capsule 1 cap PO TID Qty: 90 0RF losartan 100 mg tablet 1 tab PO DAILY Qty: 30 0RF atorvastatin 80 mg tablet 80 mg PO QAM fluticasone propion-salmeterol 100-50 mcg/dose blister with device 1 ea INHALATION Q12H albuterol sulfate [Ventolin HFA] 90 mcg/actuation HFA aerosol inhaler 2 puff INHALATION Q4H Discontinued metoprolol tartrate 50 mg tablet 25 mg PO BID Protocol: Hold for SBP/HR < HOLD for SBP < : 90 HOLD for HR < : 60 Discharge Orders: Discharge Order (Routine); Ordered 01/23/23 Ordered By: Michelle Padron Diet: Advance to usual diet Activity on Discharge: As tolerated Stand Alone Forms: Patient Portal Discharge page Care Plan Goals: Your metoprolol was increased to 50 mg twice Daily You have been started on Lasix 20 mg daily Health Concerns: Acute hypoxemic respiratory failure Acute exacerbation of heart failure with preserved ejection fraction Atrial tachycardia Chronic kidney disease stage 3 Allergic reaction Plan of Treatment: Follow-up with primary care provider as needed Take all medications as prescribed Assessment: see discharge summary
--- NOTE | 2023-01-23 13:53 | PC.NURSE ---
[employer]ice President [employer] at bedside for assessment and med pass. Pt's daughter at bedside for discharge. IV and tele removed, all belongings and meds with pt and caregiver. Pt and pt's daughter educated on d/c paperwork.
== END 2023-01-23 13:40 | disposition home or self-care (01) | DRG 291 ==
LOC: HO.ED 18:21 → HO.EDOVER 19:35 → HO.S3 23:52 → HO.IMC 01-21 12:53
PROVIDERS: Admitting Provider Student in an Organized Health Care Education/Training Program; Emergency Provider Student in an Organized Health Care Education/Training Program; PCP Student in an Organized Health Care Education/Training Program; Visit Provider Nurse Practitioner Acute Care
DX: I13.0 Hypertensive heart and chronic kidney disease with heart failure and stage 1 through stage 4 chronic kidney disease, or unspecified chronic kidney disease (principal); I50.43 Acute on chronic combined systolic (congestive) and diastolic (congestive) heart failure; J96.01 Acute respiratory failure with hypoxia; Z59.02 Unsheltered homelessness; I47.19 Other supraventricular tachycardia; N18.30 Chronic kidney disease, stage 3 unspecified; E11.22 Type 2 diabetes mellitus with diabetic chronic kidney disease; E78.2 Mixed hyperlipidemia; T50.8X5A Adverse effect of diagnostic agents, initial encounter; I25.10 Atherosclerotic heart disease of native coronary artery without angina pectoris; Z20.822 Contact with and (suspected) exposure to COVID-19; Z95.1 Presence of aortocoronary bypass graft; Z79.51 Long term (current) use of inhaled steroids; Z79.82 Long term (current) use of aspirin; Z79.84 Long term (current) use of oral hypoglycemic drugs; Z79.899 Other long term (current) drug therapy
CPT/HCPCS: 36415; 71045; 80048; 80053; 81003; 82947; 83735; 83880; 84132; 84484; 85025; 87502; 87635; 93005; 93306; 94640; 99285; J1200; J1650; J1920; J1940; J2920; Q9957

== ENCOUNTER 2023-01-20 19:18 | Outpatient (BNV) | payer OTHER, SELFPAY | END 2023-01-21 07:00 | PROVIDERS: Admitting Provider Student in an Organized Health Care Education/Training Program; Emergency Provider Student in an Organized Health Care Education/Training Program; Visit Provider Internal Medicine | DX: I35.2 Nonrheumatic aortic (valve) stenosis with insufficiency (principal) | CPT/HCPCS: 93306 ==

== ENCOUNTER → 2023-01-20 19:18 | Outpatient (BNV) | payer OTHER, SELFPAY | PROVIDERS: Admitting Provider Student in an Organized Health Care Education/Training Program; Emergency Provider Student in an Organized Health Care Education/Training Program; Visit Provider Internal Medicine | DX: I50.33 Acute on chronic diastolic (congestive) heart failure (principal); I47.19 Other supraventricular tachycardia; I25.10 Atherosclerotic heart disease of native coronary artery without angina pectoris | CPT/HCPCS: 99223; 99233 ==

== ENCOUNTER → 2023-01-20 19:18 | Outpatient (BNV) | payer OTHER, SELFPAY | PROVIDERS: Admitting Provider Student in an Organized Health Care Education/Training Program; Emergency Provider Student in an Organized Health Care Education/Training Program; Visit Provider Student in an Organized Health Care Education/Training Program | DX: I50.9 Heart failure, unspecified (principal) | CPT/HCPCS: 99222; 99232; 99239 ==

== ENCOUNTER 2023-02-20 11:11 | Inpatient (IN) | payer OTHER, SELFPAY ==
--- NOTE | ~2023-02-20 | XR_ITS ---
EXAMINATION: XR CHEST CLINICAL INFORMATION: Shortness of breath. COMPARISON: 01/20/2023 TECHNIQUE: Frontal view of the chest was obtained. FINDINGS: Median sternotomy and CABG redemonstrated. Redemonstration of right pleural effusion and consolidation, increased since 01/20/2023. Increased patchy opacities in the left lung and visualized upper right lung with consolidative component in the medial right upper lung. There is no gross pneumothorax. XR/XR chest 1V IMPRESSION: Redemonstration of right pleural effusion and consolidation, increased since 01/20/2023. Increased patchy opacities in the left lung and visualized upper right lung with consolidative component in the medial right upper lung. This study was presented today February 20, 2023 at 1:40 PM for interpretation. Stat results provided at this time as requested by referring provider.
--- NOTE | 2023-02-20 11:13 | ECG_ITS ---
Test Reason : SOB Blood Pressure : / mmHG Vent. Rate : 086 BPM Atrial Rate : 086 BPM P-R Int : 196 ms QRS Dur : 094 ms QT Int : 390 ms P-R-T Axes : 075 079 072 degrees QTc Int : 466 ms Normal sinus rhythm ST & T wave abnormality, consider inferior ischemia Abnormal ECG When compared with ECG of 22-JAN-2023 12:28, Non-specific change in ST segment in Inferior leads ST no longer depressed in Anterior leads Referred By: Generic ED Physician Electronically Signed By:Ariel Guzman
[2023-02-20 11:15] VITALS: BP 158/120; BP 187/86; PULSE 89; PULSE 98; RESP 22; TEMP 36; O2SAT 91; O2SAT 92; BMI 28.6
[2023-02-20 11:40] VITALS: RESP 33
--- NOTE | 2023-02-20 11:46 | ED_ITS ---
HPI - SOB/Dyspnea General Chief Complaint: Dyspnea Stated Complaint: DIFF BREATHING,CP PER EMS Time Seen by Provider: 02/20/23 11:14 Source: patient and EMS Mode of arrival: EMS History of Present Illness HPI Narrative: 87-year-old male with known history of CHF/NM/hypertension/CVA presents with chest pain shortness of breath for unknown amount of time according to EMS, but patient states he has been short of breath for weeks. He denies any fever, chills, GI or symptoms. Patient denies any chest pain to me. Related Data Home Medications Medication Instructions Recorded Confirmed albuterol sulfate 90 mcg/actuation 2 puff inhalation Q4H 01/21/23 02/20/23 aerosol inhaler (Ventolin HFA) atorvastatin 80 mg tablet 80 mg PO QAM 01/21/23 02/20/23 fluticasone 100 mcg-salmeterol 50 1 ea inhalation Q12H 01/21/23 02/20/23 mcg/dose blistr powdr for inhalation Previous Rx's Medication Instructions Recorded gabapentin 100 mg capsule 1 cap PO TID #90 caps 04/25/22 glipizide 10 mg tablet, extended 1 tab PO DAILY #30 tabs 04/25/22 release 24 hr isosorbide mononitrate 60 mg 1 tab PO DAILY #30 tabs 04/25/22 tablet,extended release 24 hr losartan 100 mg tablet 1 tab PO DAILY #30 tabs 04/25/22 omeprazole 20 mg capsule,delayed 1 cap PO DAILY #30 caps 04/25/22 release thiamine mononitrate (vit B1) 100 100 mg PO DAILY #30 tabs 04/25/22 mg tablet aspirin 81 mg chewable tablet 81 mg PO DAILY #30 tabs 01/23/23 furosemide 20 mg tablet (Lasix) 20 mg PO DAILY #30 tabs 01/23/23 metoprolol tartrate 50 mg tablet 50 mg PO BID #60 tabs 01/23/23 Allergies Allergy/AdvReac Type Severity Reaction Status Date / Time perflutren [From Definity] Allergy Severe Respiratory Verified 01/21/23 11:27 distress Review of Systems 2 Review of Systems: Pertinent positives and negatives as stated in HPI PMFSH Past Medical History Source: nursing notes reviewed Medical History Seizure Aortic stenosis Cognitive decline Frostbite of both hands Diabetes GERD (gastroesophageal reflux disease) Coronary artery disease Mood disorder Essential hypertension Abdominal ascites Pleural effusion, right CATARINO (acute kidney injury) CHF exacerbation Surgical History Hx of CABG Social History Social History Household Members: Children Housing: House Do you presently have visiting nurse or other home services: Yes (quality control technician is his daughter) Alcohol intake: former Patient Tobacco Use Status: Never used Tobacco Smoked in Last 30 Days: No Second Hand Smoke Exposure: No Use of substances other than those prescribed or required for medical reasons: No Advance Directives: No Advance Directives Information Provided: Yes service: No Current occupational status: retired Physical Exam 2 Vital Signs: Vital Signs: Last Vital Signs Temp 96.8 F 02/20/23 11:15 Pulse 89 02/20/23 14:20 Resp 15 02/20/23 14:20 BP 145/76 H 02/20/23 14:20 Pulse Ox 94 02/20/23 14:20 O2 Del Method Nasal Cannula 02/20/23 14:20 O2 Flow Rate 1 02/20/23 14:20 BMI result Body Mass Index 28.6 VITAL SIGNS: Reviewed. GENERAL: Well developed, well nourished, in no acute distress. HEAD: Normocephalic/atraumatic EYES: PERRLA, EOMI EARS: Ext canals without abnormality NOSE: Nares patent bilateral OROPHARYNX: no oral lesions noted, posterior pharynx clear NECK: Supple, no adenopathy LUNGS: Normal breath sounds. No adventitious sounds or accessory muscle use. SpO2<91> CARDIOVASCULAR: Regular rate and rhythm without noted murmurs, no JVD but 1+ bilateral lower pitting edema ABDOMEN: Soft, non-tender, non-distended with bowel sounds. MUSCULOSKELETAL: No tenderness, deformities, or effusions noted on gross inspection. EXTREMITIES: No cyanosis, clubbing or edema. SKIN: Inspection of the skin reveals no rashes NEUROLOGIC: Alert and oriented x 4. Strength and sensation to light touch were grossly intact x 4. Medications Administered Discontinued Medications Generic Name Dose Route Start Last Admin Trade Name Freq PRN Reason Stop Dose Admin Furosemide 60 mg 02/20/23 11:53 02/20/23 12:18 Furosemide 100 Mg/10 Ml Vial IVPUSH 02/20/23 11:54 60 mg ONCE ONE Administration Protocol Piperacillin Sod/Tazobactam 50 mls @ 100 mls/hr 02/20/23 11:53 02/20/23 14:21 Sod 3.375 gm/ Sodium Chloride IV 02/20/23 12:22 Infused ONCE ONE Infusion Medical Decision Making Medical Decision Making [facility] Narrative: 1130: 87-year-old male with history and clinical presentation suggestive of acute CHF exacerbation overlying known chronic right pleural effusion. Patient is noted to be hypoxic and was placed on 2 L via nasal cannula at 11:50. Unclear whether not the increased infiltrates in the right upper lobe are fluid verses infectious etiology and will get lactic acid and blood cultures. I reviewed all investigations and hematologic indices do not demonstrate a leukocytosis or left shift, but patient is very disc neck with infiltrates noted on chest x-ray, otherwise patient has chronically stable normocytic anemia without thrombocytopenia. Coagulation studies are within normal limits. Chemistry indices to not demonstrate CATARINO and there are no electrolyte or new liver enzyme derangements. Patient has chronically elevated T bilirubin and I do not think that this factors and for sepsis/infectious etiology. Instead, this is related to patient's fluid overload status in likely chronic pleural effusion. BNP noted to be significantly elevated at 44 10, supplemental oxygen as well as Lasix 60 mg administered. Patient also required supplemental nasal cannula oxygen to be placed. Viral testing negative for COVID/influenza. No acute changes on EKG. 1233: I discussed case with inpatient hospitalist who accepts admission. Differential Diagnosis Differential Diagnoses: The differential diagnosis associated with the presentation includes Please see the discussion above Admission/Observation Consideration of admission/observation: Escalation of care including admission/observation considered Please see the discussion above Consult Healthcare Provider Management of the patient was discussed with: Hospitalist Please see the discussion above Lab Data [facility] Lab Attestation statement: I reviewed the patient's lab results. Please see the discussion above 02/20/23 11:39 02/20/23 11:39 Labs: Lab Results 02/20/23 02/20/23 Range/Units 11:39 12:20 WBC 5.6 (4.8-10.8) X10*3/uL RBC 5.20 (4.60-5.80) X10*6/uL Hgb 12.5 L (14.0-18.0) g/dl Hct 42.1 (42.0-52.0) % MCV 81.0 (80.0-98.0) fL MCH 24.0 L (27.0-33.0) pg MCHC 29.7 L (31.0-36.0) g/dl RDW 17.4 H (11.0-16.0) % Plt Count 261 (160-400) X10*3/uL MPV 9.9 (9.4-12.4) fL Immature Gran % (Auto) 0.2 (0.0-0.4) % Neut % (Auto) 67.8 (45-73) % Lymph % (Auto) 18.2 L (20-40) % [place] % (Auto) 8.4 (2-11) % Eos % (Auto) 4.7 H (0-4) % Baso % (Auto) 0.7 (0-2) % Lymph # (Auto) 1.0 L (1.2-4.9) X10*3/uL [place] # (Auto) 0.5 (0.1-1.2) X10*3/uL Eos # (Auto) 0.3 (0.0-0.4) X10*3/uL Baso # (Auto) 0.0 (0.0-0.2) X10*3/uL Abs Immat Gran (auto) 0.01 (0.00-0.03) X10*3/uL Absolute Neuts (auto) 3.8 (2.0-8.3) x10*3/uL Absolute Nucleated RBC 0.000 (0.0-0.012) X10*3/uL Nucleated RBC % (auto) 0.0 (0.0-0.2) /100WBC PT 13.3 (11.1-13.3) SEC INR 1.1 (0.9-1.1) Sodium 144 (135-145) mmol/L Potassium 3.7 (3.3-5.1) mmol/L Chloride 104 (96-108) mmol/L Carbon Dioxide 30 H (22-29) mmol/L Anion Gap 14 (12-20) BUN 17 H (9-16) mg/dL Creatinine 1.19 (0.5-1.4) mg/dL Estim Creat Clear Calc 40.7 Estimated GFR 58 Random Glucose 128 H (60-115) mg/dL Lactic Acid 1.4 (0.5-2.0) mmol/L Calcium 9.6 (8.4-10.2) mg/dL Total Bilirubin 2.2 H (0.0-1.0) mg/dL AST 14 (5-37) U/L ALT 8 (0-40) U/L Alkaline Phosphatase 112 (39-117) U/L B-Natriuretic Peptide 4410 H (<100) pg/mL Total Protein 7.2 (6.5-8.0) g/dL Albumin 3.6 (3.5-5.0) g/dL COVID-19 ([facility]) Negative (Negative) COVID-19 Clin Com See Note Influenza Type A (SALLIE) Negative (Negative) Influenza Type B (SALLIE) Negative (Negative) Influenza A & B Note See Note Independent Interpretation I performed an independent interpretation of an: EKG Interpretation: Normal sinus rhythm, HR-86, no STEMI, ST-T-wave abnormalities that are chronically present, IL/QRS/QTC are within normal limits. Radiology Impression Discussion of test interpretation with radiology: I have reviewed the radiologist's reading. Radiologist Impression: Please see the discussion above External Record Review External record reviewed: Inpatient record, Outpatient record, Prior outpatient labs and Prior outpatient radiology Chronic Conditions Patient?s care impacted by: Hypertension and Other History CVA, CHF, right pleural effusion Critical Care Time Critical Care Time Critical Care Time: Yes Total Critical Care Time: 60 Attestation: I personally attest to this time spent taking care of the patient. Discharge Plan Discharge Clinical Impression: Acute hypoxemic respiratory failure, CHF exacerbation, Pneumonia, Pleural effusion, right Patient Disposition: Admitted As Inpatient
[2023-02-20 11:49] VITALS: BP 177/75; PULSE 84; RESP 34
[2023-02-20 11:50] LABS: MANUAL DIFF FLAG NO
[2023-02-20 11:54] LABS: Basophils Percent Auto 0.7 % (0-2); Eosinophils Absolute Auto 0.3 X10*3/uL (0.0-0.4); Eosinophils Percent Auto 4.7 % (0-4); Hematocrit 42.1 % (42.0-52.0); Hemoglobin 12.5 g/dl (14.0-18.0); Imm Gran Abs Auto 0.01 X10*3/uL (0.00-0.03); Imm Gran Pct Auto 0.2 % (0.0-0.4); Lymphocytes Percent Auto 18.2 % (20-40); Mean Corpuscular HGB Conc 29.7 g/dl (31.0-36.0); Mean Platelet Volume 9.9 fL (9.4-12.4); Monocytes Absolute Auto 0.5 X10*3/uL (0.1-1.2); Monocytes Percent Auto 8.4 % (2-11); Neutrophils Absolute Auto 3.8 x10*3/uL (2.0-8.3); Neutrophils Percent Auto 67.8 % (45-73); Platelet Count 261 X10*3/uL (160-400); Red Cell Distribution Width 17.4 % (11.0-16.0); White Blood Count 5.6 X10*3/uL (4.8-10.8)
--- NOTE | 2023-02-20 11:55 | PC.NURSE ---
PLACED ON 2L SUPP O2 VIA NC FLUCTUATING BETWEEN 85-91% ON RA. USE OF ABD MUSCLES, WORSENED SOB WITH ANY EXERTION, SUPINE POSITIONING. DIMINISHED BREATH SOUNDS ON RLL. MM DRY. NSR ON MONITOR. #20 PLACED IN RAC.
[2023-02-20 11:56] LABS: INTERNATIONAL NORM RATIO 1.1 (0.9-1.1); Prothrombin Time 13.3 SEC (11.1-13.3)
[2023-02-20 12:09] LABS: COVID-19 Test Negative (Negative); IDNOW Serial# 08D9AD1C; IDNOW Serial# BCCEAD1C; Influenza A Negative (Negative); Influenza B2 Negative (Negative)
[2023-02-20 12:11] LABS: Alanine Aminotransferase 8 U/L (0-40); Albumin Level 3.6 g/dL (3.5-5.0); Alkaline Phosphatase 112 U/L (39-117); Anion Gap 14 (12-20); Aspartate Amino Transferase 14 U/L (5-37); Bilirubin Total 2.2 mg/dL (0.0-1.0); Blood Urea Nitrogen 17 mg/dL (9-16); Calcium 9.6 mg/dL (8.4-10.2); Carbon Dioxide 30 mmol/L (22-29); Chloride 104 mmol/L (96-108); Creatinine Clr Calc Pharmacy 40.7; Estimated Glomerular Filt Rate 58; Glucose Random 128 mg/dL (60-115); Potassium 3.7 mmol/L (3.3-5.1); Sodium 144 mmol/L (135-145); Total Protein 7.2 g/dL (6.5-8.0)
[2023-02-20 12:13] LABS: B Type Natriuretic Peptide 4410 pg/mL (<100)
[2023-02-20] MEDS: Furosemide 100 MG/10 ML VIAL 60 MG IVPUSH (12:18)
[2023-02-20] MEDS: Piperacillin Sodium/Tazobactam 3.375 GM in 0.9 % Sodium Chloride 50 ML IV (12:19)
[2023-02-20 12:37] LABS: Lactic Acid 1.4 mmol/L (0.5-2.0)
--- NOTE | 2023-02-20 13:06 | P.HPHOSP_ITS ---
History of Present Illness Date of Service: 02/20/23 Attending physician on admission: Elif Gomez Chief Complaint: SOB Pt is an 87-year-old Northern Irish-speaking male with a PMH significant for?CAD s/p CABG, HFpEF, HTN, HLD, GERD, and [id number] diabetes type 2 who presents to the ED with worsening SOB and CONTRERAS. Pt is a rather poor historian and vague, unable to clarify many questions or provide details. Pt states he came to the hospital because of shortness of breath and inability to breath the past few days. Unclear exactly when symptoms began, but seemed to have been ongoing at least 1-2 weeks. Denies cough. Unsure if legs are more swollen than before. Cannot tell if he has any weight gain. Of note, he was recently admitted to the hospital on 01/20-01/23 for similar symptoms, and was treated for acute CHF exacerbation secondary to medication noncompliance. Apparently his Lasix was no longer on his medication list and he had not been taking it for an unknown period of time. Patient was discharged home on Lasix 20 mg p.o. daily. Patient states he has been compliant with all of his medications, but is unaware of which ones he is taking. Reports his daughter gives him all of his medications daily. Attempt to contact daughter, however no one picked up at number in the chart. Will repeat code status from last admission (full code) until can verify with daughter. In the ED pt was afebrile elevated HR 98, tachypneic up to 34, hypertensive up to 187/86, satting as low as 85% on RA. Labs were significant for bilirubin 2.2, and BNP 4410. No leukocytosis. Stable H&H. Electrolytes WNL. Tested negative for influenza type a and B, and COVID. CXR showed likely evidence of CHF with chronic moderate right pleural effusion, official reading still pending. EKG demonstrated normal sinus rhythm with T-wave inversions in inferior leads, but no significant ST elevations or depressions. Pt was treated with Lasix and Zosyn. Pt will be admitted to the hospital for treatment further evaluation of acute hypoxic respiratory failure in the setting of CHF exacerbation. Review of Systems 2 Review of Systems: SOB, difficulty breathing Denies cough Denies fever, chills, nausea, vomiting, abdominal pain No chest pain/pressure, palpitations PMFSH Medical History Seizure Aortic stenosis Cognitive decline Frostbite of both hands Diabetes GERD (gastroesophageal reflux disease) Coronary artery disease Mood disorder Essential hypertension Abdominal ascites Pleural effusion, right CATARINO (acute kidney injury) CHF exacerbation Surgical History Hx of CABG Social History Household Members: Children Housing: Apartment Do you presently have visiting nurse or other home services: No Alcohol intake: former Patient Tobacco Use Status: Never used Tobacco Smoked in Last 30 Days: No Second Hand Smoke Exposure: No Use of substances other than those prescribed or required for medical reasons: No Currently Displaying Signs/Symptoms of Drug Intoxication Withdrawal: No Have you been hit, kicked, punched, or otherwise hurt by someone within the past year? If so, by whom?: No Do you feel safe in your current relationship?: No Current Relationship Is there a partner from a previous relationship who is making you feel unsafe now?: No Are you made to feel afraid or neglected: No Cultural Healthcare Practices: Congregational Advance Directives: No Advance Directives Information Provided: Yes Do you have thoughts of harming others: None Do you have a plan to hurt others: No Plan Recently lost weight without trying: No How much weight loss: Not applicable Eating poorly because of decreased appetite: No Nutrition screen score: 0 Nutrition Risks: No Nutritional Risk Poor oral hygiene: No service: No Current occupational status: retired Meds Allergies Allergy/AdvReac Type Severity Reaction Status Date / Time perflutren [From Definity] Allergy Severe Respiratory Verified 01/21/23 11:27 distress Home Medications Medication Instructions Recorded Confirmed Last Taken Type albuterol sulfate 90 mcg/actuation 2 puff inhalation Q4H 01/21/23 02/20/23 Unknown History aerosol inhaler (Ventolin HFA) atorvastatin 80 mg tablet 80 mg PO QAM 01/21/23 02/20/23 Unknown History fluticasone 100 mcg-salmeterol 50 1 ea inhalation Q12H 01/21/23 02/20/23 Unknown History mcg/dose blistr powdr for inhalation Physical Exam 2 Vital Signs and Narrative: Vital Signs: Last Vital Signs Temp 96.8 F 02/20/23 11:15 Pulse 84 02/20/23 11:49 Resp 34 H 02/20/23 11:49 BP 177/75 H 02/20/23 11:49 Pulse Ox 91 L 02/20/23 11:15 O2 Del Method Nasal Cannula 02/20/23 11:49 BMI result Body Mass Index 28.6 General: AOx3, no acute distress Resp: CTA, diminished right lower lung CVS: S1, S2, RRR. 2/6 murmur noted GI: +BS, NT, no distention Skin: Warm, dry Neuro: Cranial nerves II-XII grossly intact bilaterally. Motor grossly intact bilaterally Extremities: 1+ pitting bilateral edema Psych: Appropriate affect Results Labs 02/20/23 11:39 02/21/23 05:37 Labs: Laboratory Results - last 24 hr 02/20/23 02/20/23 11:39 12:20 MCV 81.0 MCH 24.0 L MCHC 29.7 L RDW 17.4 H Plt Count 261 MPV 9.9 Immature Gran % (Auto) 0.2 Neut % (Auto) 67.8 Lymph % (Auto) 18.2 L [place] % (Auto) 8.4 Eos % (Auto) 4.7 H Baso % (Auto) 0.7 Lymph # (Auto) 1.0 L [place] # (Auto) 0.5 Eos # (Auto) 0.3 Baso # (Auto) 0.0 Abs Immat Gran (auto) 0.01 Absolute Neuts (auto) 3.8 Absolute Nucleated RBC 0.000 Nucleated RBC % (auto) 0.0 PT 13.3 INR 1.1 Anion Gap 14 Estim Creat Clear Calc 40.7 Estimated GFR 58 Random Glucose 128 H Lactic Acid 1.4 Calcium 9.6 Total Bilirubin 2.2 H AST 14 ALT 8 Alkaline Phosphatase 112 B-Natriuretic Peptide 4410 H Total Protein 7.2 Albumin 3.6 COVID-19 ([facility]) Negative COVID-19 Clin Com See Note Influenza Type A ([facility]) Negative Influenza Type B ([facility]) Negative Influenza A & B Note See Note Assessment and Plan (1) CHF exacerbation: Status: Acute (2) Acute hypoxemic respiratory failure: Status: Acute Plan Pt is an 87-year-old Northern Irish-speaking male with a PMH significant for?CAD s/p CABG, HFpEF, HTN, HLD, GERD, and [id number] diabetes type 2 who presents to the ED with worsening SOB and CONTRERAS. Pt will be admitted to the hospital for treatment further evaluation of acute hypoxic respiratory failure in the setting of CHF exacerbation. Acute hypoxic respiratory failure in the setting of HFpEF exacerbation Pt with SOB, elevated BNP of 4410, satting as low as 85% on RA, CXR with likley pulmonary edema Questionable medication compliance with home Lasix Will treat with furosemide 20 mg IV b.i.d. Follow lytes, mg, I/O Daily weights, low-salt diet Echocardiogram on 01/21 found LVEF 53% with moderate diastolic dysfunction, mild aortic stenosis, aortic regurgitation, and mitral valve regurgitation No evidence of bacterial infection/pneumonia; patient does not meet sepsis criteria; lactic acid WNL; pt recevied Zosyn in ED, will hold on additional abx for now Will check respiratory panel Titrate supplemental O2 >92, wean as tolerated Monitor on telemetry HTN Continue home meds HLD/CAD Continue aspirin, statin Cardiac diet Lay-udctiaq-ymxpuogmn diabetes type [address] on sliding scale insulin Diabetic diet GERD PPI Full Code Attending:?Dr. Gomez DVT Prophylaxis: Heparin Pt will require a hospitalization of at least two nights for treatment of?acute hypoxic respiratory failure in the setting of CHF exacerbation. Patient be treated with IV diuretics and close monitoring. Quality Stroke Does the patient have a stroke diagnosis?: No VTE Prior VTE?: No VTE Risk Level:: Medical - moderate - high VTE Device Contraindication: Treatment Not Indicated VTE Drug Contraindication: N/A - Med Ordered
--- NOTE | 2023-02-20 14:03 | PHA.MEDREC ---
Pharmacy Consult ? Medication Reconciliation Pharmacy has completed the medication reconciliation. Patient unaware of medications. Tried to contact daughter but unable to get through
[2023-02-20 14:20] VITALS: BP 145/76; PULSE 89; RESP 15; O2SAT 94
[2023-02-20] MEDS: Heparin Sodium,Porcine 5,000 UNIT/ML VIAL 5000 UNIT SUBCUT (14:55)
[2023-02-20 15:22] VITALS: BP 152/69; PULSE 79; RESP 20; TEMP 36.1; O2SAT 99
[2023-02-20 16:04] LABS: Adenovirus PCR Not Detected (Not Detect.); Bordetella parapertussis PCR Not Detected (Not Detect.); Bordetella pertussis PCR Not Detected (Not Detect.); Chlamydia pneumoniae PCR Not Detected (Not Detect.); Coronavirus 229E PCR Not Detected (Not Detect.); Coronavirus HKU1 PCR Not Detected (Not Detect.); Coronavirus NL63 PCR Not Detected (Not Detect.); Coronavirus OC43 PCR Not Detected (Not Detect.); Human metapneumovirus PCR Not Detected (Not Detect.); Influenza A PCR Not Detected (Not Detect.); Influenza B PCR Not Detected (Not Detect.); Mycoplasma pneumoniae PCR Not Detected (Not Detect.); Parainfluenza 1 PCR Not Detected (Not Detect.); Parainfluenza 2 PCR Not Detected (Not Detect.); Parainfluenza 3 PCR Not Detected (Not Detect.); Parainfluenza 4 PCR Not Detected (Not Detect.); RSV PCR Not Detected (Not Detect.); Rhino/Enterovirus PCR Not Detected (Not Detect.); SARS-CoV-2 PCR Not Detected (Not Detect.)
[2023-02-20 16:51] LABS: Glucose, Whole Blood 112 mg/dL (60-115)
[2023-02-20] MEDS: Furosemide 20 MG TABLET PO (17:06)
[2023-02-20] MEDS: 0.9 % Sodium Chloride Flush 3 ML SYRINGE IVFLUSH ×2 (17:07→21:33)
[2023-02-20 19:49] VITALS: BP 140/65; PULSE 78; RESP 19; TEMP 36.4; O2SAT 97
[2023-02-20 20:50] LABS: Glucose, Whole Blood 162 mg/dL (60-115)
[2023-02-20] MEDS: Gabapentin 100 MG CAPSULE PO (21:32)
[2023-02-20] MEDS: Insulin Lispro 100 UNIT/ML 3 ML VIAL SUBCUT (21:33)
[2023-02-20] MEDS: Metoprolol Tartrate 50 MG TABLET PO (21:33)
[2023-02-20] MEDS: Melatonin 3 MG TABLET 6 MG PO (21:36)
[2023-02-21] VITALS (14 sets, daily range): BP systolic 91–122; BP diastolic 46–59; PULSE 56–73; RESP 17–20; TEMP 36.1–36.6; O2SAT 94–99
[2023-02-21] MEDS: Albuterol Sulfate 90 MCG 8 GM INHALER 2 PUFF INHALE ×5 (04:22→19:46)
[2023-02-21] MEDS: Heparin Sodium,Porcine 5,000 UNIT/ML VIAL 5000 UNIT SUBCUT ×2 (05:40→14:15)
[2023-02-21] MEDS: Omeprazole 20 MG CAPSULE.DR PO (05:41)
[2023-02-21 06:09] LABS: Anion Gap 12 (12-20); Blood Urea Nitrogen 16 mg/dL (9-16); Calcium 9.3 mg/dL (8.4-10.2); Carbon Dioxide 33 mmol/L (22-29); Chloride 102 mmol/L (96-108); Creatinine Clr Calc Pharmacy 39.7; Estimated Glomerular Filt Rate 56; Glucose Random 85 mg/dL (60-115); Magnesium 2.2 mg/dL (1.6-2.6); Potassium 3.1 mmol/L (3.3-5.1); Sodium 144 mmol/L (135-145)
[2023-02-21 07:01] LABS: Glucose, Whole Blood 78 mg/dL (60-115)
[2023-02-21] MEDS: Fluticasone/Vilanterol 100/25 BLST.W.DEV 1 PUFF INHALE (07:30)
[2023-02-21] MEDS: Atorvastatin Calcium 80 MG TABLET PO (08:54)
[2023-02-21] MEDS: 0.9 % Sodium Chloride Flush 3 ML SYRINGE IVFLUSH ×3 (08:54→20:04)
[2023-02-21] MEDS: Aspirin 81 MG TAB.CHEW PO (08:54)
[2023-02-21] MEDS: Furosemide 20 MG/2 ML VIAL IVPUSH (08:54)
[2023-02-21] MEDS: Isosorbide Mononitrate 60 MG TAB.ER.24H PO (08:55)
[2023-02-21] MEDS: Metoprolol Tartrate 50 MG TABLET PO ×2 (08:55→20:01)
[2023-02-21] MEDS: Losartan Potassium 50 MG TABLET 100 MG PO (08:55)
[2023-02-21] MEDS: Thiamine HCL 100 MG TABLET PO (08:55)
[2023-02-21] MEDS: glipiZIDE XL 10 MG TAB.ER.24 PO (08:55)
[2023-02-21] MEDS: Gabapentin 100 MG CAPSULE PO ×3 (08:55→20:03)
--- NOTE | 2023-02-21 08:55 | MHC.CM.PN ---
Patient is documented to be a poor Historian, vague, and unable to clarify many questions; CM attempted X2 top speak with Primary Contact/Daughter/Gianni @ [phone], but was unable to do so and no opportunity to leave a message.CM will mail Patient's IMM to Gianni via certified mail and a copy has been placed in the chart. CM awaits a return call from GIANNI.
[2023-02-21] MEDS: Potassium Chloride ER 20 MEQ TAB.ER.PRT PO ×2 (08:56→20:03)
[2023-02-21 10:26] LABS: B Type Natriuretic Peptide 2507 pg/mL (<100)
[2023-02-21 11:02] LABS: Glucose, Whole Blood 164 mg/dL (60-115)
[2023-02-21] MEDS: Insulin Lispro 100 UNIT/ML 3 ML VIAL SUBCUT (11:59)
--- NOTE | 2023-02-21 12:01 | MHC.CM.PN ---
PT is recommending home with PT; a referral has been made to [facility] and CM will continue to follow.
--- NOTE | 2023-02-21 14:56 | P.PNIM_ITS ---
Subjective Subjective Date of Service: 02/21/23 Interval History: chf excerebation Review of Systems sob somewhat improving denies any chest pain or fever or chills patient has i/o :3.1 liter negative Physical Exam 2 Vital Signs: Vital Signs: Last Vital Signs Temp 97 F 02/21/23 14:45 Pulse 62 02/21/23 14:45 Resp 17 02/21/23 14:45 BP 106/50 L 02/21/23 14:45 Pulse Ox 94 02/21/23 14:45 O2 Del Method Room Air 02/21/23 14:45 O2 Flow Rate 1 02/21/23 07:02 BMI result Body Mass Index 28.6 Appearing in no acute distress lung sounds are clear to auscultation heart regular rate rhythm, clear S1, S2 positive bowel sounds, abdomen is soft, nontender ext: no cyanosis ,has 1+ edema neuro patient is alert x3, no focal deficits Objective Data Active Medications Acetaminophen (Acetaminophen 325 Mg Tablet) 650 mg PO Q6H PRN PRN Reason: Pain, Mild (Pain Scale 1-3) Albuterol Sulfate (Albuterol Sulfate 90 Mcg 8 Gm Inhaler) 2 puff INHALE Q4H [facility] Last Admin: 02/21/23 11:13 Dose: 2 puff Documented By: SEKOU Aspirin (Aspirin 81 Mg Tab.Chew) 81 mg PO DAILY [facility] Last Admin: 02/21/23 08:54 Dose: 81 mg Documented By: EMMETT Atorvastatin Calcium (Atorvastatin Calcium 80 Mg Tablet) 80 mg PO DAILY [facility] Last Admin: 02/21/23 08:54 Dose: 80 mg Documented By: EMMETT Benzonatate (Benzonatate 100 Mg Capsule) 100 mg PO TID PRN PRN Reason: Cough Dextrose (Dextrose 50 % 25 Gm/50 Ml Syringe) 25 gm IVPUSH Q15M PRN; Protocol PRN Reason: per Hypoglycemia Standing Ord. Docusate Sodium (Docusate Sodium 100 Mg Capsule) 100 mg PO DAILY PRN PRN Reason: Constipation Fluticasone/Vilanterol (Fluticasone/Vilanterol 100/25 Blst.W.Dev) 1 puff INHALE RDAILY [facility] Last Admin: 02/21/23 07:30 Dose: 1 puff Documented By: MONICA Furosemide (Furosemide 20 Mg/2 Ml Vial) 20 mg IVPUSH Q12H [facility]; Protocol Last Admin: 02/21/23 08:54 Dose: 20 mg Documented By: EMMETT Gabapentin (Gabapentin 100 Mg Capsule) 100 mg PO TID [facility] Last Admin: 02/21/23 14:14 Dose: 100 mg Documented By: EMMETT Glipizide (Glipizide Xl 10 Mg Tab.Er.24) 10 mg PO DAILY [facility] Last Admin: 02/21/23 08:55 Dose: 10 mg Documented By: EMMETT Glucose (Glucose Gel 15 Gm Gel..Gram.) 15 gm PO Q15M PRN; Protocol PRN Reason: per Hypoglycemia Standing Ord. Heparin Sodium (Porcine) (Heparin Sodium,Porcine 5,000 Unit/Ml Vial) 5,000 unit SUBCUT Q12H [facility] Last Admin: 02/21/23 14:15 Dose: 5,000 unit Documented By: EMMETT Insulin Human Lispro (Insulin Lispro 100 Unit/Ml 3 Ml Vial) 0 unit SUBCUT QIDACHS [facility]; Protocol Last Admin: 02/21/23 11:59 Dose: 2 unit Documented By: EMMETT Isosorbide Mononitrate (Isosorbide Mononitrate 60 Mg Tab.Er.24h) 60 mg PO DAILY [facility]; Protocol Last Admin: 02/21/23 08:55 Dose: 60 mg Documented By: EMMETT Losartan Potassium (Losartan Potassium 50 Mg Tablet) 100 mg PO DAILY [facility]; Protocol Last Admin: 02/21/23 08:55 Dose: 100 mg Documented By: EMMETT Melatonin (Melatonin 3 Mg Tablet) 6 mg PO BEDTIME PRN PRN Reason: Insomnia Last Admin: 02/20/23 21:36 Dose: 6 mg Documented By: ALANNA Metoprolol Tartrate (Metoprolol Tartrate 50 Mg Tablet) 50 mg PO BID [facility]; Protocol Last Admin: 02/21/23 08:55 Dose: 50 mg Documented By: EMMETT Omeprazole (Omeprazole 20 Mg Capsule.) 20 mg PO DAILY@0630 [facility] Last Admin: 02/21/23 05:41 Dose: 20 mg Documented By: ALANNA Ondansetron HCl (Ondansetron Hcl 4 Mg/2 Ml Vial) 4 mg IVPUSH Q8H PRN PRN Reason: Nausea and Vomiting Potassium Chloride (Potassium Chloride Er 20 Meq Tab.Er.Prt) 20 meq PO BID [facility] Last Admin: 02/21/23 08:56 Dose: 20 meq Documented By: EMMETT Sodium Chloride (0.9 % Sodium Chloride Flush 3 Ml Syringe) 3 ml IVFLUSH QSHIFT [facility] Last Admin: 02/21/23 08:54 Dose: 3 ml Documented By: EMMETT Thiamine HCl (Thiamine Hcl 100 Mg Tablet) 100 mg PO DAILY [facility] Last Admin: 02/21/23 08:55 Dose: 100 mg Documented By: EMMETT Labs 02/20/23 11:39 02/21/23 05:37 Labs: Laboratory Results - last 24 hr 02/20/23 02/20/23 02/20/23 13:35 16:48 20:47 Hold Purple Top Anion Gap Estim Creat Clear Calc Estimated GFR POC Glucose 112 162 H Random Glucose Calcium Magnesium B-Natriuretic Peptide Respiratory Panel Sosa See Note Adenovirus (Rapid PCR) Not Detected B.pert (TEM-PCR) Not Detected B.parapertussis DNA PCR Not Detected C. pneumoniae DNA (PCR) Not Detected Coronavirus OC43 (PCR) Not Detected Coronavirus HKU1 (PCR) Not Detected Coronavirus 229E (PCR) Not Detected Coronavirus NL63 (PCR) Not Detected Human Metapneumovir PCR Not Detected Influenza A (RT-PCR) Not Detected Influenza B (RT-PCR) Not Detected M. pneumoniae (PCR) Not Detected Parainfluenza 1 (PCR) Not Detected Parainfluenza 2 (PCR) Not Detected Parainfluenza 3 (PCR) Not Detected Parainfluenza 4 (PCR) Not Detected RSV (PCR) Not Detected Entero/Rhino (PCR) Not Detected SARS-CoV-2 RNA (RT-PCR) Not Detected 02/21/23 02/21/23 02/21/23 05:37 06:57 10:57 Hold Purple Top SEE NOTE Anion Gap 12 Estim Creat Clear Calc 39.7 Estimated GFR 56 POC Glucose 78 164 H Random Glucose 85 Calcium 9.3 Magnesium 2.2 B-Natriuretic Peptide 2507 H Respiratory Panel Sosa Adenovirus (Rapid PCR) B.pert (TEM-PCR) B.parapertussis DNA PCR C. pneumoniae DNA (PCR) Coronavirus OC43 (PCR) Coronavirus HKU1 (PCR) Coronavirus 229E (PCR) Coronavirus NL63 (PCR) Human Metapneumovir PCR Influenza A (RT-PCR) Influenza B (RT-PCR) M. pneumoniae (PCR) Parainfluenza 1 (PCR) Parainfluenza 2 (PCR) Parainfluenza 3 (PCR) Parainfluenza 4 (PCR) RSV (PCR) Entero/Rhino (PCR) SARS-CoV-2 RNA (RT-PCR) Microbiology Microbiology Results: Microbiology 02/20/23 12:18 Blood Culture - Preliminary Blood - Venous No growth after 24 hours. 02/20/23 12:20 Blood Culture - Preliminary Blood - Venous No growth after 24 hours. Assessment and Plan (1) CHF exacerbation: Status: Acute Plan 87-year-old Citizen Of [place]-speaking male with a PMH significant for?CAD s/p CABG, HFpEF, HTN, HLD, GERD, and [id number] diabetes type 2 who presents to the ED with worsening SOB and CONTRERAS. Pt will be admitted to the hospital for treatment further evaluation of acute hypoxic respiratory failure in the setting of CHF exacerbation. Acute hypoxic respiratory failure in the setting of HFpEF exacerbation Pt with SOB, elevated BNP of 4410, satting as low as 85% on RA, CXR with likley pulmonary edema Questionable medication compliance with home Lasix. echocardiogram on 01/21 found LVEF 53% with moderate diastolic dysfunction, mild aortic stenosis, aortic regurgitation, and mitral valve regurgitation No evidence of bacterial infection/pneumonia; patient does not meet sepsis criteria; lactic acid WNL; rvp negative Follow lytes, mg, I/O: 3.1 liter neg given furosemide 20 mg IV b.i.d.,Daily weights, low-salt diet Titrate supplemental O2 >92, wean as tolerated Monitor on telemetry hypokalemia: repleted. HTN Continue home meds HLD/CAD Continue aspirin, statin Cardiac diet [id number] diabetes type [address] on sliding scale insulin Diabetic diet GERD PPI Full Code DVT Prophylaxis: Heparin ongoing hospitalization need : treatment of?acute hypoxic respiratory failure in the setting of CHF exacerbation- treated with IV diuretics and close monitoring. Quality Stroke Does the patient have a stroke diagnosis?: No VTE Prior VTE?: No VTE Risk Level:: Medical - moderate - high VTE Device Contraindication: Treatment Not Indicated VTE Drug Contraindication: N/A - Med Ordered
[2023-02-21 16:01] LABS: Glucose, Whole Blood 74 mg/dL (60-115)
[2023-02-21] MEDS: Tamsulosin HCL 0.4 MG CAPSULE PO (20:04)
[2023-02-21] MEDS: Melatonin 3 MG TABLET 6 MG PO (20:04)
[2023-02-21 20:07] LABS: Glucose, Whole Blood 79 mg/dL (60-115)
[2023-02-22] VITALS (11 sets, daily range): BP systolic 100–158; BP diastolic 50–65; PULSE 58–71; RESP 18–20; TEMP 36.2–36.7; O2SAT 91–100
--- NOTE | 2023-02-22 00:44 | PC.NURSE ---
bladder scanned pt at 2200 with result of 532 ml. attempted to straight cath pt, difficulty due to ? tubing coiling during insertion. flomax given with hs medications, and tex[place] catheter in place. shortly after unsuccessful attempt of catheterization pt voided lg amt of urine. unable to measure due to [place] catheter had dislodged. post void scan of 142 ml, pt declined [place] catheter, states wishes to use urinal.
[2023-02-22] MEDS: Heparin Sodium,Porcine 5,000 UNIT/ML VIAL 5000 UNIT SUBCUT ×2 (05:26→14:28)
[2023-02-22] MEDS: Omeprazole 20 MG CAPSULE.DR PO (05:26)
[2023-02-22] MEDS: Fluticasone/Vilanterol 100/25 BLST.W.DEV 1 PUFF INHALE (07:19)
[2023-02-22] MEDS: Albuterol Sulfate 90 MCG 8 GM INHALER 2 PUFF INHALE ×4 (07:19→19:41)
[2023-02-22 07:22] LABS: Anion Gap 13 (12-20); Blood Urea Nitrogen 23 mg/dL (9-16); Calcium 9.4 mg/dL (8.4-10.2); Carbon Dioxide 32 mmol/L (22-29); Chloride 101 mmol/L (96-108); Creatinine Clr Calc Pharmacy 39.3; Estimated Glomerular Filt Rate 56; Glucose Random 97 mg/dL (60-115); Magnesium 2.3 mg/dL (1.6-2.6); Potassium 4.1 mmol/L (3.3-5.1); Sodium 142 mmol/L (135-145)
[2023-02-22 07:46] LABS: Glucose, Whole Blood 98 mg/dL (60-115)
[2023-02-22] MEDS: Atorvastatin Calcium 80 MG TABLET PO (08:45)
[2023-02-22] MEDS: Isosorbide Mononitrate 60 MG TAB.ER.24H PO (08:45)
[2023-02-22] MEDS: 0.9 % Sodium Chloride Flush 3 ML SYRINGE IVFLUSH ×3 (08:45→21:41)
[2023-02-22] MEDS: Furosemide 40 MG TABLET PO (08:45)
[2023-02-22] MEDS: Aspirin 81 MG TAB.CHEW PO (08:45)
[2023-02-22] MEDS: Thiamine HCL 100 MG TABLET PO (08:46)
[2023-02-22] MEDS: glipiZIDE XL 10 MG TAB.ER.24 PO (08:46)
[2023-02-22] MEDS: Potassium Chloride ER 20 MEQ TAB.ER.PRT PO ×2 (08:46→21:40)
[2023-02-22] MEDS: Gabapentin 100 MG CAPSULE PO ×3 (08:46→21:40)
[2023-02-22] MEDS: Metoprolol Tartrate 25 MG TABLET PO ×2 (08:46→21:40)
[2023-02-22 12:45] LABS: Glucose, Whole Blood 164 mg/dL (60-115)
[2023-02-22] MEDS: Insulin Lispro 100 UNIT/ML 3 ML VIAL SUBCUT (12:48)
--- NOTE | 2023-02-22 13:01 | HO.PM.IMPN ---
Subjective Subjective Date of Service: 02/22/23 Interval History: chf excerebation,urinary retention Review of Systems sob somewhat improving denies any chest pain or fever or chills Physical Exam Vital Signs: Vital Signs: Last Vital Signs Temp 98.0 F 02/22/23 11:32 Pulse 60 02/22/23 11:32 Resp 20 02/22/23 11:32 BP 124/56 L 02/22/23 11:32 Pulse Ox 93 02/22/23 11:32 O2 Del Method Room Air 02/22/23 11:32 O2 Flow Rate 1 02/22/23 04:00 BMI result Body Mass Index 28.6 Appearing in no acute distress lung sounds are clear to auscultation heart regular rate rhythm, clear S1, S2 positive bowel sounds, abdomen is soft, nontender ext: no cyanosis ,has 1+ edema neuro patient is alert x3, no focal deficits Objective Data Active Medications Acetaminophen (Acetaminophen 325 Mg Tablet) 650 mg PO Q6H PRN PRN Reason: Pain, Mild (Pain Scale 1-3) Albuterol Sulfate (Albuterol Sulfate 90 Mcg 8 Gm Inhaler) 2 puff INHALE Q4H [facility] Last Admin: 02/22/23 11:09 Dose: 2 puff Documented By: REGINE Aspirin (Aspirin 81 Mg Tab.Chew) 81 mg PO DAILY [facility] Last Admin: 02/22/23 08:45 Dose: 81 mg Documented By: EMMETT Atorvastatin Calcium (Atorvastatin Calcium 80 Mg Tablet) 80 mg PO DAILY [facility] Last Admin: 02/22/23 08:45 Dose: 80 mg Documented By: EMMETT Benzonatate (Benzonatate 100 Mg Capsule) 100 mg PO TID PRN PRN Reason: Cough Dextrose (Dextrose 50 % 25 Gm/50 Ml Syringe) 25 gm IVPUSH Q15M PRN; Protocol PRN Reason: per Hypoglycemia Standing Ord. Docusate Sodium (Docusate Sodium 100 Mg Capsule) 100 mg PO DAILY PRN PRN Reason: Constipation Fluticasone/Vilanterol (Fluticasone/Vilanterol 100/25 Blst.W.Dev) 1 puff INHALE RDAILY [facility] Last Admin: 02/22/23 07:19 Dose: 1 puff Documented By: REGINE Furosemide (Furosemide 40 Mg Tablet) 40 mg PO DAILY [facility]; Protocol Last Admin: 02/22/23 08:45 Dose: 40 mg Documented By: EMMETT Gabapentin (Gabapentin 100 Mg Capsule) 100 mg PO TID [facility] Last Admin: 02/22/23 08:46 Dose: 100 mg Documented By: EMMETT Glipizide (Glipizide Xl 10 Mg Tab.Er.24) 10 mg PO DAILY [facility] Last Admin: 02/22/23 08:46 Dose: 10 mg Documented By: EMMETT Glucose (Glucose Gel 15 Gm Gel..Gram.) 15 gm PO Q15M PRN; Protocol PRN Reason: per Hypoglycemia Standing Ord. Heparin Sodium (Porcine) (Heparin Sodium,Porcine 5,000 Unit/Ml Vial) 5,000 unit SUBCUT Q12H [facility] Last Admin: 02/22/23 05:26 Dose: 5,000 unit Documented By: ALANNA Insulin Human Lispro (Insulin Lispro 100 Unit/Ml 3 Ml Vial) 0 unit SUBCUT QIDACHS [facility]; Protocol Last Admin: 02/22/23 12:48 Dose: 2 unit Documented By: EMMETT Isosorbide Mononitrate (Isosorbide Mononitrate 60 Mg Tab.Er.24h) 60 mg PO DAILY [facility]; Protocol Last Admin: 02/22/23 08:45 Dose: 60 mg Documented By: EMMETT Melatonin (Melatonin 3 Mg Tablet) 6 mg PO BEDTIME PRN PRN Reason: Insomnia Last Admin: 02/21/23 20:04 Dose: 6 mg Documented By: ALANNA Metoprolol Tartrate (Metoprolol Tartrate 25 Mg Tablet) 25 mg PO BID [facility]; Protocol Last Admin: 02/22/23 08:46 Dose: 25 mg Documented By: EMMETT Omeprazole (Omeprazole 20 Mg Capsule.) 20 mg PO DAILY@0630 [facility] Last Admin: 02/22/23 05:26 Dose: 20 mg Documented By: ALANNA Ondansetron HCl (Ondansetron Hcl 4 Mg/2 Ml Vial) 4 mg IVPUSH Q8H PRN PRN Reason: Nausea and Vomiting Potassium Chloride (Potassium Chloride Er 20 Meq Tab.Er.Prt) 20 meq PO BID [facility] Last Admin: 02/22/23 08:46 Dose: 20 meq Documented By: EMMETT Sodium Chloride (0.9 % Sodium Chloride Flush 3 Ml Syringe) 3 ml IVFLUSH QSHIFT [facility] Last Admin: 02/22/23 08:45 Dose: 3 ml Documented By: EMMETT Tamsulosin HCl (Tamsulosin Hcl 0.4 Mg Capsule) 0.4 mg PO BEDTIME [facility] Last Admin: 02/21/23 20:04 Dose: 0.4 mg Documented By: ALANNA Thiamine HCl (Thiamine Hcl 100 Mg Tablet) 100 mg PO DAILY [facility] Last Admin: 02/22/23 08:46 Dose: 100 mg Documented By: EMMETT Labs 02/20/23 11:39 02/22/23 06:19 Labs: Laboratory Results - last 24 hr 02/21/23 02/21/23 02/22/23 15:51 20:03 06:19 Hold Purple Top SEE NOTE Anion Gap 13 Estim Creat Clear Calc 39.3 Estimated GFR 56 POC Glucose 74 79 Random Glucose 97 Calcium 9.4 Magnesium 2.3 02/22/23 02/22/23 07:34 12:41 Hold Purple Top Anion Gap Estim Creat Clear Calc Estimated GFR POC Glucose 98 164 H Random Glucose Calcium Magnesium Microbiology Microbiology Results: Microbiology 02/20/23 12:18 Blood Culture - Preliminary Blood - Venous No growth after 24 hours. 02/20/23 12:20 Blood Culture - Preliminary Blood - Venous No growth after 24 hours. Assessment and Plan (1) CHF exacerbation: Status: Acute Plan 87-year-old [place]-speaking male with a PMH significant for?CAD s/p CABG, HFpEF, HTN, HLD, GERD, and [id number] diabetes type 2 who presents to the ED with worsening SOB and CONTRERAS. Pt will be admitted to the hospital for treatment further evaluation of acute hypoxic respiratory failure in the setting of CHF exacerbation. Acute hypoxic respiratory failure in the setting of HFpEF exacerbation Pt with SOB, elevated BNP of 4410, satting as low as 85% on RA, CXR with likley pulmonary edema Questionable medication compliance with home Lasix. echocardiogram on 01/21 found LVEF 53% with moderate diastolic dysfunction, mild aortic stenosis, aortic regurgitation, and mitral valve regurgitation No evidence of bacterial infection/pneumonia; patient does not meet sepsis criteria; lactic acid WNL; rvp negative Follow lytes, mg, I/O: 3.1 liter neg given furosemide 20 mg IV b.i.d.,Daily weights, low-salt diet Titrate supplemental O2 >92, wean as tolerated Monitor on telemetry hypokalemia: repleted. HTN Continue home meds HLD/CAD Continue aspirin, statin Cardiac diet [id number] diabetes type [address] on sliding scale insulin Diabetic diet GERD PPI Full Code DVT Prophylaxis: Heparin ongoing hospitalization need : treatment of?acute hypoxic respiratory failure in the setting of CHF exacerbation- treated with IV diuretics and close monitoring. Quality Stroke Does the patient have a stroke diagnosis?: No VTE Prior VTE?: No VTE Risk Level:: Medical - moderate - high VTE Device Contraindication: Treatment Not Indicated VTE Drug Contraindication: N/A - Med Ordered
[2023-02-22 16:43] LABS: Glucose, Whole Blood 55 mg/dL (60-115)
[2023-02-22 17:06] LABS: Glucose, Whole Blood 79 mg/dL (60-115)
--- NOTE | 2023-02-22 17:52 | PC.NURSE ---
bladder scanned pt @ 1730 and got 375 cc. This rn had pt stand up and void into [place] cath. pt was able to void 346 cc. residual bladder scan @ 1740 was 29 cc.
[2023-02-22 20:43] LABS: Glucose, Whole Blood 150 mg/dL (60-115)
[2023-02-22] MEDS: Tamsulosin HCL 0.4 MG CAPSULE PO (21:40)
[2023-02-23] VITALS (11 sets, daily range): BP systolic 112–138; BP diastolic 53–65; PULSE 60–78; RESP 15–20; TEMP 36.2–36.7; O2SAT 92–100; BMI 25.8
[2023-02-23] MEDS: Albuterol Sulfate 90 MCG 8 GM INHALER 2 PUFF INHALE ×5 (00:06→19:43)
[2023-02-23] MEDS: Heparin Sodium,Porcine 5,000 UNIT/ML VIAL 5000 UNIT SUBCUT ×2 (05:00→13:34)
[2023-02-23] MEDS: Omeprazole 20 MG CAPSULE.DR PO (05:43)
[2023-02-23 06:50] LABS: Anion Gap 12 (12-20); Blood Urea Nitrogen 20 mg/dL (9-16); Calcium 9.5 mg/dL (8.4-10.2); Carbon Dioxide 33 mmol/L (22-29); Chloride 101 mmol/L (96-108); Estimated Glomerular Filt Rate 55; Glucose Random 108 mg/dL (60-115); Magnesium 2.5 mg/dL (1.6-2.6); Potassium 4.7 mmol/L (3.3-5.1); Sodium 141 mmol/L (135-145)
[2023-02-23 07:11] LABS: Glucose, Whole Blood 110 mg/dL (60-115)
[2023-02-23] MEDS: Fluticasone/Vilanterol 100/25 BLST.W.DEV 1 PUFF INHALE (07:46)
[2023-02-23] MEDS: Thiamine HCL 100 MG TABLET PO (09:06)
[2023-02-23] MEDS: Isosorbide Mononitrate 60 MG TAB.ER.24H PO (09:06)
[2023-02-23] MEDS: Metoprolol Tartrate 25 MG TABLET PO ×2 (09:06→20:51)
[2023-02-23] MEDS: Furosemide 40 MG TABLET PO (09:07)
[2023-02-23] MEDS: Atorvastatin Calcium 80 MG TABLET PO (09:07)
[2023-02-23] MEDS: glipiZIDE XL 10 MG TAB.ER.24 PO (09:07)
[2023-02-23] MEDS: Gabapentin 100 MG CAPSULE PO ×3 (09:07→20:51)
[2023-02-23] MEDS: 0.9 % Sodium Chloride Flush 3 ML SYRINGE IVFLUSH ×3 (09:07→20:51)
[2023-02-23] MEDS: Aspirin 81 MG TAB.CHEW PO (09:07)
[2023-02-23 10:59] LABS: Glucose, Whole Blood 175 mg/dL (60-115)
[2023-02-23] MEDS: Insulin Lispro 100 UNIT/ML 3 ML VIAL SUBCUT (11:25)
--- NOTE | 2023-02-23 14:18 | HO.PM.IMPN ---
Subjective Subjective Date of Service: 02/23/23 Interval History: chf excerebation,urinary retention Review of Systems sob improving somewhat but still has excersional dyspnea and leg edema denies any chest pain or fever or chills Physical Exam Vital Signs: Vital Signs: Last Vital Signs Temp 97.2 F 02/23/23 11:01 Pulse 65 02/23/23 11:32 Resp 20 02/23/23 11:32 BP 124/54 L 02/23/23 11:01 Pulse Ox 95 02/23/23 11:01 O2 Del Method Nasal Cannula 02/23/23 11:01 O2 Flow Rate 2 02/23/23 03:47 BMI result Body Mass Index 25.8 Appearing in no acute distress lung sounds are clear to auscultation heart regular rate rhythm, clear S1, S2 positive bowel sounds, abdomen is soft, nontender ext: no cyanosis ,has 1+ edema neuro patient is alert x3, no focal deficits Objective Data Active Medications Acetaminophen (Acetaminophen 325 Mg Tablet) 650 mg PO Q6H PRN PRN Reason: Pain, Mild (Pain Scale 1-3) Albuterol Sulfate (Albuterol Sulfate 90 Mcg 8 Gm Inhaler) 2 puff INHALE Q4H [facility] Last Admin: 02/23/23 11:30 Dose: 2 puff Documented By: TERRY Aspirin (Aspirin 81 Mg Tab.Chew) 81 mg PO DAILY [facility] Last Admin: 02/23/23 09:07 Dose: 81 mg Documented By: GUILLERMINA Atorvastatin Calcium (Atorvastatin Calcium 80 Mg Tablet) 80 mg PO DAILY [facility] Last Admin: 02/23/23 09:07 Dose: 80 mg Documented By: GUILLERMINA Benzonatate (Benzonatate 100 Mg Capsule) 100 mg PO TID PRN PRN Reason: Cough Dextrose (Dextrose 50 % 25 Gm/50 Ml Syringe) 25 gm IVPUSH Q15M PRN; Protocol PRN Reason: per Hypoglycemia Standing Ord. Docusate Sodium (Docusate Sodium 100 Mg Capsule) 100 mg PO DAILY PRN PRN Reason: Constipation Fluticasone/Vilanterol (Fluticasone/Vilanterol 100/25 Blst.W.Dev) 1 puff INHALE RDAILY [facility] Last Admin: 02/23/23 07:46 Dose: 1 puff Documented By: TERRY Furosemide (Furosemide 40 Mg Tablet) 40 mg PO DAILY [facility]; Protocol Last Admin: 02/23/23 09:07 Dose: 40 mg Documented By: GUILLERMINA Furosemide (Furosemide 20 Mg/2 Ml Vial) 20 mg IVPUSH BID@0900,1800 [facility]; Protocol Gabapentin (Gabapentin 100 Mg Capsule) 100 mg PO TID [facility] Last Admin: 02/23/23 09:07 Dose: 100 mg Documented By: GUILLERMINA Glipizide (Glipizide Xl 10 Mg Tab.Er.24) 10 mg PO DAILY [facility] Last Admin: 02/23/23 09:07 Dose: 10 mg Documented By: GUILLERMINA Glucose (Glucose Gel 15 Gm Gel..Gram.) 15 gm PO Q15M PRN; Protocol PRN Reason: per Hypoglycemia Standing Ord. Heparin Sodium (Porcine) (Heparin Sodium,Porcine 5,000 Unit/Ml Vial) 5,000 unit SUBCUT Q12H [facility] Last Admin: 02/23/23 13:34 Dose: 5,000 unit Documented By: GUILLERMINA Insulin Human Lispro (Insulin Lispro 100 Unit/Ml 3 Ml Vial) 0 unit SUBCUT QIDACHS [facility]; Protocol Last Admin: 02/23/23 11:25 Dose: 2 unit Documented By: GUILLERMINA Isosorbide Mononitrate (Isosorbide Mononitrate 60 Mg Tab.Er.24h) 60 mg PO DAILY [facility]; Protocol Last Admin: 02/23/23 09:06 Dose: 60 mg Documented By: GUILLERMINA Melatonin (Melatonin 3 Mg Tablet) 6 mg PO BEDTIME PRN PRN Reason: Insomnia Last Admin: 02/21/23 20:04 Dose: 6 mg Documented By: ALANNA Metoprolol Tartrate (Metoprolol Tartrate 25 Mg Tablet) 25 mg PO BID [facility]; Protocol Last Admin: 02/23/23 09:06 Dose: 25 mg Documented By: GUILLERMINA Omeprazole (Omeprazole 20 Mg Capsule.) 20 mg PO DAILY@0630 [facility] Last Admin: 02/23/23 05:43 Dose: 20 mg Documented By: NICK Ondansetron HCl (Ondansetron Hcl 4 Mg/2 Ml Vial) 4 mg IVPUSH Q8H PRN PRN Reason: Nausea and Vomiting Sodium Chloride (0.9 % Sodium Chloride Flush 3 Ml Syringe) 3 ml IVFLUSH QSHIFT [facility] Last Admin: 02/23/23 09:07 Dose: 3 ml Documented By: GUILLERMINA Tamsulosin HCl (Tamsulosin Hcl 0.4 Mg Capsule) 0.4 mg PO BEDTIME [facility] Last Admin: 02/22/23 21:40 Dose: 0.4 mg Documented By: NICK Thiamine HCl (Thiamine Hcl 100 Mg Tablet) 100 mg PO DAILY [facility] Last Admin: 02/23/23 09:06 Dose: 100 mg Documented By: GUILLERMINA Labs 02/20/23 11:39 02/23/23 05:50 Labs: Laboratory Results - last 24 hr 02/22/23 02/22/23 02/22/23 16:39 17:02 20:23 Hold Purple Top Anion Gap Estim Creat Clear Calc Estimated GFR POC Glucose 55 L* 79 150 H Random Glucose Calcium Magnesium 02/23/23 02/23/23 02/23/23 05:50 07:03 10:52 Hold Purple Top SEE NOTE Anion Gap 12 Estim Creat Clear Calc 39.0 Estimated GFR 55 POC Glucose 110 175 H Random Glucose 108 Calcium 9.5 Magnesium 2.5 Microbiology Microbiology Results: Microbiology 02/20/23 12:18 Blood Culture - Preliminary Blood - Venous No growth after 48 hours. 02/20/23 12:20 Blood Culture - Preliminary Blood - Venous No growth after 48 hours. Assessment and Plan (1) CHF exacerbation: Status: Acute Plan 87-year-old [place]-speaking male with a PMH significant for?CAD s/p CABG, HFpEF, HTN, HLD, GERD, and [id number] diabetes type 2 who presents to the ED with worsening SOB and CONTRERAS. Pt will be admitted to the hospital for treatment further evaluation of acute hypoxic respiratory failure in the setting of CHF exacerbation. Acute hypoxic respiratory failure in the setting of HFpEF exacerbation Pt with SOB, elevated BNP of 4410, satting as low as 85% on RA, CXR with likley pulmonary edema Questionable medication compliance with home Lasix. echocardiogram on 01/21 found LVEF 53% with moderate diastolic dysfunction, mild aortic stenosis, aortic regurgitation, and mitral valve regurgitation No evidence of bacterial infection/pneumonia; patient does not meet sepsis criteria; lactic acid WNL; rvp negative Follow lytes, mg, I/O: 3.1 liter neg given furosemide 20 mg IV b.i.d.,Daily weights, low-salt diet Titrate supplemental O2 >92, wean as tolerated Monitor on telemetry hypokalemia: repleted. HTN Continue home meds HLD/CAD Continue aspirin, statin Cardiac diet [id number] diabetes type [address] on sliding scale insulin Diabetic diet GERD PPI Full Code DVT Prophylaxis: Heparin ongoing hospitalization need : treatment of?acute hypoxic respiratory failure in the setting of CHF exacerbation- treated with IV diuretics and close monitoring. Quality Stroke Does the patient have a stroke diagnosis?: No VTE Prior VTE?: No VTE Risk Level:: Medical - moderate - high VTE Device Contraindication: Treatment Not Indicated VTE Drug Contraindication: N/A - Med Ordered
[2023-02-23 15:10] LABS: Glucose, Whole Blood 92 mg/dL (60-115)
[2023-02-23 20:24] LABS: Glucose, Whole Blood 146 mg/dL (60-115)
[2023-02-23] MEDS: Tamsulosin HCL 0.4 MG CAPSULE PO (20:51)
[2023-02-24] VITALS (13 sets, daily range): BP systolic 109–136; BP diastolic 53–70; PULSE 67–82; RESP 16–20; TEMP 36.3–37.7; O2SAT 93–98; BMI 27.0; BMI 25.4
[2023-02-24] MEDS: Albuterol Sulfate 90 MCG 8 GM INHALER 2 PUFF INHALE ×6 (00:19→20:07)
[2023-02-24] MEDS: Heparin Sodium,Porcine 5,000 UNIT/ML VIAL 5000 UNIT SUBCUT ×2 (04:30→15:48)
[2023-02-24] MEDS: Omeprazole 20 MG CAPSULE.DR PO (05:12)
[2023-02-24] MEDS: Fluticasone/Vilanterol 100/25 BLST.W.DEV 1 PUFF INHALE (07:35)
[2023-02-24] MEDS: Gabapentin 100 MG CAPSULE PO ×3 (07:54→21:23)
[2023-02-24] MEDS: Thiamine HCL 100 MG TABLET PO (07:54)
[2023-02-24] MEDS: glipiZIDE XL 10 MG TAB.ER.24 PO (07:54)
[2023-02-24] MEDS: Atorvastatin Calcium 80 MG TABLET PO (07:54)
[2023-02-24] MEDS: Aspirin 81 MG TAB.CHEW PO (07:54)
[2023-02-24] MEDS: Furosemide 40 MG TABLET PO (07:54)
[2023-02-24] MEDS: Metoprolol Tartrate 25 MG TABLET PO ×2 (07:54→21:23)
[2023-02-24] MEDS: 0.9 % Sodium Chloride Flush 3 ML SYRINGE IVFLUSH ×2 (07:54→15:48)
[2023-02-24] MEDS: Isosorbide Mononitrate 60 MG TAB.ER.24H PO (07:54)
[2023-02-24 07:59] LABS: Glucose, Whole Blood 92 mg/dL (60-115)
[2023-02-24 11:08] LABS: Glucose, Whole Blood 142 mg/dL (60-115)
--- NOTE | 2023-02-24 12:57 | HO.PM.IMPN ---
Subjective Subjective Date of Service: 02/26/23 Interval History: sob Physical Exam Vital Signs: Vital Signs: Last Vital Signs Temp 97.4 F 02/24/23 10:49 Pulse 67 02/24/23 11:25 Resp 18 02/24/23 11:25 BP 109/53 L 02/24/23 10:49 Pulse Ox 94 02/24/23 11:15 O2 Del Method Room Air 02/24/23 11:15 O2 Flow Rate 2 02/24/23 10:49 BMI result Body Mass Index 25.4 Objective Data Active Medications Acetaminophen (Acetaminophen 325 Mg Tablet) 650 mg PO Q6H PRN PRN Reason: Pain, Mild (Pain Scale 1-3) Albuterol Sulfate (Albuterol Sulfate 90 Mcg 8 Gm Inhaler) 2 puff INHALE Q4H [facility] Last Admin: 02/24/23 11:25 Dose: 2 puff Documented By: SHANI Aspirin (Aspirin 81 Mg Tab.Chew) 81 mg PO DAILY [facility] Last Admin: 02/24/23 07:54 Dose: 81 mg Documented By: GUILLERMINA Atorvastatin Calcium (Atorvastatin Calcium 80 Mg Tablet) 80 mg PO DAILY [facility] Last Admin: 02/24/23 07:54 Dose: 80 mg Documented By: GUILLERMINA Benzonatate (Benzonatate 100 Mg Capsule) 100 mg PO TID PRN PRN Reason: Cough Dextrose (Dextrose 50 % 25 Gm/50 Ml Syringe) 25 gm IVPUSH Q15M PRN; Protocol PRN Reason: per Hypoglycemia Standing Ord. Docusate Sodium (Docusate Sodium 100 Mg Capsule) 100 mg PO DAILY PRN PRN Reason: Constipation Fluticasone/Vilanterol (Fluticasone/Vilanterol 100/25 Blst.W.Dev) 1 puff INHALE RDAILY [facility] Last Admin: 02/24/23 07:35 Dose: 1 puff Documented By: SHANI Furosemide (Furosemide 40 Mg Tablet) 40 mg PO DAILY [facility]; Protocol Last Admin: 02/24/23 07:54 Dose: 40 mg Documented By: GUILLERMINA Gabapentin (Gabapentin 100 Mg Capsule) 100 mg PO TID [facility] Last Admin: 02/24/23 07:54 Dose: 100 mg Documented By: GUILLERMINA Glipizide (Glipizide Xl 10 Mg Tab.Er.24) 10 mg PO DAILY [facility] Last Admin: 02/24/23 07:54 Dose: 10 mg Documented By: GUILLERMINA Glucose (Glucose Gel 15 Gm Gel..Gram.) 15 gm PO Q15M PRN; Protocol PRN Reason: per Hypoglycemia Standing Ord. Heparin Sodium (Porcine) (Heparin Sodium,Porcine 5,000 Unit/Ml Vial) 5,000 unit SUBCUT Q12H [facility] Last Admin: 02/24/23 04:30 Dose: 5,000 unit Documented By: NICK Insulin Human Lispro (Insulin Lispro 100 Unit/Ml 3 Ml Vial) 0 unit SUBCUT QIDACHS [facility]; Protocol Last Admin: 02/24/23 11:04 Dose: Not Given Documented By: GUILLERMINA Non-Admin Reason: [id number] Isosorbide Mononitrate (Isosorbide Mononitrate 60 Mg Tab.Er.24h) 60 mg PO DAILY [facility]; Protocol Last Admin: 02/24/23 07:54 Dose: 60 mg Documented By: GUILLERMINA Melatonin (Melatonin 3 Mg Tablet) 6 mg PO BEDTIME PRN PRN Reason: Insomnia Last Admin: 02/21/23 20:04 Dose: 6 mg Documented By: ALANNA Metoprolol Tartrate (Metoprolol Tartrate 25 Mg Tablet) 25 mg PO BID [facility]; Protocol Last Admin: 02/24/23 07:54 Dose: 25 mg Documented By: GUILLERMINA Omeprazole (Omeprazole 20 Mg Capsule.) 20 mg PO DAILY@0630 [facility] Last Admin: 02/24/23 05:12 Dose: 20 mg Documented By: NICK Ondansetron HCl (Ondansetron Hcl 4 Mg/2 Ml Vial) 4 mg IVPUSH Q8H PRN PRN Reason: Nausea and Vomiting Sodium Chloride (0.9 % Sodium Chloride Flush 3 Ml Syringe) 3 ml IVFLUSH QSHIFT [facility] Last Admin: 02/24/23 07:54 Dose: 3 ml Documented By: GUILLERMINA Tamsulosin HCl (Tamsulosin Hcl 0.4 Mg Capsule) 0.4 mg PO BEDTIME [facility] Last Admin: 02/23/23 20:51 Dose: 0.4 mg Documented By: NICK Thiamine HCl (Thiamine Hcl 100 Mg Tablet) 100 mg PO DAILY [facility] Last Admin: 02/24/23 07:54 Dose: 100 mg Documented By: GUILLERMINA Labs 02/20/23 11:39 02/23/23 05:50 Labs: Laboratory Results - last 24 hr 02/23/23 02/23/23 02/24/23 14:58 20:09 07:22 POC Glucose 92 146 H 92 02/24/23 10:50 POC Glucose 142 H Assessment and Plan (1) CHF exacerbation: Status: Acute Plan 87-year-old Azeri-speaking male with a PMH significant for?CAD s/p CABG, HFpEF, HTN, HLD, GERD, and hlu-vxzrvfo-azaarytle diabetes type 2 who presents to the ED with worsening SOB and CONTRERAS. Pt will be admitted to the hospital for treatment further evaluation of acute hypoxic respiratory failure in the setting of CHF exacerbation. Acute hypoxic respiratory failure in the setting of HFpEF exacerbation Pt with SOB, elevated BNP of 4410, satting as low as 85% on RA, CXR with likley pulmonary edema Questionable medication compliance with home Lasix. echocardiogram on 01/21 found LVEF 53% with moderate diastolic dysfunction, mild aortic stenosis, aortic regurgitation, and mitral valve regurgitation No evidence of bacterial infection/pneumonia; patient does not meet sepsis criteria; lactic acid WNL; rvp negative Follow lytes, mg, I/O: 3.1 liter neg given furosemide 20 mg IV b.i.d.,Daily weights, low-salt diet Titrate supplemental O2 >92, wean as tolerated Monitor on telemetry hypokalemia: repleted. HTN Continue home meds HLD/CAD Continue aspirin, statin Cardiac diet Jvh-lpbyfsy-gummrqssg diabetes type [address] on sliding scale insulin Diabetic diet GERD PPI Full Code DVT Prophylaxis: Heparin ongoing hospitalization need : treatment of?acute hypoxic respiratory failure in the setting of CHF exacerbation- treated with IV diuretics and close monitoring. Quality Stroke Does the patient have a stroke diagnosis?: No VTE Prior VTE?: No VTE Risk Level:: Medical - moderate - high VTE Device Contraindication: Treatment Not Indicated VTE Drug Contraindication: N/A - Med Ordered
--- NOTE | 2023-02-24 14:10 | MHC.CM.PN ---
PT'S DTR ENOC NOVOA [phone], GDTR DEVON CONNER [phone], TASK SENT TO REGISTRATION
[2023-02-24 15:34] LABS: Glucose, Whole Blood 133 mg/dL (60-115)
[2023-02-24 21:17] LABS: Glucose, Whole Blood 128 mg/dL (60-115)
[2023-02-24] MEDS: Tamsulosin HCL 0.4 MG CAPSULE PO (21:23)
[2023-02-25] MEDS: Heparin Sodium,Porcine 5,000 UNIT/ML VIAL 5000 UNIT SUBCUT (03:42)
[2023-02-25 03:44] VITALS: BP 115/57; PULSE 75; RESP 20; TEMP 37.4; O2SAT 96
[2023-02-25] MEDS: Omeprazole 20 MG CAPSULE.DR PO (05:56)
[2023-02-25 06:00] VITALS: BMI 25.8
[2023-02-25 07:24] VITALS: BP 136/75; PULSE 82; RESP 17; TEMP 36.5; O2SAT 96
[2023-02-25] MEDS: Fluticasone/Vilanterol 100/25 BLST.W.DEV 1 PUFF INHALE (07:37)
[2023-02-25 07:38] VITALS: PULSE 74; RESP 18; O2SAT 97
[2023-02-25] MEDS: Albuterol Sulfate 90 MCG 8 GM INHALER 2 PUFF INHALE ×2 (07:38→11:20)
[2023-02-25 08:07] LABS: Glucose, Whole Blood 108 mg/dL (60-115)
[2023-02-25] MEDS: 0.9 % Sodium Chloride Flush 3 ML SYRINGE IVFLUSH (08:51)
[2023-02-25] MEDS: Atorvastatin Calcium 80 MG TABLET PO (08:52)
[2023-02-25] MEDS: Thiamine HCL 100 MG TABLET PO (08:52)
[2023-02-25] MEDS: Aspirin 81 MG TAB.CHEW PO (08:52)
[2023-02-25] MEDS: glipiZIDE XL 10 MG TAB.ER.24 PO (08:52)
[2023-02-25] MEDS: Metoprolol Tartrate 25 MG TABLET PO (08:52)
[2023-02-25] MEDS: Gabapentin 100 MG CAPSULE PO (08:52)
[2023-02-25] MEDS: Isosorbide Mononitrate 60 MG TAB.ER.24H PO (08:52)
[2023-02-25 11:15] LABS: Glucose, Whole Blood 158 mg/dL (60-115)
[2023-02-25 11:20] VITALS: PULSE 78; RESP 18; O2SAT 93
--- NOTE | 2023-02-25 12:04 | PM.DS ---
DS: Providers Provider Date of Service: 02/25/23 Date of admission: 02/20/23 13:55 Date of discharge: 02/25/23 Primary care physician: Cassandra Gomez MD Attending physician on discharge: Elif Gomez Discharging clinician: Elif Gomez DS: Diagnosis Discharge Diagnosis (1) CHF exacerbation: Status: Acute DS: Summary Hospital Course Hospital Course: 87-year-old Tanzanian-speaking male with a PMH significant for?CAD s/p CABG, HFpEF, HTN, HLD, GERD, and azn-hxnxhwm-wxlqfzrkw diabetes type 2 who presents to the ED with worsening SOB and CONTRERAS. Pt is a rather poor historian and vague, unable to clarify many questions or provide details. Pt states he came to the hospital because of shortness of breath and inability to breath the past few days. Unclear exactly when symptoms began, but seemed to have been ongoing at least 1-2 weeks. Denies cough. Unsure if legs are more swollen than before. Cannot tell if he has any weight gain. Of note, he was recently admitted to the hospital on 01/20-01/23 for similar symptoms, and was treated for acute CHF exacerbation secondary to medication noncompliance. Apparently his Lasix was no longer on his medication list and he had not been taking it for an unknown period of time. Patient was discharged home on Lasix 20 mg p.o. daily. Patient states he has been compliant with all of his medications, but is unaware of which ones he is taking. Reports his daughter gives him all of his medications daily. Attempt to contact daughter, however no one picked up at number in the chart. Will repeat code status from last admission (full code) until can verify with daughter. In the ED pt was afebrile elevated HR 98, tachypneic up to 34, hypertensive up to 187/86, satting as low as 85% on RA. Labs were significant for bilirubin 2.2, and BNP 4410. No leukocytosis. Stable H&H. Electrolytes WNL. Tested negative for influenza type a and B, and COVID. CXR showed likely evidence of CHF with chronic moderate right pleural effusion, official reading still pending. EKG demonstrated normal sinus rhythm with T-wave inversions in inferior leads, but no significant ST elevations or depressions. Pt was treated with Lasix and Zosyn. Pt will be admitted to the hospital for treatment further evaluation of acute hypoxic respiratory failure in the setting of CHF exacerbation. Hospital course: Patient was admitted for shortness of breath found to have acute hypoxemic respiratory failure secondary to CHF exacerbation-started on IV did diuretics -patient seems to be responded well with diuresis currently almost 6 L negative, leg swelling and shortness of breath improved to the baseline. Seems like patient have noncompliance to the diuretics -strongly advised to follow CHF education as well as strict compliance with diuretics. Hypokalemia repleted and resolved. CHF education given-if patient gained 2 lb or more in a week or worsening leg swelling may need to adjust Lasix out patiently(told the patient daughter 20 mg lasix until bmp repeat outapteint and then switch to 40 mg daily) . Urine retention: Improved with Flomax, consider outpatient urology follow-up as per PCP. plan: continue lasix 20 mg po daily,moniter bmp outpatient . added flomax for urinary retention-consider urology eval outapteint for urinary retention. CHF education given-if patient gained 2 lb or more in a week or worsening leg swelling may need to adjust Lasix out patiently. Follow-up with BMP and PCP out patiently. Also patient was strongly advised to follow-up with his windows architect. Time Attestation Discharge coordination time: Greater than 30 minutes Quality: Safe Use of Opioids Does Pt have an Active Cancer Diagnosis on the Problem List?: No Quality: Stroke Does the patient have a stroke diagnosis?: No Physical Exam Vital Signs: Vital Signs: Last Vital Signs Temp 97.7 F 02/25/23 07:24 Pulse 78 02/25/23 11:20 Resp 18 02/25/23 11:20 BP 136/75 02/25/23 07:24 Pulse Ox 96 02/25/23 07:24 O2 Del Method Room Air 02/25/23 07:24 O2 Flow Rate 2 02/24/23 10:49 BMI result Body Mass Index 25.8 Appearing in no acute distress lung sounds are clear to auscultation heart regular rate rhythm, clear S1, S2 positive bowel sounds, abdomen is soft, nontender ext: no cyanosis ,no edema neuro patient is alert x3, no focal deficits DS: Data Data Completed and Pending Completed studies during hospitalization [Text1]: Procedures Drainage of Peritoneal Cavity, Percutaneous Approach (04/14/22) Labs on day of discharge: Laboratory Results - last 24 hr 02/24/23 02/24/23 02/25/23 15:20 20:48 07:55 POC Glucose 133 H 128 H 108 02/25/23 11:07 POC Glucose 158 H Preliminary micro results at discharge 02/20/23 12:18 Blood Culture - Preliminary Blood - Venous No growth after 48 hours. 02/20/23 12:20 Blood Culture - Preliminary Blood - Venous No growth after 48 hours. Discharge Plan Discharge Anticipated Discharge Date/Time: 02/25/23 11:56 Patient Disposition: Home Health Service Discharge Diagnosis: chf excerebation Referrals: [facility] [Outside] - 1 Week Cassandra Duarte MD [Primary Care Provider] - 1 Week Discharge Medications: New tamsulosin 0.4 mg Capsule 0.4 mg PO BEDTIME Qty: 30 0RF Continued thiamine mononitrate (vit B1) 100 mg Tablet 100 mg PO DAILY Qty: 30 0RF glipizide 10 mg tablet extended release 24hr 1 tab PO DAILY Qty: 30 0RF isosorbide mononitrate 60 mg tablet extended release 24 hr 1 tab PO DAILY Qty: 30 0RF omeprazole 20 mg capsule,delayed release(DR/EC) 1 cap PO DAILY Qty: 30 0RF gabapentin 100 mg capsule 1 cap PO TID Qty: 90 0RF losartan 100 mg tablet 1 tab PO DAILY Qty: 30 0RF furosemide [Lasix] 20 mg tablet 20 mg PO DAILY Qty: 60 0RF atorvastatin 80 mg tablet 80 mg PO QAM fluticasone propion-salmeterol 100-50 mcg/dose blister with device 1 ea INHALATION Q12H albuterol sulfate [Ventolin HFA] 90 mcg/actuation HFA aerosol inhaler 2 puff INHALATION Q4H metoprolol tartrate 50 mg Tablet 50 mg PO BID Qty: 60 0RF Protocol: Hold for SBP/HR < HOLD for SBP < : 90 HOLD for HR < : 60 aspirin 81 mg Tablet,Chewable 81 mg PO DAILY Qty: 30 0RF Discharge Orders: Discharge Order (Routine); Ordered 02/25/23 Ordered By: Elif Gomez Diet: Advance to usual diet Activity on Discharge: As tolerated Stand Alone Forms: Patient Portal Discharge page Care Plan Goals: Patient was admitted for shortness of breath found to have acute hypoxemic respiratory failure secondary to CHF exacerbation-started on IV did diuretics -patient seems to be responded well with diuresis currently almost 6 L negative, leg swelling and shortness of breath improved to the baseline. Seems like patient have noncompliance to the diuretics -strongly advised to follow CHF education as well as strict compliance with diuretics. Hypokalemia repleted and resolved. CHF education given-if patient gained 2 lb or more in a week or worsening leg swelling may need to adjust Lasix out patiently(told the patient daughter 20 mg lasix until bmp repeat outapteint and then switch to 40 mg daily) . Urine retention: Improved with Flomax, consider outpatient urology follow-up as per PCP. Follow-up with BMP and PCP out patiently. Also patient was strongly advised to follow-up with his windows architect. Health Concerns: As above. Plan of Treatment: As above. Assessment: As above. Discharge Date/Time: 02/25/23 14:37
[2023-02-25] MEDS: Insulin Lispro 100 UNIT/ML 3 ML VIAL SUBCUT (12:19)
--- NOTE | 2023-02-25 12:35 | MHC.CM.PN ---
LILIYA spoke to Daughter/HCP/Edyta @ [phone] and informed her that MD was ready to dc Patient home today with VNA. Initially Edyta said she would be here around 3PM to pick Patient up but then went on to express clinical questions/concerns, including questioning if Patient should go to a [facility]. LILIYA has asked MD to phone Edyta to address her medical questions. IMM addressed.
--- NOTE | 2023-02-25 14:28 | MHC.CM.PN ---
Patient has been medically cleared for dc to home today with services. [facility] has accepted Patient and has been made aware of today's dc. Patient's Daughter is here to transport Patient to home now that MD has spoken with her and addressed her questions.
--- NOTE | 2023-02-25 14:33 | W.MHC.F2F ---
Service Date Service Date: 02/25/23 Encounter Date of encounter: 02/25/23 Encounter: CHF, urine retention Reasons for Services Signs and symptoms assessed: Shortness of breath or chest pain or any urinary complaints. Reason for senior living: medication management, medication treatment and teach disease management MD Overseeing Care: Cassandra Gomez Homebound: Leaving the home is medically contraindicated at this time without the asist of a device and/or another person due th the listed conditions above and below. Reason homebound: weakness related to hospital stay Homebound supporting statement: Patient is generalized weak and multiple comorbidities including CHF, generalized weak post hospitalization, urinary retention, need help with PT, blood draws and appointments. Certification: Based on the above findings, I certify that this patient is confined to the home and needs intermittent senior living care, physical therapy and/or speech therapy, or continues to need occupational therapy. The patient is under my care, and I have initiated the establishment of the plan of care. The patient will be followed by a physician who will periodically review the plan of care. Time Spent With Patient Time: Total time managing care of this patient today ____ minutes.
== END 2023-02-25 14:37 | disposition home health service (06) | DRG 291 ==
LOC: HO.ED 12:34 → HO.EDOVER 14:05 → HO.IMC 14:43
PROVIDERS: Admitting Provider Student in an Organized Health Care Education/Training Program; Emergency Provider Student in an Organized Health Care Education/Training Program; PCP Student in an Organized Health Care Education/Training Program; Visit Provider Internal Medicine
DX: I11.0 Hypertensive heart disease with heart failure (principal); I50.33 Acute on chronic diastolic (congestive) heart failure; J96.01 Acute respiratory failure with hypoxia; E78.5 Hyperlipidemia, unspecified; R33.9 Retention of urine, unspecified; E87.6 Hypokalemia; K21.9 Gastro-esophageal reflux disease without esophagitis; I08.0 Rheumatic disorders of both mitral and aortic valves; I25.10 Atherosclerotic heart disease of native coronary artery without angina pectoris; Z20.822 Contact with and (suspected) exposure to COVID-19; Z91.148 Patient's other noncompliance with medication regimen for other reason; Z79.51 Long term (current) use of inhaled steroids; Z79.82 Long term (current) use of aspirin; Z79.84 Long term (current) use of oral hypoglycemic drugs; Z79.899 Other long term (current) drug therapy
CPT/HCPCS: 36415; 71045; 80048; 80053; 82947; 83605; 83735; 83880; 85025; 85610; 87040; 87502; 87633; 87635; 93005; 94640; 94664; 97116; 97162; 99285; J1644; J1940; J2543

== ENCOUNTER → 2023-02-20 11:13 | Outpatient (BNV) | payer OTHER, SELFPAY | PROVIDERS: Admitting Provider Student in an Organized Health Care Education/Training Program; Emergency Provider Student in an Organized Health Care Education/Training Program; PCP Student in an Organized Health Care Education/Training Program; Visit Provider Internal Medicine Cardiovascular Disease | DX: R94.31 Abnormal electrocardiogram [ECG] [EKG] (principal); R06.02 Shortness of breath | CPT/HCPCS: 93010 ==

== ENCOUNTER → 2023-02-20 13:55 | Outpatient (BNV) | payer OTHER, SELFPAY | PROVIDERS: Admitting Provider Student in an Organized Health Care Education/Training Program; Emergency Provider Student in an Organized Health Care Education/Training Program; PCP Student in an Organized Health Care Education/Training Program; Visit Provider Student in an Organized Health Care Education/Training Program | DX: I50.9 Heart failure, unspecified (principal); J96.01 Acute respiratory failure with hypoxia | CPT/HCPCS: 99223; 99232; 99239; G0180 ==

== ENCOUNTER 2023-06-07 12:38 | Outpatient (AMB) | payer OTHER, SELFPAY ==
[2023-06-07 12:50] VITALS: BP 116/68; PULSE 72; BMI 25.8
--- NOTE | 2023-06-07 12:50 | MHC.OFFVIS ---
Intake Vital Signs 06/07/23 12:50 Height 5 ft 3 in Weight 145 lb 8.081 oz BMI 25.8 BP 116/68 Blood Pressure Location Lt brachial Position Sitting Pulse 72 Intake Visit Reasons: [facility]/-/SOB ([facility] pt) rs x2 Intake Note: PT is followup after C D/C PT feels good Allergies perflutren [From [employer]inSem[facility]] Allergy (Severe, Verified 06/07/23 13:03) Respiratory distress Medication List - Last Reconciled 06/10/23 by Aliyah Watson NP albuterol sulfate 90 mcg/actuation (Ventolin HFA) 2 puffs inhalation Q4H aspirin 81 mg PO DAILY 90 days atorvastatin 80 mg PO QAM 90 days fluticasone propion-salmeterol 100-50 mcg/dose 1 ea inhalation Q12H furosemide (Lasix) 20 mg PO DAILY 90 days gabapentin 1 cap PO TID glipizide ER 1 tab PO DAILY isosorbide mononitrate ER 1 tab PO DAILY losartan 1 tab PO DAILY metoprolol tartrate 50 mg See Protocol PO BID 90 days omeprazole 1 cap PO DAILY tamsulosin 0.4 mg PO BEDTIME HPI HPI Comments History of Present Illness Details 87-year-old male presents today for a follow-up after being in the hospital for dyspnea on exertion. He has multple comorbitities - CAD s/p CABG, Heart failure, hypertension, hyperlipidemia, and type 2 diabetes. He reports he has been doing well and been complaint with his medications. He and his daughter report his breathing has been well. He is cannot ambulate as well as prior to admission to hospital but it is related to fatigue and not his breathing. He has been increasing his acitivties and doing well with them. [facility] Medical History (Updated 06/10/23 @ 08:44 by Aliyah Watson NP) Coronary artery disease Seizure Aortic stenosis Cognitive decline Frostbite of both hands Diabetes GERD (gastroesophageal reflux disease) Mood disorder Essential hypertension Abdominal ascites Pleural effusion, right CATARINO (acute kidney injury) CHF exacerbation Surgical History Hx of CABG Social History Household Members: Children Housing: Apartment Do you presently have visiting nurse or other home services: No Alcohol intake: former Patient Tobacco Use Status: Never used Tobacco Second Hand Smoke Exposure: No service: No Current occupational status: retired Review of Systems Const Denies weakness ENT Denies dizziness Card Denies chest pain, Denies chest pain with activity, Denies syncope, Denies rapid heart rate, Denies pedal edema, Denies edema, Denies leg edema, Denies lightheadedness, Denies palpitations, Denies dyspnea, Denies dyspnea on exertion and Denies orthopnea Resp Denies cough, Denies dyspnea and Denies dyspnea on exertion GI Denies hematochezia and Denies change in stool character Musc Denies abnormal gait, Denies muscle cramps, Denies muscle weakness, Denies numbness, Denies radiating pain into limb and Denies tingling Neuro Denies abnormal gait, Denies dizziness, Denies syncope, Denies numbness, Denies tingling and Denies weakness Endo Denies palpitations Physical Exam Vital Signs: Last Vital Signs Pulse 72 06/07/23 12:50 BP 116/68 06/07/23 12:50 BMI result Body Mass Index 25.8 Assessment & Plan Assessment & Plan (1) Acute on chronic HFrEF (heart failure with reduced ejection fraction): Code(s): I50.23 - Acute on chronic systolic (congestive) heart failure (2) Coronary artery disease: Code(s): I25.10 - Atherosclerotic heart disease of [place] coronary artery without angina pectoris Plan Reviewed signs and symptoms of angina. He has been using aspirin, statins, and beta blockers - continue as current. Currently not fluid overloaded. Reviewed avoidance of salt and importance of daily weights. On Lasix 20mg, additional tablet as needed for weight gain of 3+lbs overnight or 5+ lbs in a week. Patient and daughter report understanding. Will check lipid and BMP. Orders: Orders Basic Metabolic Panel 06/07/23 I50.23 - Acute on chronic systolic (congestive) heart failure Medications: Changed From aspirin 81 mg PO DAILY 30 tabs 0RF To aspirin 81 mg PO DAILY 90 days 90 tabs 1RF From atorvastatin 80 mg PO QAM To atorvastatin 80 mg PO QAM 90 days 90 tabs 1RF From furosemide (Lasix) 20 mg PO DAILY 60 tabs 0RF To furosemide (Lasix) take an additional tablet as needed for fluid retention. 20 mg PO DAILY 90 days 110 tabs 1RF From metoprolol tartrate 50 mg See Protocol PO BID 60 tabs 0RF To metoprolol tartrate 50 mg See Protocol PO BID 90 days 180 tabs 1RF Coding Level of Care Code Est Pt Level 3 (80814) Diagnoses Acute on chronic HFrEF (heart failure with reduced ejection fraction) I50.23 Coronary artery disease I25.10
== END 2023-06-07 13:30 | disposition home or self-care (01) ==
PROVIDERS: PCP Student in an Organized Health Care Education/Training Program; Visit Provider Nurse Practitioner
DX: I50.23 Acute on chronic systolic (congestive) heart failure (principal); I25.10 Atherosclerotic heart disease of native coronary artery without angina pectoris
CPT/HCPCS: 99213

== ENCOUNTER → 2023-06-07 12:38 | Outpatient (BNVA) | payer OTHER, SELFPAY | PROVIDERS: PCP Student in an Organized Health Care Education/Training Program; Visit Provider Nurse Practitioner | DX: I50.23 Acute on chronic systolic (congestive) heart failure (principal); I25.10 Atherosclerotic heart disease of native coronary artery without angina pectoris | CPT/HCPCS: 99212 ==